=== PATIENT | male | born 1935 | race Caucasian/White ===

== ENCOUNTER 2017-07-20 14:00 | Outpatient (RCR) | payer MEDICARE ==
[~2017-07-20 14:00] MED LIST: AC325T PO; ACC15GT EXT; ALB.5NB20 HHN; AMLO5TAB2 PO; ASP81TEC PO; AVOD0.5CAP PO; AZTH250C PO; BENZ1LOZ50 MM; DILT240C PO; EZET10TA5 PO; EZET1TAB27 PO; EZET1TAB43 PO; FLC100T1 PO; FNST5T PO; IPRA3AMP11 INH; MAG355OR55 PO; NEBI5TAB8 PO; NTR.4SL SL; NYST1000 PO; PRD20T PO; SMV10T PO; TIOT18CA IH; TMSL.4C PO; WARF4TAB9 PO; WARF5TAB58 PO
[2017-07-25 14:00] VITALS: BP 118/60
[2017-07-27 14:00] VITALS: BP 130/62
[2017-07-27 15:00] VITALS: BP 120/50
[2017-08-01 13:50] VITALS: BP 130/70
[2017-08-01 15:00] VITALS: BP 130/60
[2017-08-03 14:00] VITALS: BP 130/68
[2017-08-03 15:00] VITALS: BP 148/50
[2017-08-10 14:00] VITALS: BP 100/56
[2017-08-17 13:55] VITALS: BP 147/67
[2017-08-17 15:00] VITALS: BP 138/64
[2017-08-22 14:00] VITALS: BP_SYST 147; BP_SYST 150; BP_DIAS 60; BP_DIAS 67
[2017-08-22 15:00] VITALS: BP 147/70
[2017-08-24 13:50] VITALS: BP 140/60
[2017-08-24 14:30] VITALS: BP 130/60
[2017-08-29 13:50] VITALS: BP 122/60
[2017-08-29 14:40] VITALS: BP 130/60
[2017-08-31 14:00] VITALS: BP_SYST 123; BP_SYST 140; BP_DIAS 60; BP_DIAS 70
[2017-08-31 15:00] VITALS: BP 123/70
[2017-09-05 14:00] VITALS: BP 132/60
[2017-09-05 15:00] VITALS: BP 130/60
[2017-09-07 14:10] VITALS: BP 120/50
[2017-09-07 14:40] VITALS: BP 120/60
[2017-09-08] MEDS ORDERED: TAMS0.4C2 PO (15:16)
[2017-09-08] MEDS ORDERED: TIOT18CA2 INH (15:16)
[2017-09-08] MEDS ORDERED: ALBU18HF2 INH (15:16)
[2017-09-08] MEDS ORDERED: DILT240C53 PO (15:16)
[2017-09-08] MEDS ORDERED: FLEC50TA PO (15:16)
[2017-09-08] MEDS ORDERED: DUTA0.5C14 PO (16:08)
[2017-09-08] MEDS ORDERED: WARF-47 PO ×2 (16:08)
[2017-09-08] MEDS ORDERED: PITA2TAB2 PO (16:08)
[2017-09-08] MEDS ORDERED: FOLI1TAB6 PO (16:08)
[2017-09-08] MEDS ORDERED: DOCU-143 PO (16:08)
[2017-09-08] MEDS ORDERED: FLUT1AER INH (16:22)
== END 2017-09-17 | disposition home or self-care (01) ==
LOC: PULM 14:00
PROVIDERS: ATTEND Family Medicine
DX: J44.9 Chronic obstructive pulmonary disease, unspecified (principal)
CPT/HCPCS: 99211

== ENCOUNTER 2017-09-08 12:35 | Inpatient (IN) | payer MEDICARE ==
[~2017-09-08] VITALS: Ht 172.7 cm; Wt 85.9 kg
[2017-09-08] MEDS ORDERED: morphine INJ 10 MG/ML 1ML (SYR OR VIAL) ONE (12:39)
[2017-09-08] MEDS ORDERED: morphine INJ 10 MG/ML 1ML (SYR OR VIAL) IVP ONE ×2 (12:45→13:45)
[2017-09-08] MEDS ORDERED: ONDANSETRON 4 MG/2 ML (SDV) Z0FRAN ONE (12:48)
[2017-09-08] MEDS ORDERED: fentaNYL INJECTION 100 MCG/2 ML AMP ONE (12:48)
[2017-09-08] MEDS ORDERED: ONDANSETRON 4 MG/2 ML (SDV) Z0FRAN IVP ONE (13:00)
[2017-09-08] MEDS ORDERED: fentaNYL INJECTION 100 MCG/2 ML AMP IVP ONE (13:00)
[2017-09-08] MEDS ORDERED: ORPHENADRINE 60 MG/2 ML (NORFLEX) AMP IV ONE (13:00)
--- NOTE | 2017-09-08 13:03 | ED Fall/Injury ---
General Stated Complaint: FALL--LT HIP PAIN History of Present Illness Date Seen by Provider: September 08, 2017 Time Seen by Provider: 12:50 Initial Comments Patient is an 81-year-old male who was brought in by [facility] for a fall while going out of the house [place], c/o neck pain, and left hip pain. He does not recall how he fell, but denies any chest pain, shortness of breath, dizziness or syncope prior to the fall. He reports laying outside until he was found by his son, his son reports that he was outside no more than 30 minutes. Occurred: just prior to arrival Severity: moderate Injuries/Pain Location: neck, pelvis (Left hip) Context: unknown Loss of Consciousness: no loss of consciousness Modifying Factors: Improves With Immobilization; Worse With Movement; Improves With Pain Medication Associated Symptoms (Fall): Denies Symptoms Allergies and Home Medications Allergies Uncoded Allergies: Tape (Allergy, Mild, 09/08/17) Can have paper tape Home Medications Acetaminophen 325 Mg Tablet, 650 MG PO Q4H PRN, (Reported) Acyclovir 15 Gm Oint, 0 EXT TID, (Reported) APPLY SPARINGLY TO LIPS Albuterol Sulfate 18 Gm Hfa.aer.ad, 2 PUFF INH Q4H PRN for WHEEZING, (Reported) Albuterol/Ipratropium 3 Ml Nebu, 3 ML INH Q4H PRN, (Reported) Benzocaine/Pectin 1 Each Lozenge, 1 EACH MM q2h PRN, (Reported) Diltiazem HCl 240 Mg Cap.er.24h, 240 MG PO DAILY, (Reported) Ezetimibe 10 Mg Tablet, 10 MG PO DAILY@0900, (Reported) Finasteride 5 Mg Tab, 5 MG PO DAILY, (Reported) Flecainide Acetate 50 Mg Tablet, 50 MG PO BID, (Reported) Mag Hydrox/Al Hydrox/Simeth 355 Ml Oral.susp, 30 ML PO Q4H PRN, (Reported) Nebivolol Hcl 5 Mg Tablet, 1 EACH PO DAILY, (Reported) Nitroglycerin 0.4 Mg Subl, 0.4 MG SL NEEDED, (Reported) Prednisone 20 Mg Tab, 40 MG PO DAILY, (Reported) Simvastatin 10 Mg Tab, 10 MG PO DAILY, (Reported) Tamsulosin HCl 0.4 Mg Cap.er.24h, 0.4 MG PO BID, (Reported) Tiotropium Rock 1 Inh Aerp, 1 CAP INH DAILY, (Reported) Patient Home Medication List Home Medication List Reviewed: Yes Review of Systems Constitutional: see HPI, other (Pain) Eyes: No Symptoms Reported Ears, Nose, Mouth, Throat: no symptoms reported Respiratory: no symptoms reported Cardiovascular: no symptoms reported, other (Reports history of A. fib) Gastrointestinal: no symptoms reported Genitourinary: no symptoms reported Musculoskeletal: neck pain, other (Left hip pain) Skin: no symptoms reported Psychiatric/Neurological: No Symptoms Reported Past Fxaaenk-Rbffzz-Aftrns Hx Past Medical History Reproductive Disorders: No Physical Exam Vital Signs Vital Signs - First Documented 09/08/17 12:35 Temp 97.0 Pulse 68 Resp 18 B/P (MAP) 110/79 (89) Pulse Ox 91 Capillary Refill : General Appearance: WD/WN, mild distress HEENT: normal ENT inspection, TMs normal, pharynx normal Neck: supple, tender midline Cardiovascular: regular rate, rhythm, no edema, no gallop, no JVD, no murmur Respiratory: chest non-tender, lungs clear, normal breath sounds, no respiratory distress, no accessory muscle use Peripheral Pulses: 1+ Dorsalis Pedis (R), 1+ Left Dors-Pedis (L) Gastrointestinal: normal bowel sounds, non tender, soft, no organomegaly, no pulsatile mass Back: normal inspection, no CVA tenderness, no vertebral tenderness Extremities: normal range of motion, non-tender, normal inspection, no pedal edema, no calf tenderness Neurologic/Psychiatric: alert, normal mood/affect, oriented x 3 Skin: normal color, warm/dry Lymphatic: no adenopathy [place] Coma Score Best Eye Response: (4) Open Spontaneously Best Verbal Response: (5) Oriented Best Motor Response: (6) Obeys Commands Raquel Total: 15 Progress/Results/Core Measures Results/Orders Lab Results Laboratory Tests Test 09/08/17 13:00 Range/Units White Blood Count 6.0 4.3-11.0 10^3/uL Red Blood Count 3.73 L 4.35-5.85 10^6/uL Hemoglobin 11.8 L 13.3-17.7 G/DL Hematocrit 35 L 40-54 % Mean Corpuscular Volume 95 80-99 FL Mean Corpuscular Hemoglobin 32 25-34 PG Mean Corpuscular Hemoglobin Concent 33 32-36 G/DL Red Cell Distribution Width 14.1 10.0-14.5 % Platelet Count 255 130-400 10^3/uL Mean Platelet Volume 9.3 7.4-10.4 FL Neutrophils (%) (Auto) 78 H 42-75 % Lymphocytes (%) (Auto) 11 L 12-44 % Monocytes (%) (Auto) 8 0-12 % Eosinophils (%) (Auto) 3 0-10 % Basophils (%) (Auto) 0 0-10 % Neutrophils # (Auto) 4.7 1.8-7.8 X 10^3 Lymphocytes # (Auto) 0.7 L 1.0-4.0 X 10^3 Monocytes # (Auto) 0.5 0.0-1.0 X 10^3 Eosinophils # (Auto) 0.2 0.0-0.3 10^3/uL Basophils # (Auto) 0.0 0.0-0.1 10^3/uL Prothrombin Time 22.5 H 12.2-14.7 SEC INR Comment 2.0 H 0.8-1.4 Urine Color YELLOW Urine Clarity CLEAR Urine pH 6 5-9 Urine Specific [place] 1.015 L 1.016-1.022 Urine Protein NEGATIVE NEGATIVE Urine Glucose (UA) NEGATIVE NEGATIVE Urine Ketones NEGATIVE NEGATIVE Urine Nitrite POSITIVE H NEGATIVE Urine Bilirubin NEGATIVE NEGATIVE Urine Urobilinogen NORMAL NORMAL MG/DL Urine Leukocyte Esterase NEGATIVE NEGATIVE Urine RBC (Auto) 1+ H NEGATIVE Urine RBC RARE /HPF Urine WBC NONE /HPF Urine Squamous Epithelial Cells NONE /HPF Urine Crystals NONE /LPF Urine Bacteria MODERATE H /HPF Urine Casts NONE /LPF Urine Mucus NEGATIVE /LPF Urine Culture Indicated YES Sodium Level 140 135-145 MMOL/L Potassium Level 4.6 3.6-5.0 MMOL/L Chloride Level 110 H 98-107 MMOL/L Carbon Dioxide Level 21 21-32 MMOL/L Anion Gap 9 5-14 MMOL/L Blood Urea Nitrogen 18 7-18 MG/DL Creatinine 1.18 0.60-1.30 MG/DL Estimat Glomerular Filtration Rate 59 BUN/Creatinine Ratio 15 Glucose Level 99 70-105 MG/DL Calcium Level 9.5 8.5-10.1 MG/DL Total Bilirubin 0.5 0.1-1.0 MG/DL Aspartate Amino Transf (AST/SGOT) 18 5-34 U/L Alanine Aminotransferase (ALT/SGPT) 15 0-55 U/L Alkaline Phosphatase 59 40-136 U/L Total Protein 6.2 L 6.4-8.2 GM/DL Albumin 3.8 3.2-4.5 GM/DL My Orders Orders - FREDY BARBA APRN Morphine Injection (Morphine Injection (09/08/17 12:45) Fentanyl Injection (Sublimaze Injection (09/08/17 12:48) Ondansetron Injection (Zofran Injectio (09/08/17 12:48) Ondansetron Injection (Zofran Injectio (09/08/17 13:00) Orphenadrine Injection (Norflex Injectio (09/08/17 13:00) Fentanyl Injection (Sublimaze Injection (09/08/17 13:00) Chest 1 View, Ap/Pa Only (09/08/17 12:51) Pelvis With Left Hip 2-3 Views (09/08/17 12:51) Cbc With Automated Diff (09/08/17 12:51) Comprehensive Metabolic Panel (09/08/17 12:51) Protime With Inr (09/08/17 12:51) Ua Culture If Indicated (09/08/17 12:51) Type And Screen (09/08/17 12:51) Ekg Tracing (09/08/17 12:51) Ct Head/Cervical Spine Wo (09/08/17 12:57) Urine Culture (09/08/17 13:00) Morphine Injection (Morphine Injection (09/08/17 13:45) Medications Given in ED Current Medications Medications Dose Ordered Sig/Narayan Route Start Time Stop Time Status Last Admin Dose Admin Fentanyl Citrate 50 mcg ONCE ONCE IVP 09/08/17 13:00 09/08/17 13:01 DC 09/08/17 13:15 50 MCG Morphine Sulfate 4 mg ONCE ONCE IVP 09/08/17 12:45 09/08/17 12:46 DC 09/08/17 12:46 4 MG Morphine Sulfate 4 mg ONCE ONCE IVP 09/08/17 13:45 09/08/17 13:46 DC 09/08/17 13:54 4 MG Ondansetron HCl 8 mg ONCE ONCE IVP 09/08/17 13:00 09/08/17 13:01 DC 09/08/17 13:00 8 MG Orphenadrine Citrate 30 mg ONCE ONCE IV 09/08/17 13:00 09/08/17 13:01 DC 09/08/17 14:50 30 MG Phytonadione 2.5 mg ONCE ONCE PO 09/08/17 14:15 09/08/17 14:28 DC 09/08/17 15:35 2.5 MG Vital Signs/I&O 09/08/17 12:35 Temp 97.0 Pulse 68 Resp 18 B/P (MAP) 110/79 (89) Pulse Ox 91 Initial ECG Impression Date: September 08, 2017 Initial ECG Impression Time: 13:08 Initial ECG Rate: 64 Initial ECG Rhythm: Normal Sinus Initial ECG Intervals: Normal Initial ECG Impression: Normal Departure Communication (Admissions) Time/Spoke to Admitting Phy: 14:12 1412-Dr. Oneill has been down to see the patient in the emergency room. Ordered vitamin K orally, plan for surgical repair by Dr. Culver tomorrow. Dr. Culver is in the room at this time visiting with the patient and family. 1537- patient did become bradycardic and hypoxic down to 85% while in the emergency room after administration of Phenergan plus the opiates that he had received prior to this. He was given 0.2 mg of IV Narcan which did improve his level of alertness unfortunately it also worsens his pain. Impression Primary Impression: Closed intertrochanteric fracture of left hip Disposition: 01 HOME, SELF-CARE Condition: Stable Admissions Decision to Admit Reason: Admit from ER (General) Decision to Admit/Date: September 08, 2017 Time/Decision to Admit Time: 14:12 Departure-Patient Inst. Referrals: ALEJANDRO GRAF MD (PCP/Family) Primary Care Physician FREDY BARBA APRN September 08, 2017 13:03
[2017-09-08 13:11] LABS: BASOPHILS % (AUTO) 0 % (0-10); EOSINOPHILS # (AUTO) 0.2 10^3/uL (0.0-0.3); EOSINOPHILS % (AUTO) 3 % (0-10); HEMATOCRIT 35 % (40-54); HEMOGLOBIN 11.8 G/DL (13.3-17.7); LYMPHOCYTES # (AUTO) 0.7 X 10^3 (1.0-4.0); LYMPHOCYTES % (AUTO) 11 % (12-44); MEAN CORPUSCULAR HEMOGLOBIN 32 PG (25-34); MEAN CORPUSCULAR HGB CONC 33 G/DL (32-36); MEAN CORPUSCULAR VOLUME 95 FL (80-99); MEAN PLATELET VOLUME 9.3 FL (7.4-10.4); MONOCYTES # (AUTO) 0.5 X 10^3 (0.0-1.0); MONOCYTES % (AUTO) 8 % (0-12); NEUTROPHILS # (AUTO) 4.7 X 10^3 (1.8-7.8); NEUTROPHILS % (AUTO) 78 % (42-75); PLATELET COUNT 255 10^3/uL (130-400); RED BLOOD COUNT 3.73 10^6/uL (4.35-5.85); RED CELL DISTRIBUTION WIDTH 14.1 % (10.0-14.5)
[2017-09-08 13:12] LABS: BILIRUBIN,URINE NEGATIVE (NEGATIVE); CLARITY,URINE CLEAR; COLOR,URINE YELLOW; GLUCOSE, URINE (UA) NEGATIVE (NEGATIVE); KETONES,URINE NEGATIVE (NEGATIVE); LEUKOCYTE ESTERASE ,URINE NEGATIVE (NEGATIVE); NITRITE,URINE POSITIVE (NEGATIVE); PH,URINE 6 (5-9); PROTEIN,URINE NEGATIVE (NEGATIVE); UROBILINOGEN,URINE NORMAL (NORMAL)
[2017-09-08 13:19] LABS: BACTERIA,URINE MODERATE /HPF; RBC,URINE RARE /HPF
[2017-09-08 13:22] LABS: PROTHROMBIN TIME PATIENT 22.5 SEC (12.2-14.7)
[2017-09-08 13:30] LABS: ALBUMIN 3.8 GM/DL (3.2-4.5); BILIRUBIN,TOTAL 0.5 MG/DL (0.1-1.0); CALCIUM 9.5 MG/DL (8.5-10.1); CREATININE SERUM 1.18 MG/DL (0.60-1.30); POTASSIUM 4.6 MMOL/L (3.6-5.0); TOTAL PROTEIN 6.2 GM/DL (6.4-8.2)
--- NOTE | 2017-09-08 13:58 | Diagnostic Imaging Report ---
INDICATION: Fall and left hip fracture. TIME OF EXAM: 1:53 p.m. COMPARISON: Comparison is made with prior chest from 05/07/2010. FINDINGS: The heart size is normal. Chronic pleural thickening in the left base is noted. No infiltrates are seen. There is no pneumothorax. The pulmonary vascularity is normal. IMPRESSION: Stable chest when compared with exam from 05/07/2010. Dictated by: Dictated on workstation # [id number]
--- NOTE | 2017-09-08 14:04 | Diagnostic Imaging Report ---
Clinical indication: Patient fell at home and complains of left hip pain. Exam: X-ray pelvis AP view and x-ray left hip, AP and crosstable lateral views. Comparison: None. Findings: There is a comminuted fracture of the mid proximal left femoral intertrochanteric region. There is mild varus angulation of the fracture region. There is roughly 7 mm of medial distraction of the lesser trochanteric fracture fragment. There is also mild foreshortening of the major intertrochanteric fracture region. There is no other fracture or dislocation seen on this exam. There is degenerative spurring of the acetabular rims and enthesopathy of the ischium. There is lower lumbar spine degenerative disease. Endovascular stent overlying the right sacral region. Vascular calcifications are seen. Impression: 1: There is a comminuted, mildly impacted, and displaced proximal left femoral intertrochanteric fracture with mild varus angulation. 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 Dictated by: Dictated on workstation # [id number]
--- NOTE | 2017-09-08 14:06 | Diagnostic Imaging Report ---
CLINICAL INDICATION: Patient fell and has complaints with no loss of consciousness or headache. Patient has neck pain. EXAM: Head CT without IV contrast. Axial CT scan of the cervical spine with sagittal and coronal reformations. COMPARISON: None. FINDINGS: Head CT: There is no evidence of acute cerebral infarct, intracranial hemorrhage, or gross mass effect. The brain parenchymal volume appears appropriate for patient's age. There are patchy and confluent areas of low-attenuation white matter changes seen throughout both cerebral hemispheres, likely representing chronic small vessel ischemic disease and leukoaraiosis. There is normal russell-white matter distinction. There is no significant midline shift or herniation. There is no evidence of hydrocephalus. The basal cisterns are unremarkable. There are postop changes with reconstructive surgery with plates and screws across the floor of the left orbit. There is no evidence of acute fracture of the skull or visualized maxillofacial structures. There is consolidation of the right maxillary sinus and mucosal thickening involving the ethmoid sinus. Temporal bones show no significant abnormality. Cervical spine: There is no acute cervical spine fracture. There is grade 1 anterolisthesis of C4 on C5 but no pars defect seen and is likely degenerative. There are spurs involving the cervical spine and facet arthropathy. There is at least mild central canal narrowing at the C5-C6 level due to suspected diffuse disc bulge with posterior disc spurs. There is no significant neck soft tissue abnormality. The visualized upper lung soliz show no major abnormality. There is heterogeneous nodular appearance of the left thyroid gland. Thyroid nodule may be present. IMPRESSION: 1: There is no evidence of acute intracranial hemorrhage. There is no acute skull fracture. 2: There is no acute cervical spine fracture. 3: There is multilevel cervical spine degenerative disease including grade 1 anterolisthesis of C4 on C5. 4: There is diffuse chronic small vessel ischemic disease and leukoaraiosis. 5: Heterogeneous nodular appearance of the left thyroid gland. Routine ultrasound of the thyroid gland would help better evaluate. Dictated by: Dictated on workstation # [id number]
[2017-09-08] MEDS ORDERED: VITAMIN K 1 MG/ML ORAL SOLN 1 ML SYRINGE PO ONE (14:15)
[2017-09-08] MEDS ORDERED: MILK OF MAGNESIA 400 MG/5 ML 30 ML UDC PO PRN (14:45)
[2017-09-08] MEDS ORDERED: PROMETHAZINE INJ 25 MG/ML (PHENERGAN) AMP IVP ONE (14:45)
[2017-09-08] MEDS ORDERED: ANTACID SUSP 30 ML UDC (MYLANTA) PO PRN (14:45)
[2017-09-08] MEDS ORDERED: ONDANSETRON 4 MG/2 ML (SDV) Z0FRAN IV PRN ×2 (14:45→16:00)
[2017-09-08] MEDS ORDERED: MELATONIN 3 MG TABLET PO PRN (14:45)
--- NOTE | 2017-09-08 14:52 | History & Physical-Hospitalist ---
History of Present Illness HPI/Chief Complaint Pt is an 81yoCM with a PMH of a-fib, COPD, and HTN who presented to the ER after a fall. He stays he was feeling well and had no complaints prior to his arrival. He was just walking in his house from helping his son spray their field and tripped and fell. He denies any lightheadedness or syncope. He denies any previous falls. He is normally active and able to ambulate independently. He has not taken his Warfarin yet today. Source: patient Exam Limitations: no limitations Date Seen 09/08/17 Time Seen by Provider: 14:47 Attending Physician Lenore Oneill MD PCP Tiffanie Hardwick MD Referring Physician Date of Admission September 08, 2017 at 14:25 Home Medications & Allergies Home Medications Reviewed patient Home Medication Reconciliation performed by pharmacy medication reconciliations diesel technician mechanic and/or nursing. Patients Allergies have been reviewed. Allergies Allergies Uncoded Allergies Tape ( Allergy, Mild, 09/08/17) Can have paper tape Past Ruefafh-Uglsry-Zfcpsq Hx Past Med/Social Hx: Reviewed Nursing Past Med/Soc Hx Patient Social History Marrital Status: Employed/Student: retired Alcohol Use: Denies Use Recreational Drug Use: No Smoking Status: Former Smoker Type Used: Cigarettes Recent Foreign Travel: No Contact w/other who traveled: No Recent Hopitalizations: Yes (September 2007) Recent Infectious Disease Expo: No Past Medical History Respiratory: COPD Cardiac: Atrial Fibrillation, Deep Vein Thrombosis, Hypertension Reproductive: No History of Blood Disorders: Yes Family History Reviewed Nursing Family Hx No Pertinent Family Hx Review of Systems Constitutional: No chills, No fever EENTM: No blurred vision, No double vision, No nose congestion, No throat pain Respiratory: No cough, No dyspnea on exertion, No short of breath Cardiovascular: No chest pain, No edema, No palpitations Gastrointestinal: No abdominal pain, No constipation, No diarrhea, No nausea, No vomiting Genitourinary: No dysuria, No frequency Musculoskeletal: see HPI, joint pain; No muscle pain Skin: No lesions, No rash Psychiatric/Neurological: Denies Headache, Denies Numbness, Denies Tingling Physical Exam Physical Exam Vital Signs Vital Signs - First Documented 09/08/17 09/08/17 09/09/17 12:35 15:45 07:30 Temp 97.0 Pulse 68 Resp 18 B/P (MAP) 110/79 (89) Pulse Ox 91 O2 Delivery Nasal Cannula O2 Flow Rate 2.00 FiO2 96 Capillary Refill : Less Than 3 Seconds General Appearance: No Apparent Distress, WD/WN HEENT: PERRL/EOMI, Moist Mucous Membranes Neck: Non Tender, Supple Respiratory: Lungs Clear, No Respiratory Distress Cardiovascular: Regular Rate, Rhythm, No Murmur Gastrointestinal: Normal Bowel Sounds, Non Tender, Soft Extremity: Normal Capillary Refill, No Calf Tenderness, No Pedal Edema Neurologic/Psychiatric: Alert, Oriented x3, No Motor/Sensory Deficits, Normal Mood/Affect Skin: Normal Color, Warm/Dry Results Results/Procedures Labs Laboratory Tests 09/10/17 04:28 09/11/17 03:41 Patient resulted labs reviewed. Imaging: Reviewed Imaging Films, Reviewed Imaging Report Assessment/Plan Admission Diagnosis left hip fracture Admission Status: Inpatient Order (span 2 midnights) Reason for Inpatient Admission: Need operative repair Diagnosis/Problems Diagnosis/Problems (1) Closed intertrochanteric fracture of left hip Status: Acute Assessment & Plan: Ortho consulted, plan for OR tomorrow Vitamin K ordered Will get INR in AM PT/OT after surgery Qualifiers: Encounter type: initial encounter Fracture alignment: nondisplaced Qualified Codes: S72.145A - Nondisplaced intertrochanteric fracture of left femur, initial encounter for closed fracture (2) Atrial fibrillation Status: Chronic Assessment & Plan: IN sinus currently On Warfarin at home- will hold Will consult Cardiology Qualifiers: Atrial fibrillation type: paroxysmal Qualified Codes: I48.0 - Paroxysmal atrial fibrillation (3) COPD (chronic obstructive pulmonary disease) Status: Chronic Assessment & Plan: Consult Pulm MAT Protocol Qualifiers: COPD type: unspecified COPD Qualified Codes: J44.9 - Chronic obstructive pulmonary disease, unspecified (4) Essential (primary) hypertension Assessment & Plan: Well controlled currently Trend (5) Prophylactic measure Assessment & Plan: SCDs Reg Diet then NPO T&S in AM LENORE ONEILL MD September 08, 2017 14:52
[2017-09-08] MEDS ORDERED: NALOXONE 0.4 MG/ML 1 ML (NARCAN) VIAL ONE (14:54)
[2017-09-08] MEDS ORDERED: TIOT18CA2 INH (15:16)
[2017-09-08] MEDS ORDERED: DILT240C53 PO (15:16)
[2017-09-08] MEDS ORDERED: ALBU18HF2 INH (15:16)
[2017-09-08] MEDS ORDERED: FLEC50TA PO (15:16)
[2017-09-08] MEDS ORDERED: TAMS0.4C2 PO (15:16)
[2017-09-08] MEDS ORDERED: ACETAMINOPHEN 325 MG TABLET/CAPLET (TYLENOL) PO PRN (15:30)
[2017-09-08] MEDS ORDERED: CATHETER FLUSH 10 ML SYR IV PRN (15:30)
[2017-09-08 15:45] VITALS: BP 136/73
[2017-09-08] MEDS ORDERED: METOCLOPRAMIDE INJ 10 MG/2 ML (REGLAN) IV PRN (16:00)
[2017-09-08] MEDS ORDERED: NALOXONE 0.4 MG/ML 1 ML (NARCAN) VIAL IV PRN (16:00)
[2017-09-08] MEDS ORDERED: fentaNYL INJECTION 1,000 MCG in NS (IVPB) 80 ML IV SCH (16:00)
[2017-09-08] MEDS ORDERED: diphenhydrAMINE 50 MG/ML INJ (BENADRYL) IV PRN (16:00)
[2017-09-08] MEDS ORDERED: DOCU-143 PO (16:08)
[2017-09-08] MEDS ORDERED: FOLI1TAB6 PO (16:08)
[2017-09-08] MEDS ORDERED: DUTA0.5C14 PO (16:08)
[2017-09-08] MEDS ORDERED: PITA2TAB2 PO (16:08)
[2017-09-08] MEDS ORDERED: WARF-47 PO ×2 (16:08)
[2017-09-08] MEDS ORDERED: FLUT1AER INH (16:22)
[2017-09-08] MEDS: NS IV 1000 ML 1,000 ML IV SCH (16:29)
[2017-09-08] MEDS: RT-ALBUTEROL/IPRATROPIUM 3 ML (DUONEB) VIAL INH SCH (19:46)
--- NOTE | 2017-09-08 20:09 | CONSULTATION REPORT ---
DATE OF SERVICE: 09/08/2017 REASON FOR CONSULTATION: Left intertrochanteric femur fracture. HISTORY OF PRESENT ILLNESS: The patient is an 81-year-old gentleman who was found down at his home, was complaining of left hip pain. He presented to the Emergency Department left intertrochanteric femur fracture. The patient reports left hip pain. Denies antecedent pain. REVIEW OF SYSTEMS: No recent chest pain, shortness of breath or dysuria. MEDICATIONS: Acyclovir, acetaminophen, albuterol, diltiazem, ezetimibe, finasteride, nebivolol, nitroglycerin, prednisone, simvastatin, tamsulosin, tiotropium. PHYSICAL EXAMINATION: GENERAL: The patient is in no acute distress. MUSCULOSKELETAL: Complains of left hip pain. The left hip demonstrates shortening with external rotation. No skin lesions are noted. He has intact dorsiflexion and plantarflexion of toes with symmetric pulses. Sensation is intact throughout. Radiographs reveal displaced left intertrochanteric femur fracture. PLAN: Left hip intramedullary nail. The risks, benefits, options, ramifications, and recovery were discussed at length with the patient and his family. They understand and wish to proceed. Job ID: [id number] DocumentID: [id number] Dictated Date: 09/08/2017 14:41:42 Patients Transporter Date: 09/08/2017 20:08:59 Dictated By: DOMINIK ALBA MD
[2017-09-08 20:25] VITALS: BP 141/73
[2017-09-08] MEDS: CATHETER FLUSH 10 ML SYR IV SCH (21:12)
[2017-09-08] MEDS: DOCUSATE SODIUM 100 MG (COLACE) CAP PO SCH (21:18)
[2017-09-08] MEDS: ATORVASTATIN 10 MG (LIPITOR) TABLET PO SCH (21:18)
[2017-09-08] MEDS: TAMSULOSIN 0.4 MG (FLOMAX) CAP PO SCH ×2 (21:19→21:29)
[2017-09-08] MEDS: FLECAINIDE 100 MG (TAMBOCOR) TAB PO SCH ×2 (21:19→21:43)
[2017-09-08] MEDS: RT-ADVAIR HFA 115/21 MCG PER PUFF IH SCH (21:29)
[2017-09-09] VITALS (7 sets, daily range): BP systolic 118–162; BP diastolic 56–73
[2017-09-09] MEDS: RT-ALBUTEROL/IPRATROPIUM 3 ML (DUONEB) VIAL INH SCH ×4 (01:41→20:51)
[2017-09-09 05:18] LABS: BASOPHILS % (AUTO) 0 % (0-10); EOSINOPHILS # (AUTO) 0.1 10^3/uL (0.0-0.3); EOSINOPHILS % (AUTO) 1 % (0-10); HEMATOCRIT 35 % (40-54); HEMOGLOBIN 11.2 G/DL (13.3-17.7); LYMPHOCYTES # (AUTO) 0.7 X 10^3 (1.0-4.0); LYMPHOCYTES % (AUTO) 9 % (12-44); MEAN CORPUSCULAR HEMOGLOBIN 32 PG (25-34); MEAN CORPUSCULAR HGB CONC 33 G/DL (32-36); MEAN CORPUSCULAR VOLUME 97 FL (80-99); MEAN PLATELET VOLUME 9.9 FL (7.4-10.4); MONOCYTES # (AUTO) 0.8 X 10^3 (0.0-1.0); MONOCYTES % (AUTO) 9 % (0-12); NEUTROPHILS % (AUTO) 81 % (42-75); PLATELET COUNT 242 10^3/uL (130-400); RED BLOOD COUNT 3.56 10^6/uL (4.35-5.85); RED CELL DISTRIBUTION WIDTH 14.1 % (10.0-14.5); WHITE BLOOD COUNT 8.6 10^3/uL (4.3-11.0)
[2017-09-09 05:26] LABS: INR 1.9 (0.8-1.4); PROTHROMBIN TIME PATIENT 21.9 SEC (12.2-14.7)
[2017-09-09 05:35] LABS: ALBUMIN 3.7 GM/DL (3.2-4.5); BILIRUBIN,TOTAL 0.7 MG/DL (0.1-1.0); CALCIUM 8.5 MG/DL (8.5-10.1); CREATININE SERUM 1.37 MG/DL (0.60-1.30); POTASSIUM 4.7 MMOL/L (3.6-5.0); TOTAL PROTEIN 6.3 GM/DL (6.4-8.2)
[2017-09-09] MEDS: CATHETER FLUSH 10 ML SYR IV SCH ×3 (05:42→22:35)
[2017-09-09] MEDS ORDERED: NS (IVPB) 50 ML ONE (06:48)
[2017-09-09] MEDS ORDERED: BUPIVACAINE 0.25% 30 ML (SENSORCAINE) VIAL ONE (06:51)
[2017-09-09] MEDS ORDERED: ceFAZolin INJECTION 1,000 MG in NS (IVPB) 50 ML IV NR (07:00)
[2017-09-09] MEDS ORDERED: ONDANSETRON 4 MG/2 ML (SDV) Z0FRAN ONE (07:24)
[2017-09-09] MEDS ORDERED: LIDOCAINE PF 2% 5 ML (XYLOCAINE) VIAL ONE (07:24)
[2017-09-09] MEDS ORDERED: SEVOFLURANE (ULTANE) 15 ML INHAL SOLN ONE ×5 (07:24→08:44)
[2017-09-09] MEDS ORDERED: DEXAMETHASONE 10 MG/ML (DECADRON) 1 ML VIAL ONE (07:24)
[2017-09-09] MEDS ORDERED: fentaNYL INJECTION 100 MCG/2 ML AMP ONE (07:24)
[2017-09-09] MEDS ORDERED: proPOfol 200 MG/20 ML (DIPRIVAN) VIAL IV ONE (07:24)
[2017-09-09] MEDS ORDERED: ACETAMINOPHEN 325 MG TABLET/CAPLET (TYLENOL) PO PRN (07:30)
[2017-09-09] MEDS ORDERED: morphine INJ 4 MG/ML 1 ML (VIAL/SYRINGE) IVP PRN (07:30)
[2017-09-09] MEDS ORDERED: ONDANSETRON 4 MG/2 ML (SDV) Z0FRAN IVP PRN ×2 (07:30→09:30)
--- NOTE | 2017-09-09 07:33 | Progress Note-Pre Operative ---
Pre-Operative Progress Note H&P Reviewed The H&P was reviewed, patient examined and no changes noted. Date Seen by Provider: September 09, 2017 Time Seen by Provider: 07:33 Date H&P Reviewed: September 09, 2017 Time H&P Reviewed: 07:33 Pre-Operative Diagnosis: left intertrochanteric femur fracture DOMINIK ALBA MD September 09, 2017 07:33
--- NOTE | 2017-09-09 07:34 | Progress Note-Post Operative ---
Post-Operative Progess Note Surgeon (s)/Electronic Communications Technician (s) Surgeon DOMINIK ALBA MD Electronic Communications Technician: Bhanu Stafford Pre-Operative Diagnosis left intertrochanteric femur fracture Post-Operative Diagnosis left intertrochanteric femur fracture Procedure & Operative Findings Date of Procedure 09/09/17 Procedure Performed/Findings intramedullary nail left femur Anesthesia Type GETA Estimated Blood Loss Estimated blood loss (mL): 150 ml Specimens/Packing Specimens Removed none Packing: none DOMINIK ALBA MD September 09, 2017 07:34
[2017-09-09] MEDS ORDERED: MEPERIDINE (DEMEROL) INJ 50 MG/ML ONE (08:43)
[2017-09-09] MEDS ORDERED: morphine INJ 10 MG/ML 1ML (SYR OR VIAL) ONE (08:43)
[2017-09-09] MEDS: morphine INJ 10 MG/ML 1ML (SYR OR VIAL) IVP PRN ×3 (09:15→09:40)
--- NOTE | 2017-09-09 09:26 | Diagnostic Imaging Report ---
Clinical indication: Patient had pinning of the left hip for fracture by Dr. Culver. Exam: Total of 5 limited intraoperative spot x-ray images of the left hip. Comparison: X-ray of the left hip and pelvis dated 09/08/2017. Findings and impression: There is interval open reduction internal fixation of the comminuted left proximal femoral intertrochanteric fracture which is in near-anatomic alignment with short intramedullary nail in place. Please see surgeon's report for more detail. Fluoroscopy was provided for surgeons and a total of 89.4 seconds and 10.03 mGy was provided. Dictated by: Dictated on workstation # [id number]
[2017-09-09] MEDS: RT-ADVAIR HFA 115/21 MCG PER PUFF IH SCH ×2 (09:29→20:51)
[2017-09-09] MEDS: UMECLIDINIUM BROMIDE (INCRUSE ELLIPTA) 7'S IH SCH (09:29)
--- NOTE | 2017-09-09 09:39 | Progress Note-Hospitalist ---
Subjective HPI/CC On Admission Date Seen by Provider: September 09, 2017 Time Seen by Provider: 09:34 Pt is an 81yoCM with a PMH of a-fib, COPD, and HTN who presented to the ER after a fall. He stays he was feeling well and had no complaints prior to his arrival. He was just walking in his house from helping his son spray their field and tripped and fell. He denies any lightheadedness or syncope. He denies any previous falls. He is normally active and able to ambulate independently. He has not taken his Warfarin yet today. Subjective/Events-last exam Pt just out of OR and in recovery in the ICU. No complaints. Denies pain. Objective Exam Vital Signs Vital Signs Date Time Temp Pulse Resp B/P (MAP) Pulse Ox O2 Delivery O2 Flow Rate FiO2 09/09/17 08:00 97.8 93 18 144/65 (91) 96 OxyMask 2.00 09/09/17 07:30 96 Capillary Refill : Less Than 3 SecondsLess Than 3 Seconds General Appearance: No Apparent Distress, WD/WN Respiratory: Lungs Clear, No Respiratory Distress Cardiovascular: Regular Rate, Rhythm, No Murmur Gastrointestinal: Normal Bowel Sounds, Soft Extremity: No Calf Tenderness, No Pedal Edema Neurologic/Psychiatric: Alert, Oriented x3 Results/Procedures Lab Laboratory Tests 09/08/17 13:00 09/09/17 04:53 Patient resulted labs reviewed. Assessment/Plan Assessment and Plan Assess & Plan/Chief Complaint left hip fracture Diagnosis/Problems Diagnosis/Problems (1) Closed intertrochanteric fracture of left hip Status: Acute Assessment & Plan: Ortho consulted, appreciate assistance PT/OT after surgery Weight bearing status per Dr Culver POD #0 May need SNF or IRU at discharge pending PT/OT eval Qualifiers: Encounter type: initial encounter (2) Atrial fibrillation Status: Chronic Assessment & Plan: Paroxysmal On Warfarin at home- will hold Will consult Cardiology, appreciate recs Qualifiers: Atrial fibrillation type: paroxysmal Qualified Codes: I48.0 - Paroxysmal atrial fibrillation (3) COPD (chronic obstructive pulmonary disease) Status: Chronic Assessment & Plan: Consult Pulm MAT Protocol Qualifiers: COPD type: unspecified COPD Qualified Codes: J44.9 - Chronic obstructive pulmonary disease, unspecified (4) Essential (primary) hypertension Assessment & Plan: Well controlled currently Trend (5) Prophylactic measure Assessment & Plan: SCDs- resume Warfarin when OK with surgery Reg Diet Clinical Quality Measures DVT/VTE Risk/Contraindication: Risk Factor Score Per Nursin RFS Level Per Nursing on Admit: 4+=Very High LENORE CRAWFORD MD September 09, 2017 9:39 am
--- NOTE | 2017-09-09 09:45 | Cardiology Progress Note ---
Subjective Date Seen by Provider: September 09, 2017 Time Seen by Provider: 09:43 Subjective/Events-last exam Patient was seen while in ICU recovering from surgery, doing better. Awake. Denied any active pain at this time Review of Systems General: No Chills, No Night Sweats, No Fatigue, No Malaise, No Appetite, No Other HEENT: No Head Aches, No Visual Changes, No Eye Pain, No Ear Pain, No Dysphasia , No Sinus Congestion, No Post Nasal Drip, No Sore Throat, No Other Pulmonary: No Dyspnea, No Cough, No Pleuritic Chest Pain, No Other Cardiovascular: No: Chest Pain, Palpitations, Orthopnea, Paroxysmal Noc. Dyspnea, Edema, Lt Headedness, Other Objective-Cardiology Exam Last Set of Vital Signs Vital Signs 09/09/17 09/09/17 07:30 08:00 Temp 97.8 Pulse 93 Resp 18 B/P (MAP) 144/65 (91) Pulse Ox 96 O2 Delivery OxyMask O2 Flow Rate 2.00 FiO2 96 Capillary Refill : Less Than 3 SecondsLess Than 3 Seconds I&O Intake and Output 09/09/17 00:00 Intake Total 100 ml Output Total 350 ml Balance -250 ml Intake Oral 100 ml Output Urine Total 350 ml Daily Weight Change Unsure General: Alert, Oriented X3, Cooperative HEENT: Atraumatic, PERRLA Neck: Supple, No JVD, No Thyromegaly Lungs: Clear to Auscultation, Normal Air Movement Heart: Regular Rate, Normal S1, Normal S2, No Murmurs Abdomen: Normal Bowel Sounds, Soft, No Tenderness, No Hepatosplenomegaly, No Masses Extremities: No Clubbing, No Cyanosis, No Edema, Normal Pulses, No Tenderness/ Swelling Skin: No Rashes, No Breakdown, No Significant Lesion Neuro: Normal Speech, Normal Tone, Sensation Intact Psych/Mental Status: Mental Status NL, Mood NL Results Lab Laboratory Tests 09/08/17 13:00 09/09/17 04:53 A/P-Cardiology Admission Diagnosis Hip fracture Paroxysmal atrial fibrillation Hypertension DVT COPD Assessment/Plan Hip fracture status post surgical repair, recovering slowly. 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 Managed by medical team BPH, managed by primary care physician Clinical Quality Measures DVT/VTE Risk/Contraindication: Risk Factor Score Per Nursin RFS Level Per Nursing on Admit: 4+=Very High HUONG SIFUENTES MD September 09, 2017 09:45
--- NOTE | 2017-09-09 09:49 | Consultation-Cardiology ---
HPI-Cardiology Cardiology Consultation Date of Consultation 09/08/17 Date of Admission Time Seen by Provider: 16:00 Indication: Atrial fibrillation, preoperative evaluation HPI This is a late entry for the cardiac consultation that was made on September 08, 2017. Patient was seen and evaluated for the surgery, I interviewed the patient and his family, the consult was entered and typed under the wrong patient. CONSULTATION REPORT HPI-Cardiology Cardiology Consultation Date of Consultation 09/08/17 Date of Admission Time Seen by Provider: 16:24 Indication: Atrial fibrillation HPI 74 years old gentleman with history of paroxysmal atrial fibrillation, hypertension, COPD/obstructive sleep apnea using C Pap at night and oxygen, sustained a fall and hip fracture. Upon my evaluation patient was sleeping, he received pain medication, history was obtained by interviewing his family reported that he had a stress test done within the last year and it was normal. Has been followed by a metal dresser in [facility]. No chest pain was reported no syncope or near syncopal episodes. No claudications. Home Medications & Allergies Allergies: Coded Allergies: No Known Drug Allergies (Unverified , 09/06/17) Home Medication List Reviewed: Yes KTG-Onlweg-Suvxnu Hx Patient Social History Marital Status: Employed/Student: unemployed Alcohol Use: Denies Use Recreational Drug Use: No Smoking Status: Former Smoker Type Used: Cigarettes Recent Foreign Travel: No Recent Infectious Disease Expo: No Physical Abuse Screen: No Sexual Abuse: No Past Medical History Discussed below Family Medical History Family Medical Hx Noncontributory to his current condition Constitutional: other (Unable to provide review of systems due to sedation, he is having significant pain in his left hip) Reviewed Test Results Reviewed Test Results Lab Laboratory Tests Test 09/07/17 16:41 09/07/17 20:20 09/08/17 07:22 09/08/17 11:40 Range/Units Glucometer 244 H 275 H 275 H 70-110 MG/DL Vancomycin Level Trough 23.5 H 10.0-20.0 UG/ML Test 09/08/17 14:31 Range/Units Glucometer 314 H 70-110 MG/DL ECG Impression ECG Initial ECG Rhythm: Normal Sinus Initial ECG Intervals: Normal Initial ECG Impression: Normal Physical Exam Vital Signs Vital Signs - First Documented 09/06/17 14:39 Temp 97.5 Pulse 60 Resp 20 B/P (MAP) 149/65 (93) Pulse Ox 97 O2 Delivery Room Air Capillary Refill : General Appearance: No Apparent Distress, WD/WN Eyes: Bilateral Eye Normal Inspection, Bilateral Eye PERRL, Bilateral Eye EOMI HEENT: TMs Normal, Normal ENT Inspection, Pharynx Normal Neck: Normal Inspection, Non Tender, Supple Respiratory: Chest Non Tender, Lungs Clear, Normal Breath Sounds Cardiovascular: Regular Rate, Rhythm, No Edema, No Gallop, No JVD, No Murmur Gastrointestinal: Normal Bowel Sounds, No Organomegaly, No Pulsatile Mass, Soft Extremity: Normal Capillary Refill, Normal Inspection, Other (Fracture) Neurologic/Psychiatric: Other (Sedated, snoring) Skin: Normal Color, Warm/Dry Lymphatic: No Adenopathy A/P-Cardiology Admission Diagnosis Hip fracture Paroxysmal atrial fibrillation DVT Hypertension Assessment/Plan Hip fracture scheduled for surgery for tomorrow. 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 Managed by medical team BPH, managed by primary care physician Preoperative cardiac evaluation, patient is considered at intermediate risk for perioperative cardiac vascular complications, decision regarding surgery, risks versus benefit is deferred to the surgeon. Clinical Quality Measures DVT/VTE Risk/Contraindication: Risk Factor Score Per Nursin RFS Level Per Nursing on Admit: 4+=Very High Contraindications-Pharm: Other *list below* Contraindications-Mechi: Other *list below* Home Medications & Allergies Allergies: Uncoded Allergies: Tape (Allergy, Mild, 09/08/17) Can have paper tape [id number]-[id number] Hx Patient Social History Alcohol Use: Denies Use Recreational Drug Use: No Smoking Status: Former Smoker Type Used: Cigarettes Recent Foreign Travel: No Recent Infectious Disease Expo: No Recent Hopitalizations: Yes Physical Abuse Screen: No Sexual Abuse: No Constitutional: other Physical Exam Vital Signs Vital Signs - First Documented 09/08/17 09/08/17 09/09/17 12:35 15:45 07:30 Temp 97.0 Pulse 68 Resp 18 B/P (MAP) 110/79 (89) Pulse Ox 91 O2 Delivery Nasal Cannula O2 Flow Rate 2.00 FiO2 96 Capillary Refill : Less Than 3 SecondsLess Than 3 Seconds General Appearance: Other A/P-Cardiology Admission Diagnosis Hip fracture Paroxysmal atrial fibrillation Hypertension DVT COPD Assessment/Plan Hip fracture status post surgical repair, recovering slowly. 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 Managed by medical team BPH, managed by primary care physician Clinical Quality Measures DVT/VTE Risk/Contraindication: Risk Factor Score Per Nursin RFS Level Per Nursing on Admit: 4+=Very High HUONG SIFUENTES MD September 09, 2017 09:49
[2017-09-09] MEDS: TAMSULOSIN 0.4 MG (FLOMAX) CAP PO SCH ×2 (11:34→20:31)
[2017-09-09] MEDS: DILTIAZEM 240 MG (CARDIZEM CD) CAP PO SCH (11:34)
[2017-09-09] MEDS: FINASTERIDE (PROSCAR) 5 MG TAB PO SCH (11:34)
[2017-09-09] MEDS: FLECAINIDE 100 MG (TAMBOCOR) TAB PO SCH ×2 (11:34→20:31)
[2017-09-09] MEDS: SENNA W/DOCUSATE (SENOKOT S) TABLET PO SCH (11:34)
--- NOTE | 2017-09-09 11:46 | Physical Therapy Evaluation ---
PT Evaluation-General Medical Diagnosis Admission Date September 08, 2017 at 14:25 Medical Diagnosis: left hip fx Onset Date: September 08, 2017 Therapy Diagnosis Therapy Diagnosis: weakness; abn gait Height/Weight Height (Feet): 5 Height (Inches): 8.00 Weight (Pounds): 189 Weight (Ounces): 6.0 Precautions Precautions/Isolations: Fall Prevention, Standard Precautions Weight Bear Status Right Lower Extremity: Right Full Weight Bearing Left Lower Extremity: Left Touch Toe Bearing Referral Physician: Palomo Reason for Referral: Evaluation/Treatment Medical History Pertinent Medical History: Atrial Fib, COPD, HTN Current History Pt fell at home sustaining a left hip fracture; subsequent IM nail. TTWB left LE. Reviewed History: Yes Social History Home: Single Level Current Living Status: Spouse Entry Into Home: Stairs With Railing Prior/Core FIM Prior Level of Function Functional [place] Measure 0=Not Assessed/NA 4=Minimal Assistance 1=Total Assistance 5=Supervision or Setup 2=Maximal Assistance 6=Modified [place] 3=Moderate Assistance 7=Complete [place] Bed Mobility: 7 Transfers (B,C,W/C) (FIM): 7 Gait: 6 (occas uses a cane.) Pt able to ambulate in his home and short community distances; occas uses a cane ; still drives. Indep with ADL's PT Evaluation-Current Subjective Pt groggy. Agreeable to PT. Pain Numeric Pain Scale: 5-Moderate Pain Location: Left Location Body Site: Hip Pain Description: Ache Comment: FLACC scale Pt/Family Goals home when able. Objective Patient Orientation: Person, Confused, Place Problem Solving: Fair Attachments: Oxygen, Jeong Catheter, IV ROM/Strength ROM Lower Extremities WFL AAROM Strength Lower Extremities unable to specifically test Integumentary/Posture Integumentary fefer to nursing notes Bowel Incontinence: No Bladder Incontinence: Jeong Cath Posture normal and symmetrical Neuromuscular (Tone, Coordination, Reflexes) intact Sensory Vision: Functional Hearing: Impaired Hand Dominance: Right Sensation Right Lower Extremit: Intact Sensation Left Lower Extremity: Intact Transfers Functional [place] Measure 0=Not Assessed/NA 4=Minimal Assistance 1=Total Assistance 5=Supervision or Setup 2=Maximal Assistance 6=Modified [place] 3=Moderate Assistance 7=Complete [place] Transfers (B, C, W/C) (FIM): 1 Scootin Rollin Supine to/from Sit: 1 (asssit of 2) Supine to from sit with max assist of 2; He was able to participate but needed 2 persons; Sat EOB x 10 minutes and performed AP and aAROM for LAQ as well as deep breathing; required mod assist for seated balance. Groggy. He did take sips of water and ate a few ice chips. Gait Mode of Locomotion: Walk Balance Sitting Static: Poor Sitting Dynamic: Poor Treatment PT eval and then sat EOB as described above. In bed post treatment with oxygen in situ; SCD's and heel protectors in place. Needs met. Educated family on PT POC Assessment/Needs Post fall that sustained a left hip fx that has been repaired with an IM nail and is TTWB left. He has impaired functional mobility and strength and needs assist with all transfers and EOB activity. he will benefit from skilled PT to work on transfers, strength and gait progression to allow him to return home. Due to the TTWB status, he may have extended recovery time. Rehab Potential: Guarded PT Assistant Passenger Locomotive Engineer Goals Shelter Goals PT Assistant Passenger Locomotive Engineer Goals Time Frame: September 13, 2017 Transfers (B,C,W/C) (FIM): 4 Gait (FIM): 2 Gait distance (FIM): 1=up to 49 ft Distance: hops/steps only Gait Assistive Device: FWW PT Plan Problem List Problem List: Activity Tolerance, Functional Strength, Safety, Balance, Gait, Transfer, Bed Mobility Treatment/Plan Treatment Plan: Continue Plan of Care Treatment Plan: Bed Mobility, Education, Functional Activity Syl, Functional Strength, Safety Treatment Duration: September 13, 2017 Frequency: 11 times per week Estimated Hrs Per Day: .5 hour per day Patient and/or Family Agrees t: Yes Safety Risks/Education Safety Risk Comments: TTWB left LE Patient Education: Transfer Techniques, Reviewed Precautions Teaching Recipient: Patient, Family Teaching Methods: Discussion Response to Teaching: Reinforcement Needed Discharge Recommendations Therapy D/C Recommendations: [facility] (TCU/NH) (skilled PT vs ARU) Time/GCodes Time In: 1100 Time Out: 1135 Total Billed Treatment Time: 35 Total Billed Treatment visit EVM 20 FA 15 PHILIP GALAN PT September 09, 2017 11:46
[2017-09-09] MEDS: oxyCODONE/APAP 5/325MG (PERCOCET 5) TABLET PO PRN (13:30)
--- NOTE | 2017-09-09 13:39 | OPERATIVE REPORT ---
DATE OF SERVICE: 09/09/2017 PREOPERATIVE DIAGNOSIS: Closed displaced left intertrochanteric femur fracture. POSTOPERATIVE DIAGNOSIS: Closed displaced left intertrochanteric femur fracture. PROCEDURE: Intramedullary nail, left femur/hip. SURGEON: Joe Alba MD. AIRCRAFT ENGINE MECHANIC: Bhanu Stafford who assisted throughout the procedure and closed the incisions. ANESTHESIA: General endotracheal by Brunilda Foley CRNA. ESTIMATED BLOOD LOSS: 150 mL. DRAINS: None. COMPLICATIONS: None. MATERIALS: Synthes TFN nail, 11 x 130, 130 mm lag screw with the proximal locking screw. The patient was transferred to recovery room awake and stable condition. POSTOPERATIVE PLAN: 50% weightbearing left lower extremity. STATEMENT OF MEDICAL NECESSITY: The patient is an 81-year-old gentleman who presented yesterday afternoon with a displaced left intertrochanteric femur fracture. The patient had independent status prior to his fall and he and his family elected to proceed with operative fixation. DESCRIPTION OF PROCEDURE: After risks and benefits of the procedure were discussed and questions were answered, an informed consent was signed and placed on chart. The operative site was confirmed in the preoperative holding area initialed by the surgeon. The patient was then transported to the operating room and after adequate levels of general endotracheal anesthetic were obtained, the patient was carefully placed on the fracture table. A timeout was performed confirming the operative site. Gentle longitudinal traction was applied and fluoroscopy in the AP and lateral planes revealed well reduced fracture. Left hip was then prepped and draped in the usual sterile fashion. A longitudinal incision was made from the greater trochanter extending proximally. The underlying soft tissues were carefully dissected. The greater trochanter was palpated and the guidewire was passed. This was found to be in excellent position in the AP and lateral planes. This was then over reamed proximally and an 11 x 130 degree nail was placed. It was well positioned in the AP and lateral planes. A stab incision was then made for the helical blade. The guidewire was passed into the femoral head and felt to be in excellent position in the AP and lateral planes. This was then overdrilled and the blade was placed in the AP and lateral planes, it was in excellent position. The proximal locking screw was then placed and tightened through stab incision. The distal static locked screw was placed and again an excellent position in the AP and lateral planes. Under life time fluoroscopy the hip was rotated and found to be stable. The wound was copiously irrigated. The IT band was closed with #1Vicryl in [id number] interrupted fashion. Subcutaneous tissues were closed with 2-0 nylon fashion. Juliette used on the skin incisions, incisions were infiltrated with plain Marcaine. A soft dressing was applied. The patient was transferred to the recovery room awake and in stable condition. Job ID: [id number] DocumentID: [id number] Dictated Date: 09/09/2017 09:05:34 Auto Tester Date: 09/09/2017 13:39:11 Dictated By: JOE ALBA MD
[2017-09-09] MEDS: ceFAZolin INJECTION 1,000 MG in NS (IVPB) 50 ML IV SCH ×2 (15:41→21:50)
[2017-09-09] MEDS: NS IV 1000 ML 1,000 ML IV SCH (18:24)
[2017-09-09] MEDS: ATORVASTATIN 10 MG (LIPITOR) TABLET PO SCH (20:31)
[2017-09-09] MEDS: DOCUSATE SODIUM 100 MG (COLACE) CAP PO SCH (20:32)
[2017-09-10] VITALS (7 sets, daily range): BP systolic 107–134; BP diastolic 52–64
[2017-09-10] MEDS: RT-ALBUTEROL/IPRATROPIUM 3 ML (DUONEB) VIAL INH SCH ×4 (02:40→19:58)
[2017-09-10 04:53] LABS: BASOPHILS % (AUTO) 0 % (0-10); EOSINOPHILS % (AUTO) 0 % (0-10); HEMATOCRIT 30 % (40-54); HEMOGLOBIN 9.8 G/DL (13.3-17.7); LYMPHOCYTES # (AUTO) 0.3 X 10^3 (1.0-4.0); LYMPHOCYTES % (AUTO) 2 % (12-44); MEAN CORPUSCULAR HEMOGLOBIN 32 PG (25-34); MEAN CORPUSCULAR HGB CONC 33 G/DL (32-36); MEAN CORPUSCULAR VOLUME 97 FL (80-99); MEAN PLATELET VOLUME 9.6 FL (7.4-10.4); MONOCYTES # (AUTO) 0.8 X 10^3 (0.0-1.0); MONOCYTES % (AUTO) 6 % (0-12); NEUTROPHILS # (AUTO) 10.9 X 10^3 (1.8-7.8); NEUTROPHILS % (AUTO) 91 % (42-75); PLATELET COUNT 210 10^3/uL (130-400); RED BLOOD COUNT 3.08 10^6/uL (4.35-5.85); RED CELL DISTRIBUTION WIDTH 13.8 % (10.0-14.5); WHITE BLOOD COUNT 11.9 10^3/uL (4.3-11.0)
[2017-09-10 05:18] LABS: ALBUMIN 3.3 GM/DL (3.2-4.5); BILIRUBIN,TOTAL 0.3 MG/DL (0.1-1.0); CALCIUM 8.1 MG/DL (8.5-10.1); CREATININE SERUM 1.53 MG/DL (0.60-1.30); POTASSIUM 5.1 MMOL/L (3.6-5.0)
[2017-09-10] MEDS: CATHETER FLUSH 10 ML SYR IV SCH ×3 (05:42→21:28)
[2017-09-10] MEDS: RT-ADVAIR HFA 115/21 MCG PER PUFF IH SCH ×2 (07:27→19:59)
[2017-09-10] MEDS: UMECLIDINIUM BROMIDE (INCRUSE ELLIPTA) 7'S IH SCH (07:27)
--- NOTE | 2017-09-10 07:47 | Anesthesia-General Post-Op ---
General Patient Condition Mental Status/LOC: Same as Preop Cardiovascular: Satisfactory Nausea/Vomiting: Absent Respiratory: Satisfactory Pain: Controlled Complications: Absent Post Op Complications Complications None Follow Up Care/Instructions Patient Instructions None needed. Anesthesia/Patient Condition Patient Condition Patient is doing well, no complaints, stable vital signs, no apparent adverse anesthesia problems. No complications reported per nursing. SUSY BIRMINGHAM CRNA September 10, 2017 07:47
[2017-09-10] MEDS: DILTIAZEM 240 MG (CARDIZEM CD) CAP PO SCH (07:59)
[2017-09-10] MEDS: FINASTERIDE (PROSCAR) 5 MG TAB PO SCH (07:59)
[2017-09-10] MEDS: SENNA W/DOCUSATE (SENOKOT S) TABLET PO SCH (07:59)
[2017-09-10] MEDS: TAMSULOSIN 0.4 MG (FLOMAX) CAP PO SCH ×2 (07:59→20:34)
[2017-09-10] MEDS ORDERED: ASPIRIN E.C. 81 MG (ECOTRIN) TAB PO ONE (08:00)
[2017-09-10] MEDS: oxyCODONE/APAP 5/325MG (PERCOCET 5) TABLET PO PRN ×3 (08:00→16:24)
[2017-09-10] MEDS: FLECAINIDE 100 MG (TAMBOCOR) TAB PO SCH ×2 (08:18→20:34)
--- NOTE | 2017-09-10 09:51 | Progress Note-Standard ---
Standard Progress Note Progress Notes/Assess & Plan Date Seen by Provider: September 10, 2017 Time Seen by Provider: 09:49 Progress/Assessment & Plan No complaints Vital Signs Date Time Temp Pulse Resp B/P (MAP) Pulse Ox O2 Delivery O2 Flow Rate FiO2 09/10/17 08:57 2.00 96 09/10/17 08:00 98.0 72 16 117/60 (79) 95 OxyMask 3.00 09/10/17 07:28 94 Nasal Cannula 2.00 09/10/17 07:00 73 09/10/17 06:00 18 09/10/17 04:00 98.4 74 18 134/61 (85) 97 OxyMask 3.00 09/10/17 02:40 97 Nasal Cannula 2.00 09/10/17 01:00 75 09/10/17 00:00 98.0 75 18 121/64 (83) 93 OxyMask 3.00 09/09/17 20:52 94 Nasal Cannula 3.00 09/09/17 20:00 98.5 77 18 124/61 (82) 94 OxyMask 3.00 09/09/17 19:00 74 09/09/17 18:24 18 09/09/17 16:11 97.9 78 18 118/56 (76) 96 Nasal Cannula 3.00 09/09/17 15:07 96 Nasal Cannula 3.00 09/09/17 13:00 88 09/09/17 12:00 3.00 96 09/09/17 12:00 97.7 85 18 130/64 (86) 96 OxyMask 2.00 09/09/17 10:30 95 OxyMask 2.00 09/09/17 10:29 98.6 92 16 148/63 (91) 96 OxyMask 2.00 I & O 09/10/17 07:00 Intake Total 1900 ml Output Total 750 ml Balance 1150 ml Laboratory Tests Test 09/10/17 04:28 Range/Units White Blood Count 11.9 H 4.3-11.0 10^3/uL Red Blood Count 3.08 L 4.35-5.85 10^6/uL Hemoglobin 9.8 L 13.3-17.7 G/DL Hematocrit 30 L 40-54 % Mean Corpuscular Volume 97 80-99 FL Mean Corpuscular Hemoglobin 32 25-34 PG Mean Corpuscular Hemoglobin Concent 33 32-36 G/DL Red Cell Distribution Width 13.8 10.0-14.5 % Platelet Count 210 130-400 10^3/uL Mean Platelet Volume 9.6 7.4-10.4 FL Neutrophils (%) (Auto) 91 H 42-75 % Lymphocytes (%) (Auto) 2 L 12-44 % Monocytes (%) (Auto) 6 0-12 % Eosinophils (%) (Auto) 0 0-10 % Basophils (%) (Auto) 0 0-10 % Neutrophils # (Auto) 10.9 H 1.8-7.8 X 10^3 Lymphocytes # (Auto) 0.3 L 1.0-4.0 X 10^3 Monocytes # (Auto) 0.8 0.0-1.0 X 10^3 Eosinophils # (Auto) 0.0 0.0-0.3 10^3/uL Basophils # (Auto) 0.0 0.0-0.1 10^3/uL Sodium Level 136 135-145 MMOL/L Potassium Level 5.1 H 3.6-5.0 MMOL/L Chloride Level 110 H 98-107 MMOL/L Carbon Dioxide Level 14 L 21-32 MMOL/L Anion Gap 12 5-14 MMOL/L Blood Urea Nitrogen 25 H 7-18 MG/DL Creatinine 1.53 H 0.60-1.30 MG/DL Estimat Glomerular Filtration Rate 44 BUN/Creatinine Ratio 16 Glucose Level 171 H 70-105 MG/DL Calcium Level 8.1 L 8.5-10.1 MG/DL Total Bilirubin 0.3 0.1-1.0 MG/DL Aspartate Amino Transf (AST/SGOT) 26 5-34 U/L Alanine Aminotransferase (ALT/SGPT) 12 0-55 U/L Alkaline Phosphatase 47 40-136 U/L Total Protein 6.0 L 6.4-8.2 GM/DL Albumin 3.3 3.2-4.5 GM/DL LLE--intact DF and PF of toes and ankle. sym pulses. sensation intact throughout s/p L hip Im osmany 50% WB LLE IRF eval dC OPERATIONAL INTELLIGENCE ANALYST and Jean-Paul discussed anticoagulation with DOMINIK Lozada MD September 10, 2017 09:51
--- NOTE | 2017-09-10 10:34 | Cardiology Progress Note ---
Subjective Date Seen by Provider: September 10, 2017 Time Seen by Provider: 10:33 Subjective/Events-last exam Patient is laying down in bed, feeling better. Denied any active pain. Recovering slowly Review of Systems General: No Chills, No Night Sweats; Fatigue; No Malaise, No Appetite, No Other HEENT: No Head Aches, No Visual Changes, No Eye Pain, No Ear Pain, No Dysphasia , No Sinus Congestion, No Post Nasal Drip, No Sore Throat, No Other Pulmonary: No Dyspnea, No Cough, No Pleuritic Chest Pain, No Other Cardiovascular: No: Chest Pain, Palpitations, Orthopnea, Paroxysmal Noc. Dyspnea, Edema, Lt Headedness, Other Objective-Cardiology Exam Last Set of Vital Signs Vital Signs 09/10/17 09/10/17 08:00 08:57 Temp 98.0 Pulse 72 Resp 16 B/P (MAP) 117/60 (79) Pulse Ox 95 O2 Delivery OxyMask O2 Flow Rate 2.00 FiO2 96 Capillary Refill : Less Than 3 SecondsLess Than 3 Seconds I&O Intake and Output 09/10/17 00:00 Intake Total 1900 ml Output Total 700 ml Balance 1200 ml Intake Oral 750 ml IV Total 1150 ml Output Urine Total 700 ml General: Alert, Oriented X3, Cooperative HEENT: Atraumatic, PERRLA Neck: Supple, No JVD, No Thyromegaly Lungs: Clear to Auscultation, Normal Air Movement Heart: Regular Rate, Normal S1, Normal S2, No Murmurs Abdomen: Normal Bowel Sounds, Soft, No Tenderness, No Hepatosplenomegaly, No Masses Extremities: No Clubbing, No Cyanosis, No Edema, Normal Pulses, No Tenderness/ Swelling Skin: No Rashes, No Breakdown, No Significant Lesion Neuro: Normal Speech, Normal Tone, Sensation Intact Psych/Mental Status: Mental Status NL, Mood NL Results Lab Laboratory Tests 09/10/17 04:28 A/P-Cardiology Admission Diagnosis Hip fracture Paroxysmal atrial fibrillation Hypertension DVT COPD Assessment/Plan Hip fracture status post surgical repair, recovering slowly. 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 Managed by medical team BPH, managed by primary care physician Clinical Quality Measures DVT/VTE Risk/Contraindication: Risk Factor Score Per Nursin RFS Level Per Nursing on Admit: 4+=Very High HUONG SIFUENTES MD September 10, 2017 10:34
--- NOTE | 2017-09-10 11:08 | Physical Therapy Daily Note ---
PT Daily Note-Current Subjective Agreeable to PT. Reports he does not remember sitting EOB with this therapist yesterday. Family asking about ARU. Report that Dr. Culver mentioned that he may be appropriate for it. Family does report he would be able to use a wheelchair in his home for mobility if necessary. However, the bathroom is not accessible via wheelchair. Mental Status Patient Orientation: Person, Place, Time, Situation Transfers Functional [place] Measure 0=Not Assessed/NA 4=Minimal Assistance 1=Total Assistance 5=Supervision or Setup 2=Maximal Assistance 6=Modified [place] 3=Moderate Assistance 7=Complete IndependenceIRFPAI Quality Coding Scale 6 Independent with activity with or without an assistive device 5 Patient requires set up or clean up by helper. Patient completes activity by themselves 4 Supervision or touching assist (CGA). [place] provide cues , steadying assist 3 The helper provides less than half the effort to complete the activity 2 The helper provides more than half the effort to complete the activity 1 Dependent. The helper does all the effort to complete an activity 7 Patient refused to complete or attempt activity 9 The patient did not perform the activity before the current illness or injury 88 Not attempted due to Medical conditions or safety concerns Transfers (B, C, W/C) (FIM): 1 Supine to/from Sit: 2 (assist of 2) Assist of 2 to transfer sup to from sit; sit to stand with assist of 2 with FWW and did maintain TTWB left. Unable to scoot or sidestep this visit. Weight Bearing Right Lower Extremity: Right Full Weight Bearing Left Lower Extremity: Left Touch Toe Bearing Treatments Transfer to EOB and stood once. Pt in bed post treatment with oxygen in situ, SCD's on and heels elevated. Needs met. Assessment Current Status: Good Progress Pt did well with PT this date and is able to effectively participate. PT Drop Man Goals Drop Man Goals PT Long-Term Goals Time Frame: September 13, 2017 Transfers (B,C,W/C) (FIM): 4 Gait (FIM): 2 Gait distance (FIM): 1=up to 49 ft Distance: hops/steps only Gait Assistive Device: FWW PT Plan Problem List Problem List: Activity Tolerance, Functional Strength, Safety, Gait, Transfer, Bed Mobility Treatment/Plan Treatment Plan: Continue Plan of Care Treatment Plan: Bed Mobility, Education, Functional Activity Syl, Functional Strength, Safety Treatment Duration: September 13, 2017 Frequency: 11 times per week Estimated Hrs Per Day: .5 hour per day Patient and/or Family Agrees t: Yes Safety Risks/Education Patient Education: Transfer Techniques, Reviewed Precautions Teaching Recipient: Patient, Family Teaching Methods: Discussion Response to Teaching: Reinforcement Needed Time/GCodes Time In: 1015 Time Out: 1045 Total Billed Treatment Time: 30 Total Billed Treatment visit FA 30 PHILIP GALAN PT September 10, 2017 11:08
[2017-09-10] MEDS ORDERED: ONDANSETRON 4 MG/2 ML (SDV) Z0FRAN IVP PRN (12:15)
[2017-09-10] MEDS: ENOXAPARIN 40 MG/0.4 ML (LOVENOX) SYR SC SCH (12:16)
--- NOTE | 2017-09-10 12:23 | Progress Note-Hospitalist ---
Subjective HPI/CC On Admission Date Seen by Provider: September 10, 2017 Time Seen by Provider: 12:18 Pt is an 81yoCM with a PMH of a-fib, COPD, and HTN who presented to the ER after a fall. He stays he was feeling well and had no complaints prior to his arrival. He was just walking in his house from helping his son spray their field and tripped and fell. He denies any lightheadedness or syncope. He denies any previous falls. He is normally active and able to ambulate independently. He has not taken his Warfarin yet today. Subjective/Events-last exam Pt reports feeling much better today than yesterday. No complaints from patient. Denies pain currently. Discussed with Dr Culver and RN- family has declined Lovenox currently. Objective Exam Vital Signs Vital Signs Date Time Temp Pulse Resp B/P (MAP) Pulse Ox O2 Delivery O2 Flow Rate FiO2 09/11/17 07:00 74 09/11/17 04:37 97.6 17 146/65 (92) 91 OxyMask 3.00 09/10/17 08:57 96 Capillary Refill : Less Than 3 SecondsLess Than 3 Seconds General Appearance: No Apparent Distress, WD/WN Respiratory: Lungs Clear, No Respiratory Distress Cardiovascular: Regular Rate, Rhythm, No Murmur Gastrointestinal: Normal Bowel Sounds, Non Tender, Soft Neurologic/Psychiatric: Alert, Oriented x3, Normal Mood/Affect Results/Procedures Lab Laboratory Tests 09/11/17 03:41 Patient resulted labs reviewed. Assessment/Plan Assessment and Plan Assess & Plan/Chief Complaint left hip fracture Diagnosis/Problems Diagnosis/Problems (1) Closed intertrochanteric fracture of left hip Status: Acute Assessment & Plan: Ortho consulted, appreciate assistance PT/OT ordered POD #1 May need SNF or IRU at discharge pending PT/OT eval Family currently refusing Lovenox- discussed risk and benefits especially given history of DVT- still declining until they can talk with pt's other daughter who is a physician Qualifiers: Encounter type: initial encounter Fracture alignment: nondisplaced Qualified Codes: S72.145A - Nondisplaced intertrochanteric fracture of left femur, initial encounter for closed fracture (2) SELVIN (acute kidney injury) Assessment & Plan: Mild but up from admission Appears to have a baseline around 1.2-1.4 reviewing records back to 2009 Will trend IVF started to supplement oral intake (3) Atrial fibrillation Status: Chronic Assessment & Plan: Paroxysmal Resume Warfarin Will consult Cardiology, appreciate recs Qualifiers: Atrial fibrillation type: paroxysmal Qualified Codes: I48.0 - Paroxysmal atrial fibrillation (4) COPD (chronic obstructive pulmonary disease) Status: Chronic Assessment & Plan: Consult Pulm MAT Protocol Qualifiers: COPD type: unspecified COPD Qualified Codes: J44.9 - Chronic obstructive pulmonary disease, unspecified (5) Essential (primary) hypertension Assessment & Plan: Well controlled currently Trend (6) Prophylactic measure Assessment & Plan: SCD Lovenox ordered Reg Diet Clinical Quality Measures DVT/VTE Risk/Contraindication: Risk Factor Score Per Nursin RFS Level Per Nursing on Admit: 4+=Very High LENORE CRAWFORD MD September 10, 2017 12:23
[2017-09-10] MEDS: 1/2 NS IV SOLUTION 1,000 ML IV SCH ×3 (13:17→23:33)
[2017-09-10] MEDS: cefTRIAXone INJECTION 1,000 MG in NS (IVPB) 50 ML IV SCH (13:18)
[2017-09-10] MEDS: ATORVASTATIN 10 MG (LIPITOR) TABLET PO SCH (20:34)
[2017-09-10] MEDS: DOCUSATE SODIUM 100 MG (COLACE) CAP PO SCH (20:34)
[2017-09-11 00:03] VITALS: BP 118/56
[2017-09-11] MEDS: RT-ALBUTEROL/IPRATROPIUM 3 ML (DUONEB) VIAL INH SCH ×2 (01:49→08:06)
[2017-09-11 04:03] LABS: BASOPHILS % (AUTO) 0 % (0-10); EOSINOPHILS % (AUTO) 0 % (0-10); HEMATOCRIT 27 % (40-54); HEMOGLOBIN 8.5 G/DL (13.3-17.7); LYMPHOCYTES # (AUTO) 0.4 X 10^3 (1.0-4.0); LYMPHOCYTES % (AUTO) 5 % (12-44); MEAN CORPUSCULAR HEMOGLOBIN 31 PG (25-34); MEAN CORPUSCULAR HGB CONC 32 G/DL (32-36); MEAN CORPUSCULAR VOLUME 97 FL (80-99); MEAN PLATELET VOLUME 9.8 FL (7.4-10.4); MONOCYTES # (AUTO) 0.8 X 10^3 (0.0-1.0); MONOCYTES % (AUTO) 8 % (0-12); NEUTROPHILS # (AUTO) 8.6 X 10^3 (1.8-7.8); NEUTROPHILS % (AUTO) 88 % (42-75); PLATELET COUNT 213 10^3/uL (130-400); RED BLOOD COUNT 2.74 10^6/uL (4.35-5.85); RED CELL DISTRIBUTION WIDTH 13.8 % (10.0-14.5); WHITE BLOOD COUNT 9.8 10^3/uL (4.3-11.0)
[2017-09-11 04:13] LABS: INR 1.7 (0.8-1.4); PROTHROMBIN TIME PATIENT 20.3 SEC (12.2-14.7)
[2017-09-11 04:24] LABS: ALBUMIN 3.3 GM/DL (3.2-4.5); BILIRUBIN,TOTAL 0.3 MG/DL (0.1-1.0); CALCIUM 7.8 MG/DL (8.5-10.1); CREATININE SERUM 1.56 MG/DL (0.60-1.30); POTASSIUM 4.4 MMOL/L (3.6-5.0); TOTAL PROTEIN 5.5 GM/DL (6.4-8.2)
[2017-09-11 04:37] VITALS: BP 146/65
[2017-09-11] MEDS: oxyCODONE/APAP 5/325MG (PERCOCET 5) TABLET PO PRN ×2 (06:11→10:03)
[2017-09-11] MEDS: CATHETER FLUSH 10 ML SYR IV SCH (06:23)
--- NOTE | 2017-09-11 07:55 | Progress Note-Standard ---
Standard Progress Note Progress Notes/Assess & Plan Date Seen by Provider: September 11, 2017 Time Seen by Provider: 07:54 Progress/Assessment & Plan No complaints Vital Signs Date Time Temp Pulse Resp B/P (MAP) Pulse Ox O2 Delivery O2 Flow Rate FiO2 09/10/17 08:57 2.00 96 09/10/17 08:00 98.0 72 16 117/60 (79) 95 OxyMask 3.00 09/10/17 07:28 94 Nasal Cannula 2.00 09/10/17 07:00 73 09/10/17 06:00 18 09/10/17 04:00 98.4 74 18 134/61 (85) 97 OxyMask 3.00 09/10/17 02:40 97 Nasal Cannula 2.00 09/10/17 01:00 75 09/10/17 00:00 98.0 75 18 121/64 (83) 93 OxyMask 3.00 09/09/17 20:52 94 Nasal Cannula 3.00 09/09/17 20:00 98.5 77 18 124/61 (82) 94 OxyMask 3.00 09/09/17 19:00 74 09/09/17 18:24 18 09/09/17 16:11 97.9 78 18 118/56 (76) 96 Nasal Cannula 3.00 09/09/17 15:07 96 Nasal Cannula 3.00 09/09/17 13:00 88 09/09/17 12:00 3.00 96 09/09/17 12:00 97.7 85 18 130/64 (86) 96 OxyMask 2.00 09/09/17 10:30 95 OxyMask 2.00 09/09/17 10:29 98.6 92 16 148/63 (91) 96 OxyMask 2.00 I & O 09/10/17 07:00 Intake Total 1900 ml Output Total 750 ml Balance 1150 ml Laboratory Tests Test 09/10/17 04:28 Range/Units White Blood Count 11.9 H 4.3-11.0 10^3/uL Red Blood Count 3.08 L 4.35-5.85 10^6/uL Hemoglobin 9.8 L 13.3-17.7 G/DL Hematocrit 30 L 40-54 % Mean Corpuscular Volume 97 80-99 FL Mean Corpuscular Hemoglobin 32 25-34 PG Mean Corpuscular Hemoglobin Concent 33 32-36 G/DL Red Cell Distribution Width 13.8 10.0-14.5 % Platelet Count 210 130-400 10^3/uL Mean Platelet Volume 9.6 7.4-10.4 FL Neutrophils (%) (Auto) 91 H 42-75 % Lymphocytes (%) (Auto) 2 L 12-44 % Monocytes (%) (Auto) 6 0-12 % Eosinophils (%) (Auto) 0 0-10 % Basophils (%) (Auto) 0 0-10 % Neutrophils # (Auto) 10.9 H 1.8-7.8 X 10^3 Lymphocytes # (Auto) 0.3 L 1.0-4.0 X 10^3 Monocytes # (Auto) 0.8 0.0-1.0 X 10^3 Eosinophils # (Auto) 0.0 0.0-0.3 10^3/uL Basophils # (Auto) 0.0 0.0-0.1 10^3/uL Sodium Level 136 135-145 MMOL/L Potassium Level 5.1 H 3.6-5.0 MMOL/L Chloride Level 110 H 98-107 MMOL/L Carbon Dioxide Level 14 L 21-32 MMOL/L Anion Gap 12 5-14 MMOL/L Blood Urea Nitrogen 25 H 7-18 MG/DL Creatinine 1.53 H 0.60-1.30 MG/DL Estimat Glomerular Filtration Rate 44 BUN/Creatinine Ratio 16 Glucose Level 171 H 70-105 MG/DL Calcium Level 8.1 L 8.5-10.1 MG/DL Total Bilirubin 0.3 0.1-1.0 MG/DL Aspartate Amino Transf (AST/SGOT) 26 5-34 U/L Alanine Aminotransferase (ALT/SGPT) 12 0-55 U/L Alkaline Phosphatase 47 40-136 U/L Total Protein 6.0 L 6.4-8.2 GM/DL Albumin 3.3 3.2-4.5 GM/DL LLE--intact DF and PF of toes and ankle. sym pulses. sensation intact throughout s/p L hip Im osmany 50% WB LLE IRF eval dC POLYSOMNOGRAPH TECH and Jean-Paul discussed anticoagulation with Dr. Oneill Final Diagnosis No complaints Vital Signs Date Time Temp Pulse Resp B/P (MAP) Pulse Ox O2 Delivery O2 Flow Rate FiO2 09/11/17 07:00 74 09/11/17 04:37 97.6 79 17 146/65 (92) 91 OxyMask 3.00 09/11/17 01:50 92 NIV CPAP 4.00 09/11/17 01:00 69 09/11/17 00:03 97.8 75 19 118/56 (76) 92 OxyMask 3.00 09/10/17 20:10 97 Nasal Cannula 3.00 09/10/17 20:00 98.2 72 18 107/52 (70) 90 OxyMask 3.00 09/10/17 19:58 Nasal Cannula 3.00 09/10/17 19:00 70 09/10/17 16:00 96.8 69 20 134/61 (85) 92 OxyMask 3.00 09/10/17 15:21 88 Nasal Cannula 2.00 09/10/17 13:00 74 09/10/17 12:00 18 09/10/17 12:00 98.4 73 18 109/57 (74) 94 OxyMask 3.00 09/10/17 08:57 2.00 96 09/10/17 08:00 98.0 72 16 117/60 (79) 95 OxyMask 3.00 I & O 09/11/17 07:00 Intake Total 3160 ml Output Total 1500 ml Balance 1660 ml Laboratory Tests Test 09/11/17 03:41 Range/Units White Blood Count 9.8 4.3-11.0 10^3/uL Red Blood Count 2.74 L 4.35-5.85 10^6/uL Hemoglobin 8.5 L 13.3-17.7 G/DL Hematocrit 27 L 40-54 % Mean Corpuscular Volume 97 80-99 FL Mean Corpuscular Hemoglobin 31 25-34 PG Mean Corpuscular Hemoglobin Concent 32 32-36 G/DL Red Cell Distribution Width 13.8 10.0-14.5 % Platelet Count 213 130-400 10^3/uL Mean Platelet Volume 9.8 7.4-10.4 FL Neutrophils (%) (Auto) 88 H 42-75 % Lymphocytes (%) (Auto) 5 L 12-44 % Monocytes (%) (Auto) 8 0-12 % Eosinophils (%) (Auto) 0 0-10 % Basophils (%) (Auto) 0 0-10 % Neutrophils # (Auto) 8.6 H 1.8-7.8 X 10^3 Lymphocytes # (Auto) 0.4 L 1.0-4.0 X 10^3 Monocytes # (Auto) 0.8 0.0-1.0 X 10^3 Eosinophils # (Auto) 0.0 0.0-0.3 10^3/uL Basophils # (Auto) 0.0 0.0-0.1 10^3/uL Prothrombin Time 20.3 H 12.2-14.7 SEC INR Comment 1.7 H 0.8-1.4 Sodium Level 139 135-145 MMOL/L Potassium Level 4.4 3.6-5.0 MMOL/L Chloride Level 108 H 98-107 MMOL/L Carbon Dioxide Level 21 21-32 MMOL/L Anion Gap 10 5-14 MMOL/L Blood Urea Nitrogen 30 H 7-18 MG/DL Creatinine 1.56 H 0.60-1.30 MG/DL Estimat Glomerular Filtration Rate 43 BUN/Creatinine Ratio 19 Glucose Level 130 H 70-105 MG/DL Calcium Level 7.8 L 8.5-10.1 MG/DL Total Bilirubin 0.3 0.1-1.0 MG/DL Aspartate Amino Transf (AST/SGOT) 24 5-34 U/L Alanine Aminotransferase (ALT/SGPT) 9 0-55 U/L Alkaline Phosphatase 42 40-136 U/L Total Protein 5.5 L 6.4-8.2 GM/DL Albumin 3.3 3.2-4.5 GM/DL L hip incision clean and dry. No calf tenderness s/p Im osmany l hip mobilize ok to transfer to IRF if qualifies DOMINIK ALBA MD September 11, 2017 07:55
--- NOTE | 2017-09-11 07:57 | Pulmonary Consultation ---
History of Present Illness History of Present Illness Date of Consultation 09/11/17 07:52 Time Seen by Provider: 07:52 Date of Admission Reason for Visit: Atrial fibrillation, preoperative evaluation History of Present Illness 81yo with hx of Afib, COPD, presented to ED secondary to a mechanical fall. No prior hx of falls. PT complained of hip pain upon ED admission and was found to have a fracture. Ortho is consulted. I am consulted for pulmonary management. Allergies and Home Medications Allergies Uncoded Allergies: Tape (Allergy, Mild, 09/08/17) Can have paper tape Home Medications Albuterol Sulfate 18 Gm Hfa.aer.ad, 2 PUFF INH Q4H PRN for WHEEZING, (Reported) Diltiazem HCl 240 Mg Cap.er.24h, 240 MG PO HS, (Reported) Docusate Sodium 100 Mg Capsule, 100 MG PO HS, (Reported) Dutasteride 0.5 Mg Capsule, 0.5 MG PO DAILY, (Reported) Flecainide Acetate 50 Mg Tablet, 50 MG PO BID, (Reported) Fluticasone/Vilanterol 1 Each Blst.w.dev, 1 PUFF INH DAILY, (Reported) Multivitamin/Iron/Folic Acid 1 Each Tablet, 1 TAB PO DAILY, (Reported) Pitavastatin Calcium 2 Mg Tablet, 2 MG PO DAILY, (Reported) Tamsulosin HCl 0.4 Mg Cap.er.24h, 0.4 MG PO BID, (Reported) Tiotropium [place] 1 Inh Aerp, 1 CAP INH DAILY, (Reported) Warfarin Sodium 2 Mg Tablet, 4 MG PO SuMoWeThSa, (Reported) Warfarin Sodium 2 Mg Tablet, 3 MG PO TuFr, (Reported) Past Tocvohr-Vvkeif-Tuqkhn Hx Past Med/Social Hx: Reviewed Nursing Past Med/Soc Hx Patient Social History Alcohol Use: Denies Use Recreational Drug Use: No Smoking Status: Former Smoker Type Used: Cigarettes Former Smoker, Quit: September 08, 2012 Recent Foreign Travel: No Contact w/Someone Who Travel: No Recent Infectious Disease Expo: No Recent Hopitalizations: Yes Physical Abuse: No Sexual Abuse: No Past Medical History Surgeries: Yes (benign mass removed left arm december 2009) Respiratory: Yes Pneumonia, Sleep Apnea, COPD Currently Using CPAP: Yes Cardiac: Yes Atrial Fibrillation, Deep Vein Thrombosis, Hypertension Neurological: Yes (peripheral vascular disease) Reproductive Disorders: No Genitourinary: No Gastrointestinal: No Musculoskeletal: Yes Arthritis Endocrine: No HEENT: Yes Cataract Loss of Vision: Bilateral Hearing Impairment: Hard of Hearing Cancer: No Psychosocial: No Nursing Suicide Risk Score: 0 Integumentary: No Blood Disorders: Yes Family Medical History Reviewed Nursing Family Hx No Pertinent Family Hx Review of Systems Time Seen by Provider: 08:02 Constitutional: Sweats, Weakness, Malaise; No: Fever Eyes: No: Pain, Vision change, Conjunctivae inflammation, Eyelid inflammation, Other, Redness ENT: No: Ear pain, Ear discharge, Nose pain, Nose discharge, Nose congestion, Mouth pain, Mouth swelling, Throat pain, Throat swelling, Other Respiratory: Shortness of breath, SOB with excertion; No: Cough, Dry, Wheezing , Hemoptysis, Pleuritic Pain, Sputum, Wheezing, Other Cardiovascular: No: Chest Pain, Palpitations, Orthopnea, Paroxysmal Noc. Dyspnea, Edema, Lt Headedness, Other Gastrointestinal: No: Nausea, Vomiting, Abdominal Pain, Diarrhea, Constipation , Melena, Hematochezia, Other Genitourinary: No Dysuria, No Frequency, No Incontinence, No Hematuria, No Retention, No Other Musculoskeletal: leg pain; No: other, neck pain, shoulder pain, arm pain, back pain, hand pain, foot pain Exam Exam Vital Signs Date Time Temp Pulse Resp B/P (MAP) Pulse Ox O2 Delivery O2 Flow Rate FiO2 09/11/17 07:00 74 09/11/17 04:37 97.6 79 17 146/65 (92) 91 OxyMask 3.00 09/11/17 01:50 92 NIV CPAP 4.00 09/11/17 01:00 69 09/11/17 00:03 97.8 75 19 118/56 (76) 92 OxyMask 3.00 09/10/17 20:10 97 Nasal Cannula 3.00 09/10/17 20:00 98.2 72 18 107/52 (70) 90 OxyMask 3.00 09/10/17 19:58 Nasal Cannula 3.00 09/10/17 19:00 70 09/10/17 16:00 96.8 69 20 134/61 (85) 92 OxyMask 3.00 09/10/17 15:21 88 Nasal Cannula 2.00 09/10/17 13:00 74 09/10/17 12:00 18 09/10/17 12:00 98.4 73 18 109/57 (74) 94 OxyMask 3.00 09/10/17 08:57 2.00 96 09/10/17 08:00 98.0 72 16 117/60 (79) 95 OxyMask 3.00 I & O 09/11/17 07:00 Intake Total 3160 ml Output Total 1500 ml Balance 1660 ml General Appearance: No Apparent Distress, WD/WN HEENT: PERRL/EOMI, Moist Mucous Membranes Neck: Non Tender, Supple Respiratory: Lungs Clear, No Respiratory Distress Cardiovascular: Regular Rate, Rhythm, No Murmur Capillary Refill: Less Than 3 Seconds Peripheral Pulses: 1+ Dorsalis Pedis (R), 1+ Left Dors-Pedis (L) Gastrointestinal: normal bowel sounds, non tender, soft, no organomegaly, no pulsatile mass Extremity: Normal Capillary Refill, No Calf Tenderness, No Pedal Edema Neurologic/Psychiatric: Alert, Oriented x3, Normal Mood/Affect Skin: Normal Color, Warm/Dry Results Lab Laboratory Tests 09/10/17 04:28 09/11/17 03:41 Assessment/Plan Assessment/Plan Hip fracture seocndary to fall s/p repair Paroxysmal Afib COPD -SVNs, oxygen Hx of DVT -Coumadin therapy 254 LILO ROMO DO September 11, 2017 07:57
[2017-09-11] MEDS: UMECLIDINIUM BROMIDE (INCRUSE ELLIPTA) 7'S IH SCH (08:09)
[2017-09-11] MEDS: RT-ADVAIR HFA 115/21 MCG PER PUFF IH SCH (08:09)
--- NOTE | 2017-09-11 08:43 | Cardiology Progress Note ---
Subjective Date Seen by Provider: September 11, 2017 Time Seen by Provider: 08:41 Subjective/Events-last exam Patient is in bed, no new complaint. Complaining of some hip pain. Denies any CP or dyspnea. Review of Systems General: No Night Sweats, No Fatigue, No Malaise HEENT: No Visual Changes, No Dysphasia, No Sore Throat Pulmonary: No Dyspnea, No Cough Cardiovascular: No: Chest Pain, Palpitations, Paroxysmal Noc. Dyspnea, Edema Genitourinary: No Dysuria, No Frequency Musculoskeletal: leg pain Neurological: No: Weakness, Numbness, Change in speech, Confusion Objective-Cardiology Exam Last Set of Vital Signs Vital Signs 09/10/17 09/11/17 09/11/17 09/11/17 08:57 04:37 07:00 08:10 Temp 97.6 Pulse 74 Resp 17 B/P (MAP) 146/65 (92) Pulse Ox 94 O2 Delivery Nasal Cannula O2 Flow Rate 4.00 FiO2 96 Capillary Refill : Less Than 3 SecondsLess Than 3 Seconds I&O Intake and Output 09/10/17 23:59 Intake Total 2910 ml Output Total 1250 ml Balance 1660 ml Intake Oral 1400 ml IV Total 1510 ml Output Urine Total 1250 ml # Voids 3 General: Alert, Oriented X3, Cooperative HEENT: Atraumatic, PERRLA Neck: Supple, No JVD, No Thyromegaly Lungs: Clear to Auscultation, Normal Air Movement Heart: Regular Rate, Normal S1, Normal S2, No Murmurs Abdomen: Normal Bowel Sounds, Soft, No Tenderness, No Hepatosplenomegaly, No Masses Extremities: No Clubbing, No Cyanosis, No Edema, Normal Pulses, No Tenderness/ Swelling Skin: No Rashes, No Breakdown, No Significant Lesion Neuro: Normal Speech, Normal Tone, Sensation Intact Psych/Mental Status: Mental Status NL, Mood NL Results Lab Laboratory Tests 09/11/17 03:41 A/P-Cardiology Admission Diagnosis Hip fracture Paroxysmal atrial fibrillation Hypertension DVT COPD Assessment/Plan Hip fracture status post surgical repair, recovering slowly. 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 Managed by medical team BPH, managed by primary care physician Clinical Quality Measures DVT/VTE Risk/Contraindication: Risk Factor Score Per Nursin RFS Level Per Nursing on Admit: 4+=Very High INGA GARCIA September 11, 2017 08:43
[2017-09-11] MEDS: SENNA W/DOCUSATE (SENOKOT S) TABLET PO SCH (08:52)
[2017-09-11] MEDS: FLECAINIDE 100 MG (TAMBOCOR) TAB PO SCH (08:52)
[2017-09-11] MEDS: FINASTERIDE (PROSCAR) 5 MG TAB PO SCH (08:52)
[2017-09-11] MEDS: TAMSULOSIN 0.4 MG (FLOMAX) CAP PO SCH (08:52)
[2017-09-11] MEDS: ENOXAPARIN 40 MG/0.4 ML (LOVENOX) SYR SC SCH (08:53)
[2017-09-11] MEDS: cefTRIAXone INJECTION 1,000 MG in NS (IVPB) 50 ML IV SCH (08:53)
[2017-09-11] MEDS: DILTIAZEM 240 MG (CARDIZEM CD) CAP PO SCH (08:53)
[2017-09-11 08:58] VITALS: BP 109/53
--- NOTE | 2017-09-11 09:37 | Cardiology Progress Note ---
Subjective Date Seen by Provider: September 11, 2017 Time Seen by Provider: 09:36 Subjective/Events-last exam patient is in bed, recovering slowly, having pain in his hip. Review of Systems General: No Chills, No Night Sweats, No Fatigue, No Malaise, No Appetite, No Other HEENT: No Head Aches, No Visual Changes, No Eye Pain, No Ear Pain, No Dysphasia , No Sinus Congestion, No Post Nasal Drip, No Sore Throat, No Other Pulmonary: No Dyspnea, No Cough, No Pleuritic Chest Pain, No Other Cardiovascular: No: Chest Pain, Palpitations, Orthopnea, Paroxysmal Noc. Dyspnea, Edema, Lt Headedness, Other Objective-Cardiology Exam Last Set of Vital Signs Vital Signs 09/10/17 09/11/17 08:57 08:58 Temp 98.1 Pulse 75 Resp 18 B/P (MAP) 109/53 (71) Pulse Ox 90 O2 Delivery OxyMask O2 Flow Rate 3.00 FiO2 96 Capillary Refill : Less Than 3 SecondsLess Than 3 Seconds I&O Intake and Output 09/11/17 00:00 Intake Total 2910 ml Output Total 1250 ml Balance 1660 ml Intake Oral 1400 ml IV Total 1510 ml Output Urine Total 1250 ml # Voids 3 General: Alert, Oriented X3, Cooperative HEENT: Atraumatic, PERRLA Neck: Supple, No JVD, No Thyromegaly Lungs: Clear to Auscultation, Normal Air Movement Heart: Regular Rate, Normal S1, Normal S2, No Murmurs Abdomen: Normal Bowel Sounds, Soft, No Tenderness, No Hepatosplenomegaly, No Masses Extremities: No Clubbing, No Cyanosis, No Edema, Normal Pulses, No Tenderness/ Swelling Skin: No Rashes, No Breakdown, No Significant Lesion Neuro: Normal Speech, Normal Tone, Sensation Intact Psych/Mental Status: Mental Status NL, Mood NL Results Lab Laboratory Tests 09/11/17 03:41 A/P-Cardiology Admission Diagnosis Hip fracture Paroxysmal atrial fibrillation Hypertension DVT COPD Assessment/Plan Hip fracture status post surgical repair, recovering slowly. Paroxysmal atrial fibrillations, currently in sinus rhythm, had workup done in , continue to monitor at this time. 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 Managed by medical team BPH, managed by primary care physician Clinical Quality Measures DVT/VTE Risk/Contraindication: Risk Factor Score Per Nursin RFS Level Per Nursing on Admit: 4+=Very High HUONG SIFUENTES MD September 11, 2017 09:37
[2017-09-11] MEDS ORDERED: METOCLOPRAMIDE INJ 10 MG/2 ML (REGLAN) IV PRN (11:00)
[2017-09-11 11:31] VITALS: BP 111/58
--- NOTE | 2017-09-11 11:55 | Discharge Summary-Hospitalist ---
Diagnosis/Chief Complaint Date of Admission September 08, 2017 at 14:25 Date of Discharge Discharge Date: September 11, 2017 Admission Diagnosis left hip fracture Discharge Diagnosis lEFT hip fracture post operative repair. 2.COPD. 3.history of paroxysmal atrial fibrillation. (1) Closed intertrochanteric fracture of left hip Status: Acute Assessment & Plan: Ortho consulted, appreciate assistance PT/OT ordered POD #1 May need SNF or IRU at discharge pending PT/OT eval Family currently refusing Lovenox- discussed risk and benefits especially given history of DVT- still declining until they can talk with pt's other daughter who is a physician (2) SELVIN (acute kidney injury) Assessment & Plan: Mild but up from admission Appears to have a baseline around 1.2-1.4 reviewing records back to 2009 Will trend IVF started to supplement oral intake (3) Atrial fibrillation Status: Chronic Assessment & Plan: Paroxysmal Resume Warfarin Will consult Cardiology, appreciate recs (4) COPD (chronic obstructive pulmonary disease) Status: Chronic Assessment & Plan: Consult Pulm MAT Protocol (5) Essential (primary) hypertension Assessment & Plan: Well controlled currently Trend (6) Prophylactic measure Assessment & Plan: SCD Lovenox ordered Reg Diet Discharge Summary Discharge Physical Exam Allergies: Uncoded Allergies: Tape (Allergy, Mild, 09/08/17) Can have paper tape Vitals & I&Os Vital Signs Date Time Temp Pulse Resp B/P (MAP) Pulse Ox O2 Delivery O2 Flow Rate FiO2 09/11/17 11:31 98.2 75 16 111/58 (75) 93 Nasal Cannula 3.00 09/10/17 08:57 96 General Appearance: Alert Hospital Course The patient is an 81-year-old white male known to me from the past and also from his ER visit on Monday. He fell suffering a left hip fracture he reports that he had been taking physical therapy prior to the fall as he had been having some gait difficulty issues. He has successfully undergone operative repair. He has been cleared for transfer to the inpatient rehabilitation facility. Physical exam: He is alert and oriented. He exhibits a rather dry cough. Lungs are clear to auscultation. CV is regular without murmur. Abdomen is soft. Extremities are without edema. Impression: Left hip fracture post op Plan: Transfer to [facility] for intensive rehabilitation purposes. Labs (last 24 hrs) Laboratory Tests 09/11/17 03:41: White Blood Count 9.8, Red Blood Count 2.74L, Hemoglobin 8.5L, Hematocrit 27L, Mean Corpuscular Volume 97, Mean Corpuscular Hemoglobin 31, Mean Corpuscular Hemoglobin Concent 32, Red Cell Distribution Width 13.8, Platelet Count 213, Mean Platelet Volume 9.8, Neutrophils (%) (Auto) 88H, Lymphocytes (%) (Auto) 5L , Monocytes (%) (Auto) 8, Eosinophils (%) (Auto) 0, Basophils (%) (Auto) 0, Neutrophils # (Auto) 8.6H, Lymphocytes # (Auto) 0.4L, Monocytes # (Auto) 0.8, Eosinophils # (Auto) 0.0, Basophils # (Auto) 0.0, Prothrombin Time 20.3H, INR Comment 1.7H, Sodium Level 139, Potassium Level 4.4, Chloride Level 108H, Carbon Dioxide Level 21, Anion Gap 10, Blood Urea Nitrogen 30H, Creatinine 1.56H , Estimat Glomerular Filtration Rate 43, BUN/Creatinine Ratio 19, Glucose Level 130H, Calcium Level 7.8L, Total Bilirubin 0.3, Aspartate Amino Transf (AST/SGOT ) 24, Alanine Aminotransferase (ALT/SGPT) 9, Alkaline Phosphatase 42, Total Protein 5.5L, Albumin 3.3 Microbiology 09/08/17 MRSA Screen - Final, Complete MRSA not isolated 09/08/17 Urine Culture - Final, Complete Staphylococcus epidermidis Patient resulted labs reviewed. Imaging: Reviewed Imaging Films, Reviewed Imaging Report Discussion & Recommendations Discharge Planning: >30 minutes discharge planning Discharge Home Medications: Active Scripts Active Reported Breo Ellipta 100-25 Mcg INH (Fluticasone/Vilanterol) 1 Each Blst.w.dev 1 Puff INH DAILY Warfarin Sodium 2 Mg Tablet 3 Mg PO TUFR Warfarin Sodium 2 Mg Tablet 4 Mg PO SUMOWETHSA Colace (Docusate Sodium) 100 Mg Capsule 100 Mg PO HS Dutasteride 0.5 Mg Capsule 0.5 Mg PO DAILY Centrum Complete Multivit Tab (Multivitamin/Iron/Folic Acid) 1 Each Tablet 1 Tab PO DAILY Livalo (Pitavastatin Calcium) 2 Mg Tablet 2 Mg PO DAILY Flecainide Acetate 50 Mg Tablet 50 Mg PO BID Tamsulosin HCl 0.4 Mg Cap.er.24h 0.4 Mg PO BID Spiriva (Tiotropium [place]) 1 Inh Aerp 1 Cap INH DAILY Cartia Xt (Diltiazem HCl) 240 Mg Cap.er.24h 240 Mg PO HS Ventolin Hfa (Albuterol Sulfate) 18 Gm Hfa.aer.ad 2 Puff INH Q4H PRN Instructions to patient/family Please see electronic discharge instructions given to patient. Clinical Quality Measures DVT/VTE Risk/Contraindication: Risk Factor Score Per Nursin RFS Level Per Nursing on Admit: 4+=Very High Copy Copies To 1: ALEJANDRO GRAF MD Problem Qualifiers (1) Closed intertrochanteric fracture of left hip: Encounter type: initial encounter Fracture alignment: nondisplaced Qualified Codes: S72.145A - Nondisplaced intertrochanteric fracture of left femur, initial encounter for closed fracture (2) Atrial fibrillation: Atrial fibrillation type: paroxysmal Qualified Codes: I48.0 - Paroxysmal atrial fibrillation (3) COPD (chronic obstructive pulmonary disease): COPD type: unspecified COPD Qualified Codes: J44.9 - Chronic obstructive pulmonary disease, unspecified MANDI FLOREZ MD September 11, 2017 11:55
[2017-09-11 12:34] VITALS: BP 111/58
--- OUTSIDE RECORDS SUMMARY | 2017-09-11 12:51 | XMS REPORT ---
Author Organization Unknown Address Unknown Phone Unavailable Care Team Providers Care Ticketing Agent Name Role Phone Keaton Spear PCP Encounter [id number] Date(s): 11/19/13 - 11/19/13 [facility] 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
--- OUTSIDE RECORDS SUMMARY | 2017-09-11 12:51 | XMS REPORT ---
Author Organization Unknown Address Unknown Phone Unavailable Care Team Providers Care Barrel Drum Cutter Name Role Phone Keaton Spear PCP Encounter [id number] Date(s): 09/12/13 - 09/12/13 [facility] [id number] [place] [id number] Attending Physician: Cresencio Love MD Referring Physician: Keaton Spear DO Referring Physician: Keaton Spear DO Reason for Visit RVT. ANNUAL REVIEW. AFIB. 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
--- OUTSIDE RECORDS SUMMARY | 2017-09-11 12:51 | XMS REPORT | CCD ---
Author Author Auto Generated [facility] Address Unknown Phone Unavailable Care Team Providers Care Video Game Tester Name Role Phone Keaton Spear PP [phone] Allergies, Adverse Reactions, Alerts Substance Reaction Status NKA Active Problem List Condition Effective Dates Status Atherosclerosis of arteries of the extremities Active Atrial fibrillation Active BPH Active COPD Active Fracture of orbital bones Active Hyperlipidemia Active Hypertension Active PVD - Peripheral vascular disease Active Syncope symptom Active
--- OUTSIDE RECORDS SUMMARY | 2017-09-11 12:51 | XMS REPORT | Continuity of Care Document ---
Author Author [employer] Organization [facility] Address Unknown Phone Unavailable Care Team Providers Care Collection Agent Name Role Phone [employer] Unavailable Unavailable Problems Problem Status Onset Date Classification Date Reported Comments Source Chronic obstructive pulmonary disease, unspecified 06/01/2017 Diagnosis 06/05/2017 [facility] Obstructive sleep apnea (adult) (pediatric) 06/01/2017 Diagnosis 06/05/2017 [facility] Obstructive sleep apnea syndrome (disorder) 06/01/2017 Diagnosis 06/05/2017 [facility] Moderate chronic obstructive pulmonary disease (disorder) 06/01/2017 Diagnosis 06/05/2017 [facility] Paroxysmal atrial fibrillation 05/03/2017 Diagnosis 05/07 [facility] [place] Essential (primary) hypertension 05/03/2017 Diagnosis [facility] [place] Hyperlipidemia, unspecified 05/03/2017 Diagnosis 2017 [facility] [place] 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 05/03/2017 Diagnosis 05/07/2017 [facility] [place] Paroxysmal atrial fibrillation (disorder) 05/03/2017 Diagnosis 05/07/2017 [facility] [place] Chronic obstructive lung disease (disorder) 05/03/2017 Diagnosis 05/07/2017 [facility] [place] Hyperlipidemia (disorder) Diagnosis 05/07/2017 [facility] [place] Hypertensive disorder, systemic arterial (disorder) 05/03/2017 Diagnosis 05/07/2017 [facility] [place] Anticoagulant effect (finding) 05/03/2017 Diagnosis 05/07 [facility] [place] Severe chronic obstructive pulmonary disease (disorder) 01/31/2017 Diagnosis 02/04/2017 [facility] Dysphagia (disorder) 2016 Diagnosis 11/21/2016 [facility] [place] Tobacco user (finding) Resolved 10/13/2016 Problem 2016 Added by Discern Expert based on Social History Documentation [facility]. skilled nursing (current) use of anticoagulants 07/18/2016 Diagnosis 07/22/2016 [facility] Chronic obstructive lung disease (disorder) 04/20/2016 Diagnosis 04/24/2016 [facility] Hypertensive disorder, systemic arterial (disorder) 04/20/2016 Diagnosis 04/24/2016 [facility] Hyperlipidemia (disorder) Diagnosis 04/24/2016 [facility] Anticoagulated 04/20/2016 Diagnosis 04/24/2016 [facility] Hypoxemia (disorder) 2015 Diagnosis 04/08/2016 [facility] Obstructive sleep apnea syndrome (disorder) 04/04/2016 Diagnosis 04/08/2016 [facility] Pneumonia (disorder) 2015 Diagnosis 04/08/2016 [facility] Paroxysmal atrial fibrillation (disorder) 02/04/2016 Diagnosis 02/08/2016 [facility] Moderate chronic obstructive pulmonary disease (disorder) 12/02/2015 Diagnosis 12/06/2015 [facility] Chronic rhinitis (disorder) 11/17/2015 Diagnosis 2015 [facility] Transient ischemic attack (disorder) 09/07/2015 Diagnosis 09/11/2015 [facility] History of - anticoagulant therapy (context-dependent category) 06/22/2015 Diagnosis 06/26/2015 [facility] Chronic atrial fibrillation (disorder) 04/30/2015 Diagnosis 05/04/2015 [facility] Asthenia (finding) 2015 Diagnosis 05/04/2015 [facility] Acute exacerbation of chronic obstructive airways disease (disorder) 04/14/2015 Diagnosis 04/18/2015 [facility] Retention of urine (disorder) 02/06/2015 Diagnosis 2014 [facility] Essential hypertension (disorder) 02/06/2015 Diagnosis [facility]. Unspecified pleural effusion 12/04/2014 Diagnosis 2014 [facility] [place] Unspecified essential hypertension 12/04/2014 Diagnosis 12/08/2014 [facility] [place] Other dyspnea and respiratory abnormality 12/04/2014 Diagnosis 12/08/2014 [facility] [place] Urinary frequency 2014 Diagnosis 12/08/2014 [facility] [place] Unspecified chest pain 12/04 Diagnosis 12/08/2014 [facility] [place] Other malaise and fatigue Diagnosis 12/08/2014 [facility] [place] Need for prophylactic vaccination against Streptococcus pneumoniae [ pneumococcus] 10/30/2014 Diagnosis 11/03/2014 [facility] Chronic obstructive asthma, with (acute) exacerbation 09/01/2014 Diagnosis 09/05/2014 [facility] [place] Unspecified essential hypertension 01/30/2014 Diagnosis 02/03/2014 [facility] [place] Abdominal pain, unspecified site 01/30/2014 Diagnosis [facility] [place] Acute bronchitis 01/30/2014 Diagnosis 02/03/2014 [facility] 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 Atrial fibrillation (disorder) Active Problem 06/28/2013 [facility]. Benign prostatic hyperplasia (disorder) Active Problem [facility]. Chronic obstructive lung disease (disorder) Active Problem 06/28/2013 [facility]. Fracture of orbit (disorder) Active Problem 06/28/2013 [facility] Hyperlipidemia (disorder) Active Problem 06/28/2013 [facility]. Hypertensive disorder, systemic arterial (disorder) Active Problem 06/28/2013 [facility]. Peripheral arterial occlusive disease (disorder) Active Problem 06/28/2013 [facility]. Syncope symptom (disorder) Active Problem 06/28/2013 [facility]. Paroxysmal atrial fibrillation (disorder) Active Problem 02/05/2017 [facility] Medications Allergies, Adverse Reactions, Alerts Substance Category Reaction Severity Reaction type Status Date Reported Comments Source NKA drug allergy Allergy Active [facility]. Immunizations Immunization Date Given Site Status Last Updated Comments Source Pneumococcal conjugate PCV 13 01/31/2017 Right Deltoid pneumococcal 13-valent vaccine [facility] influenza virus vaccine 01/22/2015 influenza virus vaccine [facility] Pneumococcal conjugate PCV 13 10/30/2014 Left Deltoid pneumococcal 13-valent vaccine [facility]. Influenza, high dose seasonal 01/30/2014 Left Deltoid influenza virus vaccine [facility]. influenza virus vaccine 01/22/2013 influenza virus vaccine [facility]. Influenza, seasonal, injectable 02/09/2012 Left Deltoid influenza virus vaccine [facility]. pneumococcal 23-valent vaccine 01/12/2010 pneumococcal 23-valent vaccine [facility]. tetanus-diphtheria toxoids 04/24/2000 tetanus-diphtheria toxoids [facility]. Results Vital Signs Encounters Location Location Details Encounter Type Encounter Number Reason For Visit Attending Provider ADM Date DC Date Status Source AFCOL [id number] Clinic ( Outpatient) [id number] Keaton Spear 04/22/2013 Active [facility] AFCOL CD:[id number] Clinic ( Outpatient) [id number] Keaton Spear 06/24/2013 Active [facility] OMCI [id number] Outpatient [id number] Keaton Spear 06/24/2013 06/24/2013 Active [facility]. CSOL [id number] Clinic ( Outpatient) [id number] Cresencio Benoitmala 09/09/2013 Active [facility] Cardiology Services Clinic [id number] Keaton Spear 09/12/2013 09/13/2013 [facility] [id number] . LAB AFCOL 11/19/2013 11/20/2013 [facility] [place] [facility] [id number] . LAB AFCOL 12/27/2013 12/28/2013 [facility] Medicine - [facility] in [facility] [id number] Keaton Spear 01/30/2014 01/31/2014 [facility] [place] [facility] [id number] . LAB AFCOL 07/25/20142014 [facility] [place] [facility] [id number] Keaton Spear 09/01/201409/02 [facility] [place] AFCOL [id number] Clinic ( Outpatient) [id number] Keaton Spear 09/08/2014 Active [facility] [place] [facility] [id number] Keaton Spear 09/09/201409/10 [facility] [place] [facility] [id number] Keaton Spear 10/30/201410/31 [facility] [place] [facility] [id number] Keaton Spear 12/04/201412/05 [facility] [place] OMCI CD:[id number] Outpatient [id number] Keaton Spear 12/05/2014 12/05/2014 Active [facility] OMCI CD:[id number] Inpatient [id number] Keaton Spear 02/02/2015 Active [facility] [id number] . [facility] 02/08/2015 02/09/2015 [facility] CSOL [id number] Clinic ( Outpatient) [id number] [facility] 02/09/2015 02/09/2015 Active [facility] AF [facility] Cancel/No Show [id number] . LAB AFCOL 02/09/2015 [facility] [place] [facility] [id number] [facility] 02/09/2015 02/10/2015 [facility] OMCI CD:[id number] Outpatient [id number] [facility] 02/10/2015 02/10/2015 Active [facility] A[facility] Cancel/No Show [id number] Keaton Spear 02/18/2015 02/18/2015 [facility] [place] [facility] [id number] Keaton Spear 02/19/201502/20 [facility] [place] [facility] [id number] [facility] 02/19/2015 02/20/2015 [facility] Filling Hauler Weaving in Pulmonary Medicine Cancel/No Show [id number] Pat Moe 04/03/2015 04/03/2015 [facility] [id number] Keaton Spear 04/14/201504/15 [facility] [place] [facility] [id number] Keaton Spear 04/30/201505/01 [facility] [place] CSOL [id number] Clinic ( Outpatient) [id number] [facility] 05/13/2015 Active [facility] CSOL [id number] Clinic ( Outpatient) [id number] [facility] 05/13/2015 Active [facility] AFCOL CD:[id number] Clinic ( Outpatient) [id number] Keaton Spear 05/13/2015 Active [facility] [place] [facility] [id number] [facility] 05/13/2015 05/14/2015 [facility] [id number] Keaton Spear 05/13/201504/14 [facility] [place] [facility] [id number] . LAB AFCOL 05/13/20152015 [facility] [place] [facility] [id number] Keaton Spear 06/22/201506/22 [facility] [place] [facility] [id number] [facility] 06/29/2015 06/30/2015 [facility] Filling Hauler Weaving in Pulmonary Medicine Clinic [id number] Yoni Medrano 07/14/2015 07/15/2015 [facility] [id number] . LAB AFCOL 07/14/20152015 [facility] [place] [facility] [id number] Keaton Spear 09/07/201509/07 [facility] [place] [facility] Cancel/No Show [id number] Keaton Spear 09/07/2015 09/04/2015 [facility] [place] AFCOL CD:[id number] Clinic ( Outpatient) [id number] Keaton Spear 09/28/2015 Active [facility] [place] CPM [id number] Clinic ( Outpatient) [id number] Yoni Medrano 10/12/2015 Active [facility] [id number] . LAB AFCOL 11/16/20152015 [facility] [place] Filling Hauler Weaving in Pulmonary Medicine Clinic [id number] Yoni Medrano 11/17/2015 11/18/2015 [facility] CD:[id number] Outpatient [id number] Yoni Medrano 11/25/2015 11/25/2015 Active [facility] Filling Hauler Weaving in Pulmonary Medicine Clinic [id number] Yoni Medrano 12/02/2015 12/03/2015 [facility] [id number] Keaton Spear 12/14/201512/13 [facility] [place] CPM [id number] Clinic ( Outpatient) [id number] Yoni Medrano 01/26/2016 Active [facility] Filling [facility] We[facility] in [facility]monary Medicine Clinic [id number] Yoni Medrano 01/26/2016 01/27/2016 [facility] [id number] [facility] 02/04/2016 02/05/2016 [facility] Filling Hauler Weaving in Pulmonary Medicine Cancel/No Show [id number] 04/04/2016 04/04/2016 [facility] Clinic [id number] Yoni Medrano 04/04/2016 04/05/2016 [facility] [id number] Keaton Spear 04/20/201604/21 [facility] [place] AFCOL [id number] Clinic ( Outpatient) [id number] Keaton Spear 07/18/2016 [facility] [place] [facility] [id number] Yoni Medrano 201607/19/2016 [facility] [place] Clinic [id number] Keaton Spear 07/18/2016 07/19/2016 [facility] [place] AFCOL [id number] Clinic ( Outpatient) [id number] Keaton Spear 07/19/2016 Active [facility] [place] [facility] Services Clinic [id number] Cresencio Love 10/13/2016 10/14/2016 [facility] [place] Clinic [id number] Keaton Spear 11/17/2016 11/18/2016 [facility] [place] [facility]CI CD:[id number] Outpatient [id number] Yoni Medrano 01/31/2017 01/31/2017 Active [facility] [id number] Yoni Medrano 201602/01/2017 [facility] Clinic [id number] Yoni Medrano 201611/17/2016 [facility] AFCOL CD:[id number] Clinic ( Outpatient) [id number] Keaton Spear 03/20/2017 Active [facility] [place] AFCOL CD:[id number] Clinic ( Outpatient) [id number] Keaton Spear 03/21/2017 Active [facility] [place] CSOL [id number] Clinic ( Outpatient) [id number] John Rees 03/29/2017 Active [facility] Cardiology Services [facility] [place] Clinic [id number] Keaton Spear 05/03/2017 05/04/2017 [facility] [place] [facility] [id number] Yoni Medrano 201706/02/2017 [facility] AFC[facility] CD:[id number] Clinic ( Outpatient) [id number] Keaton Spear 09/19/2017 Active [facility] [place] Procedures Plan of Care Social History Assessment and Plan Family History Advance Directives Functional Status
--- OUTSIDE RECORDS SUMMARY | 2017-09-11 12:52 | XMS REPORT ---
Author Author [facility] Organization [facility] Address Unknown Phone Unavailable Care Team Providers Care Learning And Development Manager Name Role Phone Keaton Spear PCP Encounter [id number] [id number] Date(s): 06/29/15 - 06/29/15 [facility] [address] [address] [phone] Attending Physician: Cresencio Love MD Referring Physician: Cresencio Love MD Vital Signs No data available for this section Problem List Condition Effective Dates Status Health Status Informant Atherosclerosis of Active arteries of the extremities(Confirme d) BPH(Confirmed) Active COPD(Confirmed) Active Fracture of orbital Active bones(Confirmed) Hyperlipidemia(Confi Active rmed) Hypertension(Confirm Active ed) Atrial Active fibrillation(Confirm ed) PVD - Peripheral Active vascular disease(Confirmed) Syncope Active symptom(Confirmed) Diagnosis Diagnosis Type Effective Dates Health Status Clinical Service Informant Atrial Discharge 06/29/15 Non-Specified fibrillation Diagnosis Allergies, Adverse Reactions, Alerts No Known Medication Allergies Medications No Known Medications Results No data available for this section Immunizations No data available for this section Procedures No data available for this section Social History No data available for this section Assessment and Plan No data available for this section
--- OUTSIDE RECORDS SUMMARY | 2017-09-11 12:52 | XMS REPORT ---
Author Author [facility] Organization [facility] Address Unknown Phone Unavailable Care Team Providers Care House Cleaner Supervisor Name Role Phone Keaton Spear PCP Encounter [id number] [id number] Date(s): 07/25/14 - 07/25/14 [facility] [address] [place] [address]- [phone] Attending Physician: LAB A[facility] Vital Signs No data available for this [...] Medications No data available for this section Results No data available for this section Immunizations No data available for this section Procedures No data available for this section Social History No data available for this section Assessment and Plan No data available for this section
--- OUTSIDE RECORDS SUMMARY | 2017-09-11 12:52 | XMS REPORT ---
Author Author [facility] Organization [facility] Address Unknown Phone Unavailable Care Team Providers Care Feed Mill Operator Name Role Phone Keaton Spear PCP Encounter [id number] [id number] Date(s): 10/30/14 - 10/30/14 [facility] [address] [place] [address]- Discharge Diagnosis: Pneumococcal Vaccination Attending Physician: Keaton Spear DO Vital Signs No data available for this section Problem List Condition Effective Dates Status Health Status Informant Atherosclerosis of Active arteries of the extremities(Confirme d) Atrial Active fibrillation(Confirm ed) BPH(Confirmed) Active COPD(Confirmed) Active Fracture of orbital Active bones(Confirmed) Hyperlipidemia(Confi Active rmed) Hypertension(Confirm Active ed) PVD - Peripheral Active vascular disease(Confirmed) Syncope Active symptom(Confirmed) Allergies, Adverse Reactions, Alerts No Known Medication Allergies Medications No data available for this section Results No data available for this section Immunizations No data available for this section Procedures No data available for this section Social History No data available for this section Assessment and Plan No data available for this section
--- OUTSIDE RECORDS SUMMARY | 2017-09-11 12:52 | XMS REPORT ---
Author Author [facility] Organization [facility] Address Unknown Phone Unavailable Care Team Providers Care Acute Care Clinical Nurse Specialist Name Role Phone Keaton Spear PCP Encounter [id number] [id number] Date(s): 09/01/14 - 09/01/14 [facility] [address] [place] [address]- Discharge Diagnosis: Hypertension Discharge Diagnosis: COPD with acute exacerbation Attending Physician: Keaton Spear DO Vital Signs [...]
--- OUTSIDE RECORDS SUMMARY | 2017-09-11 12:52 | XMS REPORT ---
Author Author [facility] Organization [facility] Address Unknown Phone Unavailable Care Team Providers Care Cafe Attendant Name Role Phone Keaton Spear PCP Encounter [id number] [id number] Date(s): 09/09/14 - 09/09/14 [facility] [address] [place] [address]- Discharge Diagnosis: Pleural effusion Attending Physician: Keaton Spear DO Vital Signs [...]
--- OUTSIDE RECORDS SUMMARY | 2017-09-11 12:52 | XMS REPORT ---
Author Author [facility] Address Unknown Phone Unavailable Care Team Providers Care Turn Sewer Name Role Phone Keaton Spear PCP Encounter [id number] [id number] Date(s): 02/08/15 - 02/08/15 [facility] [address] [place]- Attending Physician: [facility] Non-Staff Vital Signs No data available for this [...]
--- OUTSIDE RECORDS SUMMARY | 2017-09-11 12:52 | XMS REPORT ---
Author Organization Unknown Address Unknown Phone Unavailable Care Team Providers Care Tractor Mechanic Apprentice Name Role Phone Keaton Spear PCP Encounter [id number] [id number] Date(s): 01/30/14 - 01/30/14 [facility] [address] [place] Discharge Diagnosis: Hypertension Discharge Diagnosis: Abdominal pain Discharge Diagnosis: Acute bronchitis Attending Physician: Keaton Spear DO Vital Signs [...]
--- OUTSIDE RECORDS SUMMARY | 2017-09-11 12:52 | XMS REPORT ---
Author Author [facility] Organization [facility] Address Unknown Phone Unavailable Care Team Providers Care Fagot Heater Name Role Phone Keaton Spear PCP Encounter [id number] [id number] Date(s): 12/04/14 - 12/04/14 [facility] [address] [place] [address]- Discharge Diagnosis: Dyspnea Discharge Diagnosis: Urinary frequency Discharge Diagnosis: Chest pain Discharge Diagnosis: Hypertension Discharge Diagnosis: Pleural effusion Discharge Diagnosis: Fatigue Attending Physician: Keaton Spear DO Vital Signs [...]
--- OUTSIDE RECORDS SUMMARY | 2017-09-11 12:52 | XMS REPORT ---
Author Author [facility] Address Unknown Phone Unavailable Care Team Providers Care Physical Scientist Name Role Phone Keaton Spear PCP Encounter [facility]NBR [id number] Date(s): 12/05/14 - 12/05/14 [facility] [address] [address] Attending Physician: Keaton Spear DO Admitting Physician: Keaton Spear DO Referring Physician: Keaton Spear DO Vital Signs No [...]
--- OUTSIDE RECORDS SUMMARY | 2017-09-11 12:52 | XMS REPORT ---
Author Author [facility] Organization [facility] Address Unknown Phone Unavailable Care Team Providers Care Tree Planter Name Role Phone Keaton Spear PCP Encounter [id number] [id number] Date(s): 06/22/15 - 06/22/15 [facility] [address] [place] [address]- Attending Physician: Keaton Spear DO Vital Signs [...] Effective Dates Health Status Clinical Service Informant Advanced COPD Discharge 06/22/15 Non-Specified Diagnosis Anticoagulated Discharge 06/22/15 Non-Specified Diagnosis Allergies, Adverse Reactions, Alerts No Known Medication Allergies Medications No Known Medications Results No data available for this section Immunizations No data available for this section Procedures No data available for this section Social History No data available for this section Assessment and Plan No data available for this section
--- OUTSIDE RECORDS SUMMARY | 2017-09-11 12:52 | XMS REPORT ---
Author [facility] Address Unknown Phone Unavailable Care Team Providers Care Client Retention Specialist Name Role Phone Keaton Spear PCP [place] [id number] [id number] Date(s): 02/02/15 - 02/06/15 [facility] [id number] [place] [id number] Discharge Diagnosis: COPD with acute exacerbation Discharge Diagnosis: Acute urinary retention Discharge Diagnosis: Hypertension Discharge Disposition: Home Attending Physician: Keaton Spear DO Admitting Physician: [...]
--- OUTSIDE RECORDS SUMMARY | 2017-09-11 12:53 | XMS REPORT ---
Author Author [facility] Organization [facility] Address Unknown Phone Unavailable Care Team Providers Care Park Activities Coordinator Name Role Phone Keaton Spear PCP Encounter [id number] [id number] Date(s): 05/13/15 - 05/13/15 [facility] [address] [place]- Attending Physician: LAB AFCOL Vital Signs No [...]
--- OUTSIDE RECORDS SUMMARY | 2017-09-11 12:53 | XMS REPORT ---
Author Author [facility] Organization [facility] Address Unknown Phone Unavailable Care Team Providers Care Safety Teacher Name Role Phone Keaton Spear PCP Encounter [id number] [id number] Date(s): 07/14/15 - 07/14/15 [facility] [address] [address]- Attending Physician: Yoni Medrano MD Vital Signs No data available for [...] Effective Dates Health Status Clinical Service Informant Hypoxemia Discharge 07/14/15 Non-Specified Diagnosis COPD, moderate Discharge 07/14/15 Non-Specified Diagnosis Allergies, Adverse Reactions, Alerts No Known Medication Allergies Medications No Known Medications Results No data available for this section Immunizations No data available for this section Procedures No data available for this section Social History No data available for this section Assessment and Plan No data available for this section
--- OUTSIDE RECORDS SUMMARY | 2017-09-11 12:53 | XMS REPORT ---
Author Author [facility] Organization [facility] Address Unknown Phone Unavailable Care Team Providers Care Laboratory Immunologist Name Role Phone Keaton Spear PCP Encounter [id number] [id number] Date(s): 04/30/15 - 04/30/15 [facility] [address] [place] [address]- Attending Physician: Keaton Spear DO Vital Signs [...] Effective Dates Health Status Clinical Service Informant Chronic Discharge 04/30/15 Non-Specified anticoagulation Diagnosis Chronic atrial Discharge 04/30/15 Non-Specified fibrillation Diagnosis Weakness Discharge 04/30/15 Non-Specified Diagnosis Allergies, Adverse Reactions, Alerts No Known Medication Allergies Medications No Known Medications Results No data available for this section Immunizations No data available for this section Procedures No data available for this section Social History No data available for this section Assessment and Plan No data available for this section
--- OUTSIDE RECORDS SUMMARY | 2017-09-11 12:53 | XMS REPORT ---
Author Author [facility] Organization [facility] Address Unknown Phone Unavailable Care Team Providers Care Affirmative Action Officer Name Role Phone Keaton Spear PCP Encounter [id number] [id number] Date(s): 02/19/15 - 02/19/15 [facility] [address] [place] [address]- Attending Physician: Keaton Spear DO Vital Signs [...] Health Status Clinical Service Informant Chronic Discharge 02/19/15 Non-Specified obstructive Diagnosis pulmonary disease Allergies, Adverse Reactions, Alerts No Known Medication Allergies Medications No Known Medications Results No data available for this section Immunizations No data available for this section Procedures No data available for this section Social History No data available for this section Assessment and Plan No data available for this section
--- OUTSIDE RECORDS SUMMARY | 2017-09-11 12:53 | XMS REPORT ---
Author Author [facility] Address Unknown Phone Unavailable Care Team Providers Care Court Attendant Name Role Phone Keaton Spear PCP Encounter [id number] [id number] Date(s): 02/19/15 - 02/19/15 [facility] [address] [address] [phone] Attending Physician: Cresencio Love MD Vital Signs No [...]
--- OUTSIDE RECORDS SUMMARY | 2017-09-11 12:53 | XMS REPORT ---
Author Author [facility] Organization [facility] Address Unknown Phone Unavailable Care Team Providers Care Control Panel Tester Name Role Phone Keaton Spear PCP Encounter [id number] [id number] Date(s): 04/14/15 - 04/14/15 [facility] [address] [place] [address]- Attending Physician: Keaton Spear DO Vital Signs [...] Health Status Clinical Service Informant Chronic Discharge 04/14/15 Non-Specified anticoagulation Diagnosis Acute exacerbation Discharge 04/14/15 Non-Specified of chronic Diagnosis obstructive pulmonary disease (COPD) Allergies, Adverse Reactions, Alerts No Known Medication Allergies Medications No Known Medications Results No data available for this section Immunizations No data available for this section Procedures No data available for this section Social History No data available for this section Assessment and Plan No data available for this section
--- OUTSIDE RECORDS SUMMARY | 2017-09-11 12:53 | XMS REPORT ---
Author Author [facility] Address Unknown Phone Unavailable Care Team Providers Care Take Out Waiter/Waitress Name Role Phone Keaton Spear PCP Encounter [id number] [id number] Date(s): 05/13/15 - 05/13/[address] [facility] [address] [address] Attending Physician: Cresencio Love MD Referring Physician: Cresencio Love MD Referring Physician: Cresencio Love MD Referring Physician: Cresencio [...]
--- OUTSIDE RECORDS SUMMARY | 2017-09-11 12:53 | XMS REPORT ---
Author Author [facility] Organization [facility] Address Unknown Phone Unavailable Care Team Providers Care Basting Marker Name Role Phone eKaton Spear PCP Encounter [id number] [id number] Date(s): 09/07/15 - 09/04/15 [facility] [address] [place] [address]- Attending Physician: Keaton Spear DO Vital Signs [...]
--- OUTSIDE RECORDS SUMMARY | 2017-09-11 12:53 | XMS REPORT ---
Author Author [facility] Organization [facility] Address Unknown Phone Unavailable Care Team Providers Care Salesperson Florist Supplies Name Role Phone Keaton Spear PCP Encounter [id number] Date(s): 02/10/15 - 02/10/15 [facility] [address] [address] Attending Physician: Cresencio Love MD Admitting Physician: Cresencio Love MD Referring Physician: Keaton Spear DO Vital Signs [...]
--- OUTSIDE RECORDS SUMMARY | 2017-09-11 12:53 | XMS REPORT ---
Author Author [facility] Organization [facility] Address Unknown Phone Unavailable Care Team Providers Care Sharepoint Application Architect Name Role Phone Keaton Spear PCP Encounter [id number] [id number] Date(s): 02/09/15 - 02/08/15 [facility] [address] [place] [address]- Attending Physician: LAB AFCOL Vital Signs No [...]
--- OUTSIDE RECORDS SUMMARY | 2017-09-11 12:53 | XMS REPORT ---
Author Author [facility] Organization [facility] Address Unknown Phone Unavailable Care Team Providers Care Senior Vice President & General Counsel Name Role Phone Keaton Spear PCP Encounter [id number] [id number] Date(s): 07/14/15 - 07/14/15 [facility] [address] [place]- [...]
--- OUTSIDE RECORDS SUMMARY | 2017-09-11 12:53 | XMS REPORT ---
Author Author [facility] Organization [facility] Address Unknown Phone Unavailable Care Team Providers Care Nurse'S Assistant Name Role Phone Keaton Spear PCP Encounter [id number] [id number] Date(s): 02/18/15 - 02/18/15 [facility] [address] [place] [address] [phone] Attending Physician: Keaton Spear DO Vital Signs [...]
--- OUTSIDE RECORDS SUMMARY | 2017-09-11 12:53 | XMS REPORT ---
Author Author [facility] Address Unknown Phone Unavailable Care Team Providers Care Director Of Partnerships Name Role Phone Keaton Spear PCP Encounter [id number] [id number] Date(s): 02/09/15 - 02/09/[address] [facility] [address] [address] Attending Physician: Cresencio Love MD Referring [...] Effective Dates Health Status Clinical Service Informant Paroxysmal atrial Discharge 02/09/15 Non-Specified fibrillation Diagnosis Allergies, Adverse Reactions, Alerts No Known Medication Allergies Medications No Known Medications Results No data available for this section Immunizations No data available for this section Procedures No data available for this section Social History No data available for this section Assessment and Plan No data available for this section
--- OUTSIDE RECORDS SUMMARY | 2017-09-11 12:53 | XMS REPORT ---
Author Author [facility] Organization [facility] Address Unknown Phone Unavailable Care Team Providers Care Conservation Specialist Name Role Phone Keaton Spear PCP Encounter [id number] [id number] Date(s): 05/13/15 - 04/14/15 [facility] [address] [place] [address] [phone] Attending Physician: Keaton Spear DO Vital Signs [...]
--- OUTSIDE RECORDS SUMMARY | 2017-09-11 12:53 | XMS REPORT ---
Author Author [facility] Organization [facility] Address Unknown Phone Unavailable Care Team Providers Care Mobility Engineer Name Role Phone Keaton Spear PCP Encounter [id number] [id number] Date(s): 04/03/15 - 04/03/15 [facility] [address] [address]- Attending Physician: Pat Moe APRN Vital Signs No data available for this [...]
--- OUTSIDE RECORDS SUMMARY | 2017-09-11 12:54 | XMS REPORT ---
Author Author [facility] Organization [facility] Address Unknown Phone Unavailable Care Team Providers Care Swatcher Name Role Phone Keaton Spear PCP Encounter [id number] [id number] Date(s): 04/04/16 - 04/04/16 [facility] [address] [address]- Attending Physician: Yoni Medrano MD Vital Signs [...] Health Status Clinical Service Informant Hypoxemia Discharge 04/04/16 Non-Specified Diagnosis Obstructive sleep Discharge 04/04/16 Non-Specified apnea Diagnosis Pneumonia Discharge 04/04/16 Non-Specified Diagnosis Allergies, Adverse Reactions, Alerts No Known Medication Allergies Medications No Known Medications Results No data available for this section Immunizations Given and Recorded Vaccine Date Status Refusal Reason influenza virus vaccine 01/22/15 Recorded influenza virus vaccine 01/30/14 Given influenza virus vaccine 01/22/13 Recorded influenza virus vaccine 02/09/12 Given pneumococcal 13-valent vaccine 10/30/14 Given pneumococcal 23-valent vaccine 01/12/10 Recorded tetanus-diphtheria toxoids 04/24/00 Recorded Procedures No data available for this section Social History No data available for this section Assessment and Plan No data available for this section
--- OUTSIDE RECORDS SUMMARY | 2017-09-11 12:54 | XMS REPORT ---
Author Author [facility] Organization [facility] Address Unknown Phone Unavailable Care Team Providers Care Solution Designer Name Role Phone Keaton Spear PCP Encounter [id number] [id number] Date(s): 04/20/16 - 04/20/16 [facility] [address] [place] [address]- Attending Physician: Keaton Spear DO Vital Signs [...] Effective Dates Health Status Clinical Service Informant Hypertension Discharge 04/20/16 Non-Specified Diagnosis Hyperlipidemia Discharge 04/20/16 Non-Specified Diagnosis Anticoagulated Discharge 04/20/16 Diagnosis COPD Discharge 04/20/16 Diagnosis Allergies, Adverse Reactions, Alerts No Known [...]
--- OUTSIDE RECORDS SUMMARY | 2017-09-11 12:54 | XMS REPORT ---
Author Author [facility] Organization [facility] Address Unknown Phone Unavailable Care Team Providers Care Lime Burner Name Role Phone Keaton Spear PCP Encounter [id number] [id number] Date(s): 09/07/15 - 09/07/15 [facility] [address] [place] [address] [phone] Attending Physician: Keaton Spear DO Vital Signs [...] Effective Dates Health Status Clinical Service Informant Brain TIA Discharge 09/07/15 Non-Specified Diagnosis Allergies, Adverse Reactions, Alerts No Known Medication Allergies Medications No Known Medications Results No data available for this section Immunizations No data available for this section Procedures No data available for this section Social History No data available for this section Assessment and Plan No data available for this section
--- OUTSIDE RECORDS SUMMARY | 2017-09-11 12:54 | XMS REPORT ---
Author Author [facility] Organization [facility] Address Unknown Phone Unavailable Care Team Providers Care Manager Intermediate Name Role Phone Keaton Spear PCP Encounter [id number] [id number] Date(s): 12/14/15 - 12/14/15 [facility] [address] [place] [address]- Attending Physician: Keaton Spear DO Vital Signs [...]
--- OUTSIDE RECORDS SUMMARY | 2017-09-11 12:54 | XMS REPORT ---
Author Author [facility] [employer] [facility] Address Unknown Phone Unavailable Care Team Providers Care Ethnic Origins Teacher Name Role Phone Keaton Spear PCP Encounter [id number] Date(s): 11/25/15 - 11/25/15 [facility] [address] [place] [address] Discharge Disposition: Home Attending Physician: Yoni Medrano MD Admitting Physician: Yoni Medrano MD Referring Physician: Keaton Spear DO Vital [...]
--- OUTSIDE RECORDS SUMMARY | 2017-09-11 12:54 | XMS REPORT ---
Author Author [facility] Organization [facility] Address Unknown Phone Unavailable Care Team Providers Care Tension Worker Name Role Phone Keaton Spear PCP Encounter [id number] [id number] Date(s): 11/16/15 - 11/16/15 [facility] [address] [place]- [phone] Attending Physician: LAB AFCOL Vital Signs No [...]
--- OUTSIDE RECORDS SUMMARY | 2017-09-11 12:54 | XMS REPORT ---
Author Author [facility] Organization [facility] Address Unknown Phone Unavailable Care Team Providers Care Physician Anesthesiologist Name Role Phone Keaton Spear PCP Encounter [id number] [id number] Date(s): 04/04/16 - 04/04/16 [facility] [address] [address] Vital Signs No data available for this [...]
--- OUTSIDE RECORDS SUMMARY | 2017-09-11 12:54 | XMS REPORT ---
Author Author [facility] Organization [facility] Address Unknown Phone Unavailable Care Team Providers Care Property Claims Adjuster Name Role Phone Keaton Spear PCP Encounter [id number] [id number] Date(s): 01/26/16 - 01/26/16 [facility] [address] [address]- Attending Physician: Yoni Medrano MD Vital Signs [...]
--- OUTSIDE RECORDS SUMMARY | 2017-09-11 12:54 | XMS REPORT ---
Author Author [facility] Address Unknown Phone Unavailable Care Team Providers Care Marketing Support Manager Name Role Phone Keaton Spear PCP Encounter [id number] [id number] Date(s): 02/04/16 - 02/04/16 [facility] [address] [address] Attending Physician: Cresencio Love MD Referring [...] Health Status Clinical Service Informant Atrial Discharge 02/04/16 fibrillation Diagnosis Allergies, Adverse Reactions, Alerts No [...]
--- OUTSIDE RECORDS SUMMARY | 2017-09-11 12:54 | XMS REPORT ---
Author Author [facility] Organization [facility] Address Unknown Phone Unavailable Care Team Providers Care Rasper Machine Operator Name Role Phone Keaton Spear PCP Encounter [id number] [id number] Date(s): 12/02/15 - 12/02/15 [facility] [address] [address]- Attending Physician: Yoin Medrano MD Vital Signs No data available [...] Effective Dates Health Status Clinical Service Informant Moderate COPD Discharge 12/02/15 Non-Specified (chronic Diagnosis obstructive pulmonary disease) Obstructive sleep Discharge 12/02/15 Non-Specified apnea Diagnosis Allergies, Adverse Reactions, Alerts No Known [...]
--- OUTSIDE RECORDS SUMMARY | 2017-09-11 12:54 | XMS REPORT ---
Author Author [facility] Organization [facility] Address Unknown Phone Unavailable Care Team Providers Care Manager Supply Chain Name Role Phone Keaton Spear PCP Encounter [id number] [id number] Date(s): 11/17/15 - 11/17/15 [facility] [address] [address]- Attending Physician: Yoni Medrano MD Vital Signs [...] Effective Dates Health Status Clinical Service Informant Obstructive sleep Discharge 11/17/15 Non-Specified apnea Diagnosis Chronic rhinitis Discharge 11/17/15 Non-Specified Diagnosis COPD, moderate Discharge 11/17/15 Non-Specified Diagnosis Allergies, Adverse Reactions, Alerts No [...]
--- OUTSIDE RECORDS SUMMARY | 2017-09-11 12:54 | XMS REPORT ---
Author Author [facility] Address Unknown Phone Unavailable Care Team Providers Care Deep Fat Fry Cook Name Role Phone Keaton Spear PCP Encounter [id number] [id number] Date(s): 07/18/16 - 07/18/16 [facility] [address] [place]- Attending Physician: Keaton Spear DO Vital Signs [...] Effective Dates Health Status Clinical Service Informant Anticoagulated Discharge 07/18/16 Non-Specified Diagnosis Moderate COPD Discharge 07/18/16 (chronic Diagnosis obstructive pulmonary disease) Allergies, Adverse Reactions, Alerts No Known Medication [...]
--- OUTSIDE RECORDS SUMMARY | 2017-09-11 12:55 | XMS REPORT ---
Author Author [facility] Organization [facility] Address Unknown Phone Unavailable Care Team Providers Care Forest Examiner Name Role Phone Keaton Spear PCP Encounter [id number] [id number] Date(s): 02/14/17 - 11/17/16 [facility] [address] [address]- Attending Physician: Yoni Medrano MD Vital Signs No data available for this section Problem List Condition Effective Dates Status Health Status Informant 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
--- OUTSIDE RECORDS SUMMARY | 2017-09-11 12:55 | XMS REPORT ---
Author Author [facility] Address Unknown Phone Unavailable Care Team Providers Care Road Cleaner Name Role Phone Keaton Spear PCP Althea Proctor PCP Sol Hdz PCP Keaton Spear PCP Althea Proctor PCP Encounter [id number] [id number] Date(s): 05/03/17 - 05/03/17 [facility] [address] [place] [address]- Encounter Diagnosis Hypertension (Discharge Diagnosis) - 05/03/17 Hyperlipidemia (Discharge Diagnosis) - 05/03/17 COPD (Discharge Diagnosis) - 05/03/17 Anticoagulated on warfarin (Discharge Diagnosis) - 05/03/17 Atrial fibrillation (Discharge Diagnosis) - 05/03/17 Attending Physician: Keaton Spear DO Vital Signs [...] Discern Expert based on Social History Documentation Diagnosis Diagnosis Type Effective Dates Health Status Clinical Service Informant COPD Discharge 05/03/17 Diagnosis Hyperlipidemia Discharge 05/03/17 Diagnosis Hypertension Discharge 05/03/17 Diagnosis Atrial Discharge 05/03/17 fibrillation Diagnosis Anticoagulated on Discharge 05/03/17 warfarin Diagnosis Allergies, Adverse Reactions, Alerts No Known Medication Allergies Medications No Known Medications Results No data available for this section Immunizations Given and Recorded Vaccine Date Status Refusal Reason pneumococcal 13-valent vaccine 01/31/17 Given pneumococcal 13-valent vaccine 10/30/14 Given influenza virus vaccine 01/22/15 Recorded influenza virus vaccine 01/30/14 Given influenza virus vaccine 01/22/13 Recorded influenza virus vaccine 02/09/12 Given pneumococcal 23-valent vaccine 01/12/10 Recorded tetanus-diphtheria toxoids 04/24/00 Recorded Procedures No data available for this section Social History No data available for this section Assessment and Plan No data available for this section
--- OUTSIDE RECORDS SUMMARY | 2017-09-11 12:55 | XMS REPORT ---
Author Author [facility] Organization [facility] Address Unknown Phone Unavailable Care Team Providers Care Soldering Machine Feeder Name Role Phone Keaton Spear PCP Encounter [id number] [id number] Date(s): 01/31/17 - 01/31/17 [facility] [address] [address]- Attending Physician: Yoni Medrano MD Vital Signs [...] Effective Dates Health Status Clinical Service Informant Stage 3 severe Discharge 01/31/17 Non-Specified COPD by GOLD Diagnosis classification Obstructive sleep Discharge 01/31/17 Non-Specified apnea Diagnosis Allergies, Adverse Reactions, Alerts [...]
--- OUTSIDE RECORDS SUMMARY | 2017-09-11 12:55 | XMS REPORT ---
Author Author [facility] Organization [facility] Address Unknown Phone Unavailable Care Team Providers Care Cleaner Operator Name Role Phone Keaton Spear PCP Encounter [id number] [id number] Date(s): 10/13/16 - 10/13/16 [facility] [address] [place], [place] [address] Attending Physician: Cresencio Love MD Referring [...]
--- OUTSIDE RECORDS SUMMARY | 2017-09-11 12:55 | XMS REPORT ---
Author Author [employer] Organization [employer] [facility] Address Unknown Phone Unavailable Care Team Providers Care Financial Retirement Plan Specialist Name Role Phone Keaton Spear PCP Encounter [facility]_FIN_NBR [id number] Date(s): 01/31/17 - 02/01/17 [facility] [employer] [address] [place] [address] Attending Physician: Yoni Medrano MD Admitting Physician: [...]
--- OUTSIDE RECORDS SUMMARY | 2017-09-11 12:55 | XMS REPORT ---
Author Author [facility] Address Unknown Phone Unavailable Care Team Providers Care Coreroom Foundry Laborer Name Role Phone Keaton Spear PCP Encounter [id number] [id number] Date(s): 11/17/16 - 11/17/16 [facility] [address] Delvin Reynolds- [...] Effective Dates Health Status Clinical Service Informant Dysphagia Discharge 11/17/16 Diagnosis Atrial Discharge 11/17/16 fibrillation Diagnosis FRED on CPAP Discharge 11/17/16 Diagnosis Advanced COPD Discharge 11/17/16 Diagnosis Allergies, Adverse Reactions, Alerts No Known [...]
--- OUTSIDE RECORDS SUMMARY | 2017-09-11 12:55 | XMS REPORT ---
Author Author [facility] Organization [facility] Address Unknown Phone Unavailable Care Team Providers Care Photo Mask Cleaner Name Role Phone Keaton Spear PCP Althea Hines PCP Sol Hdz PCP Keaton Spear PCP Althea Hines PCP Encounter [id number] [id number] Date(s): 06/01/17 - 06/01/17 [facility] [address] [address]- Encounter Diagnosis Stage 2 moderate COPD by GOLD classification (Discharge Diagnosis) - 06/01/17 Obstructive sleep apnea (Discharge Diagnosis) - 06/01/17 Attending Physician: Yoni Medrano MD Vital Signs [...] Status Clinical Service Informant Obstructive sleep Discharge 06/01/17 Non-Specified apnea Diagnosis Stage 2 moderate Discharge 06/01/17 Non-Specified COPD by GOLD Diagnosis classification Allergies, Adverse Reactions, Alerts No Known Medication [...]
--- OUTSIDE RECORDS SUMMARY | 2017-09-11 12:55 | XMS REPORT ---
Author Author [facility] Organization [facility] Address Unknown Phone Unavailable Care Team Providers Care Salesperson [employer] Cl[employer] Name Role Phone Keaton Spear PCP Encounter [id number] [id number] Date(s): 07/18/16 - 07/18/16 [facility] [address] [address]- Attending Physician: Yoni Medrano MD Vital Signs [...] Status Clinical Service Informant Obstructive sleep Discharge 07/18/16 Non-Specified apnea Diagnosis Allergies, Adverse Reactions, Alerts [...]
--- OUTSIDE RECORDS SUMMARY | 2017-09-11 12:56 | XMS REPORT | Continuity of Care Document ---
Author Author [facility] Organization [facility] Address Unknown Phone Unavailable Allergies Active Description Code Type Severity Reaction Onset Reported/Identified Relationship to Patient Clinical Status Yes PENICILLINS PENICILLINS SEVERE Yes PENICILLINS SEVERE OTHER Yes No Known Drug Allergies [id number] Drug Allergy Unknown N/A 04/16/2010 Medications There is no data. Problems Date Dx Coded Attending Type Code Diagnosis Diagnosed By 04/30/2010 Ot 401.9 04/30/2010 Ot 414.01 04/30/2010 Ot 427.31 04/30/2010 Ot 440.20 04/30/2010 Ot 486 04/30/2010 Ot 491.21 04/30/2010 Ot 593.9 04/30/2010 Ot 600.00 04/30/2010 Ot 786.50 04/30/2010 Ot V12.51 05/05/2010 Ot 401.9 05/05/2010 Ot 414.01 05/05/2010 Ot 427.31 05/05/2010 Ot 440.20 05/05/2010 Ot 486 05/05/2010 Ot 491.21 05/05/2010 Ot 593.9 05/05/2010 Ot 600.00 05/05/2010 Ot 786.50 05/05/2010 Ot V12.51 05/15/2010 Ot 112.0 05/15/2010 Ot 401.9 05/15/2010 Ot 414.01 05/15/2010 Ot 427.31 05/15/2010 Ot 440.20 05/15/2010 Ot 486 05/15/2010 Ot 491.21 05/15/2010 Ot 593.9 05/15/2010 Ot 600.00 05/15/2010 Ot 786.50 05/15/2010 Ot V12.51 04/21/2015 HUBERT GIBBONS DO Ot J44.9 04/27/2015 HUBERT GIBBONS DO Ot J44.9 06/21/2015 HUBERT GIBBONS DO Ot J44.9 06/30/2015 SHAI DO, HUBERT A Ot J44.9 06/30/2015 SHAI DO, HUBERT A Ot J44.9 07/01/2015 SHAI DO, HUBERT A Ot J44.9 08/14/2015 SHAI DO, HUBERT A Ot J44.9 CHRONIC OBSTRUCTIVE PULMONARY DISEASE, U 08/20/2015 SHAI DO, HUBERT A Ot J44.9 CHRONIC OBSTRUCTIVE PULMONARY DISEASE, U 09/28/2015 SHAI DO, HUBERT A Ot J44.9 CHRONIC OBSTRUCTIVE PULMONARY DISEASE, U 10/06/2015 SHAI DO, HUBERT A Ot J44.9 CHRONIC OBSTRUCTIVE PULMONARY DISEASE, U 10/06/2015 SHAI DO, HUBERT A Ot J44.9 CHRONIC OBSTRUCTIVE PULMONARY DISEASE, U 10/07/2015 SHAI DO, HUBERT A Ot J44.9 CHRONIC OBSTRUCTIVE PULMONARY DISEASE, U 10/16/2015 SHAI DO, HUBERT A Ot R29.898 OTH SYMPTOMS AND SIGNS INVOLVING THE MUS 10/16/2015 SHAI DO, HUBERT A Ot R29.898 OTH SYMPTOMS AND SIGNS INVOLVING THE MUS 01/04/2016 SHAI DO, HUBERT A Ot J44.9 CHRONIC OBSTRUCTIVE PULMONARY DISEASE, U 01/05/2016 SHAI DO, HUBERT A Ot J44.9 CHRONIC OBSTRUCTIVE PULMONARY DISEASE, U 02/26/2016 A 486 02/26/2016 W 562.10 DIVERTICULOSIS OF COLON (WITHOUT MENTION OF HEMORRHAGE) 02/26/2016 A J18.9 PNEUMONIA, UNSPECIFIED ORGANISM 02/26/2016 W 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 PERFORATION OR ABSCESS WITHOUT BLEEDING 02/26/2016 A 486 02/26/2016 A J18.9 PNEUMONIA, UNSPECIFIED ORGANISM 03/01/2016 W 272.4 03/01/2016 W 285.9 03/01/2016 W 401.0 MALIGNANT ESSENTIAL HYPERTENSION 03/01/2016 W 427.31 03/01/2016 A 486 PNEUMONIA, ORGANISM UNSPECIFIED 03/01/2016 W 491.20 OBSTRUCTIVE CHRONIC BRONCHITIS, WITHOUT EXACERBATION 03/01/2016 W 600.00 03/01/2016 W D64.9 ANEMIA, UNSPECIFIED 03/01/2016 W E78.5 HYPERLIPIDEMIA , UNSPECIFIED 03/01/2016 W I10 ESSENTIAL ( PRIMARY) HYPERTENSION 03/01/2016 W I48.91 UNSPECIFIED ATRIAL FIBRILLATION 03/01/2016 A J18.9 PNEUMONIA, UNSPECIFIED ORGANISM 03/01/2016 W J44.9 CHRONIC OBSTRUCTIVE PULMONARY DISEASE, UNSPECIFIED 03/01/2016 W N40.0 ENLARGED PROSTATE WITHOUT LOWER URINARY TRACT SYMPTOMS 03/01/2016 W V58.61 03/01/2016 W Z79.01 SPEED BELT SANDER TENDER ( CURRENT) USE OF ANTICOAGULANTS 03/23/2016 Lakekob, Victorina W 272.4 OTHER AND UNSPECIFIED HYPERLIPIDEMIA 03/23/2016 Brokob, Vicotrina A 465.8 03/23/2016 Brokob, Victorina W 486 03/23/2016 Brokob, Victorina W 564.00 CONSTIPATION, UNSPECIFIED 03/23/2016 Brokob, Victorina W 719.46 PAIN IN JOINT INVOLVING LOWER LEG 03/23/2016 Brokob, Victorina W 780.79 OTHER MALAISE AND FATIGUE 03/23/2016 Brokob, Victorina W E78.5 HYPERLIPIDEMIA, UNSPECIFIED 03/23/2016 Brokob, Victorina A J06.9 ACUTE UPPER RESPIRATORY INFECTION, UNSPECIFIED 03/23/2016 Brokob, Victorina W J18.9 PNEUMONIA, UNSPECIFIED ORGANISM 03/23/2016 Brokob, Victorina W K59.00 CONSTIPATION, UNSPECIFIED 03/23/2016 Brokob, Victorina W M25.562 PAIN IN LEFT KNEE 03/23/2016 Brokob, Victorina W R53.83 OTHER FATIGUE 03/24/2016 Tiffanie Hardwick 728.87 MUSCLE WEAKNESS (GENERALIZED) 03/24/2016 Tiffanie Hardwick M62.81 MUSCLE WEAKNESS (GENERALIZED) 04/02/2016 A V58.61 LONG-TERM ( CURRENT) USE OF ANTICOAGULANTS 04/02/2016 A Z79.01 INTERMEDIATE ( CURRENT) USE OF ANTICOAGULANTS 07/14/2017 SHAI DO, HUBERT A Ot J44.9 CHRONIC OBSTRUCTIVE PULMONARY DISEASE, U 07/19/2017 SHAI DO, HUBERT A Ot J44.9 CHRONIC OBSTRUCTIVE PULMONARY DISEASE, U 07/25/2017 SHAI DO, HUBERT A Ot J44.9 CHRONIC OBSTRUCTIVE PULMONARY DISEASE, U 07/27/2017 SHAI DO, HUBERT A Ot J44.9 CHRONIC OBSTRUCTIVE PULMONARY DISEASE, U 08/01/2017 SHAI DO, HUBERT A Ot J44.9 CHRONIC OBSTRUCTIVE PULMONARY DISEASE, U 08/03/2017 SHAI DO, HUBERT A Ot J44.9 CHRONIC OBSTRUCTIVE PULMONARY DISEASE, U 08/10/2017 SHAI DO, HUBERT A Ot J44.9 CHRONIC OBSTRUCTIVE PULMONARY DISEASE, U 08/17/2017 SHAI DO, HUBERT A Ot J44.9 CHRONIC OBSTRUCTIVE PULMONARY DISEASE, U 08/22/2017 SHAI DO, HUBERT A Ot J44.9 CHRONIC OBSTRUCTIVE PULMONARY DISEASE, U 08/22/2017 SHAI DO, HUBERT A Ot J44.9 CHRONIC OBSTRUCTIVE PULMONARY DISEASE, U 08/24/2017 SHAI DO, HUBERT A Ot J44.9 CHRONIC OBSTRUCTIVE PULMONARY DISEASE, U 08/29/2017 SHAI DO, HUBERT A Ot J44.9 CHRONIC OBSTRUCTIVE PULMONARY DISEASE, U 08/29/2017 SHAI DO, HUBERT A Ot J44.9 CHRONIC OBSTRUCTIVE PULMONARY DISEASE, U 08/31/2017 SHAI DO, HUBERT A Ot J44.9 CHRONIC OBSTRUCTIVE PULMONARY DISEASE, U 08/31/2017 SHAI DO, HUBERT A Ot J44.9 CHRONIC OBSTRUCTIVE PULMONARY DISEASE, U 09/05/2017 SHAI DO, HUBERT A Ot J44.9 CHRONIC OBSTRUCTIVE PULMONARY DISEASE, U 09/07/2017 SHAI DO, HUBERT A Ot J44.9 CHRONIC OBSTRUCTIVE PULMONARY DISEASE, U 09/07/2017 SHAI DO, HUBERT A Ot J44.9 CHRONIC OBSTRUCTIVE PULMONARY DISEASE, U Procedures There is no data. Results Test Result Range Comprehensive Metabolic Panel - 03/23/16 16:22 Albumin 3.8 g/dL 3.6-5.1 ALP 45 U/L 35-130 ALT 20 U/L 6-45 Anion Gap 15 6-14 AST 46 U/L 2-40 BUN 20 mg/dL 5-25 Calcium 9.3 mg/dL 8.3-10.4 Chloride 108 mmol/L 95-114 CO2 20 mEq/L 22-33 Creat 1.45 mg/dL 0.50-1.50 eGFR 47 mL/min/1.73m2 >59 Globulin 3.5 g/dL 2.3-3.5 Glucose 108 mg/dL 70-110 Osmo 288 280-295 Potassium 5.3 mmol/L 3.5-5.3 Sodium 138 mmol/L 134-148 TBil 0.6 mg/dL 0.2-1.2 TP 7.3 g/dL 6.0-8.3 Urinalysis - 03/23/16 16:23 Icotest N/A Negative Urine Volume Urine Volume Sufficient (10mL) Urine-Appearance Clear Clear Urine-Bilirubin Negative Negative Urine-Blood Negative Negative Urine-Color Yellow Colorless-Lt. Yellow Urine-Glucose Negative Negative Urine-Ketones Negative Negative Urine-Leukocytes Negative Negative Urine-Nitrite Negative Negative Urine-pH 6.0 5-8.5 Urine-Protein Negative Negative Urine-Specific [place] >=1.030 1.000-1.030 Urine-WBC Nothing Seen on Microscopic Urobilinogen 0.2 E.U./dL 0.2-1.0 Protime - 03/23/16 16:23 INR 1.1 1.0-4.0 Protime 12.6 Sec 9.9-12.8 Blood Culture - 03/23/16 16:23 PRELIM CULTURE RESULTS Blood Culture Negative, No Growth Day 1 FINAL CULTURE RESULTS Blood Culture Negative, No Growth Day 5 MEDIA PLATED Setup at 16:38 on 03/23/2016Blood Culture Media Position C45 CULTURE SOURCE nursing iv start Sputum Culture - 03/23/16 18:25 PRELIM CULTURE RESULTS Abundant Alpha Hemolytic Sent to Ivana Pennington [facility] for additional testing. FINAL CULTURE RESULTS No additional organisms MEDIA PLATED Setup at 19:12 on 03/23/2016 Protime - 03/26/16 11:22 INR 1.3 1.0-4.0 Protime 15.4 Sec 9.9-12.8 Protime - 03/28/16 14:27 INR 1.4 1.0-4.0 Protime 16.0 Sec 9.9-12.8 Protime - 03/30/16 11:54 INR 1.6 1.0-4.0 Protime 18.7 Sec 9.9-12.8 Protime - 04/02/16 11:43 INR 2.1 1.0-4.0 Protime 25.1 Sec 9.9-12.8 Protime - 04/07/16 11:03 INR 1.8 1.0-4.0 Protime 21.8 Sec 9.9-12.8 Protime - 05/18/16 11:40 INR 1.7 1.0-4.0 Protime 20.1 Sec 9.9-12.8 Protime - 08/17/16 11:39 INR 2.1 1.0-4.0 Protime 25.1 Sec 9.9-12.8 Protime - 09/21/16 10:18 INR 2.4 1.0-4.0 Protime 29.2 Sec 9.9-12.8 Comprehensive Metabolic Panel - 11/30/16 10:51 Albumin 4.2 g/dL 3.6-5.1 ALP 66 U/L 35-130 ALT 18 U/L 6-45 Anion Gap 16 6-14 AST 21 U/L 2-40 BUN 23 mg/dL 5-25 Calcium 9.2 mg/dL 8.3-10.4 Chloride 107 mmol/L 95-114 CO2 21 mEq/L 22-33 Creat 1.58 mg/dL 0.50-1.50 eGFR 42 mL/min/1.73m2 >59 Globulin 2.7 g/dL 2.3-3.5 Glucose 117 mg/dL 70-110 Osmo 292 280-295 Potassium 4.6 mmol/L 3.5-5.3 Sodium 139 mmol/L 134-148 TBil 0.4 mg/dL 0.2-1.2 TP 6.9 g/dL 6.0-8.3 Protime - 03/01/17 10:52 INR 1.9 1.0-4.0 Protime 22.7 Sec 9.9-12.8 Complete blood count (CBC) with automated white blood cell (WBC) differential - 09/08/17 13:00 Blood leukocytes automated count (number/volume) 6.0 10*3/uL 4.3-11.0 Blood erythrocytes automated count (number/volume) 3.73 10*6/uL 4.35-5.85 Venous blood hemoglobin measurement (mass/volume) 11.8 g/dL 13.3-17.7 Blood hematocrit (volume fraction) 35 % 40-54 Automated erythrocyte mean corpuscular volume 95 [foz_us] 80-99 Automated erythrocyte mean corpuscular hemoglobin (mass per erythrocyte) 32 pg 25-34 Automated erythrocyte mean corpuscular hemoglobin concentration measurement ( mass/volume) 33 g/dL 32-36 Automated erythrocyte distribution width ratio 14.1 % 10.0-14.5 Automated blood platelet count (count/volume) 255 10*3/uL 130-400 Automated blood platelet mean volume measurement 9.3 [foz_us] 7.4-10.4 Automated blood neutrophils/100 leukocytes 78 % 42-75 Automated blood lymphocytes/100 leukocytes 11 % 12-44 Blood monocytes/100 leukocytes 8 % 0-12 Automated blood eosinophils/100 leukocytes 3 % 0-10 Automated blood basophils/100 leukocytes 0 % 0-10 Blood neutrophils automated count (number/volume) 4.7 10*3 1.8-7.8 Blood lymphocytes automated count (number/volume) 0.7 10*3 1.0-4.0 Blood monocytes automated count (number/volume) 0.5 10*3 0.0-1.0 Automated eosinophil count 0.2 10*3/uL 0.0-0.3 Automated blood basophil count (count/volume) 0.0 10*3/uL 0.0-0.1 Complete urinalysis with reflex to culture - 09/08/17 13:00 Urine color determination YELLOW NRG Urine clarity determination CLEAR NRG Urine pH measurement by test strip 6 5-9 Specific gravity of urine by test strip 1.015 1.016- 1.022 Urine protein assay by test strip, semi-quantitative NEGATIVE NEGATIVE Urine glucose detection by automated test strip NEGATIVE NEGATIVE Erythrocytes detection in urine sediment by light microscopy 1+ NEGATIVE Urine ketones detection by automated test strip NEGATIVE NEGATIVE Urine nitrite detection by test strip POSITIVE NEGATIVE Urine total bilirubin detection by test strip NEGATIVE NEGATIVE Urine urobilinogen measurement by automated test strip (mass/volume) NORMAL NORMAL Urine leukocyte esterase detection by dipstick NEGATIVE NEGATIVE Automated urine sediment erythrocyte count by microscopy (number/high power field) RARE NRG Automated urine sediment leukocyte count by microscopy (number/high power field ) NONE NRG Bacteria detection in urine sediment by light microscopy MODERATE NRG Squamous epithelial cells detection in urine sediment by light microscopy NONE NRG Crystals detection in urine sediment by light microscopy NONE NRG Casts detection in urine sediment by light microscopy NONE NRG Mucus detection in urine sediment by light microscopy NEGATIVE NRG Complete urinalysis with reflex to culture YES NRG PT panel in platelet poor plasma by coagulation assay - 09/08/17 13:00 Prothrombin time (PT) in platelet poor plasma by coagulation assay 22.5 s 12.2-14.7 INR in platelet poor plasma or blood by coagulation assay 2.0 0.8-1.4 Comprehensive metabolic panel - 09/08/17 13:00 Serum or plasma sodium measurement (moles/volume) 140 mmol/L 135-145 Serum or plasma potassium measurement (moles/volume) 4.6 mmol/L 3.6-5.0 Serum or plasma chloride measurement (moles/volume) 110 mmol/L 98-107 Carbon dioxide 21 mmol/L 21-32 Serum or plasma anion gap determination (moles/volume) 9 mmol/L 5-14 Serum or plasma urea nitrogen measurement (mass/volume) 18 mg/dL 7-18 Serum or plasma creatinine measurement (mass/volume) 1.18 mg/dL 0.60-1.30 Serum or plasma urea nitrogen/creatinine mass ratio 15 NRG Serum or plasma creatinine measurement with calculation of estimated glomerular filtration rate 59 NRG Serum or plasma glucose measurement (mass/volume) 99 mg/dL 70-105 Serum or plasma calcium measurement (mass/volume) 9.5 mg/dL 8.5-10.1 Serum or plasma total bilirubin measurement (mass/volume) 0.5 mg/dL 0.1-1.0 Serum or plasma alkaline phosphatase measurement (enzymatic activity/volume) 59 U/L 40-136 Serum or plasma aspartate aminotransferase measurement (enzymatic activity/ volume) 18 U/L 5-34 Serum or plasma alanine aminotransferase measurement (enzymatic activity/volume ) 15 U/L 0-55 Serum or plasma protein measurement (mass/volume) 6.2 g/dL 6.4-8.2 Serum or plasma albumin measurement (mass/volume) 3.8 g/dL 3.2-4.5 Blood type T Indirect antibody screen panel - 09/08/17 13:00 ABO+Rh group AP [facility] Transfusion band number [id number] [facility] Blood group antibody screen NEGATIVE NR Bacterial urine culture - 09/08/17 13:00 Bacterial urine culture RML NRG COLONY COUNT . [facility]TX;REPORTABLE SENT AT 1630, 09-08-17 [facility] Complete blood count (CBC) with automated white blood cell (WBC) differential - 09/09/17 04:53 Blood leukocytes automated count (number/volume) 8.6 10*3/uL 4.3-11.0 Blood erythrocytes automated count (number/volume) 3.56 10*6/uL 4.35-5.85 Venous blood hemoglobin measurement (mass/volume) 11.2 g/dL 13.3-17.7 Blood hematocrit (volume fraction) 35 % 40-54 Automated erythrocyte mean corpuscular volume 97 [foz_us] 80-99 Automated erythrocyte mean corpuscular hemoglobin (mass per erythrocyte) 32 pg 25-34 Automated erythrocyte mean corpuscular hemoglobin concentration measurement ( mass/volume) 33 g/dL 32-36 Automated erythrocyte distribution width ratio 14.1 % 10.0-14.5 Automated blood platelet count (count/volume) 242 10*3/uL 130-400 Automated blood platelet mean volume measurement 9.9 [foz_us] 7.4-10.4 Automated blood neutrophils/100 leukocytes 81 % 42-75 Automated blood lymphocytes/100 leukocytes 9 % 12-44 Blood monocytes/100 leukocytes 9 % 0-12 Automated blood eosinophils/100 leukocytes 1 % 0-10 Automated blood basophils/100 leukocytes 0 % 0-10 Blood neutrophils automated count (number/volume) 7.0 10*3 1.8-7.8 Blood lymphocytes automated count (number/volume) 0.7 10*3 1.0-4.0 Blood monocytes automated count (number/volume) 0.8 10*3 0.0-1.0 Automated eosinophil count 0.1 10*3/uL 0.0-0.3 Automated blood basophil count (count/volume) 0.0 10*3/uL 0.0-0.1 PT panel in platelet poor plasma by coagulation assay - 09/09/17 04:53 Prothrombin time (PT) in platelet poor plasma by coagulation assay 21.9 s 12.2-14.7 INR in platelet poor plasma or blood by coagulation assay 1.9 0.8-1.4 Comprehensive metabolic panel - 09/09/17 04:53 Serum or plasma sodium measurement (moles/volume) 139 mmol/L 135-145 Serum or plasma potassium measurement (moles/volume) 4.7 mmol/L 3.6-5.0 Serum or plasma chloride measurement (moles/volume) 109 mmol/L 98-107 Carbon dioxide 19 mmol/L 21-32 Serum or plasma anion gap determination (moles/volume) 11 mmol/L 5-14 Serum or plasma urea nitrogen measurement (mass/volume) 20 mg/dL 7-18 Serum or plasma creatinine measurement (mass/volume) 1.37 mg/dL 0.60-1.30 Serum or plasma urea nitrogen/creatinine mass ratio 15 NRG Serum or plasma creatinine measurement with calculation of estimated glomerular filtration rate 50 NRG Serum or plasma glucose measurement (mass/volume) 130 mg/dL 70-105 Serum or plasma calcium measurement (mass/volume) 8.5 mg/dL 8.5-10.1 Serum or plasma total bilirubin measurement (mass/volume) 0.7 mg/dL 0.1-1.0 Serum or plasma alkaline phosphatase measurement (enzymatic activity/volume) 58 U/L 40-136 Serum or plasma aspartate aminotransferase measurement (enzymatic activity/ volume) 17 U/L 5-34 Serum or plasma alanine aminotransferase measurement (enzymatic activity/volume ) 12 U/L 0-55 Serum or plasma protein measurement (mass/volume) 6.3 g/dL 6.4-8.2 Serum or plasma albumin measurement (mass/volume) 3.7 g/dL 3.2-4.5 Encounters ACCT No. Visit Date/Time Discharge Status Pt. Type Provider Facility Loc./Unit Complaint [id number] 07/20/2017 14:00:00 07/20/2017 23:59:59 CLS Outpatient SHAI BURNETTE HUBERT A [facility] J44.9 [id number] 01/05/2016 13:00:00 01/05/2016 23:59:59 CLS Preadmit SHAI DO, HUBERT A [facility] PUL EVAL [id number] 10/06/2015 10:12:00 01/04/2016 00:01:00 DIS Outpatient SHAI DO, HUBERT A [facility] EVAL [id number] 10/06/2015 11:00:00 10/16/2015 15:15:00 DIS Outpatient SHAI DO, HUBERT A [facility] REHAB [id number] 09/24/2015 13:00:00 09/28/2015 00:01:00 DIS Outpatient SHAI DO, HUBERT A [facility] [id number] 06/16/2015 13:00:00 06/21/2015 00:01:00 DIS Outpatient SHAI DO, HUBERT A [facility] [id number] 09/08/2017 13:12:00 Document Registration [id number] 05/05/2010 23:34:00 Document Registration [id number] 04/30/2010 17:05:00 Document Registration [id number] 04/16/2010 22:45:00 Document Registration [id number] 03/01/2017 10:49:00 03/01/2017 23:59:00 DIS Outpatient Tiffanie Hardwick [id number] 11/30/2016 10:47:00 11/30/2016 23:59:00 DIS Outpatient Tiffanie Hardwick [id number] 09/21/2016 10:12:00 09/21/2016 23:59:00 DIS Outpatient Tiffanie Hardwick [id number] 08/17/2016 11:33:00 08/17/2016 23:59:00 DIS Outpatient Tiffanie Hardwick [id number] 05/18/2016 11:30:00 05/18/2016 23:59:00 DIS Outpatient Tiffanie Hardwick [id number] 03/28/2016 14:21:00 04/22/2016 11:55:00 DIS Outpatient Tiffanie Hardwick [id number] 04/07/2016 11:01:00 04/07/2016 23:59:00 DIS Outpatient Tiffanie Hardwick [id number] 03/30/2016 11:45:00 03/30/2016 23:59:00 DIS Outpatient Tiffanie Hardwick [id number] 03/28/2016 00:00:00 03/28/2016 23:59:00 DIS Outpatient Tiffanie Hardwick [id number] 03/26/2016 11:21:00 03/26/2016 23:59:00 DIS Outpatient Tiffanie Hardwick [id number] 03/23/2016 14:48:00 03/23/2016 18:52:00 DIS Outpatient [facility] [id number] 04/02/2016 11:43:00 Document Registration [id number] 03/24/2016 14:40:20 Document Registration [id number] 03/14/2016 06:31:10 Document Registration
== END 2017-09-11 12:00 | DRG 481 ==
LOC: EDUNIT# 12:35 → ER 12:37 → 4TH 14:25
PROVIDERS: ADMIT Family Medicine; ATTEND Family Medicine
PROC: 0QS706Z Reposition Left Upper Femur with Intramedullary Internal Fixation Device, Open Approach (ICD-10-PCS; principal; 2017-09-09 07:37)
DX: S72.142A Displaced intertrochanteric fracture of left femur, initial encounter for closed fracture (principal); N17.9 Acute kidney failure, unspecified; I48.0 Paroxysmal atrial fibrillation; I10 Essential (primary) hypertension; J44.9 Chronic obstructive pulmonary disease, unspecified; G47.33 Obstructive sleep apnea (adult) (pediatric); R00.1 Bradycardia, unspecified; R09.02 Hypoxemia; T42.6X5A Adverse effect of other antiepileptic and sedative-hypnotic drugs, initial encounter; T40.605A Adverse effect of unspecified narcotics, initial encounter; N40.0 Benign prostatic hyperplasia without lower urinary tract symptoms; W19.XXXA Unspecified fall, initial encounter; Y92.009 Unspecified place in unspecified non-institutional (private) residence as the place of occurrence of the external cause; Z87.891 Personal history of nicotine dependence; Z79.01 Long term (current) use of anticoagulants; Z86.718 Personal history of other venous thrombosis and embolism
CPT/HCPCS: 36415; 51702; 70450; 71045; 72125; 80053; 81000; 85025; 85610; 86850; 86900; 86901; 87077; 87081; 87088; 87186; 93005; 94640; 94664; 94760; 96374; 96375; 96376

== ENCOUNTER 2017-09-11 09:46 | Inpatient (IN) | payer MEDICARE ==
[~2017-09-11] VITALS: Ht 175.3 cm; Wt 83.7 kg
[~2017-09-11 09:46] MED LIST changes: +ALBU18HF2 INH; +DILT240C53 PO; +DOCU-143 PO; +DUTA0.5C14 PO; +FLEC50TA PO; +FLUT1AER INH; +FOLI1TAB6 PO; +PITA2TAB2 PO; +TAMS0.4C2 PO; +TIOT18CA2 INH; +WARF-47 PO
--- NOTE | 2017-09-11 11:56 | Physical Therapy Evaluation ---
PT Evaluation-General Medical Diagnosis Admission Date Medical Diagnosis: left hip fracture Onset Date: September 08, 2017 Therapy Diagnosis Therapy Diagnosis: impaired mobility, strength, endurance, ROM Height/Weight Height (Feet): 5 Height (Inches): 8.00 Weight (Pounds): 189 Weight (Ounces): 6.0 Weight Bear Status Left Lower Extremity: Left Touch Toe Bearing Referral Physician: Andrés Reason for Referral: Evaluation/Treatment Medical History Pertinent Medical History: Atrial Fib, COPD, HTN Current History Pt fell at home sustaining a left hip fracture; subsequent IM nail. TTWB left LE. Reviewed History: Yes Social History Home: Single Level Current Living Status: Spouse Entry Into Home: Ramp Ramp in front, has a few steps going into the home from the garage. Prior/Core FIM Prior Level of Function Functional Tony Measure 0=Not Assessed/NA 4=Minimal Assistance 1=Total Assistance 5=Supervision or Setup 2=Maximal Assistance 6=Modified Tony 3=Moderate Assistance 7=Complete Tony Bed Mobility: 6 Transfers (B,C,W/C) (FIM): 6 Gait: 6 Patient states he was using a single point cane previously. PT Evaluation-Current Subjective Patient in bed pre tx, agrees to PT, states he has no pain at rest. Pt/Family Goals to be independent at home Objective Patient Orientation: Person, Place, Situation ROM/Strength ROM Lower Extremities NT Strenght Lower Extremities LLE knee flex/ext 2/10, dorsiflex 3/10 Neuromuscular (Tone, Coordination, Reflexes) NT Sensory Vision: Functional Hearing: Functional Sensation Right Lower Extremit: Intact Sensation Left Lower Extremity: Intact Transfers Functional Tony Measure 0=Not Assessed/NA 4=Minimal Assistance 1=Total Assistance 5=Supervision or Setup 2=Maximal Assistance 6=Modified Tony 3=Moderate Assistance 7=Complete IndependenceIRFPAI Quality Coding Scale 6 Independent with activity with or without an assistive device 5 Patient requires set up or clean up by helper. Patient completes activity by themselves 4 Supervision or touching assist (CGA). [place] provide cues , steadying assist 3 The helper provides less than half the effort to complete the activity 2 The helper provides more than half the effort to complete the activity 1 Dependent. The helper does all the effort to complete an activity 7 Patient refused to complete or attempt activity 9 The patient did not perform the activity before the current illness or injury 88 Not attempted due to Medical conditions or safety concerns Transfers (B, C, W/C) (FIM): 2 Scootin Rollin Roll Left to Right (QC): 2 Supine to/from Sit: 2 Sit to/from Stand: 2 bed t/f WC(FIM only if WC use): 2 Sit to Lying (QC): 2 Lying to Sitting/Side of Bed(Q: 2 Sit to Stand (QC): 2 Chair/Xwu-sh-Czduh Xfer(QC): 2 Car Transfer (QC): 1 Patient needs assist with both legs for supine <-> sit and upper body. He is able to assist with his arms but not enough to be mod assist. Needs cues for hand placement and positioning for transfers. Gait Does the Patient Walk?: No and Walking Goal IS indicated Mode of Locomotion: Wheelchair Anticipated Mode of Locomotion: Both Gait (FIM): 0 Wheelchair Training Does the Pt Use a Wheelchair?: Yes Wheelchair (FIM): 1 Distance: 10' Wheelchair Level of Assist: 2 Type of Wheelchair: Manual Stairs If not tested on admit;explain patient is not ambulating Balance Sitting Static: Poor Sitting Dynamic: Poor Standing Static: Poor Standing Dynamic: Poor Picking up an Object (QC): 88 Assessment/Needs Patient has impaired mobility, strength, endurance, ROM post left hip fracture. He has difficulty maintaining his weight bearing status. Rehab Potential: Guarded PT Short Term Goals Short Term Goals Time Frame: September 18, 2017 Transfers (B,C,W/C) (FIM): 3 Gait (FIM): 1 Gait Distance Comment: 5' Gait Level of Assist: 3 Gait Assistive Device: FWW PT Clinical Education Coordinator Goals Clinical Education Coordinator Goals PT Assisted Goals Time Frame: Oct 02, 2017 Transfers (B,C,W/C) (FIM): 4 Sit to Lying (QC): 3 Lying-Sitting on Side/Bed(QC): 3 Sit to Stand (QC): 3 Rollin Roll Left to Right (QC): 3 Chair/Odi-ir-Tpsnm Xfer(QC): 3 Car Transfer (QC): 3 Gait (FIM): 1 Distance: 20' Walk 10 feet (QC): 3 Walk 10ft-Uneven Surface(QC): 3 Gait Level of Assist: 4 Gait Assistive Device: FWW Wheelchair (FIM): 6 Distance: 150' Wheelchair Level of Assist: 6 Wheel 50 feet with 2 turns (QC: 6 Stairs (FIM): 2 # of Steps: 4 1 Step (curb) (QC): 3 Stairs Level Of Assist: 4 PT Plan Problem List Problem List: Activity Tolerance, Functional Strength, Safety, Balance, Gait, Transfer, Bed Mobility, ROM Treatment/Plan Treatment Plan: Continue Plan of Care Treatment Plan: Bed Mobility, Concurrent Therapy, Education, Functional Activity Syl, Functional Strength, Group Therapy, Gait, Safety, Therapeutic Exercise, Transfers Treatment Duration: Oct 02, 2017 Frequency: At least 5 of 7 days/Wk (IRF) Estimated Hrs Per Day: 1.5 hours per day Patient and/or Family Agrees t: Yes Safety Risks/Education Patient Education: Gait Training, Transfer Techniques, Correct Positioning, W/ C Management, Safety Issues Teaching Recipient: Patient Teaching Methods: Demonstration, Discussion Response to Teaching: Reinforcement Needed Discharge Recommendations Plan Patient will perform bed mobility and transfer training, balance and endurance training, functional strengthening, stair training, gait training, and education , to improve functional mobility and independence at home. Therapy D/C Recommendations: Home w/ Family Support, [facility] ([facility] Time/GCodes Time In: 1135 Time Out: 1150 Total Billed Treatment Time: 15 Total Billed Treatment 1 visit BRAULIO ALMARAZ PT September 11, 2017 11:56
[2017-09-11 12:08] VITALS: BP 122/61
[2017-09-11] MEDS ORDERED: CATHETER FLUSH 10 ML SYR IV PRN (13:00)
[2017-09-11] MEDS ORDERED: MELATONIN 3 MG TABLET PO PRN (13:00)
[2017-09-11] MEDS ORDERED: oxyCODONE/APAP 5/325MG (PERCOCET 5) TABLET PO PRN (13:00)
--- NOTE | 2017-09-11 13:45 | Occupational Therapy Eval ---
OT Evaluation-General/PLF Medical Diagnosis Admission Date September 11, 2017 at 12:18 Medical Diagnosis: left hip fracture Onset Date: September 08, 2017 Therapy Diagnosis Therapy Diagnosis: decr self care, decr funct mob, decr act susan, weakness, decr bed mob Height/Weight Height (Feet): 5 Height (Inches): 8.00 Weight (Pounds): 189 Weight (Ounces): 6.0 Precautions Precautions/Isolations: Standard Precautions Weight Bear Status Weight Bearing Restriction: Touch Toe Bearing Location Restriction: L LE Referral Physician: Andrés Referral Reason: Evaluation/Treatment Medical History Pertinent Medical History: Atrial Fib, Arthritis, COPD, HTN, PVD, Smoking Additional Medical History Hx DVT. Bronchitis. Stent L femoral distribution, claudication Current History Feel at home, breaking L hip. IM nail on 09-09-17 Reviewed History: Yes Social History Home: Single Level Current Living Status: Spouse Entry Into Home: Ramp ADL-Prior Level of Function ADL PLOF Comments Pt reported that he has been able to manage his basic self care needs prior to fall. 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 He is a retired [employer]. Occupation: retired [employer] Self: Yes OT Current Status Subjective Pt seen in room, up in w/c, agreeable to OT. Pain reported as "alright" and not rated or scored Appearance Alert, cooperative Mental Status/Objective Attachments: Central Line, Oxygen (3L/min nc), Telemetry Current Glasses/Contacts: Yes Hearing Aids: No Dentures/Partials: Yes Hand Dominance: Right Upper Extremity ROM Grossly WFL bilat Upper Extremity Sensation Pt reported hands go to sleep occasionally Upper Extremity Strength Grossly 4+/5 bilat but needs to be stronger in order to use FWW ADL-Treatment ADL-Current Per PT, pt required max assist to move from supine to sit and max assist sit to stand. Has some difficulty managing weight bearing status. present for orientation to rehab process and has brought clothing Functional [place] Measure 0=Not Assessed/NA 4=Minimal Assistance 1=Total Assistance 5=Supervision or Setup 2=Maximal Assistance 6=Modified [place] 3=Moderate Assistance 7=Complete IndependenceIRFPAI Quality Coding Scale 6 Independent with activity with or without an assistive device 5 Patient requires set up or clean up by helper. Patient completes activity by themselves 4 Supervision or touching assist (CGA). [place] provide cues , steadying assist 3 The helper provides less than half the effort to complete the activity 2 The helper provides more than half the effort to complete the activity 1 Dependent. The helper does all the effort to complete an activity 7 Patient refused to complete or attempt activity 9 The patient did not perform the activity before the current illness or injury 88 Not attempted due to Medical conditions or safety concerns Eating (FIM): 6 (Pt able to open packages, cut food, feed himself. Has dentures and there are foods he cannot eat without dentures in.) Eating (QC): 6 Education OT Patient Education: Purpose of tx/functional activities, Rehab process Teaching Recipient: Patient Teaching Methods: Discussion Response to Teaching: Verbalize Understanding OT Short Term Goals Short Term Goals Time Frame: September 18, 2017 Bathing(FIM): 4 Upper Body Dressing(FIM): 5 Lower Body Dressing(FIM): 3 Toilet/Commode Transfer(FIM): 3 Additional Short Term Goals: 1-Demonstrate ADL Tasks, 2-Verbalize Understanding , 3-ImproveStrength/Syl 1=Demonstrate adherence to instructed precautions during ADL tasks. 2=Patient will verbalize/demonstrate understanding of assistive devices/ modifications for ADL. 3=Patient will improve strength/tolerance for activity to enable patient to perform ADL's. 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 2=Patient will verbalize/demonstrate understanding of assistive devices/ modifications for ADL. 3=Patient will improve strength/tolerance for activity to enable patient to perform ADL's. OT Education/Plan Problem List/Assessment Assessment: Decreased Activ Tolerance, Decreased UE Strength, Dependent Transfers, Impaired Bed Mobility, Impaired Self-Care Skills Pt would benefit from skilled OT to increase his independence in basic self care to allow him to safely return home after a fall and surgery to repair hip fx. Discharge Recommendations Plan/Recommendations: Continue POC Target Placement home Treatment Plan/Plan of Care Treatment,Training & Education: Yes Patient would benefit from OT for education, treatment and training to promote independence in ADL's, mobility, safety and/or upper extremity function for ADL' s. Plan of Care: ADL Retraining, Functional Mobility, Group Exercise/Act as Ind ( education, exercise, act tolerance, funct activities, socialization), UE Funct Exercise/Act, UE Neuromus Re-Ed/Coord Treatment Duration: Sep 29, 2017 Frequency: At least 5 of 7 days/Wk (IRF) Estimated Hrs Per Day: 1.5 hours per day Agreement: Yes Rehab Potential: Fair Time/GCodes Start Time: 11:50 Stop Time: 12:25 Total Time Billed (hr/min): 35 Billed Treatment Time visit, 35 minutes evaluation moderate intensity NATALI CHEN OT September 11, 2017 13:45
--- NOTE | 2017-09-11 14:52 | Physical Therapy Daily Note ---
PT Daily Note-Current Subjective Reports he feels tired but agreeable to PT. Pain Numeric Pain Scale: 6 Location: Left Location Body Site: Hip Pain Description: Ache Mental Status Patient Orientation: Person, Place, Time, Situation Transfers Functional [place] Measure 0=Not Assessed/NA 4=Minimal Assistance 1=Total Assistance 5=Supervision or Setup 2=Maximal Assistance 6=Modified [place] 3=Moderate Assistance 7=Complete IndependenceIRFPAI Quality Coding Scale 6 Independent with activity with or without an assistive device 5 Patient requires set up or clean up by helper. Patient completes activity by themselves 4 Supervision or touching assist (CGA). [place] provide cues , steadying assist 3 The helper provides less than half the effort to complete the activity 2 The helper provides more than half the effort to complete the activity 1 Dependent. The helper does all the effort to complete an activity 7 Patient refused to complete or attempt activity 9 The patient did not perform the activity before the current illness or injury 88 Not attempted due to Medical conditions or safety concerns Transfers (B, C, W/C) (FIM): 2 Scootin (pt able to assist using his right LE and B UE's) Rollin Roll Left to Right (QC): 2 Supine to/from Sit: 2 Sit to/from Stand: 2 Sit to Lying (QC): 2 Sit to Stand (QC): 2 Chair/[id number]-[id number] Xfer(QC): 2 Bed to/from Chair: 2 max assist with all functional transfers. Requires skilled cues for sequencing and task segmentation. SPT performed x 1 rep with max assist to come to a full stand and assist to turn with skilled cues for TTWB status as well as walker management. Sit to bushing and broach operator the // bars x1 with pt taking 2 small hops forward with mod assist and TTWB left. Co treat with OT due to the need to address use and sequencing of UE and placement as well as management and assist with the LE's. Weight Bearing Right Lower Extremity: Right Full Weight Bearing Left Lower Extremity: Left Touch Toe Bearing Wheelchair Training Does the Pt Use a Wheelchair?: Yes Wheelchair (FIM): 2 Wheelchair Distance: 6=471-38 ft Distance: 60 ft Wheelchair Level of Assist: 5 Wheel 50 ft with 2 turns (QC): 5 Wheel 150 ft (QC): 88 Type of Wheelchair: Manual Treatments Functional mobility and transfers. Assessment Current Status: Good Progress Pt requires heavy cues for sequencing but able to follow all cues. Needs much assist with transfers a this time. PT Short Term Goals Short Term Goals Time Frame: September 18, 2017 Transfers (B,C,W/C) (FIM): 3 Gait (FIM): 1 Gait Distance Comment: 5' Gait Level of Assist: 3 Gait Assistive Device: FWW Wheelchair Distance: 10' PT Manager Administrative Services Goals Manager Administrative Services Goals PT [facility] Goals Time Frame: Oct 02, 2017 Transfers (B,C,W/C) (FIM): 4 Sit to Lying (QC): 3 Lying-Sitting on Side/Bed(QC): 3 Sit to Stand (QC): 3 Rollin Roll Left to Right (QC): 3 Chair/Noy-oy-Vnppz Xfer(QC): 3 Car Transfer (QC): 3 Gait (FIM): 1 Distance: 20' Walk 10 feet (QC): 3 Walk 10ft-Uneven Surface(QC): 3 Gait Level of Assist: 4 Gait Assistive Device: FWW Wheelchair (FIM): 6 Distance: 150' Wheelchair Level of Assist: 6 Wheel 50 feet with 2 turns (QC: 6 Stairs (FIM): 2 # of Steps: 4 1 Step (curb) (QC): 3 Stairs Level Of Assist: 4 PT Plan Problem List Problem List: Activity Tolerance, Functional Strength, Safety, Balance, Gait, Transfer, Bed Mobility Treatment/Plan Treatment Plan: Continue Plan of Care Treatment Plan: Bed Mobility, Concurrent Therapy, Education, Functional Activity Syl, Functional Strength, Group Therapy, Gait, Safety, Therapeutic Exercise, Transfers Treatment Duration: Oct 02, 2017 Frequency: At least 5 of 7 days/Wk (IRF) Estimated Hrs Per Day: 1.5 hours per day Patient and/or Family Agrees t: Yes Safety Risks/Education Patient Education: Transfer Techniques, Reviewed Precautions (TTWB), Safety Issues Teaching Recipient: Patient, Family Response to Teaching: Reinforcement Needed Time/GCodes Time In: 1405 Time Out: 1442 Total Billed Treatment Time: 37 Total Billed Treatment visit FA 37 PHILIP GALAN PT September 11, 2017 14:52
--- NOTE | 2017-09-11 14:53 | Therapy Group Daily Note ---
Therapy Daily Group Note Patient Education Topic Other List Below (ARU description/expectations) Exercises LE Seated Exercise, UE Exercise Other/Notes Pt transported via w/c to therapy gym for OT/PT group. Group consisted of introductions (name, place living, personal fact), socialization, UE/LE seated exercises with theraband, ARU description/expectations and current events activity. Pt able to introduce self appropriately and actively listened to peers introduce themselves. Pt verbalized understanding of ARU by answering questions. Pt contributed to discussions throughout group. Pt was able to answer current events questions in a Jeopardy format. Inspiring word to keep motivated to work with therapy. After group, pt working with OT/PT. All needs met. Start Time: 13:00 Stop Time: 14:05 Total Billed Treatment Time: 65 Total Billed Treatment 1-GRP PHILIP VILLAGOMEZ September 11, 2017 14:52
--- NOTE | 2017-09-11 14:54 | Occupational Ther Daily Note ---
OT Current Status-Daily Note Subjective Pt seen in gym after group, agreeable to OT. No pain mentioned until end of tx. Nursing notified and aware Appearance Alert, cooperative Mental Status/Objective Functional [place] Measure 0=Not Assessed/NA 4=Minimal Assistance 1=Total Assistance 5=Supervision or Setup 2=Maximal Assistance 6=Modified [place] 3=Moderate Assistance 7=Complete [place] ADL-Treatment Pt co-treated by OT and PT due to complexity of physical limitations post surgery and his difficulty following weight bearing restrictions. OT worked on UE function and positioning as needed for sit to stand for ADLs and PT worked on LE function, transfers, bed mobility. In parallel bars pt had difficulty bearing weight through arms to be able to stand and take a couple of steps. He also had difficulty positioning arms for transfers for pushing up from w/c and reaching when sitting back down. He was able to propel w/c back to room but needed skilled cues for locking w/c. Two people used for stand pivot transfer from w/c to bed, with help needed to manage equipment and cues for reaching back with arms. OT managed UEs with sit to supine but he was able to reach up with arms to help pull himself up in bed. He also used arms to help roll side to side by reaching for bed rail, with cues. pt left up in bed, 4 rails up, O2 in place at 3L/min nc, all needs met. Functional [place] Measure 0=Not Assessed/NA 4=Minimal Assistance 1=Total Assistance 5=Supervision or Setup 2=Maximal Assistance 6=Modified [place] 3=Moderate Assistance 7=Complete IndependenceIRFPAI Quality Coding Scale 6 Independent with activity with or without an assistive device 5 Patient requires set up or clean up by helper. Patient completes activity by themselves 4 Supervision or touching assist (CGA). [place] provide cues , steadying assist 3 The helper provides less than half the effort to complete the activity 2 The helper provides more than half the effort to complete the activity 1 Dependent. The helper does all the effort to complete an activity 7 Patient refused to complete or attempt activity 9 The patient did not perform the activity before the current illness or injury 88 Not attempted due to Medical conditions or safety concerns Education OT Patient Education: Modified ADL techniques, Progress toward Goal/Update tx plan, Purpose of tx/functional activities, Transfer techniques Teaching Recipient: Patient Teaching Methods: Discussion Response to Teaching: Verbalize Understanding, Return Demonstration, Reinforcement Needed OT Short Term Goals Short Term Goals Time Frame: September 18, 2017 Bathing(FIM): 4 Upper Body Dressing(FIM): 5 Lower Body Dressing(FIM): 3 Transfers (B,C,W/C) (FIM): 3 Toilet/Commode Transfer(FIM): 3 Additional Short Term Goals: 1-Demonstrate ADL Tasks, 2-Verbalize Understanding , 3-ImproveStrength/Syl 1=Demonstrate adherence to instructed precautions during ADL tasks. 2=Patient will verbalize/demonstrate understanding of assistive devices/ modifications for ADL. 3=Patient will improve strength/tolerance for activity to enable patient to perform ADL's. OT Usp Goals Usp Goals Time Frame: Sep 29, 2017 Eating (FIM): 6 Eating (QC): 6 Groomin Oral Hygiene (QC): 6 Bathing(FIM): 6 Shower/Bathe Self (QC): 6 Upper Body Dressing(FIM): 6 Upper Body Dressing (QC): 6 Lower Body Dressing(FIM): 6 Lower Body Dressing (QC): 6 On/Off Footwear (QC): 6 Toileting(FIM): 6 Toileting Hygiene (QC): 6 Toilet/Commode Transfer(FIM): 6 Toilet/Commode Transfer (QC): 6 Shower Transfer(FIM): 6 Additional Goals: 1-Demonstrate ADL Tasks, 2-Verbalize Understanding, 3- ImproveStrength/Syl 1=Demonstrate adherence to instructed precautions during ADL tasks. 2=Patient will verbalize/demonstrate understanding of assistive devices/ modifications for ADL. 3=Patient will improve strength/tolerance for activity to enable patient to perform ADL's. OT Education/Plan Problem List/Assessment Pt would benefit from skilled OT to increase his independence in basic self care to allow him to safely return home after a fall and surgery to repair hip fx. Discharge Recommendations Plan/Recommendations: Continue POC Treatment Plan/Plan of Care Patient would benefit from OT for education, treatment and training to promote independence in ADL's, mobility, safety and/or upper extremity function for ADL' s. Plan of Care: ADL Retraining, Functional Mobility, Group Exercise/Act as Ind ( education, exercise, act tolerance, funct activities, socialization), UE Funct Exercise/Act, UE Neuromus Re-Ed/Coord Treatment Duration: Sep 29, 2017 Frequency: At least 5 of 7 days/Wk (IRF) Estimated Hrs Per Day: 1.5 hours per day Agreement: Yes Rehab Potential: Fair Time/GCodes Start Time: 14:05 Stop Time: 14:42 Total Time Billed (hr/min): 37 Billed Treatment Time visit, 37 minutes functional activities NATALI CHEN OT September 11, 2017 14:54
[2017-09-11] MEDS: RT-ALBUTEROL/IPRATROPIUM 3 ML (DUONEB) VIAL INH SCH ×2 (15:04→19:20)
--- NOTE | 2017-09-11 15:06 | ST Cognitive Linguistic Eval ---
Speech Evaluation-General Medical Diagnosis left hip fracture Onset Date: September 08, 2017 Therapy Diagnosis Therapy Diagnosis: Cognitive Linguistic Skills WNL Precautions Precautions/Isolations: Fall Prevention, Standard Precautions, Pressure Ulcer Referral Referring Physician: Dr. Adrian Bowen Reason for Referral: Evaluation/Treatment Cognitive Evaluation Medical History Pertinent Medical History: Atrial Fib, Arthritis, COPD, HTN, PVD, Smoking Reviewed History: Yes Social History Current Living Status: Spouse Speech PLF-Current Status Subjective The patient was admitted with a left hip fracture. Upon entrance, the patient was laying upright in bed. The patient greeted the clinician appropriately and was agreeable to participation in the cognitive evaluation. Language Eval: Auditory Comprehends Simple Yes/No Ques: Functional Indent/Objects Multiple Pena: Functional Ident/Pics in Multiple Pena: Functional Follows 1-Step Commands: Functional Follows Complex Directions: Mild (Repetition of instruction required.) Follows General Conversations: Mild (With increased volume levels and reduced rate of speech.) Language Eval: Verbal Language Completes Spontaneous Greeting: Functional Produces Auto, Serial Info: Functional Imitates Simple Words/Phrases: Functional Word Finding: Mild Requests Basic Needs: Functional States Basic Personal Info: Functional Cognitive Patient Orientation The patient was oriented to month, day of week, and year. Objective Cognitive Domain Attention: WNL Memory: Mild (The patient required one verbal cue for recall of three single words following a five minute delay.) Problem Solving: Functional Objective Impression The patient displays cognitive linguistic skills grossly within normal limits and appropriate for completion of ADL's. Communication/Social Cognition Comprehension: 5 (The patient intermittently requires a reduced rate of speech and repetition for comprehension. The patient does wear glasses.) Expression: 6 Social Interaction: 7 Problem Solvin Memory: 5 Speech Patient Assess Expression of Ideas/Wants: Expression (4) Understanding Verbal Content: Usually Understands (3) Brief Interview-Mental Status: Yes Repetition of Three Words: Three (3) Temporal Orientation: Year: Correct (3) Temporal Orientation: Month: Accurate within 5 days(2) Temporal Orientation: Day: Correct (1) Recall : Wear to say "Sock": Yes,after cueing (1) Recall : Color: Yes, no cue required (2) Recall : Bed: Yes, no cue required (2) Speech-Plan Treatment Plan Speech Therapy Treatment Plan: Discontinue ST Evaluation, only. Frequency: Modified Program (IRF) (No ST warranted.) Estimated Hrs Per Day: Other (No ST warranted.) Rehab Potential: Fair Safety Risks/Education Teaching Recipient: Patient, Family, Significant Other Teaching Methods: Discussion Response to Teaching: Verbalize Understanding Education Topics Provided: Results, Plan of Care Time Speech Therapy Time In: 14:45 Speech Therapy Time Out: 15:00 Total Billed Time: 15 Billed Treatment Time 1, NICOLE HEARD September 11, 2017 15:06
[2017-09-11] MEDS: MILK OF MAGNESIA 400 MG/5 ML 30 ML UDC PO PRN (16:03)
[2017-09-11] MEDS: warFARin 2 MG (COUMADIN) TAB PO SCH (17:15)
[2017-09-11] MEDS ORDERED: BISACODYL 10 MG SUPP (DULCOLAX) PR PRN (18:15)
[2017-09-11 18:38] VITALS: BP 109/63
--- OUTSIDE RECORDS SUMMARY | 2017-09-11 19:02 | XMS REPORT | Continuity of Care Document ---
Author Author [employer] Organization [facility] Address Unknown Phone Unavailable Care Team Providers Care Fireworks Display Specialist Name Role Phone [employer] Unavailable Unavailable Problems Problem Status Onset Date Classification Date Reported Comments Source Chronic obstructive pulmonary disease, unspecified 06/01/2017 Diagnosis 06/05/2017 [facility] Obstructive sleep apnea (adult) (pediatric) 06/01/2017 Diagnosis 06/05/2017 [facility] Obstructive sleep apnea syndrome (disorder) 06/01/2017 Diagnosis 06/05/2017 [facility] Moderate chronic obstructive pulmonary disease (disorder) 06/01/2017 Diagnosis 06/05/2017 [facility] Paroxysmal atrial fibrillation 05/03/2017 Diagnosis 05/07 [facility] [place] Essential (primary) hypertension 05/03/2017 Diagnosis [facility] [place] Hyperlipidemia, unspecified 05/03/2017 Diagnosis 2017 [facility] [place] skiver box toe (current) use of anticoagulants 05/03/2017 Diagnosis 05/07/2017 [facility] [place] Paroxysmal atrial fibrillation (disorder) 05/03/2017 Diagnosis 05/07/2017 [facility] [place] Chronic obstructive lung disease (disorder) 05/03/2017 Diagnosis 05/07/2017 [facility] [place] Hyperlipidemia (disorder) Diagnosis 05/07/2017 [facility] [place] Hypertensive disorder, systemic arterial (disorder) 05/03/2017 Diagnosis 05/07/2017 [facility] [place] Anticoagulant effect (finding) 05/03/2017 Diagnosis 05/07 [facility] [place] Severe chronic obstructive pulmonary disease (disorder) 01/31/2017 Diagnosis 02/04/2017 [facility] Dysphagia (disorder) 2016 Diagnosis 11/21/2016 [facility] [place] Tobacco user (finding) Resolved 10/13/2016 Problem 2016 Added by Discern Expert based on Social History Documentation [facility]. [facility] (current) use of anticoagulants 07/18/2016 Diagnosis 07/22/2016 [facility] Chronic obstructive lung disease (disorder) 04/20/2016 Diagnosis 04/24/2016 [facility] Hypertensive disorder, systemic arterial (disorder) 04/20/2016 Diagnosis 04/24/2016 [facility] Hyperlipidemia (disorder) Diagnosis 04/24/2016 [facility] Anticoagulated 04/20/2016 Diagnosis 04/24/2016 [facility] Hypoxemia (disorder) 2015 Diagnosis 04/08/2016 [facility] Obstructive sleep apnea syndrome (disorder) 04/04/2016 Diagnosis 04/08/2016 [facility] Pneumonia (disorder) 2015 Diagnosis 04/08/2016 [facility] Paroxysmal atrial fibrillation (disorder) 02/04/2016 Diagnosis 02/08/2016 [facility] Moderate chronic obstructive pulmonary disease (disorder) 12/02/2015 Diagnosis 12/06/2015 [facility] Chronic rhinitis (disorder) 11/17/2015 Diagnosis 2015 [facility] Transient ischemic attack (disorder) 09/07/2015 Diagnosis 09/11/2015 [facility] History of - anticoagulant therapy (context-dependent category) 06/22/2015 Diagnosis 06/26/2015 [facility] Chronic atrial fibrillation (disorder) 04/30/2015 Diagnosis 05/04/2015 [facility] Asthenia (finding) 2015 Diagnosis 05/04/2015 [facility] Acute exacerbation of chronic obstructive airways disease (disorder) 04/14/2015 Diagnosis 04/18/2015 [facility] Retention of urine (disorder) 02/06/2015 Diagnosis 2014 [facility] Essential hypertension (disorder) 02/06/2015 Diagnosis [facility]. Unspecified pleural effusion 12/04/2014 Diagnosis 2014 [facility] [place] Unspecified essential hypertension 12/04/2014 Diagnosis 12/08/2014 [facility] [place] Other dyspnea and respiratory abnormality 12/04/2014 Diagnosis 12/08/2014 [facility] [place] Urinary frequency 2014 Diagnosis 12/08/2014 [facility] [place] Unspecified chest pain 12/04 Diagnosis 12/08/2014 [facility] [place] Other malaise and fatigue Diagnosis 12/08/2014 [facility] [place] Need for prophylactic vaccination against Streptococcus pneumoniae [ pneumococcus] 10/30/2014 Diagnosis 11/03/2014 [facility] Chronic obstructive asthma, with (acute) exacerbation 09/01/2014 Diagnosis 09/05/2014 [facility] [place] Unspecified essential hypertension 01/30/2014 Diagnosis 02/03/2014 [facility] [place] Abdominal pain, unspecified site 01/30/2014 Diagnosis [facility] [place] Acute bronchitis 01/30/2014 Diagnosis 02/03/2014 [facility] 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 Atrial fibrillation (disorder) Active Problem 06/28/2013 [facility]. Benign prostatic hyperplasia (disorder) Active Problem [facility]. Chronic obstructive lung disease (disorder) Active Problem 06/28/2013 [facility]. Fracture of orbit (disorder) Active Problem 06/28/2013 [facility] Hyperlipidemia (disorder) Active Problem 06/28/2013 [facility]. Hypertensive disorder, systemic arterial (disorder) Active Problem 06/28/2013 [facility]. Peripheral arterial occlusive disease (disorder) Active Problem 06/28/2013 [facility]. Syncope symptom (disorder) Active Problem 06/28/2013 [facility]. Paroxysmal atrial fibrillation (disorder) Active Problem 02/05/2017 [facility] Medications Allergies, Adverse Reactions, Alerts Substance Category Reaction Severity Reaction type Status Date Reported Comments Source NKA drug allergy Allergy Active [facility]. Immunizations Immunization Date Given Site Status Last Updated Comments Source Pneumococcal conjugate PCV 13 01/31/2017 Right Deltoid pneumococcal 13-valent vaccine [facility] influenza virus vaccine 01/22/2015 influenza virus vaccine [facility] Pneumococcal conjugate PCV 13 10/30/2014 Left Deltoid pneumococcal 13-valent vaccine [facility], [facility]. Influenza, high dose seasonal 01/30/2014 Left Deltoid influenza virus vaccine [facility]. influenza virus vaccine 01/22/2013 influenza virus vaccine [facility], [facility]. Influenza, seasonal, injectable 02/09/2012 Left Deltoid influenza virus vaccine [facility]. pneumococcal 23-valent vaccine 01/12/2010 pneumococcal 23-valent vaccine [facility], [facility]. tetanus-diphtheria toxoids 04/24/2000 tetanus-diphtheria toxoids [facility], [facility]. Results Vital Signs Encounters Location Location Details Encounter Type Encounter Number Reason For Visit Attending Provider ADM Date DC Date Status Source AFCOL [id number] Clinic ( Outpatient) [id number] Keaton Spear 04/22/2013 Active [facility] AFCOL [id number] Clinic ( Outpatient) [id number] Keaton Spear 06/24/2013 Active [facility] OMCI [id number] Outpatient [id number] Keaton Spear 06/24/2013 06/24/2013 Active [facility]. CSOL [id number] Clinic ( Outpatient) [id number] Cresencio Benoitmala 09/09/2013 Active [facility] Card[facility] Services [facility] [id number] Keaton Spear 09/12/2013 09/13/2013 [facility] [id number] . LAB AFCOL 11/19/2013 11/20/2013 [facility] [place] [facility] [id number] . LAB AFCOL 12/27/2013 12/28/2013 [facility] [id number] Keaton Spear 01/30/2014 01/31/2014 [facility] [place] [facility] [facility] [id number] . LAB [facility] 07/[facility]/2014[facility] [place] [facility] [facility] [id number] Keaton Spear 09/01/201409/02 [facility] [place] AFCOL CD:[id number] Clinic ( Outpatient) [id number] Keaton Spear 09/08/2014 Active [facility] [place] [facility] [facility] [id number] Keaton Spear 09/09/201409/10 [facility] [place] [facility] [place] [facility] [id number] Keaton Spear 10/30/201410/31 [facility] [place] [facility] [place] [facility] [id number] Keaton Spear 12/04/201412/05 [facility] [place] OMCI CD:[id number] Outpatient [id number] Keaton Spear 12/05/2014 12/05/2014 Active [facility] OMCI CD:[id number] Inpatient [id number] Keaton Spear 02/02/2015 Active [facility] [place] [facility] [id number] . [facility] 02/08/2015 02/09/2015 [facility] CSOL CD:[id number] Clinic ( Outpatient) [id number] [facility] 02/09/2015 02/09/2015 Active [facility] AF [place] Cancel/No Show [id number] . LAB AFCOL 02/09/2015 [facility] [place] [facility] [id number] [facility] 02/09/2015 02/10/2015 [facility] OMCI CD:[id number] Outpatient [id number] [facility] 02/10/2015 02/10/2015 Active [facility] AFC [place] Cancel/No Show [id number] Keaton Spear 02/18/2015 02/18/2015 [facility] [place] [facility] [place] [facility] [id number] Keaton Spear 02/19/201502/20 [facility] [place] [facility] [id number] [facility] 02/19/2015 02/20/2015 [facility] As[facility] Cancel/No Show [id number] Pat Moe 04/03/2015 04/03/2015 [facility] [place] [facility] [id number] Keaton Spear 04/14/201504/15 [facility] [place] [facility] [place] [facility] [id number] Keaton Spear 04/30/201505/01 [facility] [place] CSOL CD:[id number] Clinic ( Outpatient) [id number] [facility] 05/13/2015 Active [facility] CSOL CD:[id number] Clinic ( Outpatient) [id number] [facility] 05/13/2015 Active [facility] AFCOL CD:[id number] Clinic ( Outpatient) [id number] Keaton Spear 05/13/2015 [facility] [place] [facility] [id number] [facility] 05/13/2015 05/14/2015 [facility] AFC [place] [facility] [id number] Keaton Spear 05/13/201504/14 [facility] [place] [facility] [place] [facility] [id number] . LAB AFCOL 05/13/20152015 [facility] [place] [facility] [place] [facility] [id number] Keaton Spear 06/22/201506/22 [facility] [place] [facility] [id number] [facility] 06/29/2015 06/30/2015 [facility] Clinic [id number] Yoni Medrano 07/14/2015 07/15/2015 [facility] [place] [facility] [id number] . LAB AFCOL 07/14/20152015 [facility] [place] [facility] [place] [facility] [id number] Keaton Spear 09/07/201509/07 [facility] [place] AFC [place] Cancel/No Show [id number] Keaton Spear 09/07/2015 09/04/2015 [facility] [place] AFCOL CD:[id number] Clinic ( Outpatient) [id number] Keaton Spear 09/28/2015 Active [place] [facility] [place] CPM CD:[id number] Clinic ( Outpatient) [id number] Yoni Medrano 10/12/2015 Active [facility] [facility] [id number] . LAB AFCOL 11/16/20152015 [place] [facility] [place] [facility] Clinic [id number] Yoni Medrano 11/17/2015 11/18/2015 [facility] CD:[id number] Outpatient [id number] Yoni Medrano 11/25/2015 11/25/2015 Active [facility] Clinic [id number] Yoni Medrano 12/02/2015 12/03/2015 [facility] [facility] [id number] Keaton Spear 12/14/201512/13 [place] [facility] [place] CPM CD:[id number] Clinic ( Outpatient) [id number] Yoni Medrano 01/26/2016 Active [facility] Clinic [id number] Yoni Medrano 01/26/2016 01/27/2016 [facility] [id number] [facility] 02/04/2016 02/05[facility]2016 [facility] Medicine Cancel/No Show [id number] 04/04/2016 04/04/2016 [facility] Clinic [id number] Yoni Medrano 04/04/2016 04/05/2016 [facility] [facility] [id number] Keaton Spear 04/20/201604/21 [place] [facility] [place] AFCOL CD:[id number] Clinic ( Outpatient) [id number] Keaton Spear 07/18/2016 [facility] [place] [facility] [id number] Yoni Medrano 201607/19/2016 [facility] [place] Clinic [id number] Keaton Spear 07/18/2016 07/19/2016 [facility] [place] AFCOL CD:[id number] Clinic ( Outpatient) [id number] Keaton Spear 07/19/2016 [facility] [place] [facility] [id number] Cresencio Love 10/13/2016 10/14/2016 [facility] [place] Clinic [id number] Keaton Spear 11/17/2016 11/18/2016 [facility] [place] OMCI CD:[id number] Outpatient [id number] Yoni Medrano 01/31/2017 01/31/2017 Active [facility] Clinic [id number] Yoni Medrano 201602/01/2017 [facility] Clinic [id number] Yoni Medrano 201611/17/2016 [facility] AFCOL CD:[id number] Clinic ( Outpatient) [id number] Keaton Spear 03/20/2017 Active [facility] [place] AFCOL CD:[id number] Clinic ( Outpatient) [id number] Keaton Spear 03/21/2017 Active [facility] [place] CSOL CD:[id number] Clinic ( Outpatient) [id number] John Rees 03/29/2017 Active [facility] [place] Clinic [id number] Kaeton Spear 05/03/2017 05/04/2017 [facility] [place] [facility] [id number] Yoni Medrano 201706/02/2017 [facility] AFCOL CD:[id number] Clinic ( Outpatient) [id number] Keaton Spear 09/19/2017 Active [facility] [place] Procedures Plan of Care Social History Assessment and Plan Family History Advance Directives Functional Status
--- OUTSIDE RECORDS SUMMARY | 2017-09-11 19:05 | XMS REPORT | Continuity of Care Document ---
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 FINAL CULTURE [...] panel - 09/08/17 13:00 ABO+Rh group AP [facility] Transfusion band number [id number] [facility] Blood group antibody screen NEGATIVE NR Bacterial urine culture - 09/08/17 13:00 Bacterial urine culture RML NRG COLONY COUNT . [facility] FTX;REPORTABLE SENT AT 1630, 09-08-17 [facility] Complete blood count (CBC) with automated white [...] Status Pt. Type Provider Facility Loc./Unit Complaint [id number] 07/20/2017 14:00:00 07/20/2017 23:59:59 CLS Outpatient SHAI BURNETTE HUBERT A [facility] [id number] 01/05/2016 13:00:00 01/05/2016 23:59:59 CLS Preadmit SHAI BURNETTE HUBERT A [facility] PUL EVAL [id number] 10/06/2015 10:12:00 01/04/2016 00:01:00 DIS Outpatient SHAI DO, HUBERT A [facility] EVAL [id number] 10/06/2015 11:00:00 10/16/2015 15:15:00 DIS Outpatient SHAI BURNETTE, HUBERT A [facility] REHAB [id number] 09/24/2015 13:00:00 09/28/2015 00:01:00 DIS Outpatient SHAI DO, HUBERT A [facility] [id number] 06/16/2015 13:00:00 06/21/2015 00:01:00 DIS Outpatient HSAI BURNETTE, HUBERT A [facility] [id number] 09/11/2017 14:55:00 Document Registration [id number] 09/08/2017 13:12:00 Document Registration [id number] 05/05/2010 23:34:00 Document Registration [id number] 04/30/2010 17:05:00 Document Registration [id number] 04/16/2010 22:45:00 Document Registration [id number] 03/01/2017 10:49:00 03/01/2017 23:59:00 DIS Outpatient Tiffanie Hardwick [id number] 11/30/2016 10:47:00 11/30/2016 23:59:00 DIS Outpatient Tiffanie Hardwick [id number] 09/21/2016 10:12:00 09/21/2016 23:59:00 DIS Outpatient Tiffanie Hardwick [id number] 08/17/2016 11:33:00 08/17/2016 23:59:00 DIS Outpatient Tiffanie Hardwick [id number] 05/18/2016 11:30:00 05/18/2016 23:59:00 DIS Outpatient Tiffanie Hardwick [id number] 03/28/2016 14:21:00 04/22/2016 11:55:00 DIS Outpatient Tiffanie Hardwick [id number] 04/07/2016 11:01:00 04/07/2016 23:59:00 DIS Outpatient Tiffanie Hardwick [id number] 03/30/2016 11:45:00 03/30/2016 23:59:00 DIS Outpatient Tiffanie Hardiwck [id number] 03/28/2016 00:00:00 03/28/2016 23:59:00 DIS Outpatient Tiffanie Hardwick [id number] 03/26/2016 11:21:00 03/26/2016 23:59:00 DIS Outpatient Tiffanie Hardwick [id number] 03/23/2016 14:48:00 03/23/2016 18:52:00 DIS Outpatient [facility] [id number] 04/02/2016 11:43:00 Document Registration [id number] 03/24/2016 14:40:20 Document Registration [id number] 03/14/2016 06:31:10 Document Registration
--- NOTE | 2017-09-11 19:17 | History & Physicial ---
History of Present Illness History of Present Illness Reason for visit/HPI Patient is a 1 years old. Patient has a history of A. fib, COPD and hypertension. Patient came to the emergency room because he fell at home. Patient was walking in his house and tripped and fell. Patient alert today Date of Admission September 11, 2017 at 12:18 Time Seen by Provider: 19:15 I consulted on this patient on 09/11/17 19:11 Attending Physician Adrian Bowen MD Admitting Physician Tiffanie Hardwick MD Consult Allergies and Home Medications Allergies Uncoded Allergies: Tape (Allergy, Mild, 09/08/17) Can have paper tape Home Medications Albuterol Sulfate 18 Gm Hfa.aer.ad, 2 PUFF INH Q4H PRN for WHEEZING, (Reported) Diltiazem HCl 240 Mg Cap.er.24h, 240 MG PO HS, (Reported) Docusate Sodium 100 Mg Capsule, 100 MG PO HS, (Reported) Dutasteride 0.5 Mg Capsule, 0.5 MG PO DAILY, (Reported) Flecainide Acetate 50 Mg Tablet, 50 MG PO BID, (Reported) Fluticasone/Vilanterol 1 Each Blst.w.dev, 1 PUFF INH DAILY, (Reported) Multivitamin/Iron/Folic Acid 1 Each Tablet, 1 TAB PO DAILY, (Reported) Pitavastatin Calcium 2 Mg Tablet, 2 MG PO DAILY, (Reported) Tamsulosin HCl 0.4 Mg Cap.er.24h, 0.4 MG PO BID, (Reported) Tiotropium [place] 1 Inh Aerp, 1 CAP INH DAILY, (Reported) Warfarin Sodium 2 Mg Tablet, 4 MG PO SuMoWeThSa, (Reported) Warfarin Sodium 2 Mg Tablet, 3 MG PO TuFr, (Reported) Patient Home Medication List Home Medication List Reviewed: Yes Past Dkevecy-Txmlzo-Sotbez Hx Patient Social History Marrital Status: Employed/Student: retired Smoking Status: Former Smoker Former Smoker, Quit: September 08, 2012 Type Used: Cigarettes Recent Foreign Travel: No Contact w/other who traveled: No Recent Hopitalizations: Yes Recent Infectious Disease Expo: No Immunizations Up To Date Date of Pneumonia Vaccine: Jan 22, 2017 Surgeries Yes (Facial SX. ) Respiratory Yes COPD Currently Using CPAP: Yes Cardiovascular Yes Atrial Fibrillation, Deep Vein Thrombosis, Hypertension Neurological Yes (peripheral vascular disease) Reproductive System Hx Reproductive Disorders: No Genitourinary No Gastrointestinal No Musculoskeletal Yes Arthritis Endocrine History of Endocrine Disorders: No HEENT History of HEENT Disorders: Yes HEENT Disorders: Cataract Loss of Vision: Bilateral Hearing Impairment: Hard of Hearing Cancer No Psychosocial History of Psychiatric Problem: No Integumentary History of Skin or Integumenta: No Blood Transfusions History of Blood Disorders: Yes Family Medical History Significant Family History: No Pertinent Family Hx Constitutional: no symptoms reported EENTM: no symptoms reported Respiratory: short of breath, other (On oxygen now) Cardiovascular: other (A. fib history on warfarin) Gastrointestinal: no symptoms reported Genitourinary: no symptoms reported Physical Exam Vital Signs Vital Signs - First Documented 09/11/17 12:08 Temp 97.3 Pulse 73 Resp 20 B/P (MAP) 122/61 (81) Pulse Ox 90 O2 Delivery Nasal Cannula O2 Flow Rate 3.00 Capillary Refill : Less Than 3 Seconds General Appearance: No Apparent Distress, WD/WN Eyes: Bilateral Eye Normal Inspection HEENT: Normal ENT Inspection Neck: Full Range of Motion, Normal Inspection Respiratory: Lungs Clear, No Accessory Muscle Use, No Respiratory Distress, Decreased Breath Sounds Cardiovascular: Irregularly Irregular Gastrointestinal: Non Tender, Soft Assessment/Plan Assessment and Plan Hip fracture. Hypertension. Atrial fibrillation. COPD. Constipation Admission Diagnosis Admission Status: Inpatient Order (span 2 midnights) Reason for Inpatient Admission: Needs PT. Atrial fibrillation. COPD. Hypertension. Hip fracture recent Clinical Quality Measures DVT/VTE Risk/Contraindication: Risk Factor Score Per Nursin RFS Level Per Nursing on Admit: 4+=Very High YOUSIF ARAGON DO September 11, 2017 19:17
[2017-09-11] MEDS: RT-ADVAIR HFA 115/21 MCG PER PUFF IH SCH (19:20)
[2017-09-11] MEDS: DOCUSATE SODIUM 100 MG (COLACE) CAP PO SCH (20:18)
[2017-09-11] MEDS: TAMSULOSIN 0.4 MG (FLOMAX) CAP PO SCH (20:18)
[2017-09-11] MEDS: FLECAINIDE 100 MG (TAMBOCOR) TAB PO SCH (20:21)
[2017-09-11] MEDS: ATORVASTATIN 10 MG (LIPITOR) TABLET PO SCH (20:22)
[2017-09-11] MEDS: ONDANSETRON 4 MG (ZOFRAN) ORAL DISSOLVE TAB PO PRN (20:22)
[2017-09-12 05:31] VITALS: BP 138/62
[2017-09-12] MEDS: MULTIVIT W/MINERALS TAB (THERAGRAN M) PO SCH (06:16)
[2017-09-12] MEDS: ACETAMINOPHEN 325 MG TABLET/CAPLET (TYLENOL) PO PRN ×2 (06:16→10:38)
[2017-09-12] MEDS: oxyCODONE/APAP 5/325MG (PERCOCET 5) TABLET PO PRN ×3 (06:53→20:47)
--- NOTE | 2017-09-12 07:32 | PM&R Post Admission Assessment ---
Post Admission Physician Asses Date seen by provider: September 12, 2017 Time seen by provider: 07:15 Admisison Dx: (1) Hip fracture Status: Acute The preadmission screen agrees with the post admission assessment that the patient is a good candidate for inpatient rehabilitation. The patient will have a comprehensive program of inpatient rehabilitation with a goal of maximizing level of functional independence prior to discharge home with spouse and HHC. The patient will have PT/OT ninety minutes per day, each discipline, five days a week for 2 weeks for gait, strengthening, conditioning, balance, ADLs, any patient/family/caregiver training as necessary. Speech therapy to do cognitive assessment and treat as indicated. Rehabilitation nursing to assist with bowel, bladder, skin, wound care, medication administration, pain management. Computer Numerical Control Grinder to assist with discharge planning, community reentry. SCD's for DVT prophylaxis. He appears to be well motivated to participate in three hours of therapy a day. He should be able to tolerate three hours of therapy a day from a medical and surgical standpoint. He should benefit from the three hours of therapy a day. He has a reasonable discharge plan, reasonable discharge rehabilitation goals and a supportive family. He has various comorbidities that need to be closely monitored with medications and treatments adjusted on a daily basis as needed. These include: HTN COPD A FIB OA Tobaccoism Barriers to discharge for this patient who had been independent prior to this are for him to be modified independent to supervision for ADLs and mobility skills prior to discharge home with [family], so as to lessen the burden of the caregivers. Risks for this patient include: 1. Fall 2. Fracture 3. DVT 4. Pulmonary embolism 5. Wound infection 6. Skin breakdown 7. Contractures 8. Poorly controlled pain 9. Urinary retention 10. UTI 11. Respiratory infection 12. Aspiration 13. Poorly controlled HTN 14. Poorly controlled A FIB 15. Zcute exacerbation of COPD Estimated Length of Stay: 14 days Prognosis: Rehab prognosis appears good for goal of discharge home with spouse and HHC modified independent to supervision for ADLs and mobility skills. General: Alert, Cooperative, No Acute Distress HEENT: Atraumatic, PERRLA, EOMI, Mucous Memb Moist/[place] Neck: Supple, No JVD Lungs: Clear to Auscultation Heart: Regular Rate Abdomen: Normal Bowel Sounds, Soft, No Tenderness Extremities: No Edema Neuro: Other (weakness in legs) SUSAN FRAGOSO MD September 12, 2017 07:32
[2017-09-12 07:38] LABS: HEMOGLOBIN 8.4 G/DL (13.3-17.7); MEAN PLATELET VOLUME 8.9 FL (7.4-10.4); RED BLOOD COUNT 2.64 10^6/uL (4.35-5.85); RED CELL DISTRIBUTION WIDTH 14.2 % (10.0-14.5); WHITE BLOOD COUNT 6.6 10^3/uL (4.3-11.0)
[2017-09-12 07:49] LABS: INR 1.4 (0.8-1.4); PROTHROMBIN TIME PATIENT 17.4 SEC (12.2-14.7)
[2017-09-12] MEDS: DILTIAZEM 240 MG (CARDIZEM CD) CAP PO SCH (07:49)
[2017-09-12] MEDS: FLECAINIDE 100 MG (TAMBOCOR) TAB PO SCH ×2 (07:49→20:35)
[2017-09-12] MEDS: SENNA W/DOCUSATE (SENOKOT S) TABLET PO SCH (07:50)
[2017-09-12] MEDS: TAMSULOSIN 0.4 MG (FLOMAX) CAP PO SCH ×2 (07:50→20:36)
[2017-09-12] MEDS: FINASTERIDE (PROSCAR) 5 MG TAB PO SCH (07:50)
[2017-09-12 07:54] LABS: CREATININE SERUM 1.23 MG/DL (0.60-1.30); POTASSIUM 4.8 MMOL/L (3.6-5.0)
[2017-09-12] MEDS: UMECLIDINIUM BROMIDE (INCRUSE ELLIPTA) 7'S IH SCH (08:32)
[2017-09-12] MEDS: RT-ALBUTEROL/IPRATROPIUM 3 ML (DUONEB) VIAL INH SCH ×3 (08:32→20:03)
[2017-09-12] MEDS: RT-ADVAIR HFA 115/21 MCG PER PUFF IH SCH ×2 (08:32→20:03)
--- NOTE | 2017-09-12 08:42 | Progress Note (SOAP) ---
Subjective Time Seen by Provider: 08:40 Subjective/Events-last exam Patient still constipated. Hip fracture. COPD. Patient uncomfortable being constipated. Magnesium citrate ordered Objective Exam Vital Signs Date Time Temp Pulse Resp B/P (MAP) Pulse Ox O2 Delivery O2 Flow Rate FiO2 09/12/17 05:31 97.9 76 20 138/62 (87) 93 Nasal Cannula 3.00 09/12/17 02:09 36 09/11/17 21:00 93 Nasal Cannula 3.00 09/11/17 19:20 91 Nasal Cannula 4.00 09/11/17 18:38 97.2 71 20 109/63 (78) 91 Nasal Cannula 4.00 09/11/17 15:05 91 Nasal Cannula 4.00 09/11/17 13:53 90 Nasal Cannula 3.00 09/11/17 13:00 72 09/11/17 12:08 97.3 73 20 122/61 (81) 90 Nasal Cannula 3.00 I & O 09/12/17 07:00 Intake Total 690 ml Output Total 600 ml Balance 90 ml Capillary Refill : Less Than 3 Seconds General Appearance: No Apparent Distress, WD/WN HEENT: Normal ENT Inspection Neck: Normal Inspection Respiratory: No Accessory Muscle Use, No Respiratory Distress Gastrointestinal: non tender, soft Results Lab Laboratory Tests 09/12/17 07:28: White Blood Count 6.6, Red Blood Count 2.64L, Hemoglobin 8.4L, Hematocrit 26L, Mean Corpuscular Volume 99, Mean Corpuscular Hemoglobin 32, Mean Corpuscular Hemoglobin Concent 32, Red Cell Distribution Width 14.2, Platelet Count 243, Mean Platelet Volume 8.9, Prothrombin Time 17.4H, INR Comment 1.4, Sodium Level 140, Potassium Level 4.8, Chloride Level 109H, Carbon Dioxide Level 23, Anion Gap 8, Blood Urea Nitrogen 29H, Creatinine 1.23, Estimat Glomerular Filtration Rate 56, BUN/Creatinine Ratio 24, Glucose Level 102, Calcium Level 8.0L Assessment/Plan Assessment/Plan Assess & Plan/Chief Complaint . Hip fracture. COPD. A. fib history. Constipation Clinical Quality Measures Admission Status Admission Dx Hip fracture. Hypertension. Atrial fibrillation. COPD. Constipation DVT/VTE Risk/Contraindication: Risk Factor Score Per Nursin RFS Level Per Nursing on Admit: 4+=Very High YOUSIF ARAGON DO September 12, 2017 08:41
[2017-09-12] MEDS ORDERED: MAGNESIUM CITRATE 300 ML BTL PO NR (08:45)
--- NOTE | 2017-09-12 10:00 | Physical Therapy Daily Note ---
PT Daily Note-Current Subjective Patient in bed pre tx, OT already working with him, will be co-treating with OT for 30 min and regular treatment for 30 min. Appearance Patient in wheelchair at bedside post tx with nurse call, phone, tray, all needs met. Mental Status Patient Orientation: Person, Place, Situation Attachments: Oxygen 3L of O2 nasal canula Transfers Functional [place] Measure 0=Not Assessed/NA 4=Minimal Assistance 1=Total Assistance 5=Supervision or Setup 2=Maximal Assistance 6=Modified [place] 3=Moderate Assistance 7=Complete IndependenceIRFPAI Quality Coding Scale 6 Independent with activity with or without an assistive device 5 Patient requires set up or clean up by helper. Patient completes activity by themselves 4 Supervision or touching assist (CGA). [place] provide cues , steadying assist 3 The helper provides less than half the effort to complete the activity 2 The helper provides more than half the effort to complete the activity 1 Dependent. The helper does all the effort to complete an activity 7 Patient refused to complete or attempt activity 9 The patient did not perform the activity before the current illness or injury 88 Not attempted due to Medical conditions or safety concerns Transfers (B, C, W/C) (FIM): 2 Scootin Rollin Supine to/from Sit: 2 Sit to/from Stand: 2 Bed to/from Chair: 2 Patient needs cues for hand placement for every transfer, will always try to pull on therapist. Weight Bearing Right Lower Extremity: Right Full Weight Bearing Left Lower Extremity: Left Touch Toe Bearing Treatments Patient in bed pre tx, sat patient up in bed to finish bathing and putting on shirt. Stood patient to get shorts up and then transferred to wheelchair. Took patient to therapy gym and he stood in the parallel bars with max assist x2 for about 10 seconds each time. Patient states he is nauseated and has to have a BM. Patient taken to his room and transferred to bedside commode. He did not have a BM. Patient transferred back to wheelchair and set up at bedside. OT assisted with transfers and did dressing and bathing. PT worked on bed mobility, sitting balance, transfers, standing, toileting. Assessment Current Status: Poor Progress no change in mobility, patient has poor compliance with his weight bearing status PT Short Term Goals Short Term Goals Time Frame: September 18, 2017 Transfers (B,C,W/C) (FIM): 3 Gait (FIM): 1 Gait Distance Comment: 5' Gait Level of Assist: 3 Gait Assistive Device: FWW Wheelchair Distance: 60 ft PT [facility] Goals Transmission Rebuilder Goals PT [facility] Goals Time Frame: Oct 02, 2017 Transfers (B,C,W/C) (FIM): 4 Sit to Lying (QC): 3 Lying-Sitting on Side/Bed(QC): 3 Sit to Stand (QC): 3 Rollin Roll Left to Right (QC): 3 Chair/Dpo-qg-[place] Xfer(QC): 3 Car Transfer (QC): 3 Gait (FIM): 1 Distance: 20' Walk 10 feet (QC): 3 Walk 10ft-Uneven Surface(QC): 3 Gait Level of Assist: 4 Gait Assistive Device: FWW Wheelchair (FIM): 6 Distance: 150' Wheelchair Level of Assist: 6 Wheel 50 feet with 2 turns (QC: 6 Stairs (FIM): 2 # of Steps: 4 1 Step (curb) (QC): 3 Stairs Level Of Assist: 4 PT Plan Problem List Problem List: Activity Tolerance, Functional Strength, Safety, Balance, Gait, Transfer, Bed Mobility, ROM Treatment/Plan Treatment Plan: Continue Plan of Care Treatment Plan: Bed Mobility, Concurrent Therapy, Education, Functional Activity Syl, Functional Strength, Group Therapy, Gait, Safety, Therapeutic Exercise, Transfers Treatment Duration: Oct 02, 2017 Frequency: At least 5 of 7 days/Wk (IRF) Estimated Hrs Per Day: 1.5 hours per day Patient and/or Family Agrees t: Yes Safety Risks/Education Patient Education: Transfer Techniques, Reviewed Precautions, Correct Positioning, Safety Issues Teaching Recipient: Patient Teaching Methods: Demonstration, Discussion Response to Teaching: Reinforcement Needed Time/GCodes Time In: 0900 Time Out: 1000 Total Billed Treatment Time: 60 Total Billed Treatment 1 visit FA 60' BRAULIO HERNÁNDEZ PT September 12, 2017 10:00
--- NOTE | 2017-09-12 10:59 | Progress Note-Standard ---
Standard Progress Note Progress Notes/Assess & Plan Date Seen by Provider: September 12, 2017 Time Seen by Provider: 10:58 Progress/Assessment & Plan No complaints LLE--dressing intact. No calf tenderness. Neg Alex's s/p L hip Im osmany continue PT/OT DOMINIK ALBA MD September 12, 2017 10:59
--- NOTE | 2017-09-12 11:04 | Occupational Ther Daily Note ---
OT Current Status-Daily Note Subjective Pt seen in room, up in bed, agreeable to OT. No pain mentioned initially but pt had discomfort during movement. Nursing notified. Appearance Alert, oriented Mental Status/Objective Functional [place] Measure 0=Not Assessed/NA 4=Minimal Assistance 1=Total Assistance 5=Supervision or Setup 2=Maximal Assistance 6=Modified [place] 3=Moderate Assistance 7=Complete [place] ADL-Treatment Pt seen in room, initially by OT, then co-tx with PT for 30 minutes, due to complexity of physical limitations and need for skilled interventions from two different professionals. OT worked on ADLs, sitting balance and UE function and PT worked on transfers, positioning, LE function. Pt completed much of his bath supine in bed, then sitting EOB with min assist to maintain balance. Grooming in bed and EOB, as well as dressing. Two people required to stand and pull pants up. Transferred to w/c with max assist and two people, then transported to gym. Worked on sit to stencil inspector parallel bars, with OT focusing on UEs - pt needed skilled cues to extend arms and support weight when standing. Also skilled cues for hand position for sit to stand, as needed for ADLs. Functional [place] Measure 0=Not Assessed/NA 4=Minimal Assistance 1=Total Assistance 5=Supervision or Setup 2=Maximal Assistance 6=Modified [place] 3=Moderate Assistance 7=Complete IndependenceIRFPAI Quality Coding Scale 6 Independent with activity with or without an assistive device 5 Patient requires set up or clean up by helper. Patient completes activity by themselves 4 Supervision or touching assist (CGA). [place] provide cues , steadying assist 3 The helper provides less than half the effort to complete the activity 2 The helper provides more than half the effort to complete the activity 1 Dependent. The helper does all the effort to complete an activity 7 Patient refused to complete or attempt activity 9 The patient did not perform the activity before the current illness or injury 88 Not attempted due to Medical conditions or safety concerns Grooming (FIM): 5 (setup to wash face and hands with sponge bath, to put dentures in. Setup to put dentures in) Oral Hygiene (QC): 5 Bathing (FIM): 3 (70% Sponge bath in bed and EOB. Min assist to maintain sitting EOB) Bathing Location: L Arm, R Arm, L Upper Leg, R Upper Leg, Chest, Abdomen, Perineal Area Shower/Bathe Self (QC): 3 Upper Body (FIM): 4 (Donned t shirt sitting EOB, with min assist to maintain sitting balance) Upper Body Dressing (QC): 3 Lower Body Dressing (FIM): 1 (Pt was able to pick feet up to place in pants legs. Two people needed to stand to pull pants up. Help for slipper socks on/off ) Lower Body Dressing (QC): 1 On/Off Footwear (QC): 1 Toileting (FIM): 1 (Two people needed to manage clothing and hygiene. BSC) Toileting Hygiene (QC): 1 (Two people) Toilet/Commode Transfer (FIM): 1 (Two people needed to get him on/off BSC, FWW) Toilet Transfer (QC): 1 Shower Transfer(FIM): 0 Education OT Patient Education: Modified ADL techniques, Progress toward Goal/Update tx plan, Purpose of tx/functional activities, Rehab process, Transfer techniques Teaching Recipient: Patient Teaching Methods: Demonstration, Discussion Response to Teaching: Verbalize Understanding, Return Demonstration, Reinforcement Needed OT Short Term Goals Short Term Goals Time Frame: September 18, 2017 Bathing(FIM): 4 Upper Body Dressing(FIM): 5 Lower Body Dressing(FIM): 3 Transfers (B,C,W/C) (FIM): 3 Toilet/Commode Transfer(FIM): 3 Additional Short Term Goals: 1-Demonstrate ADL Tasks, 2-Verbalize Understanding , 3-ImproveStrength/Syl 1=Demonstrate adherence to instructed precautions during ADL tasks. 2=Patient will verbalize/demonstrate understanding of assistive devices/ modifications for ADL. 3=Patient will improve strength/tolerance for activity to enable patient to perform ADL's. OT Shelter Goals Manager Lab Goals Time Frame: Sep 29, 2017 Eating (FIM): 6 Eating (QC): 6 Groomin Oral Hygiene (QC): 6 Bathing(FIM): 6 Shower/Bathe Self (QC): 6 Upper Body Dressing(FIM): 6 Upper Body Dressing (QC): 6 Lower Body Dressing(FIM): 6 Lower Body Dressing (QC): 6 On/Off Footwear (QC): 6 Toileting(FIM): 6 Toileting Hygiene (QC): 6 Toilet/Commode Transfer(FIM): 6 Toilet/Commode Transfer (QC): 6 Shower Transfer(FIM): 6 Additional Goals: 1-Demonstrate ADL Tasks, 2-Verbalize Understanding, 3- ImproveStrength/Syl 1=Demonstrate adherence to instructed precautions during ADL tasks. 2=Patient will verbalize/demonstrate understanding of assistive devices/ modifications for ADL. 3=Patient will improve strength/tolerance for activity to enable patient to perform ADL's. OT Education/Plan Problem List/Assessment Pt would benefit from skilled OT to increase his independence in basic self care to allow him to safely return home after a fall and surgery to repair hip fx. Discharge Recommendations Plan/Recommendations: Continue POC Treatment Plan/Plan of Care Patient would benefit from OT for education, treatment and training to promote independence in ADL's, mobility, safety and/or upper extremity function for ADL' s. Plan of Care: ADL Retraining, Functional Mobility, Group Exercise/Act as Ind ( education, exercise, act tolerance, funct activities, socialization), UE Funct Exercise/Act, UE Neuromus Re-Ed/Coord Treatment Duration: Sep 29, 2017 Frequency: At least 5 of 7 days/Wk (IRF) Estimated Hrs Per Day: 1.5 hours per day Agreement: Yes Rehab Potential: Fair Time/GCodes Start Time: 08:45 Stop Time: 09:30 Total Time Billed (hr/min): 45 Billed Treatment Time visit, ADL 30 minutes, functional activity 15 minutes (15 minutes ADL and 15 minutes functional activity co-tx with PT) NATALI CHEN OT September 12, 2017 11:04
--- NOTE | 2017-09-12 13:33 | Physical Therapy Daily Note ---
PT Daily Note-Current Subjective Patient in bed pre tx, agrees to PT, will be co-treating with OT for 30 min. Appearance Patient in bed post tx, is finishing up with OT. Mental Status Patient Orientation: Person, Place, Situation Attachments: Oxygen Transfers Functional [place] Measure 0=Not Assessed/NA 4=Minimal Assistance 1=Total Assistance 5=Supervision or Setup 2=Maximal Assistance 6=Modified [place] 3=Moderate Assistance 7=Complete IndependenceIRFPAI Quality Coding Scale 6 Independent with activity with or without an assistive device 5 Patient requires set up or clean up by helper. Patient completes activity by themselves 4 Supervision or touching assist (CGA). [place] provide cues , steadying assist 3 The helper provides less than half the effort to complete the activity 2 The helper provides more than half the effort to complete the activity 1 Dependent. The helper does all the effort to complete an activity 7 Patient refused to complete or attempt activity 9 The patient did not perform the activity before the current illness or injury 88 Not attempted due to Medical conditions or safety concerns Transfers (B, C, W/C) (FIM): 2 Scootin Rollin Supine to/from Sit: 2 Sit to/from Stand: 2 Bed to/from Chair: 2 cues for hand placement and positioning Weight Bearing Right Lower Extremity: Right Full Weight Bearing Left Lower Extremity: Left Touch Toe Bearing Treatments Patient transferred from supine to sit, stood 3 times with mod to max assist and stood each time for about 1 min. Transferred from sit to supine and left with OT. PT worked on bed mobility, transfers, standing, directions for positioning. OT assisted with bed mobility and transfers and worked on UE positioning during standing. Patient still nauseated. Patient also moved toward the head of the bed about 1 foot by twisting his right foot back and forth. He did a better job keeping the weight off of his left leg. Assessment Current Status: Fair Progress improved bed mobility and sit to stand, still max assist but he provides more effort. PT Short Term Goals Short Term Goals Time Frame: September 18, 2017 Transfers (B,C,W/C) (FIM): 3 Gait (FIM): 1 Gait Distance Comment: 5' Gait Level of Assist: 3 Gait Assistive Device: FWW Wheelchair Distance: 60 ft PT Shelter Goals Shelter Goals PT Shelter Goals Time Frame: Oct 02, 2017 Transfers (B,C,W/C) (FIM): 4 Sit to Lying (QC): 3 Lying-Sitting on Side/Bed(QC): 3 Sit to Stand (QC): 3 Rollin Roll Left to Right (QC): 3 Chair/Nts-cs-Monnr Xfer(QC): 3 Car Transfer (QC): 3 Gait (FIM): 1 Distance: 20' Walk 10 feet (QC): 3 Walk 10ft-Uneven Surface(QC): 3 Gait Level of Assist: 4 Gait Assistive Device: FWW Wheelchair (FIM): 6 Distance: 150' Wheelchair Level of Assist: 6 Wheel 50 feet with 2 turns (QC: 6 Stairs (FIM): 2 # of Steps: 4 1 Step (curb) (QC): 3 Stairs Level Of Assist: 4 PT Plan Problem List Problem List: Activity Tolerance, Functional Strength, Safety, Balance, Gait, Transfer, Bed Mobility, ROM Treatment/Plan Treatment Plan: Continue Plan of Care Treatment Plan: Bed Mobility, Concurrent Therapy, Education, Functional Activity Syl, Functional Strength, Group Therapy, Gait, Safety, Therapeutic Exercise, Transfers Treatment Duration: Oct 02, 2017 Frequency: At least 5 of 7 days/Wk (IRF) Estimated Hrs Per Day: 1.5 hours per day Patient and/or Family Agrees t: Yes Safety Risks/Education Patient Education: Transfer Techniques, Correct Positioning, Safety Issues Teaching Recipient: Patient Teaching Methods: Demonstration, Discussion Response to Teaching: Reinforcement Needed Time/GCodes Time In: 1300 Time Out: 1330 Total Billed Treatment Time: 30 Total Billed Treatment 1 visit FA 30' BRAULIO HERNÁNDEZ PT September 12, 2017 13:33
--- NOTE | 2017-09-12 16:09 | Occupational Ther Daily Note ---
OT Current Status-Daily Note Subjective Pt seen in room, up in bed, agreeable to OT. Pain reported with some movements L UE. Appearance Alert, cooperative. Mental Status/Objective Functional [place] Measure 0=Not Assessed/NA 4=Minimal Assistance 1=Total Assistance 5=Supervision or Setup 2=Maximal Assistance 6=Modified [place] 3=Moderate Assistance 7=Complete [place] ADL-Treatment Pt was co-treated by PT and OT for 1/2 hour, with PT working on bed mobility, transfers and OT working on UE placement and function during rolling, sitting and standing, as needed for ADLs. Pt educ to push self up with R UE to come to sit. He was able to sit at EOB unsupported by a person although he often had his R hand on bed rail or hands on mattress. He was able to scoot forwards and backwards while at EOB. Sit to stand with mod-max assist of 1, with bed raised. Cues for UE placement and for supporting weight with FWW. He stood approx 1 minute times three reps, as needed for standing to manage clothing for toileting. Also able to swivel R foot to move toward R about a foot. Once back in bed, he was able to help pull himself up in bed. OT treatment for 15 minutes on UE exercise, using red theraband (medium resistance). He was taught four different exercise and di 15 reps of each one, strengthening arms to help with standing for ADLs. Pt left up in bed, all needs met. Functional [place] Measure 0=Not Assessed/NA 4=Minimal Assistance 1=Total Assistance 5=Supervision or Setup 2=Maximal Assistance 6=Modified [place] 3=Moderate Assistance 7=Complete IndependenceIRFPAI Quality Coding Scale 6 Independent with activity with or without an assistive device 5 Patient requires set up or clean up by helper. Patient completes activity by themselves 4 Supervision or touching assist (CGA). [place] provide cues , steadying assist 3 The helper provides less than half the effort to complete the activity 2 The helper provides more than half the effort to complete the activity 1 Dependent. The helper does all the effort to complete an activity 7 Patient refused to complete or attempt activity 9 The patient did not perform the activity before the current illness or injury 88 Not attempted due to Medical conditions or safety concerns Education OT Patient Education: Exercise program, Progress toward Goal/Update tx plan, Purpose of tx/functional activities, Transfer techniques Teaching Recipient: Patient Teaching Methods: Demonstration, Discussion Response to Teaching: Verbalize Understanding, Return Demonstration, Reinforcement Needed OT Short Term Goals Short Term Goals Time Frame: September 18, 2017 Bathing(FIM): 4 Upper Body Dressing(FIM): 5 Lower Body Dressing(FIM): 3 Transfers (B,C,W/C) (FIM): 3 Toilet/Commode Transfer(FIM): 3 Additional Short Term Goals: 1-Demonstrate ADL Tasks, 2-Verbalize Understanding , 3-ImproveStrength/Syl 1=Demonstrate adherence to instructed precautions during ADL tasks. 2=Patient will verbalize/demonstrate understanding of assistive devices/ modifications for ADL. 3=Patient will improve strength/tolerance for activity to enable patient to perform ADL's. OT Senior Internet Sales Consultant Goals Senior Internet Sales Consultant Goals Time Frame: Sep 29, 2017 Eating (FIM): 6 Eating (QC): 6 Groomin Oral Hygiene (QC): 6 Bathing(FIM): 6 Shower/Bathe Self (QC): 6 Upper Body Dressing(FIM): 6 Upper Body Dressing (QC): 6 Lower Body Dressing(FIM): 6 Lower Body Dressing (QC): 6 On/Off Footwear (QC): 6 Toileting(FIM): 6 Toileting Hygiene (QC): 6 Toilet/Commode Transfer(FIM): 6 Toilet/Commode Transfer (QC): 6 Shower Transfer(FIM): 6 Additional Goals: 1-Demonstrate ADL Tasks, 2-Verbalize Understanding, 3- ImproveStrength/Syl 1=Demonstrate adherence to instructed precautions during ADL tasks. 2=Patient will verbalize/demonstrate understanding of assistive devices/ modifications for ADL. 3=Patient will improve strength/tolerance for activity to enable patient to perform ADL's. OT Education/Plan Problem List/Assessment Pt would benefit from skilled OT to increase his independence in basic self care to allow him to safely return home after a fall and surgery to repair hip fx. Discharge Recommendations Plan/Recommendations: Continue POC Treatment Plan/Plan of Care Patient would benefit from OT for education, treatment and training to promote independence in ADL's, mobility, safety and/or upper extremity function for ADL' s. Plan of Care: ADL Retraining, Functional Mobility, Group Exercise/Act as Ind ( education, exercise, act tolerance, funct activities, socialization), UE Funct Exercise/Act, UE Neuromus Re-Ed/Coord Treatment Duration: Sep 29, 2017 Frequency: At least 5 of 7 days/Wk (IRF) Estimated Hrs Per Day: 1.5 hours per day Agreement: Yes Rehab Potential: Fair Time/GCodes Start Time: 13:00 Stop Time: 13:45 Total Time Billed (hr/min): 45 Billed Treatment Time visit, 30 minutes functional activity (co-tx with PT), 15 minutes exercise NATALI CHEN OT September 12, 2017 16:09
[2017-09-12 18:00] VITALS: BP 134/60
[2017-09-12] MEDS: warFARin 3 MG (COUMADIN) TAB PO SCH (18:00)
--- NOTE | 2017-09-12 18:34 | Diagnostic Imaging Report ---
INDICATION: Bowel obstruction. COMPARISON: None. FINDINGS: Two views of the abdomen demonstrate nondistended bowel gas pattern. There is no free air. No significant constipation. IMPRESSION: Nondistended bowel gas pattern. Dictated by: Dictated on workstation # [id number]
[2017-09-12] MEDS: DOCUSATE SODIUM 100 MG (COLACE) CAP PO SCH (20:36)
[2017-09-12] MEDS: ATORVASTATIN 10 MG (LIPITOR) TABLET PO SCH (20:36)
[2017-09-12] MEDS: POLYETHYLENE GLYCOL 17 GM (MIRALAX) PACK PO SCH (20:38)
[2017-09-13] MEDS: oxyCODONE/APAP 5/325MG (PERCOCET 5) TABLET PO PRN ×3 (03:16→20:53)
[2017-09-13 06:00] VITALS: BP 118/57
[2017-09-13 06:27] LABS: MEAN PLATELET VOLUME 9.5 FL (7.4-10.4); RED BLOOD COUNT 2.84 10^6/uL (4.35-5.85); RED CELL DISTRIBUTION WIDTH 14.2 % (10.0-14.5); WHITE BLOOD COUNT 6.3 10^3/uL (4.3-11.0)
[2017-09-13] MEDS: MULTIVIT W/MINERALS TAB (THERAGRAN M) PO SCH (06:42)
[2017-09-13] MEDS: DILTIAZEM 240 MG (CARDIZEM CD) CAP PO SCH (08:17)
[2017-09-13] MEDS: FINASTERIDE (PROSCAR) 5 MG TAB PO SCH (08:18)
[2017-09-13] MEDS: TAMSULOSIN 0.4 MG (FLOMAX) CAP PO SCH ×2 (08:18→20:43)
[2017-09-13] MEDS: FLECAINIDE 100 MG (TAMBOCOR) TAB PO SCH ×2 (08:18→20:43)
[2017-09-13] MEDS: SENNA W/DOCUSATE (SENOKOT S) TABLET PO SCH (08:23)
--- NOTE | 2017-09-13 08:55 | Progress Note (SOAP) ---
Subjective Time Seen by Provider: 08:55 Subjective/Events-last exam Patient had a bowel movement today. X-ray of abdomen looks okay. . Hip fracture Objective Exam Vital Signs Date Time Temp Pulse Resp B/P (MAP) Pulse Ox O2 Delivery O2 Flow Rate FiO2 09/13/17 06:00 96.6 84 20 118/57 (77) 93 Nasal Cannula 3.00 09/12/17 21:00 93 Nasal Cannula 3.00 09/12/17 20:03 92 Nasal Cannula 3.00 09/12/17 18:00 97.6 74 18 134/60 (84) 93 Nasal Cannula 3.00 3.00 09/12/17 15:08 92 Nasal Cannula 3.00 09/12/17 09:00 92 Nasal Cannula 2.00 I & O 09/13/17 07:00 Intake Total 710 ml Output Total 600 ml Balance 110 ml Capillary Refill : Less Than 3 Seconds General Appearance: No Apparent Distress, WD/WN HEENT: Pharynx Normal Neck: Full Range of Motion, Normal Inspection Respiratory: No Accessory Muscle Use, No Respiratory Distress Results Lab Laboratory Tests 09/13/17 06:03: White Blood Count 6.3, Red Blood Count 2.84L, Hemoglobin 9.0L, Hematocrit 28L, Mean Corpuscular Volume 99, Mean Corpuscular Hemoglobin 32, Mean Corpuscular Hemoglobin Concent 32, Red Cell Distribution Width 14.2, Platelet Count 265, Mean Platelet Volume 9.5 Assessment/Plan Assessment/Plan Assess & Plan/Chief Complaint . Hip fracture. COPD. A. fib history. Constipation. . 09/13/17. Hip fracture. COPD. A. fib history. Patient had good bowel movement today Clinical Quality Measures Admission Status Admission Dx Hip fracture. Hypertension. Atrial fibrillation. COPD. Constipation DVT/VTE Risk/Contraindication: Risk Factor Score Per Nursin RFS Level Per Nursing on Admit: 4+=Very High YOUSIF ARAGON DO September 13, 2017 08:55
--- NOTE | 2017-09-13 09:08 | Physician Query Clarification ---
PQ-Further Specificity Admission/Discharge Admission Date: September 11, 2017 at 12:18 Discharge Date: The medical record reflects the following clinical scenario: History/Risk Factors: COPD, HTN, Atrial fibrillation Clinical Findings: hip fx Treatment: Rehab Question: Can you further specify laterality and type/site of hip fracture per the clinical indicators above? Please document below. 1. Lt intertrochanteric hip fracture 2. Hip fracture laterality and type unknown 3. Other, with explanation of the clinical findings. 4. Clinically undetermined, no explanation for the clinical findings. PHYSICIAN RESPONSE Can you specify per above: 1 In responding to this query, please exercise your independent professional judgment. The purpose of this communication is to more accurately reflect the complexity of your patients condition. The fact that a question is asked does not imply that any particular answer is desired or expected. Thank you for your timely response to this clarification. Requestors name: Rosaura THIS PHYSICIAN QUERY FORM IS A PERMANENT PART OF THE MEDICAL RECORD ROSAURA ROJAS September 13, 2017 09:08 YOUSIF ARAGON DO September 13, 2017 20:23
--- NOTE | 2017-09-13 09:14 | Progress Note-Standard ---
Standard Progress Note Progress Notes/Assess & Plan Date Seen by Provider: September 13, 2017 Time Seen by Provider: 07:30 Progress/Assessment & Plan No complaints LLE--dressing intact. No calf tenderness. Neg Alex's s/p L hip Im osmany continue PT/OT Final Diagnosis feeling better Vital Signs Date Time Temp Pulse Resp B/P (MAP) Pulse Ox O2 Delivery O2 Flow Rate FiO2 09/13/17 06:00 96.6 84 20 118/57 (77) 93 Nasal Cannula 3.00 09/12/17 21:00 93 Nasal Cannula 3.00 09/12/17 20:03 92 Nasal Cannula 3.00 09/12/17 18:00 97.6 74 18 134/60 (84) 93 Nasal Cannula 3.00 3.00 09/12/17 15:08 92 Nasal Cannula 3.00 I & O 09/13/17 07:00 Intake Total 710 ml Output Total 600 ml Balance 110 ml Laboratory Tests Test 09/13/17 06:03 Range/Units White Blood Count 6.3 4.3-11.0 10^3/uL Red Blood Count 2.84 L 4.35-5.85 10^6/uL Hemoglobin 9.0 L 13.3-17.7 G/DL Hematocrit 28 L 40-54 % Mean Corpuscular Volume 99 80-99 FL Mean Corpuscular Hemoglobin 32 25-34 PG Mean Corpuscular Hemoglobin Concent 32 32-36 G/DL Red Cell Distribution Width 14.2 10.0-14.5 % Platelet Count 265 130-400 10^3/uL Mean Platelet Volume 9.5 7.4-10.4 FL L hip dressing intact. NO calf tenderness. Neg Alex's s/p l hip Im nail continue PT and OT DOMINIK ALBA MD September 13, 2017 09:14
[2017-09-13] MEDS: RT-ADVAIR HFA 115/21 MCG PER PUFF IH SCH ×2 (10:14→18:40)
[2017-09-13] MEDS: RT-ALBUTEROL/IPRATROPIUM 3 ML (DUONEB) VIAL INH SCH ×2 (10:14→18:32)
--- NOTE | 2017-09-13 10:20 | Physical Therapy Daily Note ---
PT Daily Note-Current Subjective Pt laying Supine in bed working with OT upon arrival. Pt agrees to PT for co- treat w/OT. Pain Numeric Pain Scale: 9 Location: Left Location Body Site: Hip Pain Description: Ache Mental Status Patient Orientation: Person, Place Attachments: Oxygen (3L) Pt is very nauseated during tx. This has been a common occurrence during ARU visit though. Transfers Functional [place] Measure 0=Not Assessed/NA 4=Minimal Assistance 1=Total Assistance 5=Supervision or Setup 2=Maximal Assistance 6=Modified [place] 3=Moderate Assistance 7=Complete IndependenceIRFPAI Quality Coding Scale 6 Independent with activity with or without an assistive device 5 Patient requires set up or clean up by helper. Patient completes activity by themselves 4 Supervision or touching assist (CGA). [place] provide cues , steadying assist 3 The helper provides less than half the effort to complete the activity 2 The helper provides more than half the effort to complete the activity 1 Dependent. The helper does all the effort to complete an activity 7 Patient refused to complete or attempt activity 9 The patient did not perform the activity before the current illness or injury 88 Not attempted due to Medical conditions or safety concerns Scootin Rollin Roll Left to Right (QC): 4 Supine to/from Sit: 3 Sit to/from Stand: 3 Sit to Lying (QC): 3 Sit to Stand (QC): 3 Chair/Oyc-my-Xcxzy Xfer(QC): 3 Bed to/from Chair: 3 Weight Bearing Right Lower Extremity: Right Full Weight Bearing Left Lower Extremity: Left Touch Toe Bearing Exercises Supine Ex: Ankle pumps, Quad Set, Hip abd/add Supine Reps: 10 Treatments Pt transfers from supine to EOB at Mod A then has to rest due to nausea. Pt then transfers from EOB to standing at Mod A using FWW to traci brief & shorts. Pt then rests at EOB before needing to toilet. Pt transfers to BSC using shuffling motion at Mod A using FWW. After completing, pt scoots to [facility] for pericare. Pt then stands using FWW at Mod A. Pt shuffles to EOB to lay back Supine for rest. Pt transfers to Supine at Mod A for lifting BLE into bed. Pt completes Supine Ex in bed with a couple short rest breaks. Pt resting at end of tx with all needs met, including call light in hand. Assessment Current Status: Good Progress Pt fatigues easily & continues to struggle with nausea during tx. PT Short Term Goals Short Term Goals Time Frame: September 18, 2017 Transfers (B,C,W/C) (FIM): 3 Gait (FIM): 1 Gait Distance Comment: 5' Gait Level of Assist: 3 Gait Assistive Device: FWW Wheelchair Distance: 60 ft PT Aircraft Delivery Checker Goals Aircraft Delivery Checker Goals PT Residential Goals Time Frame: Oct 02, 2017 Transfers (B,C,W/C) (FIM): 4 Sit to Lying (QC): 3 Lying-Sitting on Side/Bed(QC): 3 Sit to Stand (QC): 3 Rollin Roll Left to Right (QC): 3 Chair/Pwv-ov-[place] Xfer(QC): 3 Car Transfer (QC): 3 Gait (FIM): 1 Distance: 20' Walk 10 feet (QC): 3 Walk 10ft-Uneven Surface(QC): 3 Gait Level of Assist: 4 Gait Assistive Device: FWW Wheelchair (FIM): 6 Distance: 150' Wheelchair Level of Assist: 6 Wheel 50 feet with 2 turns (QC: 6 Stairs (FIM): 2 # of Steps: 4 1 Step (curb) (QC): 3 Stairs Level Of Assist: 4 PT Plan Problem List Problem List: Activity Tolerance Treatment/Plan Treatment Plan: Continue Plan of Care Treatment Plan: Bed Mobility, Concurrent Therapy, Education, Functional Activity Syl, Functional Strength, Group Therapy, Gait, Safety, Therapeutic Exercise, Transfers Treatment Duration: Oct 02, 2017 Frequency: At least 5 of 7 days/Wk (IRF) Estimated Hrs Per Day: 1.5 hours per day Patient and/or Family Agrees t: Yes Safety Risks/Education Patient Education: Transfer Techniques, Correct Positioning, Safety Issues Teaching Recipient: Patient Teaching Methods: Discussion Response to Teaching: Verbalize Understanding Time/GCodes Time In: 915 Time Out: 1015 Total Billed Treatment Time: 60 Total Billed Treatment 1, FA x3 (45m) & EX (15m) Co-treat 913-105 (30m) PT worked on transfers, sitting balance, foot placement & bed mobility while OT worked on ADLs & UE placement. G Codes Necessary: ALVERTO Gray DOCUMENTATION MANAGER September 13, 2017 10:20
--- NOTE | 2017-09-13 10:58 | Progress Note-Hospitalist ---
Subjective HPI/CC On Admission Date Seen by Provider: September 13, 2017 Time Seen by Provider: 10:00 Subjective/Events-last exam Patient seems to be highly sensitive to pain and even has severe pain when they' re turning him in bed Patient feels like he is trying his best but it isn't good enough but I tried to reassure him and updated him on the fact that I will correspond with Dr. Hardwick his primary care provider which seemed to please him Checked meds and labs Bowels are moving now after multiple meds given Review of Systems Musculoskeletal: leg pain Objective Exam Vital Signs Vital Signs Date Time Temp Pulse Resp B/P (MAP) Pulse Ox O2 Delivery O2 Flow Rate FiO2 09/13/17 09:00 Nasal Cannula 3.00 09/13/17 06:00 96.6 84 20 118/57 (77) 93 09/12/17 02:09 36 Capillary Refill : Less Than 3 Seconds General Appearance: No Apparent Distress, WD/WN, Chronically ill Respiratory: Lungs Clear, Normal Breath Sounds Cardiovascular: Regular Rate, Rhythm, No Edema Neurologic/Psychiatric: Alert, Oriented x3, No Motor/Sensory Deficits, Depressed Affect Results/Procedures Lab Laboratory Tests 09/13/17 06:03 Patient resulted labs reviewed. Assessment/Plan Assessment and Plan Assess & Plan/Chief Complaint (1) Closed intertrochanteric fracture of left hip s/p uncomplicated repair (2) SELVIN (acute kidney injury) (3) Atrial fibrillation (4) COPD (chronic obstructive pulmonary disease) (5) Essential (primary) hypertension (6) Prophylactic measure Laboratory Tests 09/13/17 06:03 Plan: BM regimen Monitor labs O2 Nebs IS Diagnosis/Problems Diagnosis/Problems (1) Atrial fibrillation Status: Chronic (2) COPD (chronic obstructive pulmonary disease) Status: Chronic (3) Essential (primary) hypertension Status: Chronic (4) SELVIN (acute kidney injury) Status: Chronic (5) Hip fracture Status: Chronic Clinical Quality Measures DVT/VTE Risk/Contraindication: Risk Factor Score Per Nursin RFS Level Per Nursing on Admit: 4+=Very High ALLEN MARTINEZ DO September 13, 2017 10:58
--- NOTE | 2017-09-13 11:08 | Occupational Ther Daily Note ---
OT Current Status-Daily Note Subjective Pt seen in room, up in bed, agreeable to OT. Feeling better because he has had 2 BMs but still nauseated at times. Pain in R hip with movement Appearance Alert, cooperative Mental Status/Objective Functional [place] Measure 0=Not Assessed/NA 4=Minimal Assistance 1=Total Assistance 5=Supervision or Setup 2=Maximal Assistance 6=Modified [place] 3=Moderate Assistance 7=Complete [place] ADL-Treatment Supine to sit with mod assist to start sponge bath. He needed min assist to maintain sitting due to difficulty putting weight on L hip to sit "square". Had to get back into bed due to nausea, mod assist. Pt washed angelita area as part of sponge bath and had small amount of BM incontinence, which OT cleaned up. Continued with nausea but no vomiting. PT came in at 9:15 for co-tx, with PT working on sit to stand and transfers and OT working on UE placement and function and ADLs. Pt needed mod assist to sit EOB and this time was better at maintaining balance, supporting himself with FWW or bed rail. Pt educ mod dressing techniques. Pt lifted feet to put them into pants and Depends (agreed on this for today due to bowel incontinence). He stood mod assist but with bed raised up, then OT washed bottom and pulled pants up. Cues for hand placement for sit to stand and on walker. Pt sat again EOB, then needed to toilet. Two people needed, one to support him with FWW and give cues for moving feet, other to manage clothing. Pt transferred mod assist to BSC but needed two people for clothing management. Pt left up on BSC with PT, all needs met. Functional [place] Measure 0=Not Assessed/NA 4=Minimal Assistance 1=Total Assistance 5=Supervision or Setup 2=Maximal Assistance 6=Modified [place] 3=Moderate Assistance 7=Complete IndependenceIRFPAI Quality Coding Scale 6 Independent with activity with or without an assistive device 5 Patient requires set up or clean up by helper. Patient completes activity by themselves 4 Supervision or touching assist (CGA). [place] provide cues , steadying assist 3 The helper provides less than half the effort to complete the activity 2 The helper provides more than half the effort to complete the activity 1 Dependent. The helper does all the effort to complete an activity 7 Patient refused to complete or attempt activity 9 The patient did not perform the activity before the current illness or injury 88 Not attempted due to Medical conditions or safety concerns Upper Body (FIM): 5 (setup to change shirt) Lower Body Dressing (FIM): 1 (two people to pull pants up. ) Toilet/Commode Transfer (FIM): 3 (mod assist, BSC , FWW) Education OT Patient Education: Modified ADL techniques, Purpose of tx/functional activities, Transfer techniques Teaching Recipient: Patient Teaching Methods: Demonstration, Discussion Response to Teaching: Verbalize Understanding, Return Demonstration, Reinforcement Needed OT Short Term Goals Short Term Goals Time Frame: September 18, 2017 Bathing(FIM): 4 Upper Body Dressing(FIM): 5 Lower Body Dressing(FIM): 3 Transfers (B,C,W/C) (FIM): 3 Toilet/Commode Transfer(FIM): 3 Additional Short Term Goals: 1-Demonstrate ADL Tasks, 2-Verbalize Understanding , 3-ImproveStrength/Syl 1=Demonstrate adherence to instructed precautions during ADL tasks. 2=Patient will verbalize/demonstrate understanding of assistive devices/ modifications for ADL. 3=Patient will improve strength/tolerance for activity to enable patient to perform ADL's. OT Senior Care Goals Senior Care Goals Time Frame: Sep 29, 2017 Eating (FIM): 6 Eating (QC): 6 Groomin Oral Hygiene (QC): 6 Bathing(FIM): 6 Shower/Bathe Self (QC): 6 Upper Body Dressing(FIM): 6 Upper Body Dressing (QC): 6 Lower Body Dressing(FIM): 6 Lower Body Dressing (QC): 6 On/Off Footwear (QC): 6 Toileting(FIM): 6 Toileting Hygiene (QC): 6 Toilet/Commode Transfer(FIM): 6 Toilet/Commode Transfer (QC): 6 Shower Transfer(FIM): 6 Additional Goals: 1-Demonstrate ADL Tasks, 2-Verbalize Understanding, 3- ImproveStrength/Syl 1=Demonstrate adherence to instructed precautions during ADL tasks. 2=Patient will verbalize/demonstrate understanding of assistive devices/ modifications for ADL. 3=Patient will improve strength/tolerance for activity to enable patient to perform ADL's. OT Education/Plan Problem List/Assessment Pt would benefit from skilled OT to increase his independence in basic self care to allow him to safely return home after a fall and surgery to repair hip fx. Discharge Recommendations Plan/Recommendations: Continue POC Treatment Plan/Plan of Care Patient would benefit from OT for education, treatment and training to promote independence in ADL's, mobility, safety and/or upper extremity function for ADL' s. Plan of Care: ADL Retraining, Functional Mobility, Group Exercise/Act as Ind ( education, exercise, act tolerance, funct activities, socialization), UE Funct Exercise/Act, UE Neuromus Re-Ed/Coord Treatment Duration: Sep 29, 2017 Frequency: At least 5 of 7 days/Wk (IRF) Estimated Hrs Per Day: 1.5 hours per day Agreement: Yes Rehab Potential: Fair Time/GCodes Start Time: 08:45 Stop Time: 09:45 Total Time Billed (hr/min): 60 Billed Treatment Time visit, 30 minutes ADL individual, 30 minutes ADL co-tx with NATALI WILHELM OT September 13, 2017 11:08
--- NOTE | 2017-09-13 14:52 | Therapy Group Daily Note ---
Therapy Daily Group Note Patient Education Topic Other List Below (gait, memory) Exercises LE Seated Exercise, UE Exercise Other/Notes Pt transported via w/c to OT/PT group. Group consisted of introductions (name, place living, rolling dice for question), socialization, gait/AE education, ARU description/expectations, seated UE/LE exercises, memory education and activity. Pt introduced self appropriately and was able to hold large dice and toss. Actively listened to peers introductions. Contributed to discussions when asked. Did not initiate conversations or answers. Pt required prompting to complete UE/LE seated exercises then would complete appropriately. Pt was not able to remember where to find matches at though was able to direct which items wanted turned over. After group with assist x2 transferred into bed with family present. Call light/phone in reach. All needs met in room. Start Time: 13:00 Stop Time: 14:15 Total Billed Treatment Time: 75 Total Billed Treatment 1-GRP PHILIP VILLAGOMEZ September 13, 2017 14:52
[2017-09-13 17:11] VITALS: BP 145/66
[2017-09-13] MEDS: warFARin 2 MG (COUMADIN) TAB PO SCH (18:26)
[2017-09-13] MEDS: UMECLIDINIUM BROMIDE (INCRUSE ELLIPTA) 7'S IH SCH (18:39)
[2017-09-13] MEDS: ATORVASTATIN 10 MG (LIPITOR) TABLET PO SCH (20:42)
[2017-09-13] MEDS: DOCUSATE SODIUM 100 MG (COLACE) CAP PO SCH (20:42)
[2017-09-13] MEDS: POLYETHYLENE GLYCOL 17 GM (MIRALAX) PACK PO SCH (21:00)
[2017-09-14] MEDS: oxyCODONE/APAP 5/325MG (PERCOCET 5) TABLET PO PRN ×3 (02:28→20:31)
[2017-09-14] MEDS: ONDANSETRON 4 MG (ZOFRAN) ORAL DISSOLVE TAB PO PRN (02:33)
[2017-09-14 06:00] VITALS: BP 162/71
[2017-09-14 06:22] LABS: INR 1.5 (0.8-1.4); PROTHROMBIN TIME PATIENT 18.3 SEC (12.2-14.7)
[2017-09-14] MEDS: MULTIVIT W/MINERALS TAB (THERAGRAN M) PO SCH (06:50)
--- NOTE | 2017-09-14 07:53 | Progress Note-Standard ---
Standard Progress Note Progress Notes/Assess & Plan Date Seen by Provider: September 14, 2017 Time Seen by Provider: 07:52 Progress/Assessment & Plan No complaints LLE--dressing intact. No calf tenderness. Neg Alex's s/p L hip Im osmany continue PT/OT Final Diagnosis feels somewhat better L hip incision benign no calf tenderness Neg SLR s/p IM osmany l hip continue PT/OT DOMINIK ALBA MD September 14, 2017 07:52
[2017-09-14] MEDS: SENNA W/DOCUSATE (SENOKOT S) TABLET PO SCH (08:00)
[2017-09-14] MEDS: RT-ALBUTEROL/IPRATROPIUM 3 ML (DUONEB) VIAL INH SCH ×3 (08:04→22:22)
[2017-09-14] MEDS: UMECLIDINIUM BROMIDE (INCRUSE ELLIPTA) 7'S IH SCH (08:05)
[2017-09-14] MEDS: RT-ADVAIR HFA 115/21 MCG PER PUFF IH SCH ×2 (08:05→22:22)
[2017-09-14] MEDS: FINASTERIDE (PROSCAR) 5 MG TAB PO SCH (08:20)
[2017-09-14] MEDS: DILTIAZEM 240 MG (CARDIZEM CD) CAP PO SCH (08:20)
[2017-09-14] MEDS: TAMSULOSIN 0.4 MG (FLOMAX) CAP PO SCH ×2 (08:20→20:31)
[2017-09-14] MEDS: FLECAINIDE 100 MG (TAMBOCOR) TAB PO SCH ×2 (08:20→20:32)
--- NOTE | 2017-09-14 08:23 | Progress Note (SOAP) ---
Subjective Time Seen by Provider: 08:20 Subjective/Events-last exam Patient not feeling very good this morning. Patient is having bowel movements. Patient complaining of abdominal problems. To monitor Objective Exam Vital Signs Date Time Temp Pulse Resp B/P (MAP) Pulse Ox O2 Delivery O2 Flow Rate FiO2 09/14/17 08:17 95 Nasal Cannula 3.00 09/14/17 08:15 94 Nasal Cannula 3.00 09/14/17 08:06 91 Nasal Cannula 3.00 09/14/17 06:00 97.8 68 18 162/71 (101) 95 Nasal Cannula 3.00 09/13/17 21:05 Nasal Cannula 3.00 09/13/17 18:32 92 Nasal Cannula 3.00 09/13/17 17:11 99.0 76 14 145/66 (92) 93 Nasal Cannula 3.00 09/13/17 09:00 Nasal Cannula 3.00 I & O 09/14/17 07:00 Intake Total 900 ml Output Total 1050 ml Balance -150 ml Capillary Refill : Less Than 3 Seconds General Appearance: No Apparent Distress, WD/WN HEENT: Normal ENT Inspection Neck: Full Range of Motion Respiratory: No Accessory Muscle Use, No Respiratory Distress, Decreased Breath Sounds Cardiovascular: Regular Rate, Rhythm, No Murmur Results Lab Laboratory Tests 09/14/17 05:40: Prothrombin Time 18.3H, INR Comment 1.5H Assessment/Plan Assessment/Plan Assess & Plan/Chief Complaint . Hip fracture. COPD. A. fib history. Constipation. . 09/13/17. Hip fracture. COPD. A. fib history. Patient had good bowel movement today area . 09/14/17. Hip fracture. COPD. Patient had good bowel movement today. Patient stomach upset today Clinical Quality Measures Admission Status Admission Dx Hip fracture. Hypertension. Atrial fibrillation. COPD. Constipation DVT/VTE Risk/Contraindication: Risk Factor Score Per Nursin RFS Level Per Nursing on Admit: 4+=Very High YOUSIF ARAGON DO September 14, 2017 08:23
--- NOTE | 2017-09-14 10:14 | Occupational Ther Daily Note ---
OT Current Status-Daily Note Subjective Pt seen in room, up in bed, agreeable to therapy. Said he hurts all over but nursing had just given him pain meds. Appearance Alert, cooperative Mental Status/Objective Functional [place] Measure 0=Not Assessed/NA 4=Minimal Assistance 1=Total Assistance 5=Supervision or Setup 2=Maximal Assistance 6=Modified [place] 3=Moderate Assistance 7=Complete [place] ADL-Treatment Sometimes pt calls out in pain before he has even begun to move (anticipation) and seems to find it he was able to do more than he thought he could do. For example, he was asked several times to lift L leg or foot during shower. He said that he couldn't do it but then did it anyway, almost to his surprise. Co- tc with PT for 45 minutes, with PT working on weight bearing, LEs and transfers and OT focusing on ADLs, UE function during transfer. Pt moved from supine to sit EOB with mod assist, with help moving L leg and R arm (coming up on arms). Transferred with two people from bed to wheeled shower chair (to his right), with instruction for every step. Transported to shower room. Pt was able to wash and dry all parts except lower legs and bottom (70%), using shower chair, grab bars, hand held shower. Washed hands and face, hair in shower. Pt returned to room per shower chair. Donned t shirt with setup. Able to lift feet to put into pants and able to pull pants up to thighs. Two people needed to stand to pull pants up, one to support him and one to pull pants up. had to sit down againi after dressing. Transferred to w/c with second person for safety and to move equipment. O2 sats checked throughout shower - see PT note. Care transferred to PT. Functional [place] Measure 0=Not Assessed/NA 4=Minimal Assistance 1=Total Assistance 5=Supervision or Setup 2=Maximal Assistance 6=Modified [place] 3=Moderate Assistance 7=Complete IndependenceIRFPAI Quality Coding Scale 6 Independent with activity with or without an assistive device 5 Patient requires set up or clean up by helper. Patient completes activity by themselves 4 Supervision or touching assist (CGA). [place] provide cues , steadying assist 3 The helper provides less than half the effort to complete the activity 2 The helper provides more than half the effort to complete the activity 1 Dependent. The helper does all the effort to complete an activity 7 Patient refused to complete or attempt activity 9 The patient did not perform the activity before the current illness or injury 88 Not attempted due to Medical conditions or safety concerns Grooming (FIM): 5 (setup to wash face and hands in shower) Bathing (FIM): 3 (70%) Upper Body (FIM): 5 Lower Body Dressing (FIM): 1 (Two people. Unable to do shoes/socks) Shower Transfer(FIM): 1 (Two people to and from wheeled shower chair) Education OT Patient Education: Modified ADL techniques, Progress toward Goal/Update tx plan, Purpose of tx/functional activities, Transfer techniques Teaching Recipient: Patient Teaching Methods: Demonstration, Discussion Response to Teaching: Verbalize Understanding, Return Demonstration, Reinforcement Needed OT Short Term Goals Short Term Goals Time Frame: September 18, 2017 Bathing(FIM): 4 Upper Body Dressing(FIM): 5 Lower Body Dressing(FIM): 3 Transfers (B,C,W/C) (FIM): 3 Toilet/Commode Transfer(FIM): 3 Additional Short Term Goals: 1-Demonstrate ADL Tasks, 2-Verbalize Understanding , 3-ImproveStrength/Syl 1=Demonstrate adherence to instructed precautions during ADL tasks. 2=Patient will verbalize/demonstrate understanding of assistive devices/ modifications for ADL. 3=Patient will improve strength/tolerance for activity to enable patient to perform ADL's. OT Railroad Repairer Goals Railroad Repairer Goals Time Frame: Sep 29, 2017 Eating (FIM): 6 Eating (QC): 6 Groomin Oral Hygiene (QC): 6 Bathing(FIM): 6 Shower/Bathe Self (QC): 6 Upper Body Dressing(FIM): 6 Upper Body Dressing (QC): 6 Lower Body Dressing(FIM): 6 Lower Body Dressing (QC): 6 On/Off Footwear (QC): 6 Toileting(FIM): 6 Toileting Hygiene (QC): 6 Toilet/Commode Transfer(FIM): 6 Toilet/Commode Transfer (QC): 6 Shower Transfer(FIM): 6 Additional Goals: 1-Demonstrate ADL Tasks, 2-Verbalize Understanding, 3- ImproveStrength/Syl 1=Demonstrate adherence to instructed precautions during ADL tasks. 2=Patient will verbalize/demonstrate understanding of assistive devices/ modifications for ADL. 3=Patient will improve strength/tolerance for activity to enable patient to perform ADL's. OT Education/Plan Problem List/Assessment Pt would benefit from skilled OT to increase his independence in basic self care to allow him to safely return home after a fall and surgery to repair hip fx. Discharge Recommendations Plan/Recommendations: Continue POC Treatment Plan/Plan of Care Patient would benefit from OT for education, treatment and training to promote independence in ADL's, mobility, safety and/or upper extremity function for ADL' s. Plan of Care: ADL Retraining, Functional Mobility, Group Exercise/Act as Ind ( education, exercise, act tolerance, funct activities, socialization), UE Funct Exercise/Act, UE Neuromus Re-Ed/Coord Treatment Duration: Sep 29, 2017 Frequency: At least 5 of 7 days/Wk (IRF) Estimated Hrs Per Day: 1.5 hours per day Agreement: Yes Rehab Potential: Fair Time/GCodes Start Time: 08:45 Stop Time: 09:45 Total Time Billed (hr/min): 60 Billed Treatment Time visit, 15 minutes ADL with OT only, 45 minutes ADL co-tx with PT NATALI CHEN OT September 14, 2017 10:14
--- NOTE | 2017-09-14 10:30 | Physical Therapy Daily Note ---
PT Daily Note-Current Subjective Pt. states he is in pain in left hip with movement and TRFs at 8/10. Pt. has been medicated for pain. Pt. 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 Does not use a FWW at home. Pain Numeric Pain Scale: 8 Location: Left Location Body Site: Hip Pain Description: Stabbing Mental Status Patient Orientation: Normal For Age Attachments: Oxygen (3L) Transfers Functional [place] Measure 0=Not Assessed/NA 4=Minimal Assistance 1=Total Assistance 5=Supervision or Setup 2=Maximal Assistance 6=Modified [place] 3=Moderate Assistance 7=Complete IndependenceIRFPAI Quality Coding Scale 6 Independent with activity with or without an assistive device 5 Patient requires set up or clean up by helper. Patient completes activity by themselves 4 Supervision or touching assist (CGA). [place] provide cues , steadying assist 3 The helper provides less than half the effort to complete the activity 2 The helper provides more than half the effort to complete the activity 1 Dependent. The helper does all the effort to complete an activity 7 Patient refused to complete or attempt activity 9 The patient did not perform the activity before the current illness or injury 88 Not attempted due to Medical conditions or safety concerns Transfers (B, C, W/C) (FIM): 3 Scootin Rollin Supine to/from Sit: 3 Sit to/from Stand: 3 Bed to/from Chair: 3 Weight Bearing Right Lower Extremity: Right Full Weight Bearing Left Lower Extremity: Left Touch Toe Bearing Gait Training Gait (FIM): 1 Distance (FIM): 1=up to 49 ft (2-3 side steps) Gait Level of Assist: 3 Gait Persons Needed: 1 Gait Assistive Device: FWW needs max skilled verbal instruction for 1/4 turn toward right from w/c to shower chair, shower chair to w/c , w/c to recliner/ , Rx table to w/c, w/c to rx table etc. Pt. appears fearful and resists at times then falls into chair when not fully aligned to sit down. Wheelchair Training Does the Pt Use a Wheelchair?: Yes Wheelchair (FIM): 1 Wheelchair Distance: 1=up to 49 ft (15ftx3) Wheelchair Level of Assist: 4 Type of Wheelchair: Manual needs assist for turns and eduction on managing w/c Exercises Supine Ex: Ankle pumps, Quad Set, Glut sets, Heel Slides Supine Reps: 12 Seated Therapy Exercises: Ankle pumps, Sit to stand, Long arc quads Seated Reps: 12 Treatments co rx with OT for TRF training, showering with complexity of damp TRF and activity as well as monitoring of O2 during shower and activity for TRFs Assessment Current Status: Good Progress likely fear and left hip pain inhibit patients effort, O2 sats steady above 90% at 3 L, attempts to titrate down with O2 level in 80s PT Short Term Goals Short Term Goals Time Frame: September 18, 2017 Transfers (B,C,W/C) (FIM): 3 Gait (FIM): 1 Gait Distance Comment: 5' Gait Level of Assist: 3 Gait Assistive Device: FWW Wheelchair Distance: 60 ft PT Bleach Range Operator Goals Bleach Range Operator Goals PT Bleach Range Operator Goals Time Frame: Oct 02, 2017 Transfers (B,C,W/C) (FIM): 4 Sit to Lying (QC): 3 Lying-Sitting on Side/Bed(QC): 3 Sit to Stand (QC): 3 Rollin Roll Left to Right (QC): 3 Chair/[id number] Xfer(QC): 3 Car Transfer (QC): 3 Gait (FIM): 1 Distance: 20' Walk 10 feet (QC): 3 Walk 10ft-Uneven Surface(QC): 3 Gait Level of Assist: 4 Gait Assistive Device: FWW Wheelchair (FIM): 6 Distance: 150' Wheelchair Level of Assist: 6 Wheel 50 feet with 2 turns (QC: 6 Stairs (FIM): 2 # of Steps: 4 1 Step (curb) (QC): 3 Stairs Level Of Assist: 4 PT Plan Treatment/Plan Treatment Plan: Continue Plan of Care Treatment Plan: Bed Mobility, Concurrent Therapy, Education, Functional Activity Syl, Functional Strength, Group Therapy, Gait, Safety, Therapeutic Exercise, Transfers Treatment Duration: Oct 02, 2017 Frequency: At least 5 of 7 days/Wk (IRF) Estimated Hrs Per Day: 1.5 hours per day Patient and/or Family Agrees t: Yes Safety Risks/Education Patient Education: Gait Training, Transfer Techniques, Steps, Correct Positioning, Disease Process, Safety Issues Teaching Recipient: Patient Teaching Methods: Demonstration, Discussion Response to Teaching: Verbalize Understanding, Return Demonstration, Reinforcement Needed much education RE: risk factors after surgery and low activity level, encouraged steadily increasing activity and sitting to prevent blood clots, skin break down and pneumonia Time/GCodes Time In: 900 Time Out: 1030 Total Billed Treatment Time: 90 Total Billed Treatment 1,FA70m,EX20m (co Rx with OT 45m) G Codes Necessary: LORETO Bernal HACK DRIVER September 14, 2017 10:30
--- NOTE | 2017-09-14 13:25 | Occupational Ther Daily Note ---
OT Current Status-Daily Note Subjective Pt seen in room, up in recliner, agreeable to OT. No pain mentioned but said he' s been moving around a lot in the recliner. Appearance Alert, cooperative Mental Status/Objective Functional [place] Measure 0=Not Assessed/NA 4=Minimal Assistance 1=Total Assistance 5=Supervision or Setup 2=Maximal Assistance 6=Modified [place] 3=Moderate Assistance 7=Complete [place] ADL-Treatment Pt up in recliner in good position to shave and with activity tolerance to do so. Pt was able to shave with setup, with mirror brought to room. Lunch came at the end of tx and he was able to feed himself with setup. Functional [place] Measure 0=Not Assessed/NA 4=Minimal Assistance 1=Total Assistance 5=Supervision or Setup 2=Maximal Assistance 6=Modified [place] 3=Moderate Assistance 7=Complete IndependenceIRFPAI Quality Coding Scale 6 Independent with activity with or without an assistive device 5 Patient requires set up or clean up by helper. Patient completes activity by themselves 4 Supervision or touching assist (CGA). [place] provide cues , steadying assist 3 The helper provides less than half the effort to complete the activity 2 The helper provides more than half the effort to complete the activity 1 Dependent. The helper does all the effort to complete an activity 7 Patient refused to complete or attempt activity 9 The patient did not perform the activity before the current illness or injury 88 Not attempted due to Medical conditions or safety concerns Eating (FIM): 5 Grooming (FIM): 5 Other Treatment Pt did 15 reps bilat UE ex with red theraband (medium resistance), with visual and verbal cues to start each exercise and occasional skilled cues to continue to do them correctly. To strengthen arms to help with weight bearing during transfers. Pt left up in recliner, eating, all needs met. Education OT Patient Education: Exercise program, Progress toward Goal/Update tx plan, Purpose of tx/functional activities Teaching Recipient: Patient Teaching Methods: Demonstration, Discussion Response to Teaching: Return Demonstration, Reinforcement Needed OT Short Term Goals Short Term Goals Time Frame: September 18, 2017 Bathing(FIM): 4 Upper Body Dressing(FIM): 5 Lower Body Dressing(FIM): 3 Transfers (B,C,W/C) (FIM): 3 Toilet/Commode Transfer(FIM): 3 Additional Short Term Goals: 1-Demonstrate ADL Tasks, 2-Verbalize Understanding , 3-ImproveStrength/Syl 1=Demonstrate adherence to instructed precautions during ADL tasks. 2=Patient will verbalize/demonstrate understanding of assistive devices/ modifications for ADL. 3=Patient will improve strength/tolerance for activity to enable patient to perform ADL's. OT Supervisor Lead Refinery Goals Group Home Goals Time Frame: Sep 29, 2017 Eating (FIM): 6 Eating (QC): 6 Groomin Oral Hygiene (QC): 6 Bathing(FIM): 6 Shower/Bathe Self (QC): 6 Upper Body Dressing(FIM): 6 Upper Body Dressing (QC): 6 Lower Body Dressing(FIM): 6 Lower Body Dressing (QC): 6 On/Off Footwear (QC): 6 Toileting(FIM): 6 Toileting Hygiene (QC): 6 Toilet/Commode Transfer(FIM): 6 Toilet/Commode Transfer (QC): 6 Shower Transfer(FIM): 6 Additional Goals: 1-Demonstrate ADL Tasks, 2-Verbalize Understanding, 3- ImproveStrength/Syl 1=Demonstrate adherence to instructed precautions during ADL tasks. 2=Patient will verbalize/demonstrate understanding of assistive devices/ modifications for ADL. 3=Patient will improve strength/tolerance for activity to enable patient to perform ADL's. OT Education/Plan Problem List/Assessment Pt would benefit from skilled OT to increase his independence in basic self care to allow him to safely return home after a fall and surgery to repair hip fx. Discharge Recommendations Plan/Recommendations: Continue POC Treatment Plan/Plan of Care Patient would benefit from OT for education, treatment and training to promote independence in ADL's, mobility, safety and/or upper extremity function for ADL' s. Plan of Care: ADL Retraining, Functional Mobility, Group Exercise/Act as Ind ( education, exercise, act tolerance, funct activities, socialization), UE Funct Exercise/Act, UE Neuromus Re-Ed/Coord Treatment Duration: Sep 29, 2017 Frequency: At least 5 of 7 days/Wk (IRF) Estimated Hrs Per Day: 1.5 hours per day Agreement: Yes Rehab Potential: Fair Time/GCodes Start Time: 12:45 Stop Time: 13:15 Total Time Billed (hr/min): 30 Billed Treatment Time visit, 15 minutes exercise, 15 minutes ADL NATALI CHEN OT September 14, 2017 13:25
[2017-09-14 18:16] VITALS: BP 158/69
[2017-09-14] MEDS: warFARin 2 MG (COUMADIN) TAB PO SCH (18:23)
[2017-09-14] MEDS: ATORVASTATIN 10 MG (LIPITOR) TABLET PO SCH (20:31)
[2017-09-14] MEDS: DOCUSATE SODIUM 100 MG (COLACE) CAP PO SCH (20:31)
[2017-09-14] MEDS: POLYETHYLENE GLYCOL 17 GM (MIRALAX) PACK PO SCH (20:32)
--- NOTE | 2017-09-14 21:08 | Individualized Plan of Care ---
Individualized Plan of Care Rehab Nursing IPOC Order Admission Date September 11, 2017 at 12:18 Current Orders Orders Admission Arrival Bed Request (09/11/17 11:50) Admission Order(Inpt,Obs,Sdc) (09/11/17 ) Code/Resuscitation (09/11/17 12:16) Initiate Admission Nursing Pro .admission (09/11/17 12:16) Isolation Central Supply Req (09/11/17 12:16) Follow-Up Appointment (09/11/17 12:20) Heart Healthy (09/11/17 Lunch) Ambulate TID (09/11/17 12:49) Dressing Order & Int (Surg/Med DAILY (09/11/17 12:49) Elevate Affected Extremity (09/11/17 12:49) Ice: Apply To Affected Area (09/11/17 12:49) Incentive Spirometry (Nursing) Q2H (09/11/17 12:49) Initiate Admission Nursing Pro .admission (09/11/17 12:49) Intake & Output 06,18 (09/11/17 12:49) Sequential Compression Device 08,20 (09/11/17 12:49) Wood Hose 09, (09/11/17 12:49) Turn, Cough, And Deep Breathe (09/11/17 12:49) Up With Assistance As Tolerate DAILY PRN (09/11/17 12:49) Albuterol/Ipra Inhalation Soln (Duoneb I (09/11/17 15:00) Atorvastatin Tablet (Lipitor Tablet) (09/11/17 21:00) Diltiazem Cd 24 Hr Capsule (Cardizem Cd (09/12/17 09:00) Docusate Sodium Capsule (Colace Capsule) (09/11/17 21:00) Finasteride Tablet (Proscar Tablet) (09/12/17 09:00) Flecainide Tablet (Tambocor Tablet) (09/11/17 21:00) Fluticasone/Salmeterol Common (Advair 11 (09/11/17 20:00) Melatonin Tablet (Melatonin Tablet) (09/11/17 13:00) Magnesium Hydroxide Oral Susp (Mom Oral (09/11/17 13:00) Antacid Suspension (Mylanta Suspension (09/11/17 13:00) Oxycodone/Apap 5/325mg Tablet (Percocet (09/11/17 13:00) Senna S Tablet (Senokot S Tablet) (09/12/17 09:00) Sodium Chloride Flush (Catheter Flush Sy (09/11/17 13:00) Tamsulosin Capsule (Flomax Capsule) (09/11/17 21:00) Acetaminophen Tablet/[place] (Tylenol T (09/11/17 13:00) Umeclidinium [place] Inhaler (Incruse El (09/12/17 08:00) Mat Initiate Protocol (09/11/17 12:49) Mdi Treatment (09/11/17 12:49) Oxygen Delivery Set Up (09/11/17 12:49) Svn Small Volume Nebulizer (09/11/17 12:49) Mdi Treatment (09/11/17 12:49) Therapeutic Multivitamin Tab (Vitamins, (09/12/17 07:00) Warfarin Tablet (Coumadin Tablet) (09/11/17 18:00) Consult Physician (09/11/17 12:49) Consult Physician (09/11/17 12:49) Physical Therapy [place] (09/11/17 12:49) Occupational Therapy Order (09/11/17 12:49) Speech Therapy Orders (09/11/17 12:49) Cbc No Diff (09/12/17 06:00) Basic Metabolic Panel (09/12/17 06:00) Protime With Inr (09/12/17 06:00) Warfarin Tablet (Coumadin Tablet) (09/12/17 18:00) Patient Visit (09/11/17 ) Pt Eval Moderate Complexity (09/11/17 ) Patient Visit (09/11/17 ) Ambulate TID (09/11/17 14:43) Dvt/Vte Risk - Notifiy Physici 08 (09/11/17 14:43) Patient Visit (09/11/17 ) Speech Sound Lang Comp (09/11/17 ) Patient Visit (09/11/17 ) Functional Activities, Ea 15 (09/11/17 ) Oxycodone/Apap 5/325mg Tablet (Percocet (09/11/17 18:15) Bisacodyl Suppository (Dulcolax Supposit (09/11/17 18:15) Ondansetron Oral Dissolve Tab (Zofran (09/11/17 18:15) Cbc No Diff (09/13/17 06:00) Protime With Inr (09/13/17 06:00) Protime With Inr (09/14/17 06:00) Protime With Inr (09/15/17 06:00) Iv Leave Out (Order) (09/11/17 18:06) Albuterol/Ipra Inhalation Soln (Duoneb I (09/12/17 08:00) Magnesium Citrate Oral Soln (Citrate Of (09/12/17 08:45) Polyethylene Glycol Powder Pkt (Miralax (09/12/17 21:00) Patient Visit (09/12/17 ) Functional Activities, Ea 15 (09/12/17 ) Abdomen/[place] (09/12/17 17:54) Patient Visit (09/13/17 ) Functional Activities, Ea 15 (09/13/17 ) Exercise Therap, Ea 15 Min (09/13/17 ) Patient Visit (09/13/17 ) Patient Visit (09/14/17 ) Functional Activities, Ea 15 (09/14/17 ) Exercise Therap, Ea 15 Min (09/14/17 ) Rehab Nursing Orders: Bladder Management, Bowel Management, Disease Management & Educaiton, Fall Prevention, Infection Prevention, Medication Management & Education, Nutrition Management, Pain Management, Wound Management PT IPOC Problem List: Activity Tolerance Treatment Plan: Continue Plan of Care Bed Mobility, Concurrent Therapy, Education, Functional Activity Syl, Functional Strength, Group Therapy, Gait, Safety, Therapeutic Exercise, Transfers Treatment Duration: Oct 02, 2017 Frequency: At least 5 of 7 days/Wk (IRF) Estimated Hrs Per Day: 1.5 hours per day OT IPOC Problems: Decreased Activ Tolerance, Decreased UE Strength, Dependent Transfers , Impaired Bed Mobility, Impaired Self-Care Skills OT Treatment, Training and Edu: Yes OT Problems Pt would benefit from skilled OT to increase his independence in basic self care to allow him to safely return home after a fall and surgery to repair hip fx. Plan of Care: ADL Retraining, Functional Mobility, Group Exercise/Act as Ind ( education, exercise, act tolerance, funct activities, socialization), UE Funct Exercise/Act, UE Neuromus Re-Ed/Coord Treatment Duration: Sep 29, 2017 Frequency: At least 5 of 7 days/Wk (IRF) Estimated Hrs Per Day: 1.[address] IPOC Speech Therapy Treatment Plan: Discontinue ST Treatment Duration: September 14, 2017 Frequency: Modified Program (IRF) (No ST warranted.) Estimated Hrs Per Day: Other (No ST warranted.) Hearing Examiner/Case Mgmt Hearing Examiner/Case Managemen: Discharge Planning, Patient/Family Counseling Dietitian/Casino Supervisor Dietitian/Casino Supervisor to monitor nutritional status and make changes and/or recommendations as needed and work with speech pathology on dietary upgrades as the occur. Physician IPOC Medical Issues being managed closely and that require the 24 hour availability of a physician:COPD HTN A FIB Medical Issues: Bowel/Bladder Function, DVT Prophylaxis, Falls Precautions, Infection Protection, Pain Management, Wound Care, Other (List) Brief Synthesis of Preadmission Screen, Post-Admission Evaluation, and Therapy Evaluations:81 yo male who before injury was Modified Independent prior to injury who is referred to IRU due to a decline in functional [place].PMH as per above I Medical Prognosis: Good Anticipated Length of Stay: 14 days Modified I to supervision for adl and mobility skills Anticipated d/c Destination: Home with [facility] and spouse SUSAN FRAGOSO MD September 14, 2017 21:08
[2017-09-15 05:55] VITALS: BP 132/61
[2017-09-15] MEDS: MULTIVIT W/MINERALS TAB (THERAGRAN M) PO SCH (06:10)
[2017-09-15 06:31] LABS: INR 1.8 (0.8-1.4)
--- NOTE | 2017-09-15 06:34 | Progress Note-Standard ---
Standard Progress Note Progress Notes/Assess & Plan Date Seen by Provider: September 15, 2017 Time Seen by Provider: 06:33 Progress/Assessment & Plan No complaints LLE--dressing intact. No calf tenderness. Neg Alex's s/p L hip Im osmany continue PT/OT Final Diagnosis In better spirits today Vital Signs Date Time Temp Pulse Resp B/P (MAP) Pulse Ox O2 Delivery O2 Flow Rate FiO2 09/15/17 05:55 98.0 75 18 132/61 (84) 91 Nasal Cannula 3.00 09/14/17 22:22 94 Nasal Cannula 3.00 09/14/17 20:10 Nasal Cannula 3.00 09/14/17 18:16 95.0 77 16 158/69 (98) 77 Nasal Cannula 3.00 09/14/17 08:43 Nasal Cannula 3.00 09/14/17 08:17 95 Nasal Cannula 3.00 09/14/17 08:15 94 Nasal Cannula 3.00 09/14/17 08:06 91 Nasal Cannula 3.00 I & O 09/15/17 07:00 Intake Total 1090 ml Output Total 700 ml Balance 390 ml Laboratory Tests Test 09/15/17 05:42 Range/Units Prothrombin Time 21.0 H 12.2-14.7 SEC INR Comment 1.8 H 0.8-1.4 L hip incision clean and dry. No calf tenderness s/p IM osmany L hip continue PT/OT DOMINIK ALBA MD September 15, 2017 06:34
[2017-09-15 07:35] VITALS: BP 132/61
[2017-09-15] MEDS: RT-ALBUTEROL/IPRATROPIUM 3 ML (DUONEB) VIAL INH SCH (07:35)
[2017-09-15] MEDS: RT-ADVAIR HFA 115/21 MCG PER PUFF IH SCH (07:37)
[2017-09-15] MEDS: UMECLIDINIUM BROMIDE (INCRUSE ELLIPTA) 7'S IH SCH (07:38)
[2017-09-15] MEDS ORDERED: RT-ALBUTEROL/IPRATROPIUM 3 ML (DUONEB) VIAL INH PRN (07:45)
[2017-09-15] MEDS: TAMSULOSIN 0.4 MG (FLOMAX) CAP PO SCH ×2 (08:02→21:29)
[2017-09-15] MEDS: FINASTERIDE (PROSCAR) 5 MG TAB PO SCH (08:02)
[2017-09-15] MEDS: oxyCODONE/APAP 5/325MG (PERCOCET 5) TABLET PO PRN ×2 (08:02→16:25)
[2017-09-15] MEDS: SENNA W/DOCUSATE (SENOKOT S) TABLET PO SCH (08:02)
[2017-09-15] MEDS: DILTIAZEM 240 MG (CARDIZEM CD) CAP PO SCH (08:02)
[2017-09-15] MEDS: FLECAINIDE 100 MG (TAMBOCOR) TAB PO SCH ×2 (08:02→21:29)
--- NOTE | 2017-09-15 08:35 | Progress Note (SOAP) ---
Subjective Time Seen by Provider: 08:25 Subjective/Events-last exam Patient progressing. Hip fracture. Had bowel movement yesterday and none today Objective Exam Vital Signs Date Time Temp Pulse Resp B/P (MAP) Pulse Ox O2 Delivery O2 Flow Rate FiO2 09/15/17 07:35 93 Nasal Cannula 3.00 09/15/17 07:35 80 93 09/15/17 05:55 98.0 75 18 132/61 (84) 91 Nasal Cannula 3.00 09/14/17 22:22 94 Nasal Cannula 3.00 09/14/17 20:10 Nasal Cannula 3.00 09/14/17 18:16 95.0 77 16 158/69 (98) 77 Nasal Cannula 3.00 09/14/17 08:43 Nasal Cannula 3.00 I & O 09/15/17 07:00 Intake Total 1090 ml Output Total 700 ml Balance 390 ml Capillary Refill : Less Than 3 Seconds General Appearance: No Apparent Distress, WD/WN HEENT: Normal ENT Inspection Neck: Normal Inspection Respiratory: No Accessory Muscle Use, No Respiratory Distress Cardiovascular: Regular Rate, Rhythm Results Lab Laboratory Tests 09/15/17 05:42: Prothrombin Time 21.0H, INR Comment 1.8H Assessment/Plan Assessment/Plan Assess & Plan/Chief Complaint . Hip fracture. COPD. A. fib history. Constipation. . 09/13/17. Hip fracture. COPD. A. fib history. Patient had good bowel movement today area . 09/14/17. Hip fracture. COPD. Patient had good bowel movement today. Patient stomach upset today. . 09/15/17. Hip fracture. COPD. Patient has pains. Patient has improvement Clinical Quality Measures Admission Status Admission Dx Hip fracture. Hypertension. Atrial fibrillation. COPD. Constipation DVT/VTE Risk/Contraindication: Risk Factor Score Per Nursin RFS Level Per Nursing on Admit: 4+=Very High YOUSIF ARAGON DO September 15, 2017 08:35
--- NOTE | 2017-09-15 09:38 | Physical Therapy Daily Note ---
PT Daily Note-Current Subjective Pt. in bed. States he has pain in his left hip at 7/10 eyad during activity. Pt. admits he is fearful of falling. Pain Numeric Pain Scale: 7 Location: Left Location Body Site: Hip Pain Description: Ache Mental Status Attachments: Oxygen (3L) 2 sats >90% Transfers Functional [place] Measure 0=Not Assessed/NA 4=Minimal Assistance 1=Total Assistance 5=Supervision or Setup 2=Maximal Assistance 6=Modified [place] 3=Moderate Assistance 7=Complete IndependenceIRFPAI Quality Coding Scale 6 Independent with activity with or without an assistive device 5 Patient requires set up or clean up by helper. Patient completes activity by themselves 4 Supervision or touching assist (CGA). [place] provide cues , steadying assist 3 The helper provides less than half the effort to complete the activity 2 The helper provides more than half the effort to complete the activity 1 Dependent. The helper does all the effort to complete an activity 7 Patient refused to complete or attempt activity 9 The patient did not perform the activity before the current illness or injury 88 Not attempted due to Medical conditions or safety concerns Transfers (B, C, W/C) (FIM): 3 Scootin Rollin Supine to/from Sit: 3 Sit to/from Stand: 3 Bed to/from Chair: 3 Weight Bearing Right Lower Extremity: Right Full Weight Bearing Left Lower Extremity: Left Touch Toe Bearing Gait Training Does the Patient Walk?: Yes Gait (FIM): 1 Distance (FIM): 1=up to 49 ft (10ftx1) Gait Level of Assist: 3 Gait Persons Needed: 1 (and assist for w/c and O2 portable) Gait Assistive Device: FWW requires repeated instruction for sequence and wt bearing status Wheelchair Training Does the Pt Use a Wheelchair?: Yes Wheelchair (FIM): 2 Wheelchair Distance: 2=371-20 ft (55x2) Wheelchair Level of Assist: 2 Type of Wheelchair: Manual needs assist occas for braking, needs instruction for handling w/c manually Exercises Supine Ex: Ankle pumps, Quad Set, Rolling, Glut sets, Heel Slides (assist), Short Arc Quads (assist), Straight leg raise (assist), Hip abd/add (assist) Supine Reps: 12 Seated Therapy Exercises: Ankle pumps, Sit to stand, Long arc quads Seated Reps: 10 NuStep Minutes: 8 NuStep Workload: 3 Treatments co Rx with OT for dressing, AM clean up care, TRF, Pants pullup etc as well as gait with OT instructing in UE use and balance etc while PT for wt bearing and step instruction Assessment Current Status: Good Progress making small functional gains each day, needs max encouragement PT Short Term Goals Short Term Goals Time Frame: September 18, 2017 Transfers (B,C,W/C) (FIM): 3 Gait (FIM): 1 Gait Distance Comment: 5' Gait Level of Assist: 3 Gait Assistive Device: FWW Wheelchair Distance: 60 ft PT Hemodialysis Patient Care Specialist Goals [facility] Goals PT Hemodialysis Patient Care Specialist Goals Time Frame: Oct 02, 2017 Transfers (B,C,W/C) (FIM): 4 Sit to Lying (QC): 3 Lying-Sitting on Side/Bed(QC): 3 Sit to Stand (QC): 3 Rollin Roll Left to Right (QC): 3 Chair/[place]-Lzpxh Xfer(QC): 3 Car Transfer (QC): 3 Gait (FIM): 1 Distance: 20' Walk 10 feet (QC): 3 Walk 10ft-Uneven Surface(QC): 3 Gait Level of Assist: 4 Gait Assistive Device: FWW Wheelchair (FIM): 6 Distance: 150' Wheelchair Level of Assist: 6 Wheel 50 feet with 2 turns (QC: 6 Stairs (FIM): 2 # of Steps: 4 1 Step (curb) (QC): 3 Stairs Level Of Assist: 4 PT Plan Treatment/Plan Treatment Plan: Continue Plan of Care Treatment Plan: Bed Mobility, Concurrent Therapy, Education, Functional Activity Syl, Functional Strength, Group Therapy, Gait, Safety, Therapeutic Exercise, Transfers Treatment Duration: Oct 02, 2017 Frequency: At least 5 of 7 days/Wk (IRF) Estimated Hrs Per Day: 1.5 hours per day Patient and/or Family Agrees t: Yes Safety Risks/Education Patient Education: Gait Training, Transfer Techniques, Correct Positioning, W/ C Management, Safety Issues Teaching Recipient: Patient Teaching Methods: Demonstration, Discussion Response to Teaching: Verbalize Understanding, Return Demonstration, Reinforcement Needed Time/GCodes Time In: 800 Time Out: 930 Total Billed Treatment Time: 90 Total Billed Treatment 1,EX30m,FA35m,GT25m G Codes Necessary: LORETO Bernal SKIVER BOX TOE September 15, 2017 09:38
--- NOTE | 2017-09-15 09:47 | Occupational Ther Daily Note ---
OT Current Status-Daily Note Subjective Pt alert, lying in bed. PT already in room with pt. Pt agrees to therapy. C/ o pain with movement, not rated. Mental Status/Objective Patient Orientation: Person, Place, Time, Situation Functional [place] Measure 0=Not Assessed/NA 4=Minimal Assistance 1=Total Assistance 5=Supervision or Setup 2=Maximal Assistance 6=Modified [place] 3=Moderate Assistance 7=Complete [place] Attachments: Oxygen ADL-Treatment Co-treat due to pt's decreased mobility and increased pain. PT working on weight bearing, LEs and transfers and OT focusing on ADLs, UE function during transfer. Pt c/o pain with movement. Mod A with supine to sitting using bedrails, HOB flat. Pt was able to move R LE by self and L LE with no resistance. Pt sat EOB by self and doffed/donned shirt. Dependent to don/doff lower body clothing over feet. Pt was able to assist to hike briefs and pants, 1 person assisting with stability and 1 person for safety. Assist x2 for stand pivot from surface to surface. See PT note for LE exercises, transfers and ambulation. Pt in room sitting in recliner to complete medium resistance UE theraband exercises, 1 set 10 reps of each. After therapy, pt sitting in recliner with call light/phone in reach. All needs met in room. Functional [place] Measure 0=Not Assessed/NA 4=Minimal Assistance 1=Total Assistance 5=Supervision or Setup 2=Maximal Assistance 6=Modified [place] 3=Moderate Assistance 7=Complete IndependenceIRFPAI Quality Coding Scale 6 Independent with activity with or without an assistive device 5 Patient requires set up or clean up by helper. Patient completes activity by themselves 4 Supervision or touching assist (CGA). [place] provide cues , steadying assist 3 The helper provides less than half the effort to complete the activity 2 The helper provides more than half the effort to complete the activity 1 Dependent. The helper does all the effort to complete an activity 7 Patient refused to complete or attempt activity 9 The patient did not perform the activity before the current illness or injury 88 Not attempted due to Medical conditions or safety concerns Upper Body (FIM): 5 Upper Body Dressing (QC): 4 Lower Body Dressing (FIM): 1 Lower Body Dressing (QC): 1 On/Off Footwear (QC): 1 OT Short Term Goals Short Term Goals Time Frame: September 18, 2017 Bathing(FIM): 4 Upper Body Dressing(FIM): 5 Lower Body Dressing(FIM): 3 Transfers (B,C,W/C) (FIM): 3 Toilet/Commode Transfer(FIM): 3 Additional Short Term Goals: 1-Demonstrate ADL Tasks, 2-Verbalize Understanding , 3-ImproveStrength/Syl 1=Demonstrate adherence to instructed precautions during ADL tasks. 2=Patient will verbalize/demonstrate understanding of assistive devices/ modifications for ADL. 3=Patient will improve strength/tolerance for activity to enable patient to perform ADL's. OT Movie Star Goals Movie Star Goals Time Frame: Sep 29, 2017 Eating (FIM): 6 Eating (QC): 6 Groomin Oral Hygiene (QC): 6 Bathing(FIM): 6 Shower/Bathe Self (QC): 6 Upper Body Dressing(FIM): 6 Upper Body Dressing (QC): 6 Lower Body Dressing(FIM): 6 Lower Body Dressing (QC): 6 On/Off Footwear (QC): 6 Toileting(FIM): 6 Toileting Hygiene (QC): 6 Toilet/Commode Transfer(FIM): 6 Toilet/Commode Transfer (QC): 6 Shower Transfer(FIM): 6 Additional Goals: 1-Demonstrate ADL Tasks, 2-Verbalize Understanding, 3- ImproveStrength/Syl 1=Demonstrate adherence to instructed precautions during ADL tasks. 2=Patient will verbalize/demonstrate understanding of assistive devices/ modifications for ADL. 3=Patient will improve strength/tolerance for activity to enable patient to perform ADL's. OT Education/Plan Problem List/Assessment Pt would benefit from skilled OT to increase his independence in basic self care to allow him to safely return home after a fall and surgery to repair hip fx. Discharge Recommendations Plan/Recommendations: Continue POC Treatment Plan/Plan of Care Patient would benefit from OT for education, treatment and training to promote independence in ADL's, mobility, safety and/or upper extremity function for ADL' s. Plan of Care: ADL Retraining, Functional Mobility, Group Exercise/Act as Ind ( education, exercise, act tolerance, funct activities, socialization), UE Funct Exercise/Act, UE Neuromus Re-Ed/Coord Treatment Duration: Sep 29, 2017 Frequency: At least 5 of 7 days/Wk (IRF) Estimated Hrs Per Day: 1.5 hours per day Agreement: Yes Rehab Potential: Fair Time/GCodes Start Time: 08:10 Stop Time: 09:40 Total Time Billed (hr/min): 90 Billed Treatment Time 1 visit-ADL 3 (40 min) EX 1 (20 min) FA 2 (30 min) Individual treatment 939, co-treat PHILIP VILLAGOMEZ September 15, 2017 09:47
[2017-09-15 17:02] VITALS: BP 147/60
[2017-09-15] MEDS: warFARin 2 MG (COUMADIN) TAB PO SCH (18:22)
[2017-09-15] MEDS: warFARin 3 MG (COUMADIN) TAB PO SCH (18:26)
[2017-09-15] MEDS: DOCUSATE SODIUM 100 MG (COLACE) CAP PO SCH (21:29)
[2017-09-15] MEDS: POLYETHYLENE GLYCOL 17 GM (MIRALAX) PACK PO SCH (21:29)
[2017-09-15] MEDS: ATORVASTATIN 10 MG (LIPITOR) TABLET PO SCH (21:29)
[2017-09-16] MEDS: oxyCODONE/APAP 5/325MG (PERCOCET 5) TABLET PO PRN ×3 (02:17→18:39)
[2017-09-16] MEDS: RT-ADVAIR HFA 115/21 MCG PER PUFF IH SCH ×3 (04:37→19:38)
[2017-09-16] MEDS: RT-ALBUTEROL/IPRATROPIUM 3 ML (DUONEB) VIAL INH SCH ×3 (04:37→19:38)
[2017-09-16 05:56] VITALS: BP 136/66
[2017-09-16] MEDS: MULTIVIT W/MINERALS TAB (THERAGRAN M) PO SCH (06:15)
[2017-09-16] MEDS: UMECLIDINIUM BROMIDE (INCRUSE ELLIPTA) 7'S IH SCH (06:42)
[2017-09-16] MEDS: MILK OF MAGNESIA 400 MG/5 ML 30 ML UDC PO PRN (08:32)
[2017-09-16] MEDS: FLECAINIDE 100 MG (TAMBOCOR) TAB PO SCH ×2 (08:32→21:06)
[2017-09-16] MEDS: FINASTERIDE (PROSCAR) 5 MG TAB PO SCH (08:32)
[2017-09-16] MEDS: TAMSULOSIN 0.4 MG (FLOMAX) CAP PO SCH ×2 (08:33→21:06)
[2017-09-16] MEDS: DILTIAZEM 240 MG (CARDIZEM CD) CAP PO SCH (08:33)
[2017-09-16] MEDS: SENNA W/DOCUSATE (SENOKOT S) TABLET PO SCH (08:33)
[2017-09-16] MEDS: ONDANSETRON 4 MG (ZOFRAN) ORAL DISSOLVE TAB PO PRN (08:33)
--- NOTE | 2017-09-16 10:31 | Physical Therapy Daily Note ---
PT Daily Note-Current Subjective Pt reports he wants to do what it takes to get better. Transfers Functional [place] Measure 0=Not Assessed/NA 4=Minimal Assistance 1=Total Assistance 5=Supervision or Setup 2=Maximal Assistance 6=Modified [place] 3=Moderate Assistance 7=Complete IndependenceIRFPAI Quality Coding Scale 6 Independent with activity with or without an assistive device 5 Patient requires set up or clean up by helper. Patient completes activity by themselves 4 Supervision or touching assist (CGA). [place] provide cues , steadying assist 3 The helper provides less than half the effort to complete the activity 2 The helper provides more than half the effort to complete the activity 1 Dependent. The helper does all the effort to complete an activity 7 Patient refused to complete or attempt activity 9 The patient did not perform the activity before the current illness or injury 88 Not attempted due to Medical conditions or safety concerns Instructed on bed mobility sequencing. Transferred supine to sit with min assist for the left LE, Min assist to come to sitting. Sit to stand CGA Weight Bearing Right Lower Extremity: Right Full Weight Bearing Left Lower Extremity: Left Touch Toe Bearing Gait Training Gait (FIM): 2 Amb 10ft with FWW TTWB on the (L). Needs constant cues of sequence and wt bearing status. Needs cuing to use arms to bear wt when advancing the (R) LE. Exercises Supine Ex: LE Protocol Supine Reps: 10 active assist as needed for the left LE PT Short Term Goals Short Term Goals Time Frame: September 18, 2017 Transfers (B,C,W/C) (FIM): 3 Gait (FIM): 1 Gait Distance Comment: 5' Gait Level of Assist: 3 Gait Assistive Device: FWW Wheelchair Distance: 60 ft PT Livestock Rancher Goals Livestock Rancher Goals PT Livestock Rancher Goals Time Frame: Oct 02, 2017 Transfers (B,C,W/C) (FIM): 4 Sit to Lying (QC): 3 Lying-Sitting on Side/Bed(QC): 3 Sit to Stand (QC): 3 Rollin Roll Left to Right (QC): 3 Chair/Imq-ds-Etfjl Xfer(QC): 3 Car Transfer (QC): 3 Gait (FIM): 1 Distance: 20' Walk 10 feet (QC): 3 Walk 10ft-Uneven Surface(QC): 3 Gait Level of Assist: 4 Gait Assistive Device: FWW Wheelchair (FIM): 6 Distance: 150' Wheelchair Level of Assist: 6 Wheel 50 feet with 2 turns (QC: 6 Stairs (FIM): 2 # of Steps: 4 1 Step (curb) (QC): 3 Stairs Level Of Assist: 4 PT Plan Treatment/Plan Treatment Plan: Continue Plan of Care Treatment Plan: Bed Mobility, Concurrent Therapy, Education, Functional Activity Syl, Functional Strength, Group Therapy, Gait, Safety, Therapeutic Exercise, Transfers Treatment Duration: Oct 02, 2017 Frequency: At least 5 of 7 days/Wk (IRF) Estimated Hrs Per Day: 1.5 hours per day Patient and/or Family Agrees t: Yes Time/GCodes Time In: 905 Time Out: 930 Total Billed Treatment Time: 25 Total Billed Treatment visit, gait 10, ex 15 min HARRY TERRELL PT September 16, 2017 10:31
[2017-09-16 18:18] VITALS: BP 135/60
[2017-09-16] MEDS: warFARin 2 MG (COUMADIN) TAB PO SCH (18:38)
[2017-09-16] MEDS: DOCUSATE SODIUM 100 MG (COLACE) CAP PO SCH (21:05)
[2017-09-16] MEDS: ATORVASTATIN 10 MG (LIPITOR) TABLET PO SCH (21:05)
[2017-09-16] MEDS: POLYETHYLENE GLYCOL 17 GM (MIRALAX) PACK PO SCH (21:06)
[2017-09-17] MEDS: oxyCODONE/APAP 5/325MG (PERCOCET 5) TABLET PO PRN ×3 (00:39→19:13)
[2017-09-17 06:00] VITALS: BP 135/58
[2017-09-17] MEDS: MULTIVIT W/MINERALS TAB (THERAGRAN M) PO SCH (06:05)
--- NOTE | 2017-09-17 07:51 | Progress Note-Standard ---
Standard Progress Note Progress Notes/Assess & Plan Date Seen by Provider: September 17, 2017 Time Seen by Provider: 07:49 Progress/Assessment & Plan No complaints LLE--dressing intact. No calf tenderness. Neg Alex's s/p L hip Im osmany continue PT/OT Final Diagnosis reports that his hip is feeling better Vital Signs Date Time Temp Pulse Resp B/P (MAP) Pulse Ox O2 Delivery O2 Flow Rate FiO2 09/17/17 06:00 97.4 60 16 135/58 (83) 97 Nasal Cannula 3.00 09/16/17 21:00 Nasal Cannula 3.00 09/16/17 19:52 90 Nasal Cannula 3.00 09/16/17 18:18 98.4 71 18 135/60 (85) 96 Nasal Cannula 3.00 09/16/17 08:54 Nasal Cannula 3.00 I & O 09/17/17 07:00 Intake Total 1230 ml Output Total 1650 ml Balance -420 ml L HIp--able to actively flex. Incision clean and dry. No calf tenderness s/p L hip Im osmany continue PT/OT DOMINIK ALBA MD September 17, 2017 07:50
[2017-09-17] MEDS: RT-ADVAIR HFA 115/21 MCG PER PUFF IH SCH ×2 (08:00→19:39)
[2017-09-17] MEDS: RT-ALBUTEROL/IPRATROPIUM 3 ML (DUONEB) VIAL INH SCH ×2 (08:00→19:39)
[2017-09-17] MEDS: UMECLIDINIUM BROMIDE (INCRUSE ELLIPTA) 7'S IH SCH (08:01)
[2017-09-17] MEDS: FLECAINIDE 100 MG (TAMBOCOR) TAB PO SCH ×2 (08:55→20:26)
[2017-09-17] MEDS: SENNA W/DOCUSATE (SENOKOT S) TABLET PO SCH (08:55)
[2017-09-17] MEDS: FINASTERIDE (PROSCAR) 5 MG TAB PO SCH (08:56)
[2017-09-17] MEDS: DILTIAZEM 240 MG (CARDIZEM CD) CAP PO SCH (08:56)
[2017-09-17] MEDS: TAMSULOSIN 0.4 MG (FLOMAX) CAP PO SCH ×2 (08:56→20:26)
--- NOTE | 2017-09-17 12:48 | Progress Note-Hospitalist ---
Subjective HPI/CC On Admission Date Seen by Provider: September 17, 2017 Time Seen by Provider: 10:30 Subjective/Events-last exam Patient doing about the same Needs to have a bowel movement since has not had one today or yesterday so initiated meds Overall pain is controlled as long as he doesn't move too much Check meds and labs and vitals Review of Systems General: Fatigue, Malaise Neurological: Weakness Objective Exam Vital Signs Vital Signs Date Time Temp Pulse Resp B/P (MAP) Pulse Ox O2 Delivery O2 Flow Rate FiO2 09/17/17 09:45 Nasal Cannula 3.00 09/17/17 08:01 92 09/17/17 06:00 97.4 60 16 135/58 (83) 09/12/17 02:09 36 Capillary Refill : Less Than 3 Seconds General Appearance: No Apparent Distress, WD/WN, Chronically ill Respiratory: Lungs Clear, Normal Breath Sounds Cardiovascular: No Edema, Irregularly Irregular Neurologic/Psychiatric: Alert, Oriented x3, No Motor/Sensory Deficits, Depressed Affect Results/Procedures Lab Patient resulted labs reviewed. Assessment/Plan Assessment and Plan Assess & Plan/Chief Complaint (1) Closed intertrochanteric fracture of left hip s/p uncomplicated repair (2) SELVIN (acute kidney injury) (3) Atrial fibrillation (4) COPD (chronic obstructive pulmonary disease) (5) Essential (primary) hypertension (6) Prophylactic measure Plan: BM regimen Monitor labs O2 Nebs IS Diagnosis/Problems Diagnosis/Problems (1) Atrial fibrillation Status: Chronic (2) COPD (chronic obstructive pulmonary disease) Status: Chronic (3) Essential (primary) hypertension Status: Chronic (4) SELVIN (acute kidney injury) Status: Chronic (5) Hip fracture Status: Chronic Clinical Quality Measures DVT/VTE Risk/Contraindication: Risk Factor Score Per Nursin RFS Level Per Nursing on Admit: 4+=Very High ALLEN MARTINEZ DO September 17, 2017 12:48
[2017-09-17] MEDS: ANTACID SUSP 30 ML UDC (MYLANTA) PO PRN (13:34)
[2017-09-17] MEDS: ONDANSETRON 4 MG (ZOFRAN) ORAL DISSOLVE TAB PO PRN (13:34)
[2017-09-17] MEDS: LACTULOSE SYRUP 10GM/15ML (ENULOSE) 30ML UDC PO SCH ×2 (16:48→20:25)
[2017-09-17] MEDS: POLYETHYLENE GLYCOL 17 GM (MIRALAX) PACK PO SCH ×3 (16:48→20:25)
[2017-09-17] MEDS: DOCUSATE SODIUM 100 MG (COLACE) CAP PO SCH ×3 (16:48→20:26)
[2017-09-17] MEDS: warFARin 2 MG (COUMADIN) TAB PO SCH (17:22)
[2017-09-17 17:46] VITALS: BP 133/63
[2017-09-17] MEDS: ATORVASTATIN 10 MG (LIPITOR) TABLET PO SCH (20:26)
[2017-09-18] MEDS: ONDANSETRON 4 MG (ZOFRAN) ORAL DISSOLVE TAB PO PRN (01:51)
[2017-09-18] MEDS: oxyCODONE/APAP 5/325MG (PERCOCET 5) TABLET PO PRN ×3 (04:58→17:18)
[2017-09-18 05:07] VITALS: BP 153/64
[2017-09-18] MEDS: MULTIVIT W/MINERALS TAB (THERAGRAN M) PO SCH (06:11)
[2017-09-18] MEDS: TAMSULOSIN 0.4 MG (FLOMAX) CAP PO SCH ×2 (09:00→20:35)
[2017-09-18] MEDS: FLECAINIDE 100 MG (TAMBOCOR) TAB PO SCH ×2 (09:01→20:35)
[2017-09-18] MEDS: DOCUSATE SODIUM 100 MG (COLACE) CAP PO SCH ×3 (09:01→20:16)
[2017-09-18] MEDS: DILTIAZEM 240 MG (CARDIZEM CD) CAP PO SCH (09:01)
[2017-09-18] MEDS: POLYETHYLENE GLYCOL 17 GM (MIRALAX) PACK PO SCH ×3 (09:01→20:16)
[2017-09-18] MEDS: LACTULOSE SYRUP 10GM/15ML (ENULOSE) 30ML UDC PO SCH ×2 (09:01→20:16)
[2017-09-18] MEDS: FINASTERIDE (PROSCAR) 5 MG TAB PO SCH (09:01)
[2017-09-18] MEDS: SENNA W/DOCUSATE (SENOKOT S) TABLET PO SCH (09:01)
--- NOTE | 2017-09-18 09:41 | Progress Note-Standard ---
Standard Progress Note Progress Notes/Assess & Plan Date Seen by Provider: September 18, 2017 Time Seen by Provider: 09:39 Progress/Assessment & Plan No complaints LLE--dressing intact. No calf tenderness. Neg Alex's s/p L hip Im osmany continue PT/OT Final Diagnosis THerapist concerned about pain with therapy. L hip--inact add and abduction, unable to flex today s/p IM osmany left hip will obtain radiographs to assess alignment DOMINIK ALBA MD September 18, 2017 09:40
--- NOTE | 2017-09-18 09:58 | Occupational Ther Daily Note ---
OT Current Status-Daily Note Subjective Pt c/o being able to complete any movement and cooperating with therapy, but with some encouragement does comply. Pt. c/o pain in left hip at 8/10 off and on during treatement. Physician came in to check on pt and PT requested for xray of pt's hip. Mental Status/Objective Patient Orientation: Person, Place, Time, Situation Functional [place] Measure 0=Not Assessed/NA 4=Minimal Assistance 1=Total Assistance 5=Supervision or Setup 2=Maximal Assistance 6=Modified [place] 3=Moderate Assistance 7=Complete [place] ADL-Treatment OT/PT co-treat due to pt's decreased activity tolerance and increased pain with movement increases safety concerns. PT worked on mobility, transfers, ambulation and LE exercises. OT worked on ADLs and dressing. Pt agrees to shower. Pt able to complete bathing sitting on shower seat using grabbar, hand held shower and long handle sponge. Throughout bath pt would jerk from pain in hip and stated that he was worried he would fall off chair. Pt stood by pulling on grabbars and assist to cleanse and dried buttocks. Pt able to don/ doff shirt after set up. Assist to don over L foot then min A to don over R foot. Pt pulled up LE's and with a lot of encouragement assist to hike pants over R hip and assist with rest. Dependent donning socks and shoes. Pt able to manipulate w/c out of shower room then worked on ambulation and LE exercises while OT managed UE's for pushing up with FWW to maintain wt bearing status while walking. After therapy, pt sitting in recliner with call light/phone in reach. All needs met in room. Functional [place] Measure 0=Not Assessed/NA 4=Minimal Assistance 1=Total Assistance 5=Supervision or Setup 2=Maximal Assistance 6=Modified [place] 3=Moderate Assistance 7=Complete IndependenceIRFPAI Quality Coding Scale 6 Independent with activity with or without an assistive device 5 Patient requires set up or clean up by helper. Patient completes activity by themselves 4 Supervision or touching assist (CGA). [place] provide cues , steadying assist 3 The helper provides less than half the effort to complete the activity 2 The helper provides more than half the effort to complete the activity 1 Dependent. The helper does all the effort to complete an activity 7 Patient refused to complete or attempt activity 9 The patient did not perform the activity before the current illness or injury 88 Not attempted due to Medical conditions or safety concerns Bathing (FIM): 4 Bathing Location: L Arm, R Arm, L Upper Leg, R Upper Leg, L Lower Leg ( including foot), R Lower Leg (including foot), Chest, Abdomen, Perineal Area Shower/Bathe Self (QC): 3 Upper Body (FIM): 5 Upper Body Dressing (QC): 5 Lower Body Dressing (FIM): 2 Lower Body Dressing (QC): 2 On/Off Footwear (QC): 1 Shower Transfer(FIM): 3 (Pull to stand with grabbars and chairs were switched out when pt stood.) OT Short Term Goals Short Term Goals Time Frame: September 18, 2017 Bathing(FIM): 4 Upper Body Dressing(FIM): 5 Lower Body Dressing(FIM): 3 Transfers (B,C,W/C) (FIM): 3 Toilet/Commode Transfer(FIM): 3 Additional Short Term Goals: 1-Demonstrate ADL Tasks, 2-Verbalize Understanding , 3-ImproveStrength/Syl 1=Demonstrate adherence to instructed precautions during ADL tasks. 2=Patient will verbalize/demonstrate understanding of assistive devices/ modifications for ADL. 3=Patient will improve strength/tolerance for activity to enable patient to perform ADL's. OT Highway Inspector Goals Highway Inspector Goals Time Frame: Sep 29, 2017 Eating (FIM): 6 Eating (QC): 6 Groomin Oral Hygiene (QC): 6 Bathing(FIM): 6 Shower/Bathe Self (QC): 6 Upper Body Dressing(FIM): 6 Upper Body Dressing (QC): 6 Lower Body Dressing(FIM): 6 Lower Body Dressing (QC): 6 On/Off Footwear (QC): 6 Toileting(FIM): 6 Toileting Hygiene (QC): 6 Toilet/Commode Transfer(FIM): 6 Toilet/Commode Transfer (QC): 6 Shower Transfer(FIM): 6 Additional Goals: 1-Demonstrate ADL Tasks, 2-Verbalize Understanding, 3- ImproveStrength/Syl 1=Demonstrate adherence to instructed precautions during ADL tasks. 2=Patient will verbalize/demonstrate understanding of assistive devices/ modifications for ADL. 3=Patient will improve strength/tolerance for activity to enable patient to perform ADL's. OT Education/Plan Problem List/Assessment Pt would benefit from skilled OT to increase his independence in basic self care to allow him to safely return home after a fall and surgery to repair hip fx. Discharge Recommendations Plan/Recommendations: Continue POC Treatment Plan/Plan of Care Patient would benefit from OT for education, treatment and training to promote independence in ADL's, mobility, safety and/or upper extremity function for ADL' s. Plan of Care: ADL Retraining, Functional Mobility, Group Exercise/Act as Ind ( education, exercise, act tolerance, funct activities, socialization), UE Funct Exercise/Act, UE Neuromus Re-Ed/Coord Treatment Duration: Sep 29, 2017 Frequency: At least 5 of 7 days/Wk (IRF) Estimated Hrs Per Day: 1.5 hours per day Agreement: Yes Rehab Potential: Fair Time/GCodes Start Time: 08:30 Stop Time: 10:00 Total Time Billed (hr/min): 90 Billed Treatment Time 1 visit-ADL 4 (60 min) FA 2 (30 min) co-treat for 90 min PHILIP VILLAGOMEZ September 18, 2017 09:58
[2017-09-18] MEDS: RT-ALBUTEROL/IPRATROPIUM 3 ML (DUONEB) VIAL INH SCH ×2 (10:00→18:57)
[2017-09-18] MEDS: RT-ADVAIR HFA 115/21 MCG PER PUFF IH SCH ×2 (10:00→18:57)
[2017-09-18] MEDS: UMECLIDINIUM BROMIDE (INCRUSE ELLIPTA) 7'S IH SCH (10:10)
--- NOTE | 2017-09-18 11:18 | Progress Note-Standard ---
Standard Progress Note Progress Notes/Assess & Plan Date Seen by Provider: September 18, 2017 Time Seen by Provider: 11:17 Progress/Assessment & Plan No complaints LLE--dressing intact. No calf tenderness. Neg Alex's s/p L hip Im osmany continue PT/OT Final Diagnosis radiographs reveal excellent alignment of fracture without evidence of hardware cutout or failure continue with OT/PT DOMINIK ALBA MD September 18, 2017 11:18
--- NOTE | 2017-09-18 11:59 | Diagnostic Imaging Report ---
Left hip at 1124. Indication: Left hip pain. AP and off lateral views were obtained. The recent fluoroscopic exam of 09/09/2017 noted an intramedullary osmany and an orthopedic fixation screw securing a fracture of the intertrochanteric region of the left femur. On this exam the orthopedic hardware is again evident and remains in good position. The main fracture fragments seem stable in alignment as well. The avulsion of the lesser trochanter noted previously is again evident. There is no new fracture or acute bony abnormality noted. The soft tissues are unremarkable. Impression: The appearance the left hip is stable when compared to the prior exam. There is no acute bony abnormality appreciated. Dictated by: Dictated on workstation # [id number]
--- NOTE | 2017-09-18 12:21 | Physical Therapy Daily Note ---
PT Daily Note-Current Subjective Pt. at times disagreeable about cooperating for Rx, but with some encouragement does comply. Pt. c/o pain in left hip at 8/10 off and on during Rx, mainly with TRFs and gait or attempts to LAQ while sitting in WC Pain Numeric Pain Scale: 7 Location: Left Location Body Site: Hip Pain Description: Stabbing Mental Status Patient Orientation: Normal For Age Attachments: Oxygen (3L) sats steady >90% during Rx Transfers Functional [place] Measure 0=Not Assessed/NA 4=Minimal Assistance 1=Total Assistance 5=Supervision or Setup 2=Maximal Assistance 6=Modified [place] 3=Moderate Assistance 7=Complete IndependenceIRFPAI Quality Coding Scale 6 Independent with activity with or without an assistive device 5 Patient requires set up or clean up by helper. Patient completes activity by themselves 4 Supervision or touching assist (CGA). [place] provide cues , steadying assist 3 The helper provides less than half the effort to complete the activity 2 The helper provides more than half the effort to complete the activity 1 Dependent. The helper does all the effort to complete an activity 7 Patient refused to complete or attempt activity 9 The patient did not perform the activity before the current illness or injury 88 Not attempted due to Medical conditions or safety concerns Transfers (B, C, W/C) (FIM): 3 Scootin Rollin Supine to/from Sit: 3 (needs HOB up and reaches to therapists, grabs arms etc , wants pulled up, pt. encouraged to attempt this with instruction and ROCK DUST SPRAYER SHARMA to assist if needed ) Bed to/from Chair: 4 Weight Bearing Right Lower Extremity: Right Full Weight Bearing Left Lower Extremity: Left Touch Toe Bearing Gait Training Does the Patient Walk?: Yes Gait (FIM): 1 Distance (FIM): 1=up to 49 ft (8ft, 12ft) Gait Level of Assist: 4 Gait Persons Needed: 2 Gait Assistive Device: FWW pt. needs skilled verbal instruction and w/c follow up as well as assist for O2 at 3L. Pt. needs commands for near every step for sequence and TDWB status maintained etc, how to use UEs etc Wheelchair Training Does the Pt Use a Wheelchair?: Yes Wheelchair (FIM): 2 Wheelchair Distance: 8=991-14 ft (75-80x2) Wheelchair Level of Assist: 3 (requires assist for manage LLE on off leg rest as well as some turns in w/c as pt. runs in to objects) Type of Wheelchair: Manual low moving, indep with braking Exercises Seated Therapy Exercises: Ankle pumps, Sit to stand, Long arc quads Seated Reps: 12 NuStep Minutes: 10 NuStep Workload: 3 (mod assist of 2 for on off) Treatments co Rx with OT as pt. requires instruction for balance and function of LEs to accomplish showering for sit to stand, TRFs and balance for standing during pants up down etc Assessment Current Status: Good Progress pt. with great difficulty unweighting RLE and putting max wt bearing on UEs and TDWB LLE to advance RLE, has greater success with this during gait than he does with turns/SPTs PT Short Term Goals Short Term Goals Time Frame: September 18, 2017 Transfers (B,C,W/C) (FIM): 3 Gait (FIM): 1 Gait Distance Comment: 5' Gait Level of Assist: 3 Gait Assistive Device: FWW Wheelchair Distance: 60 ft PT Custodial Goals Talent Manager Goals PT Custodial Goals Time Frame: Oct 02, 2017 Transfers (B,C,W/C) (FIM): 4 Sit to Lying (QC): 3 Lying-Sitting on Side/Bed(QC): 3 Sit to Stand (QC): 3 Rollin Roll Left to Right (QC): 3 Chair/Whh-xr-Gndau Xfer(QC): 3 Car Transfer (QC): 3 Gait (FIM): 1 Distance: 20' Walk 10 feet (QC): 3 Walk 10ft-Uneven Surface(QC): 3 Gait Level of Assist: 4 Gait Assistive Device: FWW Wheelchair (FIM): 6 Distance: 150' Wheelchair Level of Assist: 6 Wheel 50 feet with 2 turns (QC: 6 Stairs (FIM): 2 # of Steps: 4 1 Step (curb) (QC): 3 Stairs Level Of Assist: 4 PT Plan Treatment/Plan Treatment Plan: Continue Plan of Care Treatment Plan: Bed Mobility, Concurrent Therapy, Education, Functional Activity Syl, Functional Strength, Group Therapy, Gait, Safety, Therapeutic Exercise, Transfers Treatment Duration: Oct 02, 2017 Frequency: At least 5 of 7 days/Wk (IRF) Estimated Hrs Per Day: 1.5 hours per day Patient and/or Family Agrees t: Yes Safety Risks/Education Patient Education: Gait Training, Transfer Techniques, Correct Positioning, W/ C Management, Disease Process, Safety Issues Teaching Recipient: Patient Teaching Methods: Demonstration, Discussion Response to Teaching: Verbalize Understanding, Return Demonstration, Reinforcement Needed Time/GCodes Time In: 830 Time Out: 1000 Total Billed Treatment Time: 90 Total Billed Treatment 1,EX20m,FA45m,GT25m G Codes Necessary: LORETO Bernal ROCK DUST SPRAYER September 18, 2017 12:21
[2017-09-18] MEDS: warFARin 2 MG (COUMADIN) TAB PO SCH (17:14)
[2017-09-18 17:49] VITALS: BP 155/68
[2017-09-18] MEDS: ATORVASTATIN 10 MG (LIPITOR) TABLET PO SCH (20:35)
[2017-09-19 05:02] VITALS: BP 125/75
[2017-09-19] MEDS: MULTIVIT W/MINERALS TAB (THERAGRAN M) PO SCH (06:00)
[2017-09-19] MEDS: RT-ALBUTEROL/IPRATROPIUM 3 ML (DUONEB) VIAL INH SCH (07:21)
[2017-09-19 07:22] LABS: INR 2.1 (0.8-1.4)
[2017-09-19] MEDS: RT-ADVAIR HFA 115/21 MCG PER PUFF IH SCH ×2 (07:25→19:35)
[2017-09-19] MEDS: UMECLIDINIUM BROMIDE (INCRUSE ELLIPTA) 7'S IH SCH (07:26)
--- NOTE | 2017-09-19 08:14 | Progress Note (SOAP) ---
Subjective Time Seen by Provider: 08:10 Subjective/Events-last exam Patient complaining of pain in the hip. X-rays look good. Patient seen orthopedic yesterday and doing good. Patient has to continue working Objective Exam Vital Signs Date Time Temp Pulse Resp B/P (MAP) Pulse Ox O2 Delivery O2 Flow Rate FiO2 09/19/17 07:21 75 Room Air 09/19/17 05:02 96.0 65 18 125/75 (92) 94 Nasal Cannula 3.00 09/18/17 21:04 Nasal Cannula 3.00 09/18/17 18:59 93 Nasal Cannula 3.00 09/18/17 17:49 97.2 81 20 155/68 (97) 95 Nasal Cannula 3.00 09/18/17 15:46 80 94 09/18/17 15:42 80 93 Nasal Cannula 3.00 09/18/17 10:00 94 Nasal Cannula 3.00 09/18/17 09:11 Nasal Cannula 3.00 I & O 09/19/17 07:00 Intake Total 1390 ml Output Total 720 ml Balance 670 ml Capillary Refill : Less Than 3 Seconds General Appearance: No Apparent Distress, WD/WN HEENT: Normal ENT Inspection Neck: Full Range of Motion, Normal Inspection Respiratory: No Accessory Muscle Use, No Respiratory Distress, Decreased Breath Sounds Gastrointestinal: non tender, soft Results Lab Laboratory Tests 09/19/17 06:26: Prothrombin Time 24.0H, INR Comment 2.1H Assessment/Plan Assessment/Plan Assess & Plan/Chief Complaint . Hip fracture. COPD. A. fib history. Constipation. . 09/13/17. Hip fracture. COPD. A. fib history. Patient had good bowel movement today area . 09/14/17. Hip fracture. COPD. Patient had good bowel movement today. Patient stomach upset today. . 09/15/17. Hip fracture. COPD. Patient has pains. Patient has improvement. . 09/19/17. Hip fracture. COPD.. Pain. History of present illness. Atrial fibrillation history. Hypertension. Patient has TO WORK Clinical Quality Measures Admission Status Admission Dx Hip fracture. Hypertension. Atrial fibrillation. COPD. Constipation DVT/VTE Risk/Contraindication: Risk Factor Score Per Nursin RFS Level Per Nursing on Admit: 4+=Very High YOUSIF ARAGON DO September 19, 2017 08:14
[2017-09-19] MEDS: SENNA W/DOCUSATE (SENOKOT S) TABLET PO SCH (08:57)
[2017-09-19] MEDS: TAMSULOSIN 0.4 MG (FLOMAX) CAP PO SCH ×2 (08:57→20:23)
[2017-09-19] MEDS: FLECAINIDE 100 MG (TAMBOCOR) TAB PO SCH ×2 (08:57→20:23)
[2017-09-19] MEDS: oxyCODONE/APAP 5/325MG (PERCOCET 5) TABLET PO PRN ×3 (08:57→20:23)
[2017-09-19] MEDS: LACTULOSE SYRUP 10GM/15ML (ENULOSE) 30ML UDC PO SCH ×2 (08:57→20:33)
[2017-09-19] MEDS: DOCUSATE SODIUM 100 MG (COLACE) CAP PO SCH ×3 (08:57→20:23)
[2017-09-19] MEDS: FINASTERIDE (PROSCAR) 5 MG TAB PO SCH (08:58)
[2017-09-19] MEDS: ONDANSETRON 4 MG (ZOFRAN) ORAL DISSOLVE TAB PO PRN (08:58)
[2017-09-19] MEDS: DILTIAZEM 240 MG (CARDIZEM CD) CAP PO SCH (08:58)
[2017-09-19] MEDS: POLYETHYLENE GLYCOL 17 GM (MIRALAX) PACK PO SCH ×3 (09:06→20:33)
--- NOTE | 2017-09-19 11:00 | Occupational Ther Daily Note ---
OT Current Status-Daily Note Subjective Pt seen in room, up in bed, reluctantly agreeable to OT. Unable to rate pain but said its over the top. 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 Appearance Alert, cooperative Mental Status/Objective Functional [place] Measure 0=Not Assessed/NA 4=Minimal Assistance 1=Total Assistance 5=Supervision or Setup 2=Maximal Assistance 6=Modified [place] 3=Moderate Assistance 7=Complete [place] ADL-Treatment Co-treated with PT due to significantly reduced activity tolerance and physical limitations requiring skilled care from two different professions. OT focused on ADLs, UE function and placement and PT focused on transfers, balance, LE use. Pt was able to help move his L leg towards EOB in order to sit up but was consistently reluctant to use arms to help with pushing up to sit EOB. He also had difficulty putting his weight on his L hip to maintain his balance while donning his shirt. Shirt went on in several stages, with help getting his balance at each point. He was able to slightly lift L leg for donning shoes and OT used long handled shoe horn to help put them on. He needed cues every time for hand placement for sit to stand and for sitting back down. He transferred to his R side from bed with w/c using FWW, with skilled cues to put his weight on his arms for each step. He also had to stop frequently for recovery breaks - O2 at 3L in place throughout tx. While up in w/c, pt did 15 reps bila UE ex with red theraband, with pt educ for each exercise. he was able to track reps and needed occas physical cues to do exercise correctly. To strengthen arms to help with transfers. Pt propelled his w/c from room to hallway. Pt did sit to stand x several reps and walked with cues for weight bearing in arms for each step of R leg. Pt needed maximum encouragement to participate. Also took frequent recovery breaks to catch breath. Two person assist for walking plus one to bring up w/c. Pt transferred to the R side to get into recliner. Needs cues to reach back for every transfer. Pt left up in recliner, legs elevated, O2 in place, all needs met. Functional [place] Measure 0=Not Assessed/NA 4=Minimal Assistance 1=Total Assistance 5=Supervision or Setup 2=Maximal Assistance 6=Modified [place] 3=Moderate Assistance 7=Complete IndependenceIRFPAI Quality Coding Scale 6 Independent with activity with or without an assistive device 5 Patient requires set up or clean up by helper. Patient completes activity by themselves 4 Supervision or touching assist (CGA). [place] provide cues , steadying assist 3 The helper provides less than half the effort to complete the activity 2 The helper provides more than half the effort to complete the activity 1 Dependent. The helper does all the effort to complete an activity 7 Patient refused to complete or attempt activity 9 The patient did not perform the activity before the current illness or injury 88 Not attempted due to Medical conditions or safety concerns Upper Body (FIM): 4 (Help to maintain balance throughout dressing) Education OT Patient Education: Exercise program, Progress toward Goal/Update tx plan, Purpose of tx/functional activities, Transfer techniques, Use of adapted equipment Teaching Recipient: Patient Teaching Methods: Demonstration, Discussion Response to Teaching: Verbalize Understanding, Return Demonstration, Reinforcement Needed OT Short Term Goals Short Term Goals Time Frame: September 18, 2017 Bathing(FIM): 4 Upper Body Dressing(FIM): 5 Lower Body Dressing(FIM): 3 Transfers (B,C,W/C) (FIM): 3 Toilet/Commode Transfer(FIM): 3 Additional Short Term Goals: 1-Demonstrate ADL Tasks, 2-Verbalize Understanding , 3-ImproveStrength/Syl 1=Demonstrate adherence to instructed precautions during ADL tasks. 2=Patient will verbalize/demonstrate understanding of assistive devices/ modifications for ADL. 3=Patient will improve strength/tolerance for activity to enable patient to perform ADL's. OT Group Home Goals Outside Plant Cable Engineer Goals Time Frame: Sep 29, 2017 Eating (FIM): 6 Eating (QC): 6 Groomin Oral Hygiene (QC): 6 Bathing(FIM): 6 Shower/Bathe Self (QC): 6 Upper Body Dressing(FIM): 6 Upper Body Dressing (QC): 6 Lower Body Dressing(FIM): 6 Lower Body Dressing (QC): 6 On/Off Footwear (QC): 6 Toileting(FIM): 6 Toileting Hygiene (QC): 6 Toilet/Commode Transfer(FIM): 6 Toilet/Commode Transfer (QC): 6 Shower Transfer(FIM): 6 Additional Goals: 1-Demonstrate ADL Tasks, 2-Verbalize Understanding, 3- ImproveStrength/Syl 1=Demonstrate adherence to instructed precautions during ADL tasks. 2=Patient will verbalize/demonstrate understanding of assistive devices/ modifications for ADL. 3=Patient will improve strength/tolerance for activity to enable patient to perform ADL's. OT Education/Plan Problem List/Assessment Pt would benefit from skilled OT to increase his independence in basic self care to allow him to safely return home after a fall and surgery to repair hip fx. Discharge Recommendations Plan/Recommendations: Continue POC Treatment Plan/Plan of Care Patient would benefit from OT for education, treatment and training to promote independence in ADL's, mobility, safety and/or upper extremity function for ADL' s. Plan of Care: ADL Retraining, Functional Mobility, Group Exercise/Act as Ind ( education, exercise, act tolerance, funct activities, socialization), UE Funct Exercise/Act, UE Neuromus Re-Ed/Coord Treatment Duration: Sep 29, 2017 Frequency: At least 5 of 7 days/Wk (IRF) Estimated Hrs Per Day: 1.5 hours per day Agreement: Yes Rehab Potential: Fair Time/GCodes Start Time: 08:30 Stop Time: 10:00 Total Time Billed (hr/min): 90 Billed Treatment Time visit, 30 minutes ADL, 15 minutes exercise, 45 minutes functional activity (all co-tx with PT) NATALI CHEN OT September 19, 2017 11:00
--- NOTE | 2017-09-19 12:30 | Physical Therapy Daily Note ---
PT Daily Note-Current Subjective Pt laying Supine upon arrival. Pt agrees to PT/OT co-treat. Pt reports hurting during tx yesterday so "won't be doing much today". Nurse gives pain med along with morning meds during tx. Pain Numeric Pain Scale: 10-Worst Possible Pain Location: Left Location Body Site: Hip Pain Description: Stabbing Mental Status Patient Orientation: Person, Place, Situation Attachments: Oxygen (3L) Transfers Functional [place] Measure 0=Not Assessed/NA 4=Minimal Assistance 1=Total Assistance 5=Supervision or Setup 2=Maximal Assistance 6=Modified [place] 3=Moderate Assistance 7=Complete IndependenceIRFPAI Quality Coding Scale 6 Independent with activity with or without an assistive device 5 Patient requires set up or clean up by helper. Patient completes activity by themselves 4 Supervision or touching assist (CGA). [place] provide cues , steadying assist 3 The helper provides less than half the effort to complete the activity 2 The helper provides more than half the effort to complete the activity 1 Dependent. The helper does all the effort to complete an activity 7 Patient refused to complete or attempt activity 9 The patient did not perform the activity before the current illness or injury 88 Not attempted due to Medical conditions or safety concerns Scootin Supine to/from Sit: 3 Sit to/from Stand: 3 Sit to Stand (QC): 3 Weight Bearing Right Lower Extremity: Right Full Weight Bearing Left Lower Extremity: Left Touch Toe Bearing Gait Training Does the Patient Walk?: Yes Distance (FIM): 1=up to 49 ft Distance: 8' Gait Level of Assist: 2 Gait Persons Needed: 1 Gait Assistive Device: FWW Pt walks very slow with antalgic gait. Pt has difficulty advancing RLE due to pain with Wbing with L hip. Pt is able to advance a little better while ambulating instead of SPT. Wheelchair Training Does the Pt Use a Wheelchair?: Yes Wheelchair Distance: 1=up to 49 ft Distance: 30' Wheelchair Level of Assist: 5 Type of Wheelchair: Manual Exercises Seated Therapy Exercises: Long arc quads Seated Reps: 3 Treatments Pt transfers from Supine to EOB at Min-Mod A needing SENIOR MARKETING ASSOCIATE to sit up. Pt has difficulty keeping balance since it is painful to WB on L hip so pt leans/tries to keep weight off hip. PT/OT encourage pt to correct balance and WB more on L hip. Pt refuses stating he can't due to pain. Pt sits at EOB to complete ADLs/ dress. Pt receives morning meds and stands from EOB at Mod A. Pt SPT to [facility]. Pt attempts Seated LE Ex but reports after 3 that cannot complete anymore due to pain. Pt completes UE Tband Ex. Pt propels WC to hallway. Pt transfers to standing using FWW and ambulates short distance x2. Pt sits back in [facility] after each to rest due to pain. Pt returns to room and transfers to recliner at end of tx. Pt has all needs met, including call light in hand. OT works on ADLs, UE EX & Hand Placement during activities while PT works Seated Dynamic Balance especially while dressing, Transfers, Weight Shifting & Ambulation. Assessment Current Status: Fair Progress Pt is limited by Activity Tolerance & Pain during Activity. PT Short Term Goals Short Term Goals Time Frame: September 18, 2017 Transfers (B,C,W/C) (FIM): 3 Gait (FIM): 1 Gait Distance Comment: 5' Gait Level of Assist: 3 Gait Assistive Device: FWW Wheelchair Distance: 60 ft PT Associate Professor Of Violin Goals [facility] Goals PT [facility] Goals Time Frame: Oct 02, 2017 Transfers (B,C,W/C) (FIM): 4 Sit to Lying (QC): 3 Lying-Sitting on Side/Bed(QC): 3 Sit to Stand (QC): 3 Rollin Roll Left to Right (QC): 3 Chair/Nls-uq-Onwro Xfer(QC): 3 Car Transfer (QC): 3 Gait (FIM): 1 Distance: 20' Walk 10 feet (QC): 3 Walk 10ft-Uneven Surface(QC): 3 Gait Level of Assist: 4 Gait Assistive Device: FWW Wheelchair (FIM): 6 Distance: 150' Wheelchair Level of Assist: 6 Wheel 50 feet with 2 turns (QC: 6 Stairs (FIM): 2 # of Steps: 4 1 Step (curb) (QC): 3 Stairs Level Of Assist: 4 PT Plan Problem List Problem List: Activity Tolerance, Functional Strength, Safety, Balance, Gait, Transfer, Bed Mobility Treatment/Plan Treatment Plan: Continue Plan of Care Treatment Plan: Bed Mobility, Concurrent Therapy, Education, Functional Activity Syl, Functional Strength, Group Therapy, Gait, Safety, Therapeutic Exercise, Transfers Treatment Duration: Oct 02, 2017 Frequency: At least 5 of 7 days/Wk (IRF) Estimated Hrs Per Day: 1.5 hours per day Patient and/or Family Agrees t: Yes Safety Risks/Education Patient Education: Gait Training, Transfer Techniques, Correct Positioning, Disease Process, Safety Issues Teaching Recipient: Patient Teaching Methods: Discussion Response to Teaching: Verbalize Understanding, Reinforcement Needed Time/GCodes Time In: 830 Time Out: 1000 Total Billed Treatment Time: 90 Total Billed Treatment 1, FA x3 (45m), EX (20m) & GT x2 (25m) G Codes Necessary: ALVERTO Gray ETL DEVELOPER September 19, 2017 12:30
[2017-09-19] MEDS: warFARin 3 MG (COUMADIN) TAB PO SCH (17:14)
[2017-09-19 17:34] VITALS: BP 111/57
[2017-09-19] MEDS: ATORVASTATIN 10 MG (LIPITOR) TABLET PO SCH (20:23)
--- NOTE | 2017-09-19 22:21 | PM & R (SOAP) Progress Note ---
Subjective This was a face to face visit with the patient. Date Seen by Provider: September 19, 2017 Time Seen by Provider: 21:35 Subjective/Events-last exam Patient was seen in his room. He was lying in his hospital bed with the TV on. He reported he was alright but did not have anyone to talk to him the whole day. Review of Systems General: No Chills, No Night Sweats HEENT: No Head Aches Pulmonary: No Dyspnea, No Cough Cardiovascular: No: Chest Pain, Palpitations Gastrointestinal: No: Nausea, Vomiting Musculoskeletal: No: neck pain Neurological: Weakness Objective Physician Exam Last Set of Vital Signs Vital Signs Date Time Temp Pulse Resp B/P (MAP) Pulse Ox O2 Delivery O2 Flow Rate FiO2 09/19/17 19:39 94 Nasal Cannula 3.50 09/19/17 17:34 98.6 89 14 111/57 (75) Capillary Refill : Less Than 3 Seconds I&O Intake and Output 09/19/17 00:00 Intake Total 1690 ml Output Total 695 ml Balance 995 ml Intake Oral 1690 ml Output Urine Total 695 ml # Bowel Movements 4 General: Alert, Cooperative, No Acute Distress HEENT: Atraumatic, PERRLA, EOMI Neck: Supple, No JVD Lungs: Clear to Auscultation Heart: Regular Rate Abdomen: Normal Bowel Sounds, Soft, No Tenderness Extremities: No Edema Neuro: Other (weakness in legs) Results Lab Data Laboratory Tests 09/19/17 06:26: Prothrombin Time 24.0H, INR Comment 2.1H Assessment/Plan Assessment and Plan 81 yo M Left Hip fracture- continue PT/OT therapy in rehab. Dr. Culver following. Hypertension -normotensive, continue current regimen. COPD - on 3L NC oxygen Atrial Fibrillation- on warfarin, monitoring INR. SCDs for DVT ppx Dispo: Team meeting scheduled for 09/20/17. Co-Morbidities that are continuing to impact the rehab process: see above assessment/plan PARAG HUNTER MD September 19, 2017 22:21
[2017-09-20 05:16] VITALS: BP 145/61
[2017-09-20] MEDS: MULTIVIT W/MINERALS TAB (THERAGRAN M) PO SCH (06:05)
[2017-09-20] MEDS: RT-ALBUTEROL/IPRATROPIUM 3 ML (DUONEB) VIAL INH SCH (07:07)
[2017-09-20] MEDS: UMECLIDINIUM BROMIDE (INCRUSE ELLIPTA) 7'S IH SCH (07:07)
[2017-09-20] MEDS: RT-ADVAIR HFA 115/21 MCG PER PUFF IH SCH ×2 (07:08→20:13)
--- NOTE | 2017-09-20 08:25 | Diagnostic Imaging Report ---
INDICATION: Shortness of breath with labored breathing. Comparison with 09/08/2017. FINDINGS: Portable chest shows development of consolidated infiltrate both in the right and left lower lobe. There is obscuration of the left hemidiaphragm with blunting of the left costophrenic angle. The heart is not enlarged. There is no pulmonary edema. The upper lungs are clear. IMPRESSION: 1. Findings are consistent with development of consolidated pneumonia lower lobes bilaterally. 2. Chronic blunting of the left costophrenic angle noted. Dictated by: Dictated on workstation # [id number]
[2017-09-20] MEDS: LACTULOSE SYRUP 10GM/15ML (ENULOSE) 30ML UDC PO SCH ×2 (08:39→21:02)
[2017-09-20] MEDS: FINASTERIDE (PROSCAR) 5 MG TAB PO SCH (08:39)
[2017-09-20] MEDS: TAMSULOSIN 0.4 MG (FLOMAX) CAP PO SCH ×2 (08:39→21:01)
[2017-09-20] MEDS: DILTIAZEM 240 MG (CARDIZEM CD) CAP PO SCH (08:39)
[2017-09-20] MEDS: POLYETHYLENE GLYCOL 17 GM (MIRALAX) PACK PO SCH ×3 (08:39→21:03)
[2017-09-20] MEDS: DOCUSATE SODIUM 100 MG (COLACE) CAP PO SCH ×3 (08:40→21:03)
[2017-09-20] MEDS: FLECAINIDE 100 MG (TAMBOCOR) TAB PO SCH ×2 (08:40→21:02)
[2017-09-20] MEDS: SENNA W/DOCUSATE (SENOKOT S) TABLET PO SCH (08:40)
--- NOTE | 2017-09-20 08:43 | Physical Therapy Progress Note ---
Therapy Progress Note Pt is on Medical Hold at this time. PT will resume when pt is able to complete. no visit or tx rendered at this time ALVERTO JACKSON PTA September 20, 2017 08:43
[2017-09-20] MEDS: oxyCODONE/APAP 5/325MG (PERCOCET 5) TABLET PO PRN ×2 (08:44→15:13)
[2017-09-20 08:45] LABS: HEMOGLOBIN 9.1 G/DL (13.3-17.7); MEAN PLATELET VOLUME 8.5 FL (7.4-10.4); RED BLOOD COUNT 2.85 10^6/uL (4.35-5.85); RED CELL DISTRIBUTION WIDTH 14.8 % (10.0-14.5); WHITE BLOOD COUNT 17.9 10^3/uL (4.3-11.0)
--- NOTE | 2017-09-20 08:47 | Progress Note (SOAP) ---
Subjective Time Seen by Provider: 08:45 Subjective/Events-last exam According to family when patient is lying flat in bed he got short of breath. Patient chest x-ray shows pneumonia today. Patient has COPD. Patient have consult with pulmonology. Patient not to have PT or OT today. Patient put on antibiotic and breathing treatments. Sputum Gram stain and culture and sensitivity ordered Objective Exam Vital Signs Date Time Temp Pulse Resp B/P (MAP) Pulse Ox O2 Delivery O2 Flow Rate FiO2 09/20/17 07:10 90 Nasal Cannula 4.00 09/20/17 05:16 99.9 97 18 145/61 (89) 90 Nasal Cannula 3.00 09/19/17 20:20 Nasal Cannula 3.00 09/19/17 19:39 94 Nasal Cannula 3.50 09/19/17 19:35 90 Nasal Cannula 2.50 09/19/17 17:34 98.6 89 14 111/57 (75) 91 I & O 09/20/17 07:00 Intake Total 1200 ml Output Total 950 ml Balance 250 ml Capillary Refill : Less Than 3 Seconds General Appearance: No Apparent Distress, WD/WN HEENT: Normal ENT Inspection Neck: Full Range of Motion, Normal Inspection Respiratory: No Accessory Muscle Use, No Respiratory Distress, Decreased Breath Sounds, Other Cardiovascular: Regular Rate, Rhythm (Coronary Small amount to staff) Gastrointestinal: non tender, soft Assessment/Plan Assessment/Plan Assess & Plan/Chief Complaint . Hip fracture. COPD. A. fib history. Constipation. . 09/13/17. Hip fracture. COPD. A. fib history. Patient had good bowel movement today area . 09/14/17. Hip fracture. COPD. Patient had good bowel movement today. Patient stomach upset today. . 09/15/17. Hip fracture. COPD. Patient has pains. Patient has improvement. . 09/19/17. Hip fracture. COPD.. Pain. History of present illness. Atrial fibrillation history. Hypertension. Patient has TO WORK. . 09/20/17. Hip fracture. COPD. Pneumonia. History of atrial fibrillation. Hypertension. Patient put on antibiotics. Consult with pulmonology. Patient not to have PT or OT today Clinical Quality Measures Admission Status Admission Dx Hip fracture. Hypertension. Atrial fibrillation. COPD. Constipation DVT/VTE Risk/Contraindication: Risk Factor Score Per Nursin RFS Level Per Nursing on Admit: 4+=Very High YOUSIF ARAGON DO September 20, 2017 08:47
[2017-09-20 09:07] LABS: ALBUMIN 3.4 GM/DL (3.2-4.5); BILIRUBIN,TOTAL 0.9 MG/DL (0.1-1.0); CALCIUM 8.4 MG/DL (8.5-10.1); CREATININE SERUM 1.54 MG/DL (0.60-1.30); POTASSIUM 4.9 MMOL/L (3.6-5.0)
--- NOTE | 2017-09-20 10:13 | Occ Therapy Progress Note ---
Therapy Progress Note Pt not seen for OT today. On medical hold. NATALI CHEN OT September 20, 2017 10:13
[2017-09-20] MEDS ORDERED: PIPERACILLIN/TAZO 4.5 GM/D5W 100 ML IVPB IV NR ×2 (10:30)
--- NOTE | 2017-09-20 10:53 | Progress Note-Standard ---
Standard Progress Note Progress Notes/Assess & Plan Date Seen by Provider: September 20, 2017 Time Seen by Provider: 09:28 Progress/Assessment & Plan No complaints LLE--dressing intact. No calf tenderness. Neg Alex's s/p L hip Im osmany continue PT/OT Final Diagnosis patient found to have pneumonia L hip incision clean and dry. no calf tenderness PT/OT when medically able DOMINIK ALBA MD September 20, 2017 10:53
--- NOTE | 2017-09-20 11:42 | Physical Therapy Daily Note ---
PT Daily Note-Current Subjective Pt agreeable to get up to the chair, although reports he would rather stay in bed. Transfers Functional [place] Measure 0=Not Assessed/NA 4=Minimal Assistance 1=Total Assistance 5=Supervision or Setup 2=Maximal Assistance 6=Modified [place] 3=Moderate Assistance 7=Complete IndependenceIRFPAI Quality Coding Scale 6 Independent with activity with or without an assistive device 5 Patient requires set up or clean up by helper. Patient completes activity by themselves 4 Supervision or touching assist (CGA). [place] provide cues , steadying assist 3 The helper provides less than half the effort to complete the activity 2 The helper provides more than half the effort to complete the activity 1 Dependent. The helper does all the effort to complete an activity 7 Patient refused to complete or attempt activity 9 The patient did not perform the activity before the current illness or injury 88 Not attempted due to Medical conditions or safety concerns Transfers (B, C, W/C) (FIM): 1 Scootin Roll Left to Right (QC): 2 Supine to/from Sit: 2 Sit to/from Stand: 1 Sit to Lying (QC): 2 Sit to Stand (QC): 1 (unable to come to a full stand with max assist; used a sit to stand lift to transfer pt) Sup to sit EOB with max assist and max cuing. In sitting, pt was retropulsive and pushing to his right. Required max to dep assist to maintain sitting EOB; Attempted sit to stand x 3 reps but pt unable to stand. Returned to supine with dep assist. Pt then transferred sup to sit with mod assist and was able to sit EOB with mod assist, still retropulsive but not leaning to rhe right. Used the sit to stand lift to transfer bed to chair. Pt in flexed posture in the left as well. Pt up in chair post treatment with daughter present, needs met and oxygen in situ. Weight Bearing Right Lower Extremity: Right Full Weight Bearing Left Lower Extremity: Left Touch Toe Bearing Treatments Pt is currently on hold from therapy services by Dr. Summers, however, due to pneumonia, it was felt by ortho that up to the chair would be beneficial, therefore, pt transferred up to chair. Assessment Pt is depenedent with mobility; unable to stand and needs max cues to complete tasks. Pt seems fearful and tends to lean back and to the side with difficulty problem solving how to correct his posture or to attempt to stand. PT Short Term Goals Short Term Goals Time Frame: September 18, 2017 Transfers (B,C,W/C) (FIM): 3 Gait (FIM): 1 Gait Distance Comment: 5' Gait Level of Assist: 3 Gait Assistive Device: FWW Wheelchair Distance: 30' PT Assisted Goals Pressure Test Operator Goals PT Pressure Test Operator Goals Time Frame: Oct 02, 2017 Transfers (B,C,W/C) (FIM): 4 Sit to Lying (QC): 3 Lying-Sitting on Side/Bed(QC): 3 Sit to Stand (QC): 3 Rollin Roll Left to Right (QC): 3 Chair/Gxh-mi-Flase Xfer(QC): 3 Car Transfer (QC): 3 Gait (FIM): 1 Distance: 20' Walk 10 feet (QC): 3 Walk 10ft-Uneven Surface(QC): 3 Gait Level of Assist: 4 Gait Assistive Device: FWW Wheelchair (FIM): 6 Distance: 150' Wheelchair Level of Assist: 6 Wheel 50 feet with 2 turns (QC: 6 Stairs (FIM): 2 # of Steps: 4 1 Step (curb) (QC): 3 Stairs Level Of Assist: 4 PT Plan Problem List Problem List: Activity Tolerance, Functional Strength, Safety, Balance, Gait, Transfer, Bed Mobility Treatment/Plan Treatment Plan: Continue Plan of Care Treatment Plan: Bed Mobility, Concurrent Therapy, Education, Functional Activity Syl, Functional Strength, Group Therapy, Gait, Safety, Therapeutic Exercise, Transfers Treatment Duration: Oct 02, 2017 Frequency: At least 5 of 7 days/Wk (IRF) Estimated Hrs Per Day: 1.5 hours per day Patient and/or Family Agrees t: Yes Safety Risks/Education Patient Education: Safety Issues Teaching Recipient: Patient Teaching Methods: Discussion Response to Teaching: Reinforcement Needed Time/GCodes Time In: 1110 Time Out: 1142 Total Billed Treatment Time: 32 Total Billed Treatment visit FA 32 PHILIP GALAN PT September 20, 2017 11:42
[2017-09-20 17:07] VITALS: BP 127/58
[2017-09-20] MEDS: PIPERACILLIN SODIUM/TAZOBACTAM 4.5 GM in D5W 100 ML IVPB 100 ML IV SCH (17:17)
[2017-09-20] MEDS: warFARin 2 MG (COUMADIN) TAB PO SCH (17:32)
[2017-09-20] MEDS: RT-LEVALBUTEROL (XOPENEX) 1.25 MG/3 ML NEB NON-FORMULARY INH SCH (20:13)
[2017-09-20] MEDS: ATORVASTATIN 10 MG (LIPITOR) TABLET PO SCH (21:02)
[2017-09-21] MEDS: oxyCODONE/APAP 5/325MG (PERCOCET 5) TABLET PO PRN ×4 (00:11→21:58)
[2017-09-21] MEDS: PIPERACILLIN SODIUM/TAZOBACTAM 4.5 GM in D5W 100 ML IVPB 100 ML IV SCH ×4 (00:12→23:44)
[2017-09-21] MEDS: RT-LEVALBUTEROL (XOPENEX) 1.25 MG/3 ML NEB NON-FORMULARY INH SCH ×5 (04:17→18:24)
--- NOTE | 2017-09-21 05:21 | Pulmonary Consultation ---
History of Present Illness History of Present Illness Date of Consultation 09/21/17 05:15 Time Seen by Provider: 05:16 Date of Admission History of Present Illness 81yo with hx of COPD presented initially to hospital s/p fall and found to have a fractured hip. He is now s/p surgical repair and is recovering in rehab. I am consulted secondary to acute worsening SOB. CXR shows bilateral infiltration and CBC shows leukocytosis. Pt was started on Zosyn yesterday. Allergies and Home Medications Allergies Uncoded Allergies: Tape (Allergy, Mild, 09/08/17) Can have paper tape Home Medications Albuterol Sulfate 18 Gm Hfa.aer.ad, 2 PUFF INH Q4H PRN for WHEEZING, (Reported) Diltiazem HCl 240 Mg Cap.er.24h, 240 MG PO HS, (Reported) Docusate Sodium 100 Mg Capsule, 100 MG PO HS, (Reported) Dutasteride 0.5 Mg Capsule, 0.5 MG PO DAILY, (Reported) Flecainide Acetate 50 Mg Tablet, 50 MG PO BID, (Reported) Fluticasone/Vilanterol 1 Each Blst.w.dev, 1 PUFF INH DAILY, (Reported) Multivitamin/Iron/Folic Acid 1 Each Tablet, 1 TAB PO DAILY, (Reported) Pitavastatin Calcium 2 Mg Tablet, 2 MG PO DAILY, (Reported) Tamsulosin HCl 0.4 Mg Cap.er.24h, 0.4 MG PO BID, (Reported) Tiotropium [place] 1 Inh Aerp, 1 CAP INH DAILY, (Reported) Warfarin Sodium 2 Mg Tablet, 3 MG PO TuFr, (Reported) Warfarin Sodium 2 Mg Tablet, 4 MG PO SuMoWeThSa, (Reported) Past Lokdkhp-Dsllaq-Iogtgh Hx Patient Social History Smoking Status: Former Smoker Type Used: Cigarettes Former Smoker, Quit: September 08, 2012 Recent Foreign Travel: No Contact w/Someone Who Travel: No Recent Infectious Disease Expo: No Recent Hopitalizations: Yes Immunizations Up To Date Date of Pneumonia Vaccine: Jan 22, 2017 Past Medical History Surgeries: Yes (Facial SX. ) Respiratory: Yes Pneumonia, Sleep Apnea, COPD Currently Using CPAP: Yes Cardiac: Yes Atrial Fibrillation, Deep Vein Thrombosis, Hypertension Neurological: Yes (peripheral vascular disease) Reproductive Disorders: No Genitourinary: No Gastrointestinal: No Musculoskeletal: Yes Arthritis Endocrine: No HEENT: Yes Cataract Loss of Vision: Bilateral Hearing Impairment: Hard of Hearing Cancer: No Psychosocial: No Integumentary: No Blood Disorders: Yes Family Medical History No Pertinent Family Hx Review of Systems Time Seen by Provider: 14:10 Constitutional: Sweats, Weakness, Malaise Eyes: No: Pain, Vision change, Conjunctivae inflammation, Eyelid inflammation, Other, Redness ENT: Nose congestion; No: Ear pain, Ear discharge, Nose pain, Nose discharge, Mouth pain, Mouth swelling, Throat pain, Throat swelling, Other Respiratory: Cough, Dry, Shortness of breath, SOB with excertion, Sputum Cardiovascular: Orthopnea, Edema, Lt Headedness; No: Paroxysmal Noc. Dyspnea Neurological: Weakness, Incoordination Exam Exam Vital Signs Date Time Temp Pulse Resp B/P (MAP) Pulse Ox O2 Delivery O2 Flow Rate FiO2 09/20/17 21:00 Nasal Cannula 3.00 09/20/17 20:27 93 Nasal Cannula 4.00 09/20/17 20:15 93 Nasal Cannula 4.00 09/20/17 17:07 98.6 81 14 127/58 (81) 91 4.50 09/20/17 09:00 Nasal Cannula 3.00 09/20/17 07:10 90 Nasal Cannula 4.00 09/20/17 05:16 99.9 97 18 145/61 (89) 90 Nasal Cannula 3.00 I & O 09/21/17 07:00 Intake Total 1315 ml Output Total 950 ml Balance 365 ml General Appearance: No Apparent Distress, WD/WN HEENT: Normal ENT Inspection Neck: Full Range of Motion, Normal Inspection Respiratory: No Accessory Muscle Use, No Respiratory Distress, Decreased Breath Sounds, Other Cardiovascular: Regular Rate, Rhythm (Coronary Small amount to staff) Gastrointestinal: non tender, soft Neurologic/Psychiatric: Alert, Oriented x3, No Motor/Sensory Deficits, Depressed Affect Results Lab Laboratory Tests 09/20/17 08:36 Assessment/Plan Assessment/Plan HAP -Check Romano cultures -Check LA -Continue Zosyn and add vanco -repeat labs -Oxygen as needed HX of COPD -SVNS DuoNeb change to QID from PRN Atelectasis -IS S/p Fracture hip and surgical repair Debility -PT/OT 254 LILO ROMO DO September 21, 2017 05:20
[2017-09-21] MEDS ORDERED: PHARMACY TO DOSE IV SCH (05:30)
[2017-09-21 06:00] VITALS: BP 136/67
[2017-09-21 06:33] LABS: BASOPHILS % (AUTO) 0 % (0-10); EOSINOPHILS # (AUTO) 0.1 10^3/uL (0.0-0.3); EOSINOPHILS % (AUTO) 1 % (0-10); HEMATOCRIT 22 % (40-54); HEMOGLOBIN 7.4 G/DL (13.3-17.7); LYMPHOCYTES # (AUTO) 0.6 X 10^3 (1.0-4.0); LYMPHOCYTES % (AUTO) 4 % (12-44); MEAN CORPUSCULAR HEMOGLOBIN 33 PG (25-34); MEAN CORPUSCULAR HGB CONC 33 G/DL (32-36); MEAN CORPUSCULAR VOLUME 99 FL (80-99); MEAN PLATELET VOLUME 8.9 FL (7.4-10.4); MONOCYTES # (AUTO) 1.2 X 10^3 (0.0-1.0); MONOCYTES % (AUTO) 8 % (0-12); NEUTROPHILS # (AUTO) 13.9 X 10^3 (1.8-7.8); NEUTROPHILS % (AUTO) 88 % (42-75); PLATELET COUNT 368 10^3/uL (130-400); RED BLOOD COUNT 2.26 10^6/uL (4.35-5.85); RED CELL DISTRIBUTION WIDTH 14.5 % (10.0-14.5); WHITE BLOOD COUNT 15.8 10^3/uL (4.3-11.0)
[2017-09-21 06:48] LABS: ANISOCYTOSIS SLIGHT; BAND NEUTROPHILS 5 %; BASOPHILS % (MANUAL) 0 %; EOSINOPHILS % (MANUAL) 1 %; HYPOCHROMASIA SLIGHT; LYMPHOCYTES % (MANUAL) 3 %; MONOCYTES % (MANUAL) 5 %; NEUTROPHILS % (MANUAL) 86 %
[2017-09-21] MEDS: LACTOBACILLUS Acidoph/Bulgar (LACTINEX/FLORANEX) TAB PO SCH ×3 (06:50→17:23)
[2017-09-21] MEDS: MULTIVIT W/MINERALS TAB (THERAGRAN M) PO SCH (06:50)
[2017-09-21 06:58] LABS: CALCIUM 8.2 MG/DL (8.5-10.1); CREATININE SERUM 1.56 MG/DL (0.60-1.30); MAGNESIUM 2.1 MG/DL (1.8-2.4); PHOSPHORUS 3.3 MG/DL (2.3-4.7); POTASSIUM 4.3 MMOL/L (3.6-5.0)
[2017-09-21] MEDS ORDERED: VANCOMYCIN 1,750 MG/NS 500 ML IVPB IV NR ×2 (07:00)
--- NOTE | 2017-09-21 07:23 | Diagnostic Imaging Report ---
INDICATION: Lower respiratory infection Portable chest 3:03 AM There is some consolidation at the right medial lung base. Heart size and pulmonary vascularity are normal. There may be a tiny left effusion. IMPRESSION: Right medial basilar consolidation appears similar to the previous day. Dictated by: Dictated on workstation # [id number]
[2017-09-21] MEDS: RT-ADVAIR HFA 115/21 MCG PER PUFF IH SCH ×2 (08:13→18:24)
[2017-09-21] MEDS: UMECLIDINIUM BROMIDE (INCRUSE ELLIPTA) 7'S IH SCH (08:13)
[2017-09-21 08:22] LABS: HEMOGLOBIN 8.5 G/DL (13.3-17.7)
--- NOTE | 2017-09-21 08:23 | Progress Note (SOAP) ---
Subjective Time Seen by Provider: 08:20 Subjective/Events-last exam Patient breathing better today. Patient gets some shortness of breath. Hemoglobin went down to 7.4 to recheck. GFR 43. Sputum culture so far staph aureus Focused Exam Lactate Level 09/21/17 06:00: Lactic Acid Level 0.92 Lactic Acid Level Laboratory Tests Test 09/21/17 06:00 Lactic Acid Level 0.92 MMOL/L (0.50-2.00) Objective Exam Vital Signs Date Time Temp Pulse Resp B/P (MAP) Pulse Ox O2 Delivery O2 Flow Rate FiO2 09/21/17 06:00 98.8 81 19 136/67 (90) 91 Nasal Cannula 4.50 09/20/17 21:00 Nasal Cannula 3.00 09/20/17 20:27 93 Nasal Cannula 4.00 09/20/17 20:15 93 Nasal Cannula 4.00 09/20/17 17:07 98.6 81 14 127/58 (81) 91 4.50 09/20/17 09:00 Nasal Cannula 3.00 I & O 09/21/17 07:00 Intake Total 1315 ml Output Total 950 ml Balance 365 ml Capillary Refill : Less Than 3 Seconds General Appearance: No Apparent Distress, WD/WN HEENT: Normal ENT Inspection Respiratory: No Accessory Muscle Use, No Respiratory Distress Gastrointestinal: non tender, soft Results Lab Laboratory Tests 09/20/17 08:36 09/21/17 06:00 Laboratory Tests 09/20/17 08:36: White Blood Count 17.9H, Red Blood Count 2.85L, Hemoglobin 9.1L, Hematocrit 28L , Mean Corpuscular Volume 99, Mean Corpuscular Hemoglobin 32, Mean Corpuscular Hemoglobin Concent 32, Red Cell Distribution Width 14.8H, Platelet Count 371, Mean Platelet Volume 8.5, Sodium Level 135, Potassium Level 4.9, Chloride Level 102, Carbon Dioxide Level 24, Anion Gap 9, Blood Urea Nitrogen 26H, Creatinine 1.54H, Estimat Glomerular Filtration Rate 43, BUN/Creatinine Ratio 17, Glucose Level 162H, Calcium Level 8.4L, Total Bilirubin 0.9, Aspartate Amino Transf (AST /SGOT) 25, Alanine Aminotransferase (ALT/SGPT) 38, Alkaline Phosphatase 65, B- Type Natriuretic Peptide 62.0, Total Protein 6.0L, Albumin 3.4 09/21/17 06:00: White Blood Count 15.8H, Red Blood Count 2.26L, Hemoglobin 7.4L, Hematocrit 22L , Mean Corpuscular Volume 99, Mean Corpuscular Hemoglobin 33, Mean Corpuscular Hemoglobin Concent 33, Red Cell Distribution Width 14.5, Platelet Count 368, Mean Platelet Volume 8.9, Sodium Level 135, Potassium Level 4.3, Chloride Level 103, Carbon Dioxide Level 22, Anion Gap 10, Blood Urea Nitrogen 26H, Creatinine 1.56H, Estimat Glomerular Filtration Rate 43, BUN/Creatinine Ratio 17, Glucose Level 130H, Calcium Level 8.2L, Neutrophils (%) (Auto) 88H, Lymphocytes (%) ( Auto) 4L, Monocytes (%) (Auto) 8, Eosinophils (%) (Auto) 1, Basophils (%) (Auto ) 0, Neutrophils # (Auto) 13.9H, Lymphocytes # (Auto) 0.6L, Monocytes # (Auto) 1.2H, Eosinophils # (Auto) 0.1, Basophils # (Auto) 0.0, Neutrophils % (Manual) 86, Lymphocytes % (Manual) 3, Monocytes % (Manual) 5, Eosinophils % (Manual) 1, Basophils % (Manual) 0, Band Neutrophils 5, Hypochromasia SLIGHT, Anisocytosis SLIGHT, Lactic Acid Level 0.92, Phosphorus Level 3.3, Magnesium Level 2.1 09/21/17 08:10: Microbiology 09/20/17 Gram Stain - Final, Resulted 09/20/17 Sputum Culture - Preliminary, Resulted Staphylococcus aureus Assessment/Plan Assessment/Plan Assess & Plan/Chief Complaint . Hip fracture. COPD. A. fib history. Constipation. . 09/13/17. Hip fracture. COPD. A. fib history. Patient had good bowel movement today area . 09/14/17. Hip fracture. COPD. Patient had good bowel movement today. Patient stomach upset today. . 09/15/17. Hip fracture. COPD. Patient has pains. Patient has improvement. . 09/19/17. Hip fracture. COPD.. Pain. History of present illness. Atrial fibrillation history. Hypertension. Patient has TO WORK. . 09/20/17. Hip fracture. COPD. Pneumonia. History of atrial fibrillation. Hypertension. Patient put on antibiotics. Consult with pulmonology. Patient not to have PT or OT today. . 09/21/17. Hip fracture. COPD. Pneumonia. History of atrial fib. Hypertension. Sputum cultures staph aureus. Hemoglobin and hematocrit decreased. Patient on Coumadin. May have to decrease the amount of PT and OT today with his pneumonia Clinical Quality Measures Admission Status Admission Dx Hip fracture. Hypertension. Atrial fibrillation. COPD. Constipation DVT/VTE Risk/Contraindication: Risk Factor Score Per Nursin RFS Level Per Nursing on Admit: 4+=Very High YOUSIF ARAGON DO September 21, 2017 08:23
[2017-09-21] MEDS: DOCUSATE SODIUM 100 MG (COLACE) CAP PO SCH ×3 (08:42→20:47)
[2017-09-21] MEDS: DILTIAZEM 240 MG (CARDIZEM CD) CAP PO SCH (08:42)
[2017-09-21] MEDS: LACTULOSE SYRUP 10GM/15ML (ENULOSE) 30ML UDC PO SCH ×2 (08:42→20:46)
[2017-09-21] MEDS: FINASTERIDE (PROSCAR) 5 MG TAB PO SCH (08:42)
[2017-09-21] MEDS: POLYETHYLENE GLYCOL 17 GM (MIRALAX) PACK PO SCH ×3 (08:42→20:47)
[2017-09-21] MEDS: TAMSULOSIN 0.4 MG (FLOMAX) CAP PO SCH ×2 (08:42→20:46)
[2017-09-21] MEDS: FLECAINIDE 100 MG (TAMBOCOR) TAB PO SCH ×2 (08:43→20:46)
[2017-09-21] MEDS: SENNA W/DOCUSATE (SENOKOT S) TABLET PO SCH (08:43)
[2017-09-21] MEDS ORDERED: RT-ALBUTEROL/IPRATROPIUM 3 ML (DUONEB) VIAL INH SCH (09:00)
[2017-09-21 09:05] LABS: BILIRUBIN,URINE NEGATIVE (NEGATIVE); CLARITY,URINE CLEAR; COLOR,URINE YELLOW; GLUCOSE, URINE (UA) NEGATIVE (NEGATIVE); KETONES,URINE NEGATIVE (NEGATIVE); LEUKOCYTE ESTERASE ,URINE NEGATIVE (NEGATIVE); NITRITE,URINE NEGATIVE (NEGATIVE); PH,URINE 5 (5-9); PROTEIN,URINE 2+ (NEGATIVE); UROBILINOGEN,URINE NORMAL (NORMAL)
[2017-09-21 09:06] LABS: INR 2.9 (0.8-1.4); PROTHROMBIN TIME PATIENT 30.5 SEC (12.2-14.7)
[2017-09-21 09:19] LABS: BACTERIA,URINE NEGATIVE /HPF; URIC ACID CRYSTALS,URINE LARGE /LPF
--- NOTE | 2017-09-21 12:10 | Physical Therapy Daily Note ---
PT Daily Note-Current Subjective Pt is laying Supine in bed upon arrival. Pt reluctantly agrees to PT for limited tx. Pain Numeric Pain Scale: 10-Worst Possible Pain Location: Left Location Body Site: Hip Pain Description: Ache, Stabbing, Throbbing Mental Status Patient Orientation: Person, Place, Situation Attachments: Oxygen, IV Transfers Functional [place] Measure 0=Not Assessed/NA 4=Minimal Assistance 1=Total Assistance 5=Supervision or Setup 2=Maximal Assistance 6=Modified [place] 3=Moderate Assistance 7=Complete IndependenceIRFPAI Quality Coding Scale 6 Independent with activity with or without an assistive device 5 Patient requires set up or clean up by helper. Patient completes activity by themselves 4 Supervision or touching assist (CGA). [place] provide cues , steadying assist 3 The helper provides less than half the effort to complete the activity 2 The helper provides more than half the effort to complete the activity 1 Dependent. The helper does all the effort to complete an activity 7 Patient refused to complete or attempt activity 9 The patient did not perform the activity before the current illness or injury 88 Not attempted due to Medical conditions or safety concerns Scootin Rollin Roll Left to Right (QC): 3 Supine to/from Sit: 3 Sit to/from Stand: 2 Sit to Stand (QC): 3 Weight Bearing Right Lower Extremity: Right Full Weight Bearing Left Lower Extremity: Left Touch Toe Bearing Treatments Pt transfers from Supine to EOB using bed rails & NYLON MENDER at Mod A. DIRECTOR VETERINARY assists pt at Mod A for Seated Balance while at EOB for dressing, pt leans heavily backward. Pt completes ADLs then reports needing to lay back down due to feeling dizzy & nauseated. Pt removes nasal canula to blow nose and remove drainage. Pt begins to demonstrate SOA, pulse ox applied & pt's O2 is 79%. O2 reapplied and pt takes break until O2 returns to 90% & above. When O2 is at acceptable level again, pt transfers back to EOB. O2 is monitored throughout transfer. Pt transfers from EOB to standing at Mod-Max A and SPT to recliner. Pt rests at end of tx in recliner with all needs met, including call light in hand. Assessment Current Status: Fair Progress Pt self limits due to fatigue & pain. Pt takes extended time to complete tasks and requires extended rest breaks. PT Short Term Goals Short Term Goals Time Frame: September 18, 2017 Transfers (B,C,W/C) (FIM): 3 Gait (FIM): 1 Gait Distance Comment: 5' Gait Level of Assist: 3 Gait Assistive Device: FWW Wheelchair Distance: 30' PT Superintendent Job Goals Mcfp Goals PT Mcfp Goals Time Frame: Oct 02, 2017 Transfers (B,C,W/C) (FIM): 4 Sit to Lying (QC): 3 Lying-Sitting on Side/Bed(QC): 3 Sit to Stand (QC): 3 Rollin Roll Left to Right (QC): 3 Chair/Msi-dj-[place] Xfer(QC): 3 Car Transfer (QC): 3 Gait (FIM): 1 Distance: 20' Walk 10 feet (QC): 3 Walk 10ft-Uneven Surface(QC): 3 Gait Level of Assist: 4 Gait Assistive Device: FWW Wheelchair (FIM): 6 Distance: 150' Wheelchair Level of Assist: 6 Wheel 50 feet with 2 turns (QC: 6 Stairs (FIM): 2 # of Steps: 4 1 Step (curb) (QC): 3 Stairs Level Of Assist: 4 PT Plan Problem List Problem List: Activity Tolerance, Functional Strength, Safety, Balance, Gait, Transfer, Bed Mobility, ROM Treatment/Plan Treatment Plan: Continue Plan of Care Treatment Plan: Bed Mobility, Concurrent Therapy, Education, Functional Activity Syl, Functional Strength, Group Therapy, Gait, Safety, Therapeutic Exercise, Transfers Treatment Duration: Oct 02, 2017 Frequency: At least 5 of 7 days/Wk (IRF) Estimated Hrs Per Day: 1.5 hours per day Patient and/or Family Agrees t: Yes Safety Risks/Education Patient Education: Gait Training, Transfer Techniques, Correct Positioning, Disease Process, Safety Issues Teaching Recipient: Patient Teaching Methods: Discussion Response to Teaching: Reinforcement Needed Time/GCodes Time In: 1000 Time Out: 1100 Total Billed Treatment Time: 60 Total Billed Treatment 1, FA x4 (60m) Co-treat w/OT for 60m (3325-6225) OT focused on ADLs & Hand Placement while PT focused on Transfers, Sequencing, Foot Placement & Seated Balance G Codes Necessary: ALVERTO Gray DIRECTOR VETERINARY September 21, 2017 12:09
--- NOTE | 2017-09-21 15:34 | Occupational Ther Daily Note ---
OT Current Status-Daily Note Subjective Pt seen in room, up in bed, reluctantly agreeable to therapy. pain in L hip not rated Appearance Alert, cooperative Mental Status/Objective Functional [place] Measure 0=Not Assessed/NA 4=Minimal Assistance 1=Total Assistance 5=Supervision or Setup 2=Maximal Assistance 6=Modified [place] 3=Moderate Assistance 7=Complete [place] ADL-Treatment Pt co-tx with PT due to significantly decreased activity tolerance, difficulty maintaining O2 sats, need for skilled care from two different professionals. OT worked on sitting during ADLs, UE functional and placement, ADL. Pt worked on Transfers, LE function, bed mobility. Pt needed two person help to move from supine to sit, although he did a little better moving his L leg toward the bed. Difficulty finding comfortable ways to use UEs to help push up to sitting. Difficulty maintaining sitting balance, From mod assist to SBA, depending on if he was distracted with ADLs. He self limits but not intentionally. He was able to wash and dry face, arms, chest, abdomen, angelita and thighs in several stages, while sitting EOB. Dressed upper body with min assist, able to lift feet to put them into pants but needed help to pull them up, rolling side to side in bed. Pt sat up again and needed max assist of two people to transfer from bed to recliner, with difficulty finding hand placement and weight shifting. Pt's O2 sats dropped to about 75% with sup to sit or putting shirt on or transfer and required several minutes to come up to 90% or greater. he needed max cues to breathe in through his nose and also frequently took O2 off nose and put it on his chin or forehead. pt left up in recliner, legs elevated, all needs met. Functional [place] Measure 0=Not Assessed/NA 4=Minimal Assistance 1=Total Assistance 5=Supervision or Setup 2=Maximal Assistance 6=Modified [place] 3=Moderate Assistance 7=Complete IndependenceIRFPAI Quality Coding Scale 6 Independent with activity with or without an assistive device 5 Patient requires set up or clean up by helper. Patient completes activity by themselves 4 Supervision or touching assist (CGA). [place] provide cues , steadying assist 3 The helper provides less than half the effort to complete the activity 2 The helper provides more than half the effort to complete the activity 1 Dependent. The helper does all the effort to complete an activity 7 Patient refused to complete or attempt activity 9 The patient did not perform the activity before the current illness or injury 88 Not attempted due to Medical conditions or safety concerns Bathing (FIM): 3 Upper Body (FIM): 4 Lower Body Dressing (FIM): 2 Transfers (B, C, W/C) (FIM): 1 (Two people for sup to sit and transer to recliner) Education OT Patient Education: Modified ADL techniques, Progress toward Goal/Update tx plan, Purpose of tx/functional activities, Transfer techniques Teaching Recipient: Patient Teaching Methods: Demonstration, Discussion Response to Teaching: Verbalize Understanding, Return Demonstration, Reinforcement Needed OT Short Term Goals Short Term Goals Time Frame: September 18, 2017 Bathing(FIM): 4 Upper Body Dressing(FIM): 5 Lower Body Dressing(FIM): 3 Transfers (B,C,W/C) (FIM): 3 Toilet/Commode Transfer(FIM): 3 Additional Short Term Goals: 1-Demonstrate ADL Tasks, 2-Verbalize Understanding , 3-ImproveStrength/Syl 1=Demonstrate adherence to instructed precautions during ADL tasks. 2=Patient will verbalize/demonstrate understanding of assistive devices/ modifications for ADL. 3=Patient will improve strength/tolerance for activity to enable patient to perform ADL's. OT Retirement Goals Retirement Goals Time Frame: Sep 29, 2017 Eating (FIM): 6 Eating (QC): 6 Groomin Oral Hygiene (QC): 6 Bathing(FIM): 6 Shower/Bathe Self (QC): 6 Upper Body Dressing(FIM): 6 Upper Body Dressing (QC): 6 Lower Body Dressing(FIM): 6 Lower Body Dressing (QC): 6 On/Off Footwear (QC): 6 Toileting(FIM): 6 Toileting Hygiene (QC): 6 Toilet/Commode Transfer(FIM): 6 Toilet/Commode Transfer (QC): 6 Shower Transfer(FIM): 6 Additional Goals: 1-Demonstrate ADL Tasks, 2-Verbalize Understanding, 3- ImproveStrength/Syl 1=Demonstrate adherence to instructed precautions during ADL tasks. 2=Patient will verbalize/demonstrate understanding of assistive devices/ modifications for ADL. 3=Patient will improve strength/tolerance for activity to enable patient to perform ADL's. OT Education/Plan Problem List/Assessment Pt would benefit from skilled OT to increase his independence in basic self care to allow him to safely return home after a fall and surgery to repair hip fx. Discharge Recommendations Plan/Recommendations: Continue POC Treatment Plan/Plan of Care Patient would benefit from OT for education, treatment and training to promote independence in ADL's, mobility, safety and/or upper extremity function for ADL' s. Plan of Care: ADL Retraining, Functional Mobility, Group Exercise/Act as Ind ( education, exercise, act tolerance, funct activities, socialization), UE Funct Exercise/Act, UE Neuromus Re-Ed/Coord Treatment Duration: Sep 29, 2017 Frequency: At least 5 of 7 days/Wk (IRF) Estimated Hrs Per Day: 1.5 hours per day Agreement: Yes Rehab Potential: Fair Time/GCodes Start Time: 10:00 Stop Time: 11:00 Total Time Billed (hr/min): 60 Billed Treatment Time visit, ADL 45 minutes, functional activity 15 minutes, all co-tx with PT NATALI CHEN OT September 21, 2017 15:34
--- NOTE | 2017-09-21 15:55 | Occupational Ther Daily Note ---
OT Current Status-Daily Note Subjective Pt seen in room, up in recliner, agreeable to OT. Feeling better this afternoon. Appearance Alert, cooperative Mental Status/Objective Functional [place] Measure 0=Not Assessed/NA 4=Minimal Assistance 1=Total Assistance 5=Supervision or Setup 2=Maximal Assistance 6=Modified [place] 3=Moderate Assistance 7=Complete [place] ADL-Treatment Pt was able to shave with setup, supervision, taking O2 off briefly to shave as needed. Did not become significantly short of breath while shaving and maintained steady activity pace. Functional [place] Measure 0=Not Assessed/NA 4=Minimal Assistance 1=Total Assistance 5=Supervision or Setup 2=Maximal Assistance 6=Modified [place] 3=Moderate Assistance 7=Complete IndependenceIRFPAI Quality Coding Scale 6 Independent with activity with or without an assistive device 5 Patient requires set up or clean up by helper. Patient completes activity by themselves 4 Supervision or touching assist (CGA). [place] provide cues , steadying assist 3 The helper provides less than half the effort to complete the activity 2 The helper provides more than half the effort to complete the activity 1 Dependent. The helper does all the effort to complete an activity 7 Patient refused to complete or attempt activity 9 The patient did not perform the activity before the current illness or injury 88 Not attempted due to Medical conditions or safety concerns Other Treatment Pt did 15 reps bilat UE exercise with red theraband, able to track reps himself and needing only occasional cues to do them correctly. He did not become SOB during exercises and worked at a steady pace, resting between different exercises. To strengthen arms for ADLs but also to help increase activity tolerance and O2 management. pt left up in recliner, all needs met. Education OT Patient Education: Exercise program, Purpose of tx/functional activities Teaching Recipient: Patient Teaching Methods: Demonstration, Discussion Response to Teaching: Verbalize Understanding, Return Demonstration, Reinforcement Needed OT Short Term Goals Short Term Goals Time Frame: September 18, 2017 Bathing(FIM): 4 Upper Body Dressing(FIM): 5 Lower Body Dressing(FIM): 3 Transfers (B,C,W/C) (FIM): 3 Toilet/Commode Transfer(FIM): 3 Additional Short Term Goals: 1-Demonstrate ADL Tasks, 2-Verbalize Understanding , 3-ImproveStrength/Syl 1=Demonstrate adherence to instructed precautions during ADL tasks. 2=Patient will verbalize/demonstrate understanding of assistive devices/ modifications for ADL. 3=Patient will improve strength/tolerance for activity to enable patient to perform ADL's. OT [facility] Goals [employer] Tower Climber Goals Time Frame: Sep 29, 2017 Eating (FIM): 6 Eating (QC): 6 Groomin Oral Hygiene (QC): 6 Bathing(FIM): 6 Shower/Bathe Self (QC): 6 Upper Body Dressing(FIM): 6 Upper Body Dressing (QC): 6 Lower Body Dressing(FIM): 6 Lower Body Dressing (QC): 6 On/Off Footwear (QC): 6 Toileting(FIM): 6 Toileting Hygiene (QC): 6 Toilet/Commode Transfer(FIM): 6 Toilet/Commode Transfer (QC): 6 Shower Transfer(FIM): 6 Additional Goals: 1-Demonstrate ADL Tasks, 2-Verbalize Understanding, 3- ImproveStrength/Syl 1=Demonstrate adherence to instructed precautions during ADL tasks. 2=Patient will verbalize/demonstrate understanding of assistive devices/ modifications for ADL. 3=Patient will improve strength/tolerance for activity to enable patient to perform ADL's. OT Education/Plan Problem List/Assessment Pt would benefit from skilled OT to increase his independence in basic self care to allow him to safely return home after a fall and surgery to repair hip fx. Discharge Recommendations Plan/Recommendations: Continue POC Treatment Plan/Plan of Care Patient would benefit from OT for education, treatment and training to promote independence in ADL's, mobility, safety and/or upper extremity function for ADL' s. Plan of Care: ADL Retraining, Functional Mobility, Group Exercise/Act as Ind ( education, exercise, act tolerance, funct activities, socialization), UE Funct Exercise/Act, UE Neuromus Re-Ed/Coord Treatment Duration: Sep 29, 2017 Frequency: At least 5 of 7 days/Wk (IRF) Estimated Hrs Per Day: 1.5 hours per day Agreement: Yes Rehab Potential: Fair Time/GCodes Start Time: 12:55 Stop Time: 13:25 Total Time Billed (hr/min): 30 Billed Treatment Time visit, 15 minutes exercise, 15 minutes ADL NATALI CHEN OT September 21, 2017 15:55
[2017-09-21 16:01] VITALS: BP 118/68
--- NOTE | 2017-09-21 16:30 | Physical Therapy Daily Note ---
PT Daily Note-Current Subjective Pt laying Supine in bed & reports just getting back into bed after using BSC. Pt agrees to Supine Ex in bed for PT tx. Pain Numeric Pain Scale: 5-Moderate Pain Location: Left Location Body Site: Hip Pain Description: Ache, Throbbing Mental Status Patient Orientation: Person, Place, Situation Attachments: Oxygen Transfers Functional [place] Measure 0=Not Assessed/NA 4=Minimal Assistance 1=Total Assistance 5=Supervision or Setup 2=Maximal Assistance 6=Modified [place] 3=Moderate Assistance 7=Complete IndependenceIRFPAI Quality Coding Scale 6 Independent with activity with or without an assistive device 5 Patient requires set up or clean up by helper. Patient completes activity by themselves 4 Supervision or touching assist (CGA). [place] provide cues , steadying assist 3 The helper provides less than half the effort to complete the activity 2 The helper provides more than half the effort to complete the activity 1 Dependent. The helper does all the effort to complete an activity 7 Patient refused to complete or attempt activity 9 The patient did not perform the activity before the current illness or injury 88 Not attempted due to Medical conditions or safety concerns Weight Bearing Right Lower Extremity: Right Full Weight Bearing Left Lower Extremity: Left Touch Toe Bearing Exercises Supine Ex: Ankle pumps, Quad Set, Glut sets, Straight leg raise, Hip abd/add Supine Reps: 10 Treatments Pt completes Supine Ex (SLR & AB/ADD with VAULT PERSON assist and limited movement w/in comfort). Pt takes a couple short rest breaks during Ex. Pt laying Supine in bed at end of tx with all needs met, including call light in hand. Assessment Current Status: Good Progress Pt reports less pain than previous tx. PT Short Term Goals Short Term Goals Time Frame: September 18, 2017 Transfers (B,C,W/C) (FIM): 3 Gait (FIM): 1 Gait Distance Comment: 5' Gait Level of Assist: 3 Gait Assistive Device: FWW Wheelchair Distance: 30' PT Nursing Home Goals Nursing Home Goals PT Nursing Home Goals Time Frame: Oct 02, 2017 Transfers (B,C,W/C) (FIM): 4 Sit to Lying (QC): 3 Lying-Sitting on Side/Bed(QC): 3 Sit to Stand (QC): 3 Rollin Roll Left to Right (QC): 3 Chair/Bza-kc-Dsaof Xfer(QC): 3 Car Transfer (QC): 3 Gait (FIM): 1 Distance: 20' Walk 10 feet (QC): 3 Walk 10ft-Uneven Surface(QC): 3 Gait Level of Assist: 4 Gait Assistive Device: FWW Wheelchair (FIM): 6 Distance: 150' Wheelchair Level of Assist: 6 Wheel 50 feet with 2 turns (QC: 6 Stairs (FIM): 2 # of Steps: 4 1 Step (curb) (QC): 3 Stairs Level Of Assist: 4 PT Plan Problem List Problem List: Activity Tolerance, Functional Strength, Safety, Bed Mobility, ROM Treatment/Plan Treatment Plan: Continue Plan of Care Treatment Plan: Bed Mobility, Concurrent Therapy, Education, Functional Activity Syl, Functional Strength, Group Therapy, Gait, Safety, Therapeutic Exercise, Transfers Treatment Duration: Oct 02, 2017 Frequency: At least 5 of 7 days/Wk (IRF) Estimated Hrs Per Day: 1.5 hours per day Patient and/or Family Agrees t: Yes Safety Risks/Education Patient Education: Transfer Techniques, Correct Positioning, Safety Issues Teaching Recipient: Patient Teaching Methods: Discussion Response to Teaching: Verbalize Understanding Time/GCodes Time In: 1435 Time Out: 1505 Total Billed Treatment Time: 30 Total Billed Treatment 1, EX x2 (30m) G Codes Necessary: ALVERTO Gray VAULT PERSON September 21, 2017 16:30
[2017-09-21] MEDS: warFARin 2 MG (COUMADIN) TAB PO SCH (17:23)
[2017-09-21] MEDS: ATORVASTATIN 10 MG (LIPITOR) TABLET PO SCH (20:46)
--- NOTE | 2017-09-22 05:25 | Pulmonary Progress Note ---
Subjective Time Seen by Provider: 05:29 Subjective/Events-last exam c/o SOB Focused Exam Lactate Level 09/21/17 06:00: Lactic Acid Level 0.92 Exam Exam Vital Signs Date Time Temp Pulse Resp B/P (MAP) Pulse Ox O2 Delivery O2 Flow Rate FiO2 09/21/17 21:00 Nasal Cannula 3.00 09/21/17 18:25 90 Nasal Cannula 4.00 09/21/17 16:01 97.3 86 16 118/68 (85) 95 Nasal Cannula 4.00 09/21/17 14:32 92 Nasal Cannula 4.00 09/21/17 11:45 90 Nasal Cannula 4.00 09/21/17 09:00 Nasal Cannula 3.00 09/21/17 08:13 91 Nasal Cannula 4.00 09/21/17 06:00 98.8 81 19 136/67 (90) 91 Nasal Cannula 4.50 I & O 09/22/17 07:00 Intake Total 1800 ml Output Total 1300 ml Balance 500 ml General Appearance: No Apparent Distress, WD/WN HEENT: Normal ENT Inspection Neck: Full Range of Motion, Normal Inspection Respiratory: No Accessory Muscle Use, No Respiratory Distress Cardiovascular: Regular Rate, Rhythm (Coronary Small amount to staff) Gastrointestinal: non tender, soft Neurologic/Psychiatric: Alert, Oriented x3, No Motor/Sensory Deficits, Depressed Affect Results Lab Laboratory Tests 09/20/17 08:36 09/21/17 06:00 09/21/17 08:10 Assessment/Plan Assessment/Plan MSSA pneumonia per sputum culture -Check LA - Zosyn D/C Zyvox -repeat labs -- If WBC is trending down Abx can be switched to PO -Oxygen as needed Acute renal failure -Will give 2 liter boluses each over 4hrs and then continue IVF at 50cc/hr HX of COPD -SVNS DuoNeb change to QID from PRN Atelectasis -IS S/p Fracture hip and surgical repair Debility -PT/OT 233 LILO ROMO DO Sep 22, 2017 05:25
[2017-09-22 05:55] LABS: BASOPHILS % (AUTO) 0 % (0-10); EOSINOPHILS # (AUTO) 0.2 10^3/uL (0.0-0.3); EOSINOPHILS % (AUTO) 2 % (0-10); HEMATOCRIT 25 % (40-54); LYMPHOCYTES # (AUTO) 0.5 X 10^3 (1.0-4.0); LYMPHOCYTES % (AUTO) 6 % (12-44); MEAN CORPUSCULAR HEMOGLOBIN 31 PG (25-34); MEAN CORPUSCULAR HGB CONC 32 G/DL (32-36); MEAN CORPUSCULAR VOLUME 98 FL (80-99); MEAN PLATELET VOLUME 8.7 FL (7.4-10.4); MONOCYTES # (AUTO) 0.7 X 10^3 (0.0-1.0); MONOCYTES % (AUTO) 8 % (0-12); NEUTROPHILS # (AUTO) 7.3 X 10^3 (1.8-7.8); NEUTROPHILS % (AUTO) 85 % (42-75); PLATELET COUNT 372 10^3/uL (130-400); RED BLOOD COUNT 2.55 10^6/uL (4.35-5.85); RED CELL DISTRIBUTION WIDTH 14.6 % (10.0-14.5); WHITE BLOOD COUNT 8.6 10^3/uL (4.3-11.0)
[2017-09-22] MEDS: NS IV 1000 ML 1,000 ML IV SCH ×3 (05:57→13:59)
[2017-09-22] MEDS: MULTIVIT W/MINERALS TAB (THERAGRAN M) PO SCH (06:02)
[2017-09-22] MEDS: LACTOBACILLUS Acidoph/Bulgar (LACTINEX/FLORANEX) TAB PO SCH ×3 (06:03→16:56)
[2017-09-22 06:05] LABS: INR 2.7 (0.8-1.4); PROTHROMBIN TIME PATIENT 29.1 SEC (12.2-14.7)
[2017-09-22 06:10] LABS: CALCIUM 8.4 MG/DL (8.5-10.1); CREATININE SERUM 1.45 MG/DL (0.60-1.30); MAGNESIUM 2.2 MG/DL (1.8-2.4); PHOSPHORUS 3.4 MG/DL (2.3-4.7); POTASSIUM 4.2 MMOL/L (3.6-5.0)
[2017-09-22 06:18] VITALS: BP 128/64
[2017-09-22] MEDS: ANTACID SUSP 30 ML UDC (MYLANTA) PO PRN ×2 (06:56→17:55)
[2017-09-22] MEDS ORDERED: VANCOMYCIN 1250 MG/NS 250 ML IVPB IV SCH ×2 (07:00)
[2017-09-22] MEDS: RT-LEVALBUTEROL (XOPENEX) 1.25 MG/3 ML NEB NON-FORMULARY INH SCH ×4 (07:14→18:43)
[2017-09-22] MEDS: RT-ADVAIR HFA 115/21 MCG PER PUFF IH SCH ×2 (07:16→18:44)
[2017-09-22] MEDS: UMECLIDINIUM BROMIDE (INCRUSE ELLIPTA) 7'S IH SCH (07:16)
--- NOTE | 2017-09-22 08:11 | Diagnostic Imaging Report ---
EXAM: CHEST 1 VIEW, AP/PA ONLY INDICATION: Pneumonia. COMPARISON: Chest radiograph 09/21/2017. FINDINGS: Low lung volumes accentuate the heart size. Persistent consolidation in the right perihilar medial lung base. Probable small left pleural effusion. No pneumothorax. Calcified aorta. No acute osseous findings. IMPRESSION: 1. Persistent consolidation in the perihilar right medial lung base. Recommend continued followup to resolution. Mass cannot be excluded. 2. Stable small left pleural effusion and atelectasis or infiltrate in the left lung base. Dictated by: Dictated on workstation # [id number]
--- NOTE | 2017-09-22 08:22 | Progress Note (SOAP) ---
Subjective Time Seen by Provider: 08:20 Subjective/Events-last exam Patient's blood tests look better area INR good. White blood cell count came down to normal. Hemoglobin and hematocrit stable. Waiting for chest x-ray report. Next patient having stomach problems this morning Focused Exam Lactate Level 09/21/17 06:00: Lactic Acid Level 0.92 Objective Exam Vital Signs Date Time Temp Pulse Resp B/P (MAP) Pulse Ox O2 Delivery O2 Flow Rate FiO2 09/22/17 07:14 90 Nasal Cannula 4.00 09/22/17 06:18 98.0 84 17 128/64 (85) 92 NIV CPAP 4.50 09/21/17 21:00 Nasal Cannula 3.00 09/21/17 18:25 90 Nasal Cannula 4.00 09/21/17 16:01 97.3 86 16 118/68 (85) 95 Nasal Cannula 4.00 09/21/17 14:32 92 Nasal Cannula 4.00 09/21/17 11:45 90 Nasal Cannula 4.00 09/21/17 09:00 Nasal Cannula 3.00 I & O 09/22/17 07:00 Intake Total 1800 ml Output Total 1300 ml Balance 500 ml Capillary Refill : Less Than 3 Seconds General Appearance: No Apparent Distress, WD/WN HEENT: Normal ENT Inspection Neck: Normal Inspection Respiratory: No Accessory Muscle Use, No Respiratory Distress Gastrointestinal: non tender, soft Results Lab Laboratory Tests 09/21/17 08:26: Urine Color YELLOW, Urine Clarity CLEAR, Urine pH 5, Urine Specific [place] 1.020, Urine Protein 2+H, Urine Glucose (UA) NEGATIVE, Urine Ketones NEGATIVE, Urine Nitrite NEGATIVE, Urine Bilirubin NEGATIVE, Urine Urobilinogen NORMAL, Urine Leukocyte Esterase NEGATIVE, Urine RBC (Auto) NEGATIVE, Urine RBC NONE, Urine WBC NONE, Urine Squamous Epithelial Cells NONE, Urine Crystals PRESENTH, Urine Uric Acid Crystals LARGEH, Urine Bacteria NEGATIVE, Urine Casts NONE, Urine Mucus NEGATIVE, Urine Culture Indicated NO 09/21/17 08:37: Prothrombin Time 30.5H, INR Comment 2.9H 09/22/17 05:25: Prothrombin Time 29.1H, INR Comment 2.7H, White Blood Count 8.6, Red Blood Count 2.55L, Hemoglobin 8.0L, Hematocrit 25L, Mean Corpuscular Volume 98, Mean Corpuscular Hemoglobin 31, Mean Corpuscular Hemoglobin Concent 32, Red Cell Distribution Width 14.6H, Platelet Count 372, Mean Platelet Volume 8.7, Neutrophils (%) (Auto) 85H, Lymphocytes (%) (Auto) 6L, Monocytes (%) (Auto) 8, Eosinophils (%) (Auto) 2, Basophils (%) (Auto) 0, Neutrophils # (Auto) 7.3, Lymphocytes # (Auto) 0.5L, Monocytes # (Auto) 0.7, Eosinophils # (Auto) 0.2, Basophils # (Auto) 0.0, Sodium Level 137, Potassium Level 4.2, Chloride Level 104, Carbon Dioxide Level 21, Anion Gap 12, Blood Urea Nitrogen 21H, Creatinine 1.45H, Estimat Glomerular Filtration Rate 47, BUN/Creatinine Ratio 14, Glucose Level 115H, Calcium Level 8.4L, Phosphorus Level 3.4, Magnesium Level 2.2 Microbiology 09/20/17 Gram Stain - Final, Resulted 09/20/17 Sputum Culture - Preliminary, Resulted Staphylococcus aureus Assessment/Plan Assessment/Plan Assess & Plan/Chief Complaint . Hip fracture. COPD. A. fib history. Constipation. . 09/13/17. Hip fracture. COPD. A. fib history. Patient had good bowel movement today area . 09/14/17. Hip fracture. COPD. Patient had good bowel movement today. Patient stomach upset today. . 09/15/17. Hip fracture. COPD. Patient has pains. Patient has improvement. . 09/19/17. Hip fracture. COPD.. Pain. History of present illness. Atrial fibrillation history. Hypertension. Patient has TO WORK. . 09/20/17. Hip fracture. COPD. Pneumonia. History of atrial fibrillation. Hypertension. Patient put on antibiotics. Consult with pulmonology. Patient not to have PT or OT today. . 09/21/17. Hip fracture. COPD. Pneumonia. History of atrial fib. Hypertension. Sputum cultures staph aureus. Hemoglobin and hematocrit decreased. Patient on Coumadin. May have to decrease the amount of PT and OT today with his pneumonia. . 09/22/17. Hip fracture. COPD. Pneumonia. History of atrial fibrillation. Hypertension. White blood cell count better today. Hemoglobin and hematocrit stable. INR therapeutic. Except for stomach problems patient doing better Clinical Quality Measures Admission Status Admission Dx Hip fracture. Hypertension. Atrial fibrillation. COPD. Constipation DVT/VTE Risk/Contraindication: Risk Factor Score Per Nursin RFS Level Per Nursing on Admit: 4+=Very High YOUSIF ARAGON DO Sep 22, 2017 08:22
[2017-09-22] MEDS: TAMSULOSIN 0.4 MG (FLOMAX) CAP PO SCH ×2 (08:55→20:13)
[2017-09-22] MEDS: DOCUSATE SODIUM 100 MG (COLACE) CAP PO SCH ×3 (08:55→20:11)
[2017-09-22] MEDS: DILTIAZEM 240 MG (CARDIZEM CD) CAP PO SCH (08:55)
[2017-09-22] MEDS: FLECAINIDE 100 MG (TAMBOCOR) TAB PO SCH ×2 (08:55→20:12)
[2017-09-22] MEDS: FINASTERIDE (PROSCAR) 5 MG TAB PO SCH (08:55)
[2017-09-22] MEDS: oxyCODONE/APAP 5/325MG (PERCOCET 5) TABLET PO PRN ×2 (08:56→16:57)
[2017-09-22] MEDS: PIPERACILLIN SODIUM/TAZOBACTAM 4.5 GM in D5W 100 ML IVPB 100 ML IV SCH (08:56)
[2017-09-22] MEDS: LACTULOSE SYRUP 10GM/15ML (ENULOSE) 30ML UDC PO SCH ×2 (08:58→20:12)
[2017-09-22] MEDS: SENNA W/DOCUSATE (SENOKOT S) TABLET PO SCH (08:58)
[2017-09-22] MEDS: POLYETHYLENE GLYCOL 17 GM (MIRALAX) PACK PO SCH ×3 (08:58→20:14)
[2017-09-22] MEDS ORDERED: LINEZOLID (ZYVOX) 600 MG TAB PO SCH (09:00)
--- NOTE | 2017-09-22 09:59 | PM & R (SOAP) Progress Note ---
Subjective This was a face to face visit with the patient. Date Seen by Provider: Sep 22, 2017 Time Seen by Provider: 09:50 Subjective/Events-last exam Patient was seen in his room this AM Patient mod to max assist for transfers TTWB LLE.02 by SAMINA remains in place Review of Systems Musculoskeletal: leg pain Objective Physician Exam Last Set of Vital Signs Vital Signs Date Time Temp Pulse Resp B/P (MAP) Pulse Ox O2 Delivery O2 Flow Rate FiO2 09/22/17 07:14 90 Nasal Cannula 4.00 09/22/17 06:18 98.0 84 17 128/64 (85) Capillary Refill : Less Than 3 Seconds I&O Intake and Output 09/22/17 00:00 Intake Total 1315 ml Output Total 950 ml Balance 365 ml Intake Oral 1200 ml IV Total 115 ml Output Urine Total 950 ml # Urine Diapers 2 # Bowel Movements 2 General: Alert, Cooperative, No Acute Distress HEENT: Atraumatic, PERRLA, EOMI Neck: Supple, No JVD Lungs: Clear to Auscultation Heart: Regular Rate Abdomen: Normal Bowel Sounds, Soft, No Tenderness Extremities: No Edema Neuro: Other (weakness in legs) Results Lab Data Laboratory Tests 09/20/17 08:36: White Blood Count 17.9H, Red Blood Count 2.85L, Hemoglobin 9.1L, Hematocrit 28L , Mean Corpuscular Volume 99, Mean Corpuscular Hemoglobin 32, Mean Corpuscular Hemoglobin Concent 32, Red Cell Distribution Width 14.8H, Platelet Count 371, Mean Platelet Volume 8.5, Sodium Level 135, Potassium Level 4.9, Chloride Level 102, Carbon Dioxide Level 24, Anion Gap 9, Blood Urea Nitrogen 26H, Creatinine 1.54H, Estimat Glomerular Filtration Rate 43, BUN/Creatinine Ratio 17, Glucose Level 162H, Calcium Level 8.4L, Total Bilirubin 0.9, Aspartate Amino Transf (AST /SGOT) 25, Alanine Aminotransferase (ALT/SGPT) 38, Alkaline Phosphatase 65, B- Type Natriuretic Peptide 62.0, Total Protein 6.0L, Albumin 3.4 09/21/17 06:00: White Blood Count 15.8H, Red Blood Count 2.26L, Hemoglobin 7.4L, Hematocrit 22L , Mean Corpuscular Volume 99, Mean Corpuscular Hemoglobin 33, Mean Corpuscular Hemoglobin Concent 33, Red Cell Distribution Width 14.5, Platelet Count 368, Mean Platelet Volume 8.9, Sodium Level 135, Potassium Level 4.3, Chloride Level 103, Carbon Dioxide Level 22, Anion Gap 10, Blood Urea Nitrogen 26H, Creatinine 1.56H, Estimat Glomerular Filtration Rate 43, BUN/Creatinine Ratio 17, Glucose Level 130H, Calcium Level 8.2L, Neutrophils (%) (Auto) 88H, Lymphocytes (%) ( Auto) 4L, Monocytes (%) (Auto) 8, Eosinophils (%) (Auto) 1, Basophils (%) (Auto ) 0, Neutrophils # (Auto) 13.9H, Lymphocytes # (Auto) 0.6L, Monocytes # (Auto) 1.2H, Eosinophils # (Auto) 0.1, Basophils # (Auto) 0.0, Neutrophils % (Manual) 86, Lymphocytes % (Manual) 3, Monocytes % (Manual) 5, Eosinophils % (Manual) 1, Basophils % (Manual) 0, Band Neutrophils 5, Hypochromasia SLIGHT, Anisocytosis SLIGHT, Lactic Acid Level 0.92, Phosphorus Level 3.3, Magnesium Level 2.1 09/21/17 08:10: Hemoglobin 8.5L, Hematocrit 26L 09/21/17 08:26: Urine Color YELLOW, Urine Clarity CLEAR, Urine pH 5, Urine Specific [place] 1.020, Urine Protein 2+H, Urine Glucose (UA) NEGATIVE, Urine Ketones NEGATIVE, Urine Nitrite NEGATIVE, Urine Bilirubin NEGATIVE, Urine Urobilinogen NORMAL, Urine Leukocyte Esterase NEGATIVE, Urine RBC (Auto) NEGATIVE, Urine RBC NONE, Urine WBC NONE, Urine Squamous Epithelial Cells NONE, Urine Crystals PRESENTH, Urine Uric Acid Crystals LARGEH, Urine Bacteria NEGATIVE, Urine Casts NONE, Urine Mucus NEGATIVE, Urine Culture Indicated NO 09/21/17 08:37: Prothrombin Time 30.5H, INR Comment 2.9H 09/22/17 05:25: Prothrombin Time 29.1H, INR Comment 2.7H, White Blood Count 8.6, Red Blood Count 2.55L, Hemoglobin 8.0L, Hematocrit 25L, Mean Corpuscular Volume 98, Mean Corpuscular Hemoglobin 31, Mean Corpuscular Hemoglobin Concent 32, Red Cell Distribution Width 14.6H, Platelet Count 372, Mean Platelet Volume 8.7, Neutrophils (%) (Auto) 85H, Lymphocytes (%) (Auto) 6L, Monocytes (%) (Auto) 8, Eosinophils (%) (Auto) 2, Basophils (%) (Auto) 0, Neutrophils # (Auto) 7.3, Lymphocytes # (Auto) 0.5L, Monocytes # (Auto) 0.7, Eosinophils # (Auto) 0.2, Basophils # (Auto) 0.0, Sodium Level 137, Potassium Level 4.2, Chloride Level 104, Carbon Dioxide Level 21, Anion Gap 12, Blood Urea Nitrogen 21H, Creatinine 1.45H, Estimat Glomerular Filtration Rate 47, BUN/Creatinine Ratio 14, Glucose Level 115H, Calcium Level 8.4L, Phosphorus Level 3.4, Magnesium Level 2.2 Microbiology 09/20/17 Gram Stain - Final, Complete 09/20/17 Sputum Culture - Final, Complete Staphylococcus aureus Assessment/Plan Assessment and Plan Left prox comminuted mildly impacted femoral intertrochanteric fracture s/p IM nailing 09/08/17 TTWB LLE Postop resp insufficiency on supplemental 02 FRED on CPAP COPD HTN A FIB anticoagulation Plan Continue Pt/OT Reconference next week F/U with CRISTHIAN Gellender and Ortho We[facility] from 02 as able Monitor INR and adjust coumadin dose as needed (1) Hip fracture Status: Chronic Co-Morbidities that are continuing to impact the rehab process: (include details ) SUSAN FRAGOSO MD Sep 22, 2017 09:59
--- NOTE | 2017-09-22 11:04 | Physical Therapy Daily Note ---
PT Daily Note-Current Subjective Pt laying Supine in bed upon arrival. Pt reports attempting some Supine Ex in bed on own. Pt agrees to PT/OT co-treat. Pain Numeric Pain Scale: 10-Worst Possible Pain Location: Left Location Body Site: Hip Pain Description: Ache, Tightness Mental Status Patient Orientation: Person, Place, Situation Attachments: Oxygen (4L) Transfers Functional [place] Measure 0=Not Assessed/NA 4=Minimal Assistance 1=Total Assistance 5=Supervision or Setup 2=Maximal Assistance 6=Modified [place] 3=Moderate Assistance 7=Complete IndependenceIRFPAI Quality Coding Scale 6 Independent with activity with or without an assistive device 5 Patient requires set up or clean up by helper. Patient completes activity by themselves 4 Supervision or touching assist (CGA). [place] provide cues , steadying assist 3 The helper provides less than half the effort to complete the activity 2 The helper provides more than half the effort to complete the activity 1 Dependent. The helper does all the effort to complete an activity 7 Patient refused to complete or attempt activity 9 The patient did not perform the activity before the current illness or injury 88 Not attempted due to Medical conditions or safety concerns Scootin Rollin Roll Left to Right (QC): 3 Supine to/from Sit: 3 Sit to/from Stand: 2 Sit to Lying (QC): 3 Sit to Stand (QC): 2 Chair/Sur-fg-Lbrdw Xfer(QC): 2 Bed to/from Chair: 2 Weight Bearing Right Lower Extremity: Right Full Weight Bearing Left Lower Extremity: Left Touch Toe Bearing Exercises Supine Ex: Ankle pumps, Quad Set, Glut sets, Straight leg raise, Hip abd/add Supine Reps: 5 (This was used to instruct daughter how Supine Ex is completed) Treatments Pt transfers from Supien to EOB using bed rails & DOCUMENTATION SPECIALIST at Mod A. Pt rests at EOB and O2 monitored. Pt donns shorts at EOB before feeling nauseated and needing to lay back in bed at Mod A. Pt rolls side to side to complete pericare , pull shorts up and replace bed pad. Pt's daughter asked what Ex pt could be helped with to increase srength throughout the day, I O PSYCHOLOGIST instructs/demonstrates Supine Ex. After short rest, pt transfers again to EOB at Mod A. Pt then doff/ donns new shirt at EOB. Pt reports needing to have BM although refuses to transfer to [place]. Pt states will just transfer to recliner. Pt transfers from EOB to standing at Max A x2 using FWW and with much encouragement to WB on good RLE. Pt SPT to recliner to rest at end of tx with all needs met, including call light in hand. OT focuses on ADLs and hand placement during activities while PT focuses Transfers, Foot Placement for transfers, Sequencing and Seated Balance during ADLs. Assessment Current Status: Good Progress Pt reports trying to complete Supine Ex during the day w/o staff, showing more motivation. Pt continues to self limit though when experiencing pain. PT Short Term Goals Short Term Goals Time Frame: September 18, 2017 Transfers (B,C,W/C) (FIM): 3 Gait (FIM): 1 Gait Distance Comment: 5' Gait Level of Assist: 3 Gait Assistive Device: FWW Wheelchair Distance: 30' PT Alf Goals Grave Cleaner Goals PT Alf Goals Time Frame: Oct 02, 2017 Transfers (B,C,W/C) (FIM): 4 Sit to Lying (QC): 3 Lying-Sitting on Side/Bed(QC): 3 Sit to Stand (QC): 3 Rollin Roll Left to Right (QC): 3 Chair/Dad-op-Hwfxj Xfer(QC): 3 Car Transfer (QC): 3 Gait (FIM): 1 Distance: 20' Walk 10 feet (QC): 3 Walk 10ft-Uneven Surface(QC): 3 Gait Level of Assist: 4 Gait Assistive Device: FWW Wheelchair (FIM): 6 Distance: 150' Wheelchair Level of Assist: 6 Wheel 50 feet with 2 turns (QC: 6 Stairs (FIM): 2 # of Steps: 4 1 Step (curb) (QC): 3 Stairs Level Of Assist: 4 PT Plan Problem List Problem List: Activity Tolerance, Functional Strength, Safety, Balance, Gait, Transfer, Bed Mobility Treatment/Plan Treatment Plan: Continue Plan of Care Treatment Plan: Bed Mobility, Concurrent Therapy, Education, Functional Activity Syl, Functional Strength, Group Therapy, Gait, Safety, Therapeutic Exercise, Transfers Treatment Duration: Oct 02, 2017 Frequency: At least 5 of 7 days/Wk (IRF) Estimated Hrs Per Day: 1.5 hours per day Patient and/or Family Agrees t: Yes Safety Risks/Education Patient Education: Gait Training, Transfer Techniques, Correct Positioning, Safety Issues Teaching Recipient: Patient, Family Teaching Methods: Discussion Response to Teaching: Verbalize Understanding Time/GCodes Time In: 1000 Time Out: 1100 Total Billed Treatment Time: 60 Total Billed Treatment 1, EX (15m) & FA x3 (45m) Co-treat for 60m with OT. G Codes Necessary: ALVERTO Gray I O PSYCHOLOGIST Sep 22, 2017 11:04
--- NOTE | 2017-09-22 12:07 | Progress Note-Standard ---
Standard Progress Note Progress Notes/Assess & Plan Date Seen by Provider: Sep 22, 2017 Time Seen by Provider: 12:02 Progress/Assessment & Plan No complaints LLE--dressing intact. No calf tenderness. Neg Alex's s/p L hip Im osmany continue PT/OT Final Diagnosis No new complaints L hip incision clean and dry. No calf tenderness. s/p IM osmany L hip explained to patient the importance of working in PT and OT to attain independent status Focused Exam Lactate Level 09/21/17 06:00: Lactic Acid Level 0.92 DOMINIK ALBA MD Sep 22, 2017 12:07
[2017-09-22] MEDS: CEPHALEXIN 250 MG (KEFLEX) CAP PO SCH ×3 (13:59→20:13)
--- NOTE | 2017-09-22 14:50 | Therapy Group Daily Note ---
Therapy Daily Group Note Exercises Fine Motor, UE Exercise Other/Notes Pt. participated in group PT OT session this date. Pt. came and went via w/c . Pts. all introduced selves to one another at the table of 4 where they were seated for either [place], dominoes or a card game. Pts. all introduced selves and shared at their individual tables then played group Bingo followed by individual table games. All games and activities at each table facilitated sequencing, problem solving, social interaction , reaching, UE strength and pincer grasp. Pt. required max assist to get w/c back and forth to room as well as IV and O2.. Pt. TRFd to bed mod assist . Call song at hand. Start Time: 13:00 Stop Time: 14:15 Total Billed Treatment Time: 75 Total Billed Treatment 1,GRP LORETO ONOFRE MARINE ENGINEERING PROFESSOR Sep 22, 2017 14:49
--- NOTE | 2017-09-22 15:38 | Occupational Ther Daily Note ---
OT Current Status-Daily Note Subjective Pt seen in room, up in bed, reluctantly agreeable to therapy. Winces in pain when moving L leg. Appearance Alert, more cooperative Mental Status/Objective Functional [place] Measure 0=Not Assessed/NA 4=Minimal Assistance 1=Total Assistance 5=Supervision or Setup 2=Maximal Assistance 6=Modified [place] 3=Moderate Assistance 7=Complete [place] ADL-Treatment Pt was co-treated with PT due to decreased activity tolerance, need for skilled care form two different professionals. PT worked on transfers, bed mobility, LE and OT worked on UEs, ADLs, balance during ADLs. Pt needed mod assist to come to sit EOB and min assist to maintain sitting balance (although this improved to SBA by end of tx). Able to lift feet to put them into shorts, then got back into bed and rolled side to side for help pulling them up (max assist). Unable to manage socks himself. When back up at EOB, needed min assist to put clean shirt on. Transferred from bed to recliner with max assist of two people (two trials), with cues for weight bearing with arms. Pt left up in recliner, legs elevated, all needs met. During tx, O2 sats dropped to 85% and needed several minutes to come back up to 90% or greater. Heart rate ranged from 50 to 150, based on pulse ox - nursing notified. Functional [place] Measure 0=Not Assessed/NA 4=Minimal Assistance 1=Total Assistance 5=Supervision or Setup 2=Maximal Assistance 6=Modified [place] 3=Moderate Assistance 7=Complete IndependenceIRFPAI Quality Coding Scale 6 Independent with activity with or without an assistive device 5 Patient requires set up or clean up by helper. Patient completes activity by themselves 4 Supervision or touching assist (CGA). [place] provide cues , steadying assist 3 The helper provides less than half the effort to complete the activity 2 The helper provides more than half the effort to complete the activity 1 Dependent. The helper does all the effort to complete an activity 7 Patient refused to complete or attempt activity 9 The patient did not perform the activity before the current illness or injury 88 Not attempted due to Medical conditions or safety concerns Upper Body (FIM): 4 Lower Body Dressing (FIM): 2 Transfers (B, C, W/C) (FIM): 1 Education OT Patient Education: Progress toward Goal/Update tx plan, Purpose of tx/ functional activities, Transfer techniques Teaching Recipient: Patient Teaching Methods: Demonstration, Discussion Response to Teaching: Verbalize Understanding, Return Demonstration, Reinforcement Needed OT Short Term Goals Short Term Goals Time Frame: September 18, 2017 Bathing(FIM): 4 Upper Body Dressing(FIM): 5 Lower Body Dressing(FIM): 3 Transfers (B,C,W/C) (FIM): 3 Toilet/Commode Transfer(FIM): 3 Additional Short Term Goals: 1-Demonstrate ADL Tasks, 2-Verbalize Understanding , 3-ImproveStrength/Syl 1=Demonstrate adherence to instructed precautions during ADL tasks. 2=Patient will verbalize/demonstrate understanding of assistive devices/ modifications for ADL. 3=Patient will improve strength/tolerance for activity to enable patient to perform ADL's. OT Chief Pilot Goals Chief Pilot Goals Time Frame: Sep 29, 2017 Eating (FIM): 6 Eating (QC): 6 Groomin Oral Hygiene (QC): 6 Bathing(FIM): 6 Shower/Bathe Self (QC): 6 Upper Body Dressing(FIM): 6 Upper Body Dressing (QC): 6 Lower Body Dressing(FIM): 6 Lower Body Dressing (QC): 6 On/Off Footwear (QC): 6 Toileting(FIM): 6 Toileting Hygiene (QC): 6 Toilet/Commode Transfer(FIM): 6 Toilet/Commode Transfer (QC): 6 Shower Transfer(FIM): 6 Additional Goals: 1-Demonstrate ADL Tasks, 2-Verbalize Understanding, 3- ImproveStrength/Syl 1=Demonstrate adherence to instructed precautions during ADL tasks. 2=Patient will verbalize/demonstrate understanding of assistive devices/ modifications for ADL. 3=Patient will improve strength/tolerance for activity to enable patient to perform ADL's. OT Education/Plan Problem List/Assessment Pt would benefit from skilled OT to increase his independence in basic self care to allow him to safely return home after a fall and surgery to repair hip fx. Discharge Recommendations Plan/Recommendations: Continue POC Treatment Plan/Plan of Care Patient would benefit from OT for education, treatment and training to promote independence in ADL's, mobility, safety and/or upper extremity function for ADL' s. Plan of Care: ADL Retraining, Functional Mobility, Group Exercise/Act as Ind ( education, exercise, act tolerance, funct activities, socialization), UE Funct Exercise/Act, UE Neuromus Re-Ed/Coord Treatment Duration: Sep 29, 2017 Frequency: At least 5 of 7 days/Wk (IRF) Estimated Hrs Per Day: 1.5 hours per day Agreement: Yes Rehab Potential: Fair Time/GCodes Start Time: 10:00 Stop Time: 11:00 Total Time Billed (hr/min): 60 Billed Treatment Time visit, 45 minutes ADL, 15 minutes functional activity NATALI CHEN OT Sep 22, 2017 15:38
[2017-09-22] MEDS: ONDANSETRON 4 MG (ZOFRAN) ORAL DISSOLVE TAB PO PRN ×2 (16:57→22:31)
[2017-09-22] MEDS: warFARin 3 MG (COUMADIN) TAB PO SCH (17:55)
[2017-09-22 18:25] VITALS: BP 135/65
[2017-09-22] MEDS: ATORVASTATIN 10 MG (LIPITOR) TABLET PO SCH (20:13)
[2017-09-23] MEDS: NS IV 1000 ML 1,000 ML IV SCH ×2 (02:33→21:14)
[2017-09-23 04:56] LABS: BASOPHILS % (AUTO) 0 % (0-10); EOSINOPHILS # (AUTO) 0.1 10^3/uL (0.0-0.3); EOSINOPHILS % (AUTO) 2 % (0-10); HEMATOCRIT 25 % (40-54); HEMOGLOBIN 7.9 G/DL (13.3-17.7); LYMPHOCYTES # (AUTO) 0.4 X 10^3 (1.0-4.0); LYMPHOCYTES % (AUTO) 6 % (12-44); MEAN CORPUSCULAR HEMOGLOBIN 32 PG (25-34); MEAN CORPUSCULAR HGB CONC 32 G/DL (32-36); MEAN CORPUSCULAR VOLUME 98 FL (80-99); MEAN PLATELET VOLUME 8.8 FL (7.4-10.4); MONOCYTES # (AUTO) 0.6 X 10^3 (0.0-1.0); MONOCYTES % (AUTO) 9 % (0-12); NEUTROPHILS % (AUTO) 84 % (42-75); PLATELET COUNT 384 10^3/uL (130-400); RED BLOOD COUNT 2.51 10^6/uL (4.35-5.85); RED CELL DISTRIBUTION WIDTH 14.5 % (10.0-14.5); WHITE BLOOD COUNT 7.2 10^3/uL (4.3-11.0)
[2017-09-23 05:07] LABS: INR 3.2 (0.8-1.4); PROTHROMBIN TIME PATIENT 32.8 SEC (12.2-14.7)
[2017-09-23 05:16] LABS: BUN/CREATININE RATIO 12; CALCIUM 8.1 MG/DL (8.5-10.1); CARBON DIOXIDE 21 MMOL/L (21-32); CHLORIDE 110 MMOL/L (98-107); CREATININE SERUM 1.06 MG/DL (0.60-1.30); GFR ESTIMATED > 60; GLUCOSE 130 MG/DL (70-105); MAGNESIUM 2.3 MG/DL (1.8-2.4); PHOSPHORUS 2.4 MG/DL (2.3-4.7); POTASSIUM 4.3 MMOL/L (3.6-5.0); SODIUM 138 MMOL/L (135-145)
[2017-09-23 05:34] VITALS: BP 142/63
[2017-09-23] MEDS: PANTOPRAZOLE 40 MG (PROTONIX) TAB PO SCH (05:40)
[2017-09-23] MEDS: LACTOBACILLUS Acidoph/Bulgar (LACTINEX/FLORANEX) TAB PO SCH ×3 (05:40→16:24)
[2017-09-23] MEDS: MULTIVIT W/MINERALS TAB (THERAGRAN M) PO SCH (05:40)
[2017-09-23] MEDS ORDERED: TROUGH ORDER-PHARMACY XX NR (06:00)
[2017-09-23] MEDS: UMECLIDINIUM BROMIDE (INCRUSE ELLIPTA) 7'S IH SCH (06:47)
[2017-09-23] MEDS: RT-ADVAIR HFA 115/21 MCG PER PUFF IH SCH ×2 (06:47→19:12)
[2017-09-23] MEDS: RT-LEVALBUTEROL (XOPENEX) 1.25 MG/3 ML NEB NON-FORMULARY INH SCH ×4 (06:47→19:12)
[2017-09-23] MEDS: oxyCODONE/APAP 5/325MG (PERCOCET 5) TABLET PO PRN ×2 (07:33→17:39)
[2017-09-23] MEDS: FLECAINIDE 100 MG (TAMBOCOR) TAB PO SCH ×2 (07:33→21:12)
[2017-09-23] MEDS: FINASTERIDE (PROSCAR) 5 MG TAB PO SCH (07:33)
[2017-09-23] MEDS: CEPHALEXIN 250 MG (KEFLEX) CAP PO SCH ×4 (07:33→21:12)
[2017-09-23] MEDS: TAMSULOSIN 0.4 MG (FLOMAX) CAP PO SCH ×2 (07:33→21:13)
[2017-09-23] MEDS: DILTIAZEM 240 MG (CARDIZEM CD) CAP PO SCH (07:33)
[2017-09-23] MEDS: DOCUSATE SODIUM 100 MG (COLACE) CAP PO SCH ×3 (07:59→19:34)
[2017-09-23] MEDS: LACTULOSE SYRUP 10GM/15ML (ENULOSE) 30ML UDC PO SCH ×2 (08:00→19:34)
[2017-09-23] MEDS: POLYETHYLENE GLYCOL 17 GM (MIRALAX) PACK PO SCH ×3 (08:00→19:34)
[2017-09-23] MEDS: SENNA W/DOCUSATE (SENOKOT S) TABLET PO SCH (08:00)
--- NOTE | 2017-09-23 11:11 | Physical Therapy Daily Note ---
PT Daily Note-Current Subjective Patient reluctantly agrees to PT. c/o 12/01 left hip pain with meds issued. Pain Numeric Pain Scale: 8 Location: Left Location Body Site: Hip Pain Description: Acute Mental Status Patient Orientation: Normal For Age Attachments: Oxygen (6L O2 with increase to 7L with activity), IV Transfers Functional [place] Measure 0=Not Assessed/NA 4=Minimal Assistance 1=Total Assistance 5=Supervision or Setup 2=Maximal Assistance 6=Modified [place] 3=Moderate Assistance 7=Complete IndependenceIRFPAI Quality Coding Scale 6 Independent with activity with or without an assistive device 5 Patient requires set up or clean up by helper. Patient completes activity by themselves 4 Supervision or touching assist (CGA). [place] provide cues , steadying assist 3 The helper provides less than half the effort to complete the activity 2 The helper provides more than half the effort to complete the activity 1 Dependent. The helper does all the effort to complete an activity 7 Patient refused to complete or attempt activity 9 The patient did not perform the activity before the current illness or injury 88 Not attempted due to Medical conditions or safety concerns Transfers (B, C, W/C) (FIM): 4 Scootin Supine to/from Sit: 4 Sit to/from Stand: 4 Sit to Lying (QC): 4 Sit to Stand (QC): 4 Chair/Jam-xt-Ntkju Xfer(QC): 4 Bed to/from Chair: 4 Patient demands more assistance than he needs. minimal assistance for left LE with bed mobility Weight Bearing Right Lower Extremity: Right Full Weight Bearing Left Lower Extremity: Left Touch Toe Bearing Gait Training Does the Patient Walk?: Yes Gait (FIM): 1 Distance (FIM): 1=up to 49 ft Distance: 12' x 5 Walk 10 feet (QC): 4 Gait Level of Assist: 4 Gait Persons Needed: 1 Gait Assistive Device: FWW Patient requires skilled verbal instruction for body placement in FWW. Patient has a tendency to extended UE's and flex at trunk which is unsafe. Much education with patient on safety concerns. Assessment Patient requires recovery periods due to SOA with activity on 7L O2 NC. RT present for breathing treatment after PT. Patient appears to self limit. PT Short Term Goals Short Term Goals Time Frame: September 18, 2017 Transfers (B,C,W/C) (FIM): 3 Gait (FIM): 1 Gait Distance Comment: 5' Gait Level of Assist: 3 Gait Assistive Device: FWW Wheelchair Distance: 30' PT Fci Goals Fci Goals PT Fci Goals Time Frame: Oct 02, 2017 Transfers (B,C,W/C) (FIM): 4 Sit to Lying (QC): 3 Lying-Sitting on Side/Bed(QC): 3 Sit to Stand (QC): 3 Rollin Roll Left to Right (QC): 3 Chair/Mpm-ga-Dcjsf Xfer(QC): 3 Car Transfer (QC): 3 Gait (FIM): 1 Distance: 20' Walk 10 feet (QC): 3 Walk 10ft-Uneven Surface(QC): 3 Gait Level of Assist: 4 Gait Assistive Device: FWW Wheelchair (FIM): 6 Distance: 150' Wheelchair Level of Assist: 6 Wheel 50 feet with 2 turns (QC: 6 Stairs (FIM): 2 # of Steps: 4 1 Step (curb) (QC): 3 Stairs Level Of Assist: 4 PT Plan Treatment/Plan Treatment Plan: Continue Plan of Care Treatment Plan: Bed Mobility, Concurrent Therapy, Education, Functional Activity Syl, Functional Strength, Group Therapy, Gait, Safety, Therapeutic Exercise, Transfers Treatment Duration: Oct 02, 2017 Frequency: At least 5 of 7 days/Wk (IRF) Estimated Hrs Per Day: 1.5 hours per day Patient and/or Family Agrees t: Yes Time/GCodes Time In: 1020 Time Out: 1100 Total Billed Treatment Time: 40 Total Billed Treatment 1 visit GT x 3 40 min ELVIRA MADRID PT Sep 23, 2017 11:11
[2017-09-23 17:25] VITALS: BP 127/64
[2017-09-23] MEDS ORDERED: warFARin 2 MG (COUMADIN) TAB PO SCH (18:00)
[2017-09-23 19:13] VITALS: BP 127/64
[2017-09-23] MEDS ORDERED: RT-ALBUTEROL SULF 2.5 MG/3 ML PRE-MIX VIAL INH PRN (20:00)
[2017-09-23] MEDS: RT-ALBUTEROL SULF 2.5 MG/3 ML PRE-MIX VIAL INH SCH (21:11)
[2017-09-23] MEDS: ATORVASTATIN 10 MG (LIPITOR) TABLET PO SCH (21:12)
[2017-09-24] MEDS: RT-ALBUTEROL SULF 2.5 MG/3 ML PRE-MIX VIAL INH SCH ×6 (01:10→22:38)
[2017-09-24 04:38] LABS: BASOPHILS % (AUTO) 0 % (0-10); EOSINOPHILS # (AUTO) 0.1 10^3/uL (0.0-0.3); EOSINOPHILS % (AUTO) 1 % (0-10); HEMATOCRIT 25 % (40-54); HEMOGLOBIN 7.6 G/DL (13.3-17.7); LYMPHOCYTES # (AUTO) 0.5 X 10^3 (1.0-4.0); LYMPHOCYTES % (AUTO) 6 % (12-44); MEAN CORPUSCULAR HEMOGLOBIN 30 PG (25-34); MEAN CORPUSCULAR HGB CONC 30 G/DL (32-36); MEAN CORPUSCULAR VOLUME 99 FL (80-99); MEAN PLATELET VOLUME 8.7 FL (7.4-10.4); MONOCYTES # (AUTO) 0.9 X 10^3 (0.0-1.0); MONOCYTES % (AUTO) 10 % (0-12); NEUTROPHILS # (AUTO) 6.9 X 10^3 (1.8-7.8); NEUTROPHILS % (AUTO) 83 % (42-75); PLATELET COUNT 432 10^3/uL (130-400); RED BLOOD COUNT 2.52 10^6/uL (4.35-5.85); RED CELL DISTRIBUTION WIDTH 14.9 % (10.0-14.5); WHITE BLOOD COUNT 8.3 10^3/uL (4.3-11.0)
[2017-09-24] MEDS ORDERED: FUROSEMIDE 40 MG/4 ML INJ (LASIX) IVP ONE (04:45)
[2017-09-24 04:50] LABS: INR 3.3 (0.8-1.4); PROTHROMBIN TIME PATIENT 33.7 SEC (12.2-14.7)
[2017-09-24 04:57] LABS: BUN/CREATININE RATIO 13; CALCIUM 8.1 MG/DL (8.5-10.1); CARBON DIOXIDE 21 MMOL/L (21-32); CHLORIDE 109 MMOL/L (98-107); GFR ESTIMATED > 60; GLUCOSE 121 MG/DL (70-105); MAGNESIUM 1.9 MG/DL (1.8-2.4); PHOSPHORUS 2.6 MG/DL (2.3-4.7); POTASSIUM 4.4 MMOL/L (3.6-5.0); SODIUM 139 MMOL/L (135-145)
[2017-09-24 05:36] VITALS: BP 144/63
[2017-09-24] MEDS: MULTIVIT W/MINERALS TAB (THERAGRAN M) PO SCH (06:09)
[2017-09-24] MEDS: LACTOBACILLUS Acidoph/Bulgar (LACTINEX/FLORANEX) TAB PO SCH ×3 (06:09→15:03)
[2017-09-24] MEDS: PANTOPRAZOLE 40 MG (PROTONIX) TAB PO SCH (06:09)
--- NOTE | 2017-09-24 07:42 | Progress Note-Standard ---
Standard Progress Note Progress Notes/Assess & Plan Date Seen by Provider: Sep 24, 2017 Time Seen by Provider: 07:40 Progress/Assessment & Plan No complaints LLE--dressing intact. No calf tenderness. Neg Alex's s/p L hip Im osmany continue PT/OT Final Diagnosis reports improved hip pain Vital Signs Date Time Temp Pulse Resp B/P (MAP) Pulse Ox O2 Delivery O2 Flow Rate FiO2 09/24/17 05:36 97.9 85 22 144/63 (90) 93 Vapotherm 18.00 09/24/17 04:15 80 NIV CPAP 09/24/17 01:10 91 NIV CPAP 11.00 09/24/17 00:06 93 NIV CPAP 11.00 09/23/17 21:12 93 Nasal Cannula 7.00 09/23/17 20:55 Nasal Cannula 7.00 09/23/17 19:32 92 Nasal Cannula 7.00 09/23/17 19:13 79 89 09/23/17 19:13 89 Nasal Cannula 6.00 09/23/17 17:25 98.3 83 18 127/64 (85) 94 6.00 09/23/17 13:52 91 Nasal Cannula 6.00 09/23/17 11:08 91 NIV CPAP 6.00 09/23/17 09:00 Nasal Cannula 6.00 I & O 09/24/17 07:00 Intake Total 2150 ml Output Total 1275 ml Balance 875 ml Laboratory Tests Test 09/24/17 04:15 Range/Units White Blood Count 8.3 4.3-11.0 10^3/uL Red Blood Count 2.52 L 4.35-5.85 10^6/uL Hemoglobin 7.6 L 13.3-17.7 G/DL Hematocrit 25 L 40-54 % Mean Corpuscular Volume 99 80-99 FL Mean Corpuscular Hemoglobin 30 25-34 PG Mean Corpuscular Hemoglobin Concent 30 L 32-36 G/DL Red Cell Distribution Width 14.9 H 10.0-14.5 % Platelet Count 432 H 130-400 10^3/uL Mean Platelet Volume 8.7 7.4-10.4 FL Neutrophils (%) (Auto) 83 H 42-75 % Lymphocytes (%) (Auto) 6 L 12-44 % Monocytes (%) (Auto) 10 0-12 % Eosinophils (%) (Auto) 1 0-10 % Basophils (%) (Auto) 0 0-10 % Neutrophils # (Auto) 6.9 1.8-7.8 X 10^3 Lymphocytes # (Auto) 0.5 L 1.0-4.0 X 10^3 Monocytes # (Auto) 0.9 0.0-1.0 X 10^3 Eosinophils # (Auto) 0.1 0.0-0.3 10^3/uL Basophils # (Auto) 0.0 0.0-0.1 10^3/uL Prothrombin Time 33.7 H 12.2-14.7 SEC INR Comment 3.3 H 0.8-1.4 Sodium Level 139 135-145 MMOL/L Potassium Level 4.4 3.6-5.0 MMOL/L Chloride Level 109 H 98-107 MMOL/L Carbon Dioxide Level 21 21-32 MMOL/L Anion Gap 9 5-14 MMOL/L Blood Urea Nitrogen 14 7-18 MG/DL Creatinine 1.10 0.60-1.30 MG/DL Estimat Glomerular Filtration Rate > 60 BUN/Creatinine Ratio 13 Glucose Level 121 H 70-105 MG/DL Calcium Level 8.1 L 8.5-10.1 MG/DL Phosphorus Level 2.6 2.3-4.7 MG/DL Magnesium Level 1.9 1.8-2.4 MG/DL L hip kurtis intact. Incision clean and dry able to flex hip I s/p IM osmany L hip DC kurtis check stools for occult blood DOMINIK ALBA MD Sep 24, 2017 07:41
[2017-09-24] MEDS: LACTULOSE SYRUP 10GM/15ML (ENULOSE) 30ML UDC PO SCH ×2 (07:50→21:38)
[2017-09-24] MEDS: SENNA W/DOCUSATE (SENOKOT S) TABLET PO SCH (07:50)
[2017-09-24] MEDS: DOCUSATE SODIUM 100 MG (COLACE) CAP PO SCH ×3 (07:50→21:34)
[2017-09-24] MEDS: POLYETHYLENE GLYCOL 17 GM (MIRALAX) PACK PO SCH ×3 (07:50→21:38)
[2017-09-24] MEDS: oxyCODONE/APAP 5/325MG (PERCOCET 5) TABLET PO PRN ×3 (08:44→22:27)
[2017-09-24] MEDS: FLECAINIDE 100 MG (TAMBOCOR) TAB PO SCH ×2 (08:44→21:35)
[2017-09-24] MEDS: DILTIAZEM 240 MG (CARDIZEM CD) CAP PO SCH (08:44)
[2017-09-24] MEDS: TAMSULOSIN 0.4 MG (FLOMAX) CAP PO SCH ×2 (08:44→21:35)
[2017-09-24] MEDS: CEPHALEXIN 250 MG (KEFLEX) CAP PO SCH ×4 (08:44→21:34)
[2017-09-24] MEDS: FINASTERIDE (PROSCAR) 5 MG TAB PO SCH (08:44)
[2017-09-24] MEDS ORDERED: FUROSEMIDE 40 MG/4 ML INJ (LASIX) IVP NR (09:30)
--- NOTE | 2017-09-24 10:31 | Diagnostic Imaging Report ---
INDICATION: Pneumonia. Comparison made with prior examination 09/22/2017. FINDINGS: Cardiomegaly. There is some venous congestion. There are bibasilar infiltrates. Small bilateral pleural effusions. There is no pneumothorax. Mediastinum is unremarkable. IMPRESSION: Bibasilar infiltrates and bilateral pleural effusions. Cardiomegaly and some central pulmonary venous congestion. Dictated by: Dictated on workstation # [id number]
--- NOTE | 2017-09-24 13:44 | Progress Note-Hospitalist ---
Subjective HPI/CC On Admission Date Seen by Provider: Sep 24, 2017 Time Seen by Provider: 13:37 Subjective/Events-last exam develop shortness of breath last night. I was contacted in the middle of the night roughly around 430 a.m. They placed him on high flow oxygen to maintain saturations in the low 90s. He had history by basilar infiltrate with pleural effusion but has not been having any chills or fever with normalization of an initially high white count. He had grown methicillin sensitive staph aureus from his sputum and either after initial vancomycin or Zyvox he was switched to cephalexin. He was given 40 mg of Lasix IV and had a prompt 2 L of urinary output with improvement in shortness of breath and overall sensation of chest tightness. EKG was obtained this morning as well as troponin levels and both were normal. He had no evidence for recurrence of atrial fibrillation as he has a past history of paroxysmal atrial fibrillation. Multiple family members were present this morning around 830 on my arrival. At that time about one hour of care time was spent in evaluation of his past medical record evaluating the patient and answering family questions. His past medical history is significant for COPD and obstructive sleep apnea with requirement of oxygen at night with secondary paroxysmal atrial fibrillation and chronic Coumadin therapy. 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 I returned a repeat patient evaluation at 130 and called the daughter to give an update. He was sleeping reporting no chest pain or shortness of breath at rest with O2 saturations 98- 99 percent still on high flow oxygen. Objective Exam Vital Signs Vital Signs Date Time Temp Pulse Resp B/P (MAP) Pulse Ox O2 Delivery O2 Flow Rate FiO2 09/24/17 12:02 Vapotherm 18.00 65 09/24/17 05:36 97.9 85 22 144/63 (90) 93 Capillary Refill : Less Than 3 Seconds General Appearance: No Apparent Distress, Chronically ill Respiratory: Other (Anteriorly chest this morning revealed a few rales they have now cleared. Posteriorly there are diminished breath sounds in both bases with bilateral rales no wheezing is appreciated rest for a rate was down to 16 and nonlabored) Cardiovascular: Regular Rate, Rhythm, No Edema, No Gallop, No JVD, No Murmur, Normal Peripheral Pulses Gastrointestinal: Normal Bowel Sounds, No Organomegaly, No Pulsatile Mass, Non Tender, Soft Extremity: No Pedal Edema, Other (Mild swelling left upper thigh surgical site no evidence for ecchymosis incision sites clean without erythema or evidence for infection) Neurologic/Psychiatric: Alert, Other (Oriented 2) Results/Procedures Lab Laboratory Tests 09/24/17 04:15 Patient resulted labs reviewed. Assessment/Plan Assessment and Plan Assess & Plan/Chief Complaint A/P 1. History of physical and chest x-ray are all compatible with acute on chronic heart failure likely diastolic in etiology. Patient is responding well to Lasix with no evidence for acute coronary syndrome with normal EKG and troponin levels the latter being done at least 4 hours after the onset of shortness of breath. We'll switch to by mouth Lasix and obtain echocardiogram in the morning. Had a long discussion with family with 2 evaluations today. Currently due to rapid significant improvement we'll hold off on transfer to acute care and will initiate attempts to decrease oxygen flow. 2. History of at least nighttime O2 dependence secondary to COPD and obstructive sleep apnea continue CPAP. 3. By basilar infiltrates questionable methicillin sensitive staph pneumonia no evidence to suggest but worsening infection is contributing to shortness of breath considering response to Lasix normalization of white count and lack of purulent sputum production. 4. I did discuss overall poor prognosis despite best medical care in an 81-year -old with significant above-mentioned medical comorbidities following hip fracture. 5. INR up slightly to 3.3 no evidence for ongoing bleeding Coumadin has been further reduced to 1 mg with repeat a.m. INR. 6. Anemia multifactorial suspect baseline chronic disease with acute hip fracture related loss. The patient is hemodynamically stable considering recent heart failure we'll hold off blood transfusion with strong possibility that blood counts will be higher tomorrow considering some hemoconcentration from today's diuretic therapy. Thus far an hour and a half's worth of care time of been spent today. Clinical Quality Measures DVT/VTE Risk/Contraindication: Risk Factor Score Per Nursin RFS Level Per Nursing on Admit: 4+=Very High ANTOINE CARDOZA MD Sep 24, 2017 13:44
[2017-09-24] MEDS: UMECLIDINIUM BROMIDE (INCRUSE ELLIPTA) 7'S IH SCH (15:55)
[2017-09-24] MEDS: RT-ADVAIR HFA 115/21 MCG PER PUFF IH SCH ×2 (15:59→19:04)
[2017-09-24 17:06] VITALS: BP 133/62
[2017-09-24] MEDS ORDERED: warFARin 1 MG (COUMADIN) TAB PO NR (18:00)
[2017-09-24] MEDS: ATORVASTATIN 10 MG (LIPITOR) TABLET PO SCH (21:35)
[2017-09-25] MEDS: RT-ALBUTEROL SULF 2.5 MG/3 ML PRE-MIX VIAL INH SCH ×3 (01:58→11:19)
[2017-09-25] MEDS: oxyCODONE/APAP 5/325MG (PERCOCET 5) TABLET PO PRN ×2 (05:14→11:08)
[2017-09-25 05:36] VITALS: BP 127/60
[2017-09-25] MEDS: RT-ADVAIR HFA 115/21 MCG PER PUFF IH SCH (06:49)
[2017-09-25] MEDS: UMECLIDINIUM BROMIDE (INCRUSE ELLIPTA) 7'S IH SCH (06:49)
[2017-09-25] MEDS ORDERED: KCL 8 MEQ (MICRO K) TABLET PO SCH (07:00)
[2017-09-25] MEDS: PANTOPRAZOLE 40 MG (PROTONIX) TAB PO SCH (07:04)
[2017-09-25] MEDS: LACTOBACILLUS Acidoph/Bulgar (LACTINEX/FLORANEX) TAB PO SCH ×2 (07:04→11:08)
[2017-09-25] MEDS: MULTIVIT W/MINERALS TAB (THERAGRAN M) PO SCH (07:04)
[2017-09-25 07:21] LABS: BASOPHILS % (AUTO) 0 % (0-10); EOSINOPHILS # (AUTO) 0.1 10^3/uL (0.0-0.3); EOSINOPHILS % (AUTO) 1 % (0-10); HEMATOCRIT 24 % (40-54); HEMOGLOBIN 7.5 G/DL (13.3-17.7); LYMPHOCYTES # (AUTO) 0.5 X 10^3 (1.0-4.0); LYMPHOCYTES % (AUTO) 5 % (12-44); MEAN CORPUSCULAR HEMOGLOBIN 31 PG (25-34); MEAN CORPUSCULAR HGB CONC 32 G/DL (32-36); MEAN CORPUSCULAR VOLUME 98 FL (80-99); MEAN PLATELET VOLUME 8.9 FL (7.4-10.4); MONOCYTES # (AUTO) 0.8 X 10^3 (0.0-1.0); MONOCYTES % (AUTO) 9 % (0-12); NEUTROPHILS # (AUTO) 7.8 X 10^3 (1.8-7.8); NEUTROPHILS % (AUTO) 85 % (42-75); PLATELET COUNT 431 10^3/uL (130-400); RED BLOOD COUNT 2.39 10^6/uL (4.35-5.85); RED CELL DISTRIBUTION WIDTH 14.7 % (10.0-14.5); WHITE BLOOD COUNT 9.2 10^3/uL (4.3-11.0)
[2017-09-25 07:31] LABS: INR 2.8 (0.8-1.4); PROTHROMBIN TIME PATIENT 29.8 SEC (12.2-14.7)
[2017-09-25 07:38] LABS: BUN/CREATININE RATIO 13; CALCIUM 8.4 MG/DL (8.5-10.1); CARBON DIOXIDE 23 MMOL/L (21-32); CHLORIDE 105 MMOL/L (98-107); CREATININE SERUM 1.11 MG/DL (0.60-1.30); GFR ESTIMATED > 60; GLUCOSE 170 MG/DL (70-105); POTASSIUM 4.3 MMOL/L (3.6-5.0); SODIUM 138 MMOL/L (135-145)
--- NOTE | 2017-09-25 07:54 | Progress Note-Standard ---
Standard Progress Note Progress Notes/Assess & Plan Date Seen by Provider: Sep 25, 2017 Time Seen by Provider: 07:53 Progress/Assessment & Plan No complaints LLE--dressing intact. No calf tenderness. Neg Alex's s/p L hip Im osmany continue PT/OT Final Diagnosis slept well L hip kurtis out No calf tnderness reinforced the need to work with PT/OT DOMINIK ALBA MD Sep 25, 2017 07:54
--- NOTE | 2017-09-25 08:10 | Progress Note (SOAP) ---
Subjective Time Seen by Provider: 08:10 Subjective/Events-last exam Patient had a difficult weekend. Patient on Vapotherm now. Patient has pneumonia. Have consult with cardiology. Patient seen pulmonology. Patient this morning feeling better. Patient may not be able to do 3 hours of physical therapy and occupational therapy today Objective Exam Vital Signs Date Time Temp Pulse Resp B/P (MAP) Pulse Ox O2 Delivery O2 Flow Rate FiO2 09/25/17 06:47 93 Vapotherm 18.00 65 09/25/17 05:36 97.8 68 20 127/60 (82) 95 Vapotherm 65.00 18.00 09/25/17 01:58 92 Vapotherm 18.00 65 09/24/17 22:38 94 Vapotherm 18.00 65 09/24/17 21:00 Vapotherm 18.00 65 09/24/17 19:05 93 Vapotherm 18.00 75 09/24/17 17:06 98.0 78 18 133/62 (85) 96 Vapotherm 65.00 18.00 09/24/17 14:56 Vapotherm 18.00 65 09/24/17 12:02 Vapotherm 18.00 65 09/24/17 09:00 Vapotherm 18.00 65 I & O 09/25/17 07:00 Intake Total 1450 ml Output Total 3000 ml Balance -1550 ml Capillary Refill : Less Than 3 Seconds General Appearance: No Apparent Distress, WD/WN HEENT: Normal ENT Inspection Neck: Normal Inspection Respiratory: No Accessory Muscle Use, No Respiratory Distress Cardiovascular: Regular Rate, Rhythm Gastrointestinal: non tender Results Lab Laboratory Tests 09/25/17 07:04 Laboratory Tests 09/24/17 14:30: Stool Occult Blood Immunoassay NEGATIVE 09/25/17 07:04: White Blood Count 9.2, Red Blood Count 2.39L, Hemoglobin 7.5L, Hematocrit 24L, Mean Corpuscular Volume 98, Mean Corpuscular Hemoglobin 31, Mean Corpuscular Hemoglobin Concent 32, Red Cell Distribution Width 14.7H, Platelet Count 431H, Mean Platelet Volume 8.9, Neutrophils (%) (Auto) 85H, Lymphocytes (%) (Auto) 5L , Monocytes (%) (Auto) 9, Eosinophils (%) (Auto) 1, Basophils (%) (Auto) 0, Neutrophils # (Auto) 7.8, Lymphocytes # (Auto) 0.5L, Monocytes # (Auto) 0.8, Eosinophils # (Auto) 0.1, Basophils # (Auto) 0.0, Prothrombin Time 29.8H, INR Comment 2.8H, Sodium Level 138, Potassium Level 4.3, Chloride Level 105, Carbon Dioxide Level 23, Anion Gap 10, Blood Urea Nitrogen 14, Creatinine 1.11, Estimat Glomerular Filtration Rate > 60, BUN/Creatinine Ratio 13, Glucose Level 170H, Calcium Level 8.4L Microbiology 09/21/17 Blood Culture - Preliminary, Resulted No growth 09/20/17 Gram Stain - Final, Complete 09/20/17 Sputum Culture - Final, Complete Staphylococcus aureus Assessment/Plan Assessment/Plan Assess & Plan/Chief Complaint . Hip fracture. COPD. A. fib history. Constipation. . 09/13/17. Hip fracture. COPD. A. fib history. Patient had good bowel movement today area . 09/14/17. Hip fracture. COPD. Patient had good bowel movement today. Patient stomach upset today. . 09/15/17. Hip fracture. COPD. Patient has pains. Patient has improvement. . 09/19/17. Hip fracture. COPD.. Pain. History of present illness. Atrial fibrillation history. Hypertension. Patient has TO WORK. . 09/20/17. Hip fracture. COPD. Pneumonia. History of atrial fibrillation. Hypertension. Patient put on antibiotics. Consult with pulmonology. Patient not to have PT or OT today. . 09/21/17. Hip fracture. COPD. Pneumonia. History of atrial fib. Hypertension. Sputum cultures staph aureus. Hemoglobin and hematocrit decreased. Patient on Coumadin. May have to decrease the amount of PT and OT today with his pneumonia. . 09/22/17. Hip fracture. COPD. Pneumonia. History of atrial fibrillation. Hypertension. White blood cell count better today. Hemoglobin and hematocrit stable. INR therapeutic. Except for stomach problems patient doing better. . 09/24/17. Hip fracture. COPD. Pneumonia. History of atrial fibrillation. Hypertension. Patient anemic. Hemoglobin and hematocrit stable. INR therapeutic. Patient on vapo mist Consult with cardiology Clinical Quality Measures Admission Status Admission Dx Hip fracture. Hypertension. Atrial fibrillation. COPD. Constipation DVT/VTE Risk/Contraindication: Risk Factor Score Per Nursin RFS Level Per Nursing on Admit: 4+=Very High YOUSIF ARAGON DO Sep 25, 2017 08:10
--- NOTE | 2017-09-25 08:14 | Diagnostic Imaging Report ---
INDICATION: Pneumonia. Comparison made with prior examination 09/24/2017. FINDINGS: There is cardiomegaly. There is some venous congestion. There are persistent patchy bibasilar infiltrates which may be slightly improved. There are small bilateral pleural effusions. There is no pneumothorax. IMPRESSION: Slight improvement in the patchy bibasilar pulmonary infiltrates with persistent small bilateral pleural effusions. Cardiomegaly and mild venous congestion. Dictated by: Dictated on workstation # [id number]
[2017-09-25] MEDS: POLYETHYLENE GLYCOL 17 GM (MIRALAX) PACK PO SCH (08:19)
[2017-09-25] MEDS: SENNA W/DOCUSATE (SENOKOT S) TABLET PO SCH (08:19)
[2017-09-25] MEDS: DOCUSATE SODIUM 100 MG (COLACE) CAP PO SCH (08:19)
[2017-09-25] MEDS: LACTULOSE SYRUP 10GM/15ML (ENULOSE) 30ML UDC PO SCH (08:19)
[2017-09-25] MEDS: FINASTERIDE (PROSCAR) 5 MG TAB PO SCH (08:27)
[2017-09-25] MEDS: FLECAINIDE 100 MG (TAMBOCOR) TAB PO SCH (08:28)
[2017-09-25] MEDS: TAMSULOSIN 0.4 MG (FLOMAX) CAP PO SCH (08:28)
[2017-09-25] MEDS: DILTIAZEM 240 MG (CARDIZEM CD) CAP PO SCH (08:28)
[2017-09-25] MEDS: CEPHALEXIN 250 MG (KEFLEX) CAP PO SCH (08:28)
[2017-09-25] MEDS ORDERED: FUROSEMIDE 40 MG (LASIX) TAB PO SCH (09:00)
[2017-09-25] MEDS ORDERED: cefTRIAXone 1 GM/NS 50 ML IVPB IV SCH ×2 (09:00)
--- NOTE | 2017-09-25 09:24 | Pulmonary Progress Note ---
Subjective Time Seen by Provider: 09:23 Subjective/Events-last exam Called to bedside secondary to worsening hypoxia. Exam Exam Vital Signs Date Time Temp Pulse Resp B/P (MAP) Pulse Ox O2 Delivery O2 Flow Rate FiO2 09/25/17 06:47 93 Vapotherm 18.00 65 09/25/17 05:36 97.8 68 20 127/60 (82) 95 Vapotherm 65.00 18.00 09/25/17 01:58 92 Vapotherm 18.00 65 09/24/17 22:38 94 Vapotherm 18.00 65 09/24/17 21:00 Vapotherm 18.00 65 09/24/17 19:05 93 Vapotherm 18.00 75 09/24/17 17:06 98.0 78 18 133/62 (85) 96 Vapotherm 65.00 18.00 09/24/17 14:56 Vapotherm 18.00 65 09/24/17 12:02 Vapotherm 18.00 65 I & O 09/25/17 07:00 Intake Total 1450 ml Output Total 3000 ml Balance -1550 ml General Appearance: No Apparent Distress, WD/WN HEENT: Normal ENT Inspection Neck: Normal Inspection Respiratory: No Accessory Muscle Use, No Respiratory Distress Cardiovascular: Regular Rate, Rhythm Gastrointestinal: non tender Extremity: No Pedal Edema, Other (Mild swelling left upper thigh surgical site no evidence for ecchymosis incision sites clean without erythema or evidence for infection) Neurologic/Psychiatric: Alert, Other (Oriented 2) Results Lab Laboratory Tests 09/24/17 04:15 09/25/17 07:04 Assessment/Plan Assessment/Plan MSSA pneumonia - Rocephin -repeat labs -Oxygen as needed Hypoxia - worsening -check Bilateral dopplers and stat CT of chest r/o PE -Echocardiogram pending Pulmonary edema -Continue Lasix -CXR reviewed and actually appears improved despite hypoxia worsening -CHECK CTA HX of COPD -SVNS DuoNeb change to QID from PRN Atelectasis -IS S/p Fracture hip and surgical repair Debility -PT/OT 233 LILO ROMO DO Sep 25, 2017 09:24
[2017-09-25] MEDS ORDERED: IOHEXOL 350 MG/ML 150 ML (OMNIPAQUE 350) VIAL IV ONE (09:30)
[2017-09-25] MEDS ORDERED: NS 250 ML (IVPB) BAG IV ONE (09:30)
[2017-09-25 09:35] LABS: ABG BASE EXCESS 1.8 MMOL/L (-2.5-2.5); ABG OXYGEN SATURATION 98 % (94-100); ABG PCO2 37 MMHG (35-45); ABG PH 7.45 (7.37-7.43); ABG PO2 85 MMHG (79-93); ALLENS TEST YES-POS; INSPIRED O2 18L/65%; VENTILATOR NO
--- NOTE | 2017-09-25 10:48 | Diagnostic Imaging Report ---
PROCEDURE: CT angiography of the chest with contrast. TECHNIQUE: Multiple contiguous axial images were obtained through the chest after uneventful bolus administration of intravenous contrast. Reconstructed CTA MIP acquisitions were also performed. INDICATION: Hypoxia. Exam compared with study 05/06/2010. There are no intraluminal pulmonary arterial filling defects. There is no evidence for pulmonary arterial embolus. The atherosclerotic aorta is nonaneurysmal and nonacute. There is coronary arterial atherosclerosis. There are bilateral pleural effusions greater right nonloculated showing mild increase in volume from the previous study. There is increased bilateral hilar and mediastinal lymphadenopathy when compared to the prior. The largest subcarinal node has an AP short axis dimension of 1.9 cm. Largest right hilar node is 2.8 x 2.1 cm, the largest left hilar node 2.0 x 1.4 cm. A right-sided posterior inferior pulmonary hilar nodule today measures 2.9 x 2.3 cm and had previously measured 2.0 x 1.2 cm. Heterogeneous air trapping and features of COPD with mild cylindrical bronchiectasis as a chronic finding redemonstrated showing mild generalized progression from the previous. There is basilar atelectasis having progressed. There is no pneumothorax. Upper abdomen reveals an increase in bilateral exophytic renal nodularity with left upper pole renal nodule measuring 11 mm and a right upper pole renal nodule medially oriented measuring 1.4 cm showing densities greater than would be expected for simple cysts. These are not present on the CT of 2010. It is unclear if they are solid or cystic. A nonemergent correlative ultrasound is suggested. Additional larger right renal cortical cyst at the upper pole laterally oriented stable and benign. IMPRESSION: Negative for PE or acute aortic pathology. Increased pleural effusions, progressive chronic lung disease and progressive basilar atelectasis. Progressive hilar and mediastinal lymphadenopathy. No pneumothorax. Dictated by: Dictated on workstation # [id number]
--- NOTE | 2017-09-25 11:21 | Cardiology Progress Note ---
Subjective Date Seen by Provider: Sep 25, 2017 Time Seen by Provider: 11:15 Subjective/Events-last exam patient is laying down in bed, complaining of fatigue and loss of energy. I was consulted back to reevaluate him after transfer to rehabilitation. Apparently he developed pneumonia and has been receiving antibiotics for the past 5 days, noted to be anemic. Reported occasional episode of chest pain described it as dull achiness all over his chest. No syncope, has been hypoxemic and requiring high oxygen flow. Review of Systems General: No Chills, No Night Sweats; Fatigue, Malaise; No Appetite, No Other HEENT: No Head Aches, No Visual Changes, No Eye Pain, No Ear Pain, No Dysphasia , No Sinus Congestion, No Post Nasal Drip, No Sore Throat, No Other Pulmonary: Dyspnea, Cough; No Pleuritic Chest Pain, No Other Cardiovascular: Chest Pain; No: Palpitations, Orthopnea, Paroxysmal Noc. Dyspnea, Edema, Lt Headedness, Other Objective-Cardiology Exam Last Set of Vital Signs Vital Signs 09/25/17 09/25/17 05:36 06:47 Temp 97.8 Pulse 68 Resp 20 B/P (MAP) 127/60 (82) Pulse Ox 93 O2 Delivery Vapotherm O2 Flow Rate 18.00 FiO2 65 Capillary Refill : Less Than 3 Seconds I&O Intake and Output 09/25/17 00:00 Intake Total 1200 ml Output Total 2625 ml Balance -1425 ml Intake Oral 1200 ml Output Urine Total 2625 ml # Bowel Movements 1 General: Alert, Oriented X3, Cooperative, No Acute Distress HEENT: Atraumatic, PERRLA, EOMI Neck: Supple, No JVD Lungs: Clear to Auscultation Heart: Regular Rate, Normal S1, Normal S2 Abdomen: Normal Bowel Sounds, Soft, No Tenderness Extremities: No Clubbing, No Cyanosis, No Edema Skin: No Rashes Neuro: Normal Speech, Other (weakness in legs) Results Lab Laboratory Tests 09/25/17 07:04 A/P-Cardiology Admission Diagnosis Hip fracture Shortness of breath Coronary artery disease Atrial fibrillation Hypertension Assessment/Plan Hip fracture status post surgical repair, done on September 09, 2017. Has been in rehabilitation, receiving physical therapy, poor functional status due to multiple comorbid condition. Pneumonia, receiving antibiotic, Dr. Harvey was consulted. Has been managed. Sputum culture grew staph, one set of blood culture were positive, 2 other sets were negative for staph. Currently receiving antibiotics. Managed by medical team. Chest pain nonspecific etiology, cardiac enzymes were negative. Patient has been hypoxemic requiring high flow oxygen in addition to severe anemia. He received blood transfusion and we'll monitor closely. Anemia, slightly worse post operatively. Scheduled to receive blood transfusion today. Continue to monitor as an outpatient. Paroxysmal atrial fibrillations, currently in sinus rhythm, had workup done in , continue to monitor at this time. 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 Hypertension, good control. Continue to monitor blood pressure at this time. Status post acute renal failure, renal function are better at this time, continue to monitor. COPD/obstructive sleep apnea, using C Pap at night. Managed by medical team BPH, managed by primary care physician Clinical Quality Measures DVT/VTE Risk/Contraindication: Risk Factor Score Per Nursin RFS Level Per Nursing on Admit: 4+=Very High HUONG SIFUENTES MD Sep 25, 2017 11:21
[2017-09-25] MEDS ORDERED: PANT40TA3 PO (11:34)
[2017-09-25] MEDS ORDERED: SENN-20 PO (11:34)
[2017-09-25] MEDS ORDERED: Finasteride PO (11:34)
[2017-09-25] MEDS ORDERED: ONDA4TAB11 PO (11:34)
[2017-09-25] MEDS ORDERED: ACID1TAB PO (11:34)
[2017-09-25] MEDS ORDERED: UMEC62.5 IH (11:34)
[2017-09-25] MEDS ORDERED: MELA3TAB PO (11:34)
[2017-09-25] MEDS ORDERED: FURO40TA4 PO (11:34)
[2017-09-25] MEDS ORDERED: OXYC-471 PO (11:34)
[2017-09-25] MEDS ORDERED: POTA8CAP9 PO (11:34)
[2017-09-25] MEDS ORDERED: ATOR10TA66 PO (11:34)
[2017-09-25] MEDS ORDERED: MAGN400O7 PO (11:34)
[2017-09-25] MEDS ORDERED: LACT20SO2 PO (11:34)
[2017-09-25] MEDS ORDERED: ACET325T49 PO (11:34)
[2017-09-25] MEDS ORDERED: MAG30ORA2 PO (11:34)
[2017-09-25] MEDS ORDERED: WARF1TAB PO (11:34)
[2017-09-25] MEDS ORDERED: POLY17PO23 PO (11:34)
--- NOTE | 2017-09-25 11:43 | Occ Therapy Progress Note ---
Therapy Progress Note Pt not seen this morning due to increased oxygen needs, STAT CT scan and other tests/procedures. Now planning transfer to acute care. NATALI CHEN OT Sep 25, 2017 11:43
--- NOTE | 2017-09-25 11:48 | Therapy Team Discharge Summary ---
Therapy Discharge Summary Discharge Recommendations Date of Discharge Therapy D/C Recommendations: Home w/ Family Support, Custodial (TCU/NH) Physical Therapy Patient came to rehab following a left hip fracture. Upon evaluation patient performed bed mobility and transfers with max assist, dependent for car transfer , no ambulation, and he propelled a manual wheelchair 10' with max assist. Patient has been performing bed mobility and transfer training, balance and endurance training, functional strengthening, gait training, and education. Patient has made some progress with bed mobility and transfers but has to be transferred to the medical floor due to medical complications. He will be discharged from PT at this time. Occupational Therapy Decreased Activ Tolerance, Decreased UE Strength, Dependent Transfers, Impaired Bed Mobility, Impaired Self-Care Skills PT Longterm Goals Work Checker Goals PT Longterm Goals Time Frame: Oct 02, 2017 Transfers (B,C,W/C) (FIM): 4 Roll Left to Right (QC): 3 Sit to Lying (QC): 3 Lying-Sitting on Side/Bed(QC): 3 Sit to Stand (QC): 3 Chair/Tad-jn-Fpmdw Xfer(QC): 3 Car Transfer (QC): 3 Gait (FIM): 1 Distance: 20' Walk 10 feet (QC): 3 Walk 10ft-Uneven Surface(QC): 3 Gait Level of Assist: 4 Gait Assistive Device: FWW Wheelchair (FIM): 6 Distance: 150' Wheelchair Level of Assist: 6 Wheel 50 feet with 2 turns (QC: 6 Stairs (FIM): 2 # of Steps: 4 1 Step (curb) (QC): 3 Stairs Level Of Assist: 4 OT Longterm Goals Work Checker Goals Time Frame: Sep 29, 2017 Eating (FIM): 6 Eating (QC): 6 Oral Hygiene (QC): 6 Grooming(FIM): 6 Bathing(FIM): 6 Shower/Bathe Self (QC): 6 Upper Body Dressing(FIM): 6 Upper Body Dressing (QC): 6 Lower Body Dressing(FIM): 6 Lower Body Dressing (QC): 6 On/Off Footwear (QC): 6 Toileting(FIM): 6 Toileting Hygiene (QC): 6 Toilet/Commode Transfer(FIM): 6 Toilet/Commode Transfer (QC): 6 Shower Transfer(FIM): 6 Additional Goals: 1-Demonstrate ADL Tasks, 2-Verbalize Understanding, 3- ImproveStrength/Syl 1=Demonstrate adherence to instructed precautions during ADL tasks. 2=Patient will verbalize/demonstrate understanding of assistive devices/ modifications for ADL. 3=Patient will improve strength/tolerance for activity to enable patient to perform ADL's. BRAULIO HERNÁNDEZ PT Sep 25, 2017 11:48
[2017-09-25] MEDS ORDERED: PITA2TAB2 PO (15:22)
[2017-09-25] MEDS ORDERED: DUTA0.5C14 PO (15:22)
[2017-09-25] MEDS ORDERED: WARF-47 PO ×2 (15:22)
--- NOTE | 2017-09-25 15:56 | Diagnostic Imaging Report ---
INDICATION: Lower extremity pain and swelling. TECHNIQUE: Multiple real-time grayscale images were obtained over the lower extremities in various projections. Duplex Doppler and color Doppler images were also obtained. FINDINGS: The common femoral, femoral, popliteal veins and tibial veins demonstrate normal response to compression, augmentation and Valsalva. There are no abnormal lower extremity fluid collections or masses. IMPRESSION: No evidence of deep venous thrombosis in either lower extremity. Dictated by: Dictated on workstation # [id number]
[2017-09-25] MEDS ORDERED: warFARin 1 MG (COUMADIN) TAB PO SCH (18:00)
--- NOTE | 2017-09-26 15:21 | Therapy Team Discharge Summary ---
Therapy Discharge Summary Discharge Recommendations Date of Discharge Sep 25, 2017 at 12:00 Therapy D/C Recommendations: Home w/ Family Support, Senior Living (TCU/NH) Occupational Therapy Pt was seen for skilled OT to increase his independence in basic self care to allow him to safely return home after a fall with L hip fx and repair. On admission he was modified independent with eating, setup fro grooming, min assist upper body dressing, mod assistance bathing and dependant for lower body dressing, toileting, and toilet transfers. by discharge he still needed mod assist with bathing, was still min assist with upper body dressing, max assist lower body dressing. he could groom with setup and feed himself. He was transferred to acute care due to increased need for oxygen. See tx plan for goals met. DC OT. Continued OT is recommended. Decreased Activ Tolerance, Decreased UE Strength, Dependent Transfers, Impaired Bed Mobility, Impaired Self-Care Skills PT Boatswain Mate Goals Halfway Goals PT Boatswain Mate Goals Time Frame: Oct 02, 2017 Transfers (B,C,W/C) (FIM): 4 Roll Left to Right (QC): 3 Sit to Lying (QC): 3 Lying-Sitting on Side/Bed(QC): 3 Sit to Stand (QC): 3 Chair/Tjf-rw-Pciwz Xfer(QC): 3 Car Transfer (QC): 3 Gait (FIM): 1 Distance: 20' Walk 10 feet (QC): 3 Walk 10ft-Uneven Surface(QC): 3 Gait Level of Assist: 4 Gait Assistive Device: FWW Wheelchair (FIM): 6 Distance: 150' Wheelchair Level of Assist: 6 Wheel 50 feet with 2 turns (QC: 6 Stairs (FIM): 2 # of Steps: 4 1 Step (curb) (QC): 3 Stairs Level Of Assist: 4 OT Boatswain Mate Goals Boatswain Mate Goals Time Frame: Sep 29, 2017 Eating (FIM): 6 (met) Eating (QC): 6 (met) Oral Hygiene (QC): 6 (not met) Grooming(FIM): 6 (not met) Bathing(FIM): 6 (not met) Shower/Bathe Self (QC): 6 (not met) Upper Body Dressing(FIM): 6 (not met) Upper Body Dressing (QC): 6 (not met) Lower Body Dressing(FIM): 6 (not met) Lower Body Dressing (QC): 6 (not met) On/Off Footwear (QC): 6 (not met) Toileting(FIM): 6 (not met) Toileting Hygiene (QC): 6 (not met) Toilet/Commode Transfer(FIM): 6 (not met) Toilet/Commode Transfer (QC): 6 (not met) Shower Transfer(FIM): 6 (not met) Additional Goals: 1-Demonstrate ADL Tasks, 2-Verbalize Understanding, 3- ImproveStrength/Syl 1=Demonstrate adherence to instructed precautions during ADL tasks. 2=Patient will verbalize/demonstrate understanding of assistive devices/ modifications for ADL. 3=Patient will improve strength/tolerance for activity to enable patient to perform ADL's. NATALI CHEN OT Sep 26, 2017 15:21
--- NOTE | 2017-09-29 01:45 | DISCHARGE SUMMARY ---
DATE OF SERVICE: 09/25/2017 HISTORY OF PRESENT ILLNESS: The patient is an 81-year-old male who fell at home and sustained a left intertrochanteric hip fracture. The patient was seen by Dr. Culver after being admitted and underwent IM nailing. He was made toe-touch weightbearing left lower extremity. Therapies were begun. He was felt to be appropriate for inpatient rehabilitation and he was transferred to inpatient rehabilitation unit. He lives in a single level home with his spouse with a ramp in front. He had been modified independent with a single-point cane prior to all this. He was referred to inpatient rehabilitation unit due to decline in his functional independence. PAST MEDICAL HISTORY: Atrial fibrillation, COPD, hypertension, FRED, history of tobaccoism, hypertension, paroxysmal atrial fibrillation. He was found to have MSSA pneumonia, this was treated. He was followed by cardiology, pulmonology and hospitalist service. MEDICAL COURSE: The patient had difficulty maintaining his toe-touch weightbearing left lower extremity. He continued was making some progress, but the weekend of 09/23/2017, he developed respiratory failure, requiring increasing amounts of oxygen and Vapotherm. He was seen by Dr. Woodruff on the and then Dr. Summers on the 4th, and the patient was not able to participate at that time in 3 hours of therapy. He was transferred to the fourth floor for further medical management. Chest x-ray revealed ongoing pleural effusions, atelectasis. He was afebrile during his stay. His pulse is 68 on 09/25, respirations 20, blood pressure 127/60, but he required Vapotherm to maintain sats more than 90%. He had dyspnea on exertion. He was not able to maintain his functional gains with therapy due to his worsening pneumonia, atelectasis and probable acute exacerbation of diastolic congestive heart failure. He was placed on Rocephin for MSSA pneumonia. A venous Doppler was done, did not reveal evidence of DVT. A CTA was done of the chest revealing no evidence of pulmonary embolism, but again atelectasis and pleural effusions. An echocardiogram was done, which showed aortic valve sclerosis and mild to moderate tricuspid regurgitation. PHYSICAL THERAPY NOTES: Upon admission, the patient performed bed mobility and transfers with max assist. He was dependent for car transfers. He was nonambulatory and he propelled to manual wheelchair 10 feet with max assist. The patient has made some progress with bed mobility and transfers, but had a decline due to medical complications as outlined above. He was assessed by speech therapy upon admission to rehab unit. They felt he was functional, cognitively reilly they signed off. OT notes upon admission, he was modified independent with eating, set for grooming, min assist upper body dressing, mod assist for bathing, dependent for lower body dressing, toileting and toilet transfers. By discharge, he still needed mod assist with bathing, was still min assist with upper body dressing and max assist for lower body dressing. He could groom himself with setup and feed himself. He was transferred to medical floor due to increased O2 needs and increased shortness of breath. His CBC on 09/25/2017 showed WBC 9.28, H and H 7.5/24, platelet count 431K. His INR on 09/25/2017 was 2.8 down from 3.3 on 09/24/2017. Chemistry on 09/25/2017 revealed blood glucose 170, calcium 8.4, magnesium 1.8. Albumin was 3.4 on 09/20/2017. Troponin 1 was less than 0.30 on 09/24/2017. BNP was 123.1 on 09/25/2017. Blood gas on 09/25/2017 showed pH 7.45, O2 sat 98% on Vapotherm. UA was negative on 09/24/2017. Blood culture on 09/21/2017 was no growth x2. On 09/26/2017, only one bottle showed staph-coagulase negative. Sputum culture on 09/22/2017 showed staph aureus, has multiple sensitivities. DISCHARGE INSTRUCTIONS: The patient was transferred to the fourth floor under the care of Dr. Summers. Dr. Harvey and cardiology, Dr. Culver did see patient while on rehab unit as well, orthopedics. Continue current diet. Antibiotics as per Dr. Harvey. Continue toe-touch weightbearing left lower extremity. He will have followup with Dr. Culver as well, orthopedics. Continue with Vapotherm as per Dr. Harvey's orders with oxygen. Follow up PT INR as per cardiology and Dr. Summers. DISCHARGE MEDICATIONS: Ventolin 2 puffs 4 hours p.r.n. wheeze, diltiazem 240 mg p.o. each day at bedtime, Colace 100 mg p.o. each day at bedtime, flecainide 50 mg p.o. b.i.d., Breo Ellipta 1 puff inhalation daily, Centrum multivitamin 1 tablet p.o. daily, Flomax 0.4 mg p.o. b.i.d., Spiriva 1 capsule inhalation daily, Coumadin orders as per Dr. Summers and cardiology. DISCHARGE DIAGNOSES: 1. Rehabilitation ambulatory dysfunction secondary to left intertrochanteric hip fracture, status post fall, status post IM nailing, toe-touch weightbearing left lower extremity, Dr. Culver, orthopedics. 2. Paroxysmal atrial fibrillation. 3. Acute exacerbation of chronic obstructive pulmonary disease. 4. Hypertension, controlled. 5. Constipation, treated. 6. History of smoking. 7. Status post fall. 8. Pneumonia MSSA, under treatment with antibiotics and respiratory treatments and oxygen as per Dr. Harvey's orders. 9. Acute on chronic diastolic congestive heart failure. 10. Acute renal failure. 11. Atelectasis. 12. Hypertension with diastolic congestive heart failure. 13. Obstructive sleep apnea. 14. Anemia in chronic disease. 15. Postop anemia due to hip fracture/surgery. CONDITION AT DISCHARGE: Unimproved, but stable for transfer to the medical floor. PROGNOSIS: Rehab prognosis appears fair for some continued improvement once this somewhat elderly male with multiple comorbidities is medically stabilized. Perhaps, he will move onto a SNU for ongoing care and treatment as it may be difficult for him to tolerate intensive rehabilitation. Job ID: [id number] DocumentID: [id number] Dictated Date: 09/28/2017 21:33:40 Retail And Restaurant Associate Date: 09/29/2017 01:44:48 Dictated By: SUSAN FRAGOSO MD [facility]
== END 2017-09-25 12:00 | disposition short-term general hospital (02) | DRG 559 ==
PROVIDERS: ADMIT Physical Medicine & Rehabilitation; ATTEND Physical Medicine & Rehabilitation
DX: S72.142D Displaced intertrochanteric fracture of left femur, subsequent encounter for closed fracture with routine healing (principal); J15.211 Pneumonia due to Methicillin susceptible Staphylococcus aureus; I50.33 Acute on chronic diastolic (congestive) heart failure; J44.0 Chronic obstructive pulmonary disease with (acute) lower respiratory infection; N17.9 Acute kidney failure, unspecified; J98.11 Atelectasis; I48.0 Paroxysmal atrial fibrillation; I11.0 Hypertensive heart disease with heart failure; K59.00 Constipation, unspecified; G47.33 Obstructive sleep apnea (adult) (pediatric); D63.8 Anemia in other chronic diseases classified elsewhere; D50.0 Iron deficiency anemia secondary to blood loss (chronic); Z87.891 Personal history of nicotine dependence; W19.XXXD Unspecified fall, subsequent encounter
CPT/HCPCS: 36415; 36600; 71045; 71275; 73502; 74018; 80048; 80053; 81000; 82274; 82805; 83605; 83735; 83880; 84100; 84484; 85007; 85014; 85018; 85025; 85027; 85610; 87040; 87070; 87077; 87186; 87205; 93005; 93320; 93970; 94640; 94664; 94760

== ENCOUNTER 2017-09-25 11:58 | Inpatient (IN) | payer MEDICARE ==
[2017-09-25] VITALS (9 sets, daily range): BP systolic 114–143; BP diastolic 52–80
[~2017-09-25] VITALS: Ht 175.3 cm; Wt 81.0 kg
[~2017-09-25 11:58] MED LIST changes: +ACET325T49 PO; +ACID1TAB PO; +ATOR10TA66 PO; +FURO40TA4 PO; +Finasteride PO; +LACT20SO2 PO; +MAG30ORA2 PO; +MAGN400O7 PO; +MELA3TAB PO; +ONDA4TAB11 PO; +OXYC-471 PO; +PANT40TA3 PO; +POLY17PO23 PO; +POTA8CAP9 PO; +SENN-20 PO; +UMEC62.5 IH; +WARF1TAB PO
[2017-09-25] MEDS ORDERED: ANTACID SUSP 30 ML UDC (MYLANTA) PO PRN (12:15)
[2017-09-25] MEDS ORDERED: RT-ALBUTEROL SULF 2.5 MG/3 ML PRE-MIX VIAL INH PRN (12:15)
[2017-09-25] MEDS ORDERED: BISACODYL 10 MG SUPP (DULCOLAX) PR PRN (12:15)
[2017-09-25] MEDS ORDERED: MELATONIN 3 MG TABLET PO PRN (12:15)
[2017-09-25] MEDS ORDERED: NS IV 1000 ML 1,000 ML IV SCH (12:15)
[2017-09-25] MEDS ORDERED: MILK OF MAGNESIA 400 MG/5 ML 30 ML UDC PO PRN (12:15)
[2017-09-25] MEDS ORDERED: ONDANSETRON 4 MG (ZOFRAN) ORAL DISSOLVE TAB PO PRN (12:15)
[2017-09-25] MEDS ORDERED: CATHETER FLUSH 10 ML SYR IV PRN (12:15)
--- NOTE | 2017-09-25 13:58 | Speech Therapy Progress Note ---
Therapy Progress Note Speech pathology consult received and the patient's chart was extensively reviewed. The patient was recently evaluated by speech pathology on the rehabilitation floor and was found to have cognitive linguistic skills within normal limits (grossly). As the patient recently transferred to acute care, rehabilitation orders were replaced. The clinician believes her orders were carried over erroneously, however, visited with the patient and his family regarding any possible concerns. Per patient (and daughter), the patient and family have no cognitive, speech, or language concerns at this time. The patient was encouraged to follow up with his physician and/youth nutritional monitor if cognitive deficits arise throughout his stay. At this time, speech pathology will sign off. Please reconsult speech pathology if services are warranted. NICOLE REID Sep 25, 2017 13:58
[2017-09-25] MEDS ORDERED: PITA2TAB2 PO (15:22)
[2017-09-25] MEDS ORDERED: DUTA0.5C14 PO (15:22)
[2017-09-25] MEDS ORDERED: WARF-47 PO ×2 (15:22)
--- NOTE | 2017-09-25 15:24 | Occupational Therapy Eval ---
OT Evaluation-General/PLF Medical Diagnosis Admission Date Sep 25, 2017 at 12:05 Medical Diagnosis: L hip fracture Onset Date: September 08, 2017 Therapy Diagnosis Therapy Diagnosis: decr self care, decr funct mob, decr act susan, weakness, decr bed mob Height/Weight Height (Feet): 5 Height (Inches): 9.00 Weight (Pounds): 178 Weight (Ounces): 8.0 Precautions Precautions/Isolations: Standard Precautions Weight Bear Status Weight Bearing Restriction: Touch Toe Bearing Location Restriction: L LE Referral Physician: Kristopher Referral Reason: Evaluation/Treatment Medical History Pertinent Medical History: Atrial Fib, Arthritis, COPD, HTN, PVD, Smoking Additional Medical History Hx DVT. Bronchitis. Stent L femoral distribution, claudication Current History Fell at home, breaking L hip. IM nail 09-09-17. Has been on ARU but developed increased need for O2, increased fatigue and pain so transferred to acute care this morning. Receiving blood at this time. Reviewed History: Yes Social History Home: Single Level Current Living Status: Spouse Entry Into Home: Ramp ADL-Prior Level of Function ADL PLOF Comments Pt reported that he has been able to manage his basic self care needs prior to fall. 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 He is a retired [employer]. Occupation: retired [employer] Self: Yes OT Current Status Subjective Pt seen in room, up in bed, agreeable to OT. Pain at this time is 0/10. Appearance Alert, cooperative Mental Status/Objective Attachments: IV, Oxygen (vapotherm 65%) Current Glasses/Contacts: Yes Hearing Aids: No Dentures/Partials: Yes Hand Dominance: Right Upper Extremity ROM Grossly WFL bilat Upper Extremity Sensation Pt reported hands go to sleep occasionally Upper Extremity Strength Grossly 4+/5 bilat ADL-Treatment ADL-Current When on the rehab unit, he was able to feed himself and groom with setup. He needed min assist for upper body dressing and was max to dependant lower body dressing. It generally took two people to do stand pivot transfer to BSC, w/c or recliner, with FWW. Pt had difficulty maintaining WB status and had problems maintaining sitting balance when at EOB. He needed mod assist for bathing. On the floor today, he has been able to feed himself. Functional Martin Measure 0=Not Assessed/NA 4=Minimal Assistance 1=Total Assistance 5=Supervision or Setup 2=Maximal Assistance 6=Modified Martin 3=Moderate Assistance 7=Complete IndependenceIRFPAI Quality Coding Scale 6 Independent with activity with or without an assistive device 5 Patient requires set up or clean up by helper. Patient completes activity by themselves 4 Supervision or touching assist (CGA). [place] provide cues , steadying assist 3 The helper provides less than half the effort to complete the activity 2 The helper provides more than half the effort to complete the activity 1 Dependent. The helper does all the effort to complete an activity 7 Patient refused to complete or attempt activity 9 The patient did not perform the activity before the current illness or injury 88 Not attempted due to Medical conditions or safety concerns Education OT Patient Education: Purpose of tx/functional activities, Rehab process Teaching Recipient: Patient Teaching Methods: Discussion Response to Teaching: Verbalize Understanding OT Group Home Goals Group Home Goals Time Frame: Oct 06, 2017 Eating (FIM): 6 Grooming(FIM): 5 Bathing(FIM): 4 Upper Body Dressing(FIM): 5 Lower Body Dressing(FIM): 3 Toileting(FIM): 3 Toilet/Commode Transfer(FIM): 3 Shower Transfer(FIM): 3 Additional Goals: 1-Demonstrate ADL Tasks, 2-Verbalize Understanding, 3- ImproveStrength/Syl 1=Demonstrate adherence to instructed precautions during ADL tasks. 2=Patient will verbalize/demonstrate understanding of assistive devices/ modifications for ADL. 3=Patient will improve strength/tolerance for activity to enable patient to perform ADL's. OT Education/Plan Problem List/Assessment Assessment: Decreased Activ Tolerance, Decreased UE Strength, Dependent Transfers, Impaired Bed Mobility, Impaired Self-Care Skills Pt would benefit from continued OT to increase his independence with basic self care Discharge Recommendations Plan/Recommendations: Continue POC Therapy D/C Recommendations: Retirement (TCU/NH) Barriers to Progress difficulty maintaining WB status, difficulty with transfers Treatment Plan/Plan of Care Treatment,Training & Education: Yes Patient would benefit from OT for education, treatment and training to promote independence in ADL's, mobility, safety and/or upper extremity function for ADL' s. Plan of Care: ADL Retraining, Functional Mobility, UE Funct Exercise/Act, UE Neuromus Re-Ed/Coord Treatment Duration: Oct 06, 2017 Frequency: 5 times per week Estimated Hrs Per Day: .5 hour per day Agreement: Yes Rehab Potential: Fair Time/GCodes Start Time: 15:00 Stop Time: 15:12 Total Time Billed (hr/min): 12 Billed Treatment Time visit, 12 minutes evaluation moderate intensity NATALI CHEN OT Sep 25, 2017 15:24
[2017-09-25] MEDS: LACTOBACILLUS Acidoph/Bulgar (LACTINEX/FLORANEX) TAB PO SCH (16:56)
[2017-09-25] MEDS: warFARin 1 MG (COUMADIN) TAB PO SCH (16:56)
[2017-09-25] MEDS: RT-ALBUTEROL SULF 2.5 MG/3 ML PRE-MIX VIAL INH SCH ×2 (18:28→22:55)
[2017-09-25] MEDS: RT-ADVAIR HFA 115/21 MCG PER PUFF IH SCH (18:30)
[2017-09-25] MEDS: ACETAMINOPHEN 325 MG TABLET/CAPLET (TYLENOL) PO PRN (20:54)
[2017-09-25] MEDS: FLECAINIDE 100 MG (TAMBOCOR) TAB PO SCH (21:51)
[2017-09-25] MEDS: LACTULOSE SYRUP 10GM/15ML (ENULOSE) 30ML UDC PO SCH (21:51)
[2017-09-25] MEDS: DOCUSATE SODIUM 100 MG (COLACE) CAP PO SCH (21:51)
[2017-09-25] MEDS: TAMSULOSIN 0.4 MG (FLOMAX) CAP PO SCH (21:51)
[2017-09-25] MEDS: ATORVASTATIN 10 MG (LIPITOR) TABLET PO SCH (21:51)
[2017-09-25] MEDS: POLYETHYLENE GLYCOL 17 GM (MIRALAX) PACK PO SCH (21:51)
[2017-09-26] VITALS: BP 140/89
[2017-09-26] MEDS: oxyCODONE/APAP 5/325MG (PERCOCET 5) TABLET PO PRN ×3 (02:37→17:18)
[2017-09-26] MEDS: RT-ALBUTEROL SULF 2.5 MG/3 ML PRE-MIX VIAL INH SCH ×6 (02:50→22:12)
[2017-09-26 04:00] VITALS: BP 136/65
[2017-09-26] MEDS: PANTOPRAZOLE 40 MG (PROTONIX) TAB PO SCH (05:32)
[2017-09-26] MEDS: KCL 8 MEQ (MICRO K) TABLET PO SCH (05:32)
[2017-09-26] MEDS: MULTIVIT W/MINERALS TAB (THERAGRAN M) PO SCH (05:32)
[2017-09-26] MEDS: LACTOBACILLUS Acidoph/Bulgar (LACTINEX/FLORANEX) TAB PO SCH ×3 (05:32→17:15)
[2017-09-26 06:00] LABS: HEMOGLOBIN 10.3 G/DL (13.3-17.7); MEAN PLATELET VOLUME 8.6 FL (7.4-10.4); RED BLOOD COUNT 3.43 10^6/uL (4.35-5.85); RED CELL DISTRIBUTION WIDTH 18.1 % (10.0-14.5); WHITE BLOOD COUNT 8.1 10^3/uL (4.3-11.0)
[2017-09-26 06:09] LABS: INR 2.5 (0.8-1.4); PROTHROMBIN TIME PATIENT 27.2 SEC (12.2-14.7)
[2017-09-26 06:20] LABS: ALANINE AMINOTRANSFERASE 42 U/L (0-55); ALBUMIN 3.1 GM/DL (3.2-4.5); ALKALINE PHOSPHATASE 147 U/L (40-136); BILIRUBIN,TOTAL 0.8 MG/DL (0.1-1.0); BUN/CREATININE RATIO 13; CALCIUM 8.6 MG/DL (8.5-10.1); CARBON DIOXIDE 23 MMOL/L (21-32); CHLORIDE 104 MMOL/L (98-107); CREATININE SERUM 1.14 MG/DL (0.60-1.30); GFR ESTIMATED > 60; GLUCOSE 124 MG/DL (70-105); POTASSIUM 4.4 MMOL/L (3.6-5.0); SODIUM 138 MMOL/L (135-145); TOTAL PROTEIN 6.3 GM/DL (6.4-8.2)
--- NOTE | 2017-09-26 06:43 | Pulmonary Progress Note ---
Subjective Time Seen by Provider: 06:40 Subjective/Events-last exam pt transferred to 4th floor from Rehab secondary to persistent hypoxia and SOB. Exam Exam Vital Signs Date Time Temp Pulse Resp B/P (MAP) Pulse Ox O2 Delivery O2 Flow Rate FiO2 09/26/17 02:50 94 Vapotherm 12.00 55 09/26/17 00:00 98.4 84 19 140/89 (106) 90 Vapotherm 65.00 18.00 09/25/17 22:55 94 Vapotherm 15.00 60 09/25/17 21:00 Vapotherm 14.00 09/25/17 20:48 98.0 87 20 139/80 92 Vapotherm 14.00 60 09/25/17 19:15 97.4 83 18 133/62 (85) 95 Vapotherm 65.00 18.00 09/25/17 18:30 96 Vapotherm 15.00 60 09/25/17 18:28 98 Vapotherm 18.00 65 09/25/17 18:20 98.1 77 20 143/63 97 Vapotherm 18.00 65 09/25/17 18:05 98.2 80 20 143/65 Vapotherm 18.00 65 09/25/17 17:50 98.6 87 20 139/75 94 Vapotherm 18.00 65 09/25/17 15:40 97.5 76 20 118/54 (75) 97 Vapotherm 65.00 18.00 09/25/17 15:21 98.0 78 20 121/57 96 Vapotherm 18.00 65 09/25/17 15:05 80 20 115/52 93 Vapotherm 18.00 65 09/25/17 14:58 92 Vapotherm 18.00 65 09/25/17 12:00 97.5 69 20 114/58 (76) 93 Vapotherm 65.00 18.00 09/25/17 12:00 97 Vapotherm 18.00 65 I & O 09/26/17 07:00 Intake Total 1000 ml Output Total 850 ml Balance 150 ml General Appearance: Anxious, Mild Distress HEENT: Normal ENT Inspection, Pharynx Normal Neck: Full Range of Motion, Non Tender, Supple Respiratory: Chest Non Tender, Accessory Muscle Use, Decreased Breath Sounds Capillary Refill: Less Than 3 Seconds Gastrointestinal: normal bowel sounds, non tender, soft Extremity: Normal Capillary Refill, Normal Inspection, Normal Range of Motion Neurologic/Psychiatric: Alert, Oriented x3 Skin: Normal Color, Warm/Dry Lymphatic: No Adenopathy Results Lab Laboratory Tests 09/26/17 05:39 Assessment/Plan Assessment/Plan MSSA pneumonia - Rocephin -Oxygen as needed Pulmonary edema with bilateral pleural effusions -Repeat BNP -Will give Bumex 2mg IV x 1 -Hold today's Lasix -CT chest is negative for PE however shows bilateral pleural effusions and infiltration. Mediastinal adenopathy --Pt will need repeat CT scan in 6-8wks to ensure compleat resolution r/o mass. -Order placed for RN to schedule pt f/u appt with me. pt is not yet ready for discharge. HX of COPD -SVNS DuoNeb Atelectasis -IS S/p Fracture hip and surgical repair Debility -PT/OT 233 LILO ROMO DO Sep 26, 2017 06:43
[2017-09-26] MEDS ORDERED: BUMETANIDE 1 MG/4 ML (BUMEX) VIAL IV NR (06:45)
[2017-09-26] MEDS: RT-ADVAIR HFA 115/21 MCG PER PUFF IH SCH ×2 (07:13→19:37)
[2017-09-26] MEDS: UMECLIDINIUM BROMIDE (INCRUSE ELLIPTA) 7'S IH SCH (07:15)
--- NOTE | 2017-09-26 08:01 | History & Physicial ---
History of Present Illness History of Present Illness Reason for visit/HPI Patient was in acute rehabilitation. Patient has pneumonia and got more short of breath. Patient had ago on Vapotherm. Patient unable to do 3 hours of physical therapy and occupational therapy Patient anemic. Patient transferred to medical floor acute. Patient being seen by cardiology and pulmonology. Patient recently had right hip surgery Date of Admission Sep 25, 2017 at 12:05 Time Seen by Provider: 07:55 I consulted on this patient on 09/26/17 07:57 Attending Physician Cuco Aragon DO Admitting Physician Tiffanie Hardwick MD Consult Allergies and Home Medications Allergies Uncoded Allergies: Tape (Allergy, Mild, 09/08/17) Can have paper tape Home Medications Albuterol Sulfate 18 Gm Hfa.aer.ad, 2 PUFF INH Q4H PRN for WHEEZING, (Reported) Diltiazem HCl 240 Mg Cap.er.24h, 240 MG PO HS, (Reported) Docusate Sodium 100 Mg Capsule, 100 MG PO HS, (Reported) Dutasteride 0.5 Mg Capsule, 0.5 MG PO DAILY, (Reported) Flecainide Acetate 50 Mg Tablet, 50 MG PO BID, (Reported) Fluticasone/Vilanterol 1 Each Blst.w.dev, 1 PUFF INH DAILY, (Reported) Multivitamin/Iron/Folic Acid 1 Each Tablet, 1 TAB PO DAILY, (Reported) Pitavastatin Calcium 2 Mg Tablet, 2 MG PO DAILY, (Reported) Tamsulosin HCl 0.4 Mg Cap.er.24h, 0.4 MG PO BID, (Reported) Tiotropium [place] 1 Inh Aerp, 1 CAP INH DAILY, (Reported) Warfarin Sodium 2 Mg Tablet, 3 MG PO TuFr, (Reported) Warfarin Sodium 2 Mg Tablet, 4 MG PO SuMoWeThSa, (Reported) Patient Home Medication List Home Medication List Reviewed: Yes Past Dqvykfg-Xwzzfj-Idghsl Hx Patient Social History Alcohol Use: Denies Use Recreational Drug Use: No Smoking Status: Former Smoker Former Smoker, Quit: September 08, 2012 Type Used: Cigarettes Physical Abuse Screen: No Sexual Abuse: No Recent Foreign Travel: No Contact w/other who traveled: No Recent Hopitalizations: Yes Recent Infectious Disease Expo: No Immunizations Up To Date Pediatric: Yes Date of Pneumonia Vaccine: Jan 22, 2017 Seasonal Allergies Seasonal Allergies: No Surgeries Yes (Facial SX. ) Respiratory Yes COPD Currently Using CPAP: Yes Cardiovascular Yes Atrial Fibrillation, Deep Vein Thrombosis, Hypertension Neurological No Reproductive System Hx Reproductive Disorders: No Genitourinary No Gastrointestinal No Musculoskeletal Yes Arthritis Endocrine History of Endocrine Disorders: No HEENT History of HEENT Disorders: Yes HEENT Disorders: Cataract Loss of Vision: Bilateral Hearing Impairment: Hard of Hearing Cancer No Psychosocial History of Psychiatric Problem: No Integumentary History of Skin or Integumenta: No Blood Transfusions History of Blood Disorders: No Family Medical History Significant Family History: No Pertinent Family Hx Constitutional: malaise, weakness EENTM: no symptoms reported Respiratory: dyspnea on exertion, short of breath Cardiovascular: other (Atrial fibrillation) Gastrointestinal: no symptoms reported Genitourinary: no symptoms reported Physical Exam Vital Signs Vital Signs - First Documented 09/25/17 12:00 Temp 97.5 Pulse 69 Resp 20 B/P (MAP) 114/58 (76) Pulse Ox 97 O2 Delivery Vapotherm O2 Flow Rate 18.00 FiO2 65 Capillary Refill : General Appearance: No Apparent Distress, WD/WN Eyes: Bilateral Eye Normal Inspection HEENT: Normal ENT Inspection Neck: Normal Inspection Respiratory: No Accessory Muscle Use, No Respiratory Distress, Decreased Breath Sounds Gastrointestinal: Non Tender, Soft Assessment/Plan Assessment and Plan Pneumonia. Anemia. Right hip fracture. Short of breath. Atrial fibrillation. Weakness Admission Diagnosis Admission Status: Inpatient Order (span 2 midnights) Reason for Inpatient Admission: Hip fracture. Pneumonia. Pleural effusion. Atrial fibrillation. Short of breath Clinical Quality Measures DVT/VTE Risk/Contraindication: Risk Factor Score Per Nursin RFS Level Per Nursing on Admit: 4+=Very High CUCO ARAGON DO Sep 26, 2017 08:01
[2017-09-26] MEDS: TAMSULOSIN 0.4 MG (FLOMAX) CAP PO SCH ×2 (08:08→21:19)
[2017-09-26] MEDS: DOCUSATE SODIUM 100 MG (COLACE) CAP PO SCH ×2 (08:08→21:19)
[2017-09-26] MEDS: cefTRIAXone INJECTION 1,000 MG in NS (IVPB) 50 ML IV SCH (08:08)
[2017-09-26] MEDS: DILTIAZEM 240 MG (CARDIZEM CD) CAP PO SCH (08:08)
[2017-09-26] MEDS: POLYETHYLENE GLYCOL 17 GM (MIRALAX) PACK PO SCH ×3 (08:08→19:45)
[2017-09-26] MEDS: FLECAINIDE 100 MG (TAMBOCOR) TAB PO SCH ×2 (08:08→21:19)
[2017-09-26] MEDS: FINASTERIDE (PROSCAR) 5 MG TAB PO SCH (08:08)
[2017-09-26] MEDS: LACTULOSE SYRUP 10GM/15ML (ENULOSE) 30ML UDC PO SCH (08:09)
[2017-09-26 08:32] VITALS: BP 133/85
[2017-09-26] MEDS ORDERED: SENNA W/DOCUSATE (SENOKOT S) TABLET PO PRN (09:00)
[2017-09-26] MEDS ORDERED: FUROSEMIDE 40 MG (LASIX) TAB PO SCH (09:00)
[2017-09-26] MEDS ORDERED: SENNA W/DOCUSATE (SENOKOT S) TABLET PO SCH (09:00)
--- NOTE | 2017-09-26 09:57 | Physical Therapy Evaluation ---
PT Evaluation-General Medical Diagnosis Admission Date Sep 25, 2017 at 12:05 Medical Diagnosis: L hip fracture Onset Date: September 08, 2017 Therapy Diagnosis Therapy Diagnosis: generalized weakness/debility Height/Weight Height (Feet): 5 Height (Inches): 9.00 Weight (Pounds): 178 Weight (Ounces): 8.0 Precautions Precautions/Isolations: Fall Prevention, Standard Precautions Weight Bear Status Right Lower Extremity: Right Full Weight Bearing Left Lower Extremity: Left Touch Toe Bearing Referral Physician: Kristopher Reason for Referral: Evaluation/Treatment Medical History Pertinent Medical History: Atrial Fib, Arthritis, COPD, HTN, PVD, Smoking Additional Medical History persistent hypoxia/SOB/currently on vapotherm Current History Transfer from ARU secondary to persistent hypoxia Reviewed History: Yes Social History Home: Single Level Current Living Status: Spouse Entry Into Home: Ramp Prior/Core FIM Prior Level of Function Functional [place] Measure 0=Not Assessed/NA 4=Minimal Assistance 1=Total Assistance 5=Supervision or Setup 2=Maximal Assistance 6=Modified [place] 3=Moderate Assistance 7=Complete [place] Bed Mobility: 6 Transfers (B,C,W/C) (FIM): 6 Gait: 6 PT Evaluation-Current Subjective Patient requires much encouragement to participate with PT. Patient initially declined PT intervention, however, agrees after education. Pain Numeric Pain Scale: 7 Location: Left Location Body Site: Hip Pain Description: Acute Objective Patient Orientation: Person, Time, Situation Problem Solving: Fair Attachments: Oxygen (vapotherm) ROM/Strength ROM Lower Extremities bilateral LE WNL (left hip limited due to pain) Strength Lower Extremities right LE 3/5 grossly/left 3-/5 grossly Integumentary/Posture Integumentary refer to nursing notes Bowel Incontinence: No Bladder Incontinence: No Posture WFL Neuromuscular (Tone, Coordination, Reflexes) diminished coordination due to inactivity and self limiting behavior Sensory Vision: Wears Glasses Hearing: Impaired Hand Dominance: Right Sensation Right Lower Extremit: Intact Sensation Left Lower Extremity: Intact Transfers Functional [place] Measure 0=Not Assessed/NA 4=Minimal Assistance 1=Total Assistance 5=Supervision or Setup 2=Maximal Assistance 6=Modified [place] 3=Moderate Assistance 7=Complete [place] Transfers (B, C, W/C) (FIM): 4 Scootin Supine to/from Sit: 4 Sit to/from Stand: 4 bed t/f WC(FIM only if WC use): 4 Gait Mode of Locomotion: Both Anticipated Mode of Locomotion: Both Gait (FIM): 1 Distance (FIM): 1=up to 49 ft Distance: 5' Gait Level of Assist: 4 Gait Assistive Device: FWW Comments/Gait Description difficulty with maintaining TTWB left LE Balance Sitting Static: Normal Sitting Dynamic: Normal Standing Static: Fair Standing Dynamic: Fair Assessment/Needs 81 y.o. male, will benefit from skilled PT to address functional strength and mobility to improve current LOF. Patient has been receiving PT for 2-3 weeks with patient actively participating ~50% of time. PT will increase activity as patient improves medically. Rehab Potential: Guarded PT Baggage Handling Supervisor Goals Nursing Home Goals PT Baggage Handling Supervisor Goals Time Frame: Oct 13, 2017 Transfers (B,C,W/C) (FIM): 5 Gait (FIM): 1 Gait distance (FIM): 1=up to 49 ft Distance: 20' Gait Level of Assist: 4 Gait Assistive Device: FWW PT Plan Problem List Problem List: Activity Tolerance, Functional Strength, Safety, Balance, Gait, Transfer, Bed Mobility Treatment/Plan Treatment Plan: Continue Plan of Care Treatment Plan: Bed Mobility, Education, Functional Activity Syl, Functional Strength, Gait, Safety, Therapeutic Exercise, Transfers Treatment Duration: Oct 13, 2017 Frequency: 6 times per week Estimated Hrs Per Day: .5 hour per day Patient and/or Family Agrees t: Yes Safety Risks/Education Patient Education: Disease Process Teaching Recipient: Patient Teaching Methods: Discussion Response to Teaching: Reinforcement Needed Discharge Recommendations Therapy D/C Recommendations: Custodial Placement, Senior Care (TCU/NH) Time/GCodes Time In: 920 Time Out: 937 Total Billed Treatment Time: 17 Total Billed Treatment [address] [facility] 17 min ELVIRA MADRID PT Sep 26, 2017 09:56
--- NOTE | 2017-09-26 11:54 | Occupational Ther Daily Note ---
OT Current Status-Daily Note Subjective Pt seen in room, up in recliner, reluctantly agreeable to OT. Pain rated 8/10 and nursing provided pain meds. Appearance Alert, cooperative Mental Status/Objective Functional [place] Measure 0=Not Assessed/NA 4=Minimal Assistance 1=Total Assistance 5=Supervision or Setup 2=Maximal Assistance 6=Modified [place] 3=Moderate Assistance 7=Complete [place] Other Treatment Pt declined ADLs but was able to use a urinal, with help emptying it. He did 10 reps two different bilat UE exercises with red theraband (medium resistance), with skilled cues to do them correctly. He was able to track reps himself. Pt left up in recliner at end of tx, all needs met. Education OT Patient Education: Exercise program, Purpose of tx/functional activities Teaching Recipient: Patient Teaching Methods: Demonstration, Discussion Response to Teaching: Verbalize Understanding, Return Demonstration, Reinforcement Needed OT Short Term Goals Short Term Goals 1=Demonstrate adherence to instructed precautions during ADL tasks. 2=Patient will verbalize/demonstrate understanding of assistive devices/ modifications for ADL. 3=Patient will improve strength/tolerance for activity to enable patient to perform ADL's. OT Relocation Commissioner Goals Relocation Commissioner Goals Time Frame: Oct 06, 2017 Eating (FIM): 6 Grooming(FIM): 5 Bathing(FIM): 4 Upper Body Dressing(FIM): 5 Lower Body Dressing(FIM): 3 Toileting(FIM): 3 Toilet/Commode Transfer(FIM): 3 Shower Transfer(FIM): 3 Additional Goals: 1-Demonstrate ADL Tasks, 2-Verbalize Understanding, 3- ImproveStrength/Syl 1=Demonstrate adherence to instructed precautions during ADL tasks. 2=Patient will verbalize/demonstrate understanding of assistive devices/ modifications for ADL. 3=Patient will improve strength/tolerance for activity to enable patient to perform ADL's. OT Education/Plan Problem List/Assessment Pt would benefit from continued OT to increase his independence with basic self care Discharge Recommendations Plan/Recommendations: Continue POC Treatment Plan/Plan of Care Patient would benefit from OT for education, treatment and training to promote independence in ADL's, mobility, safety and/or upper extremity function for ADL' s. Plan of Care: ADL Retraining, Functional Mobility, UE Funct Exercise/Act, UE Neuromus Re-Ed/Coord Treatment Duration: Oct 06, 2017 Frequency: 5 times per week Estimated Hrs Per Day: .5 hour per day Agreement: Yes Rehab Potential: Guarded Time/GCodes Start Time: 11:30 Stop Time: 11:45 Total Time Billed (hr/min): 15 Billed Treatment Time visit, 15 minutes exercise NATALI CHEN OT Sep 26, 2017 11:54
[2017-09-26 12:00] VITALS: BP 155/72
[2017-09-26] MEDS: ACETAMINOPHEN 325 MG TABLET/CAPLET (TYLENOL) PO PRN (14:16)
[2017-09-26 15:35] VITALS: BP 158/69
--- NOTE | 2017-09-26 16:26 | Cardiology Progress Note ---
Subjective Date Seen by Provider: Sep 26, 2017 Time Seen by Provider: 16:24 Subjective/Events-last exam Patient is laying down in bed, feeling well. Complaint of pain in his knee. Denied any chest pain. Objective-Cardiology Exam Last Set of Vital Signs Vital Signs 09/26/17 09/26/17 12:00 14:55 Temp 97.5 Pulse 82 Resp 20 B/P (MAP) 155/72 (99) Pulse Ox 96 O2 Delivery Vapotherm O2 Flow Rate 12.00 FiO2 55 Capillary Refill : Less Than 3 Seconds I&O Intake and Output 09/26/17 00:00 Intake Total 700 ml Output Total 450 ml Balance 250 ml Intake Oral 700 ml Output Urine Total 450 ml General: Alert, Oriented X3, Cooperative HEENT: Atraumatic, PERRLA Neck: Supple, No JVD, No Thyromegaly Lungs: Clear to Auscultation, Normal Air Movement Heart: Regular Rate, Normal S1, Normal S2, No Murmurs Abdomen: Normal Bowel Sounds, Soft, No Tenderness, No Hepatosplenomegaly, No Masses Extremities: No Clubbing, No Cyanosis, No Edema, Normal Pulses, No Tenderness/ Swelling Skin: No Rashes, No Breakdown, No Significant Lesion Neuro: Normal Gait, Normal Speech, Normal Tone, Sensation Intact, Other (Knee pain) Psych/Mental Status: Mental Status NL, Mood NL Results Lab Laboratory Tests 09/26/17 05:39 A/P-Cardiology Admission Diagnosis Hip fracture Chest pain nonspecific etiology Coronary artery disease Hypertension Assessment/Plan Hip fracture status post surgical repair, done on September 09, 2017. Has been in rehabilitation, receiving physical therapy, poor functional status due to multiple comorbid condition. Pneumonia, receiving antibiotic, Dr. Harvey was consulted. Has been managed. Sputum culture grew staph, one set of blood culture were positive, 2 other sets were negative for staph. Currently receiving antibiotics. Managed by medical team. Chest pain nonspecific etiology, cardiac enzymes were negative. Patient has been hypoxemic requiring high flow oxygen in addition to severe anemia. Received blood transfusion and hemoglobin is better. Continue to monitor at this time, no further episodes of chest pain were reported. Echocardiogram showed normal LV size and function Anemia, slightly worse post operatively. Better after receiving blood transfusion, continue to monitor as an outpatient. Paroxysmal atrial fibrillations, currently in sinus rhythm, had workup done in , continue to monitor at this time. 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 Hypertension, good control. Continue to monitor blood pressure at this time. Status post acute renal failure, renal function are better at this time, continue to monitor. COPD/obstructive sleep apnea, using C Pap at night. Managed by medical team BPH, managed by primary care physician Clinical Quality Measures DVT/VTE Risk/Contraindication: Risk Factor Score Per Nursin RFS Level Per Nursing on Admit: 4+=Very High Contraindications-Pharm: Other *list below* HUONG SIFUENTES MD Sep 26, 2017 16:25
[2017-09-26] MEDS: warFARin 1 MG (COUMADIN) TAB PO SCH (17:16)
[2017-09-26 19:30] VITALS: BP 150/67
[2017-09-26] MEDS: ATORVASTATIN 10 MG (LIPITOR) TABLET PO SCH (21:19)
[2017-09-27 00:04] VITALS: BP 160/73
[2017-09-27] MEDS: RT-ALBUTEROL SULF 2.5 MG/3 ML PRE-MIX VIAL INH SCH ×6 (02:56→22:28)
[2017-09-27] MEDS: oxyCODONE/APAP 5/325MG (PERCOCET 5) TABLET PO PRN ×3 (04:17→19:36)
[2017-09-27 04:39] VITALS: BP 153/73
[2017-09-27 05:43] LABS: HEMOGLOBIN 10.3 G/DL (13.3-17.7); MEAN PLATELET VOLUME 8.3 FL (7.4-10.4); RED BLOOD COUNT 3.33 10^6/uL (4.35-5.85); RED CELL DISTRIBUTION WIDTH 17.1 % (10.0-14.5); WHITE BLOOD COUNT 7.4 10^3/uL (4.3-11.0)
[2017-09-27 05:53] LABS: INR 2.1 (0.8-1.4); PROTHROMBIN TIME PATIENT 23.8 SEC (12.2-14.7)
[2017-09-27 06:00] LABS: BUN/CREATININE RATIO 14; CALCIUM 8.6 MG/DL (8.5-10.1); CARBON DIOXIDE 24 MMOL/L (21-32); CHLORIDE 105 MMOL/L (98-107); CREATININE SERUM 1.04 MG/DL (0.60-1.30); GFR ESTIMATED > 60; GLUCOSE 114 MG/DL (70-105); MAGNESIUM 1.7 MG/DL (1.8-2.4); POTASSIUM 4.4 MMOL/L (3.6-5.0); SODIUM 138 MMOL/L (135-145)
[2017-09-27] MEDS ORDERED: BUMETANIDE 1 MG/4 ML (BUMEX) VIAL IV ONE (06:15)
--- NOTE | 2017-09-27 06:17 | Pulmonary Progress Note ---
Subjective Time Seen by Provider: 06:17 Subjective/Events-last exam complains of SOB. No productive cough Exam Exam Vital Signs Date Time Temp Pulse Resp B/P (MAP) Pulse Ox O2 Delivery O2 Flow Rate FiO2 09/27/17 04:39 97.5 81 18 153/73 (99) 93 Vapotherm 50.00 12.00 09/27/17 02:57 95 Vapotherm 12.00 50 09/27/17 00:04 97.4 72 18 160/73 (102) 94 Vapotherm 50.00 12.00 09/26/17 22:12 90 Vapotherm 12.00 50 09/26/17 21:00 Vapotherm 12.00 09/26/17 19:39 Vapotherm 12.00 55 09/26/17 19:36 90 Vapotherm 12.00 55 09/26/17 19:30 97.3 70 18 150/67 (94) 91 Vapotherm 55.00 12.00 09/26/17 15:35 97.6 72 18 158/69 (98) 95 Vapotherm 55.00 12.00 09/26/17 14:55 96 Vapotherm 12.00 55 09/26/17 12:00 97.5 82 20 155/72 (99) 92 Vapotherm 55.00 12.00 09/26/17 11:15 96 Vapotherm 12.00 55 09/26/17 08:32 97.5 82 20 133/85 (101) 93 Vapotherm 55.00 12.00 09/26/17 08:14 Vapotherm 12.00 55 09/26/17 07:15 94 Vapotherm 12.00 55 09/26/17 07:13 94 Vapotherm 12.00 55 09/26/17 07:03 93 Vapotherm 12.00 55 I & O 09/27/17 07:00 Intake Total 2600 ml Output Total 2540 ml Balance 60 ml General Appearance: Anxious, Mild Distress HEENT: Normal ENT Inspection, Pharynx Normal Neck: Full Range of Motion, Non Tender, Supple Respiratory: Chest Non Tender, Accessory Muscle Use, Decreased Breath Sounds Capillary Refill: Less Than 3 Seconds Gastrointestinal: normal bowel sounds, non tender, soft Extremity: Normal Capillary Refill, Normal Inspection, Normal Range of Motion Neurologic/Psychiatric: Alert, Oriented x3 Skin: Normal Color, Warm/Dry Lymphatic: No Adenopathy Results Lab Laboratory Tests 09/26/17 05:39 09/27/17 05:34 Assessment/Plan Assessment/Plan MSSA pneumonia - Rocephin -Oxygen as needed Pulmonary edema with bilateral pleural effusions -Will repeat Bumex 2mg IV x 1 -Hold today's Lasix -Repeat portable CXR today -CT chest is negative for PE however shows bilateral pleural effusions and infiltration. Mediastinal adenopathy --Pt will need repeat CT scan in 6-8wks to ensure compleat resolution r/o mass. -Order placed for RN to schedule pt f/u appt with me. pt is not yet ready for discharge. Hypomag -will start oral magoxide HX of COPD -SVNS DuoNeb Atelectasis -IS S/p Fracture hip and surgical repair Debility -PT/OT 233 LILO ROMO DO Sep 27, 2017 06:17
[2017-09-27] MEDS: UMECLIDINIUM BROMIDE (INCRUSE ELLIPTA) 7'S IH SCH (06:28)
[2017-09-27] MEDS ORDERED: BUMETANIDE 1 MG/4 ML (BUMEX) VIAL ONE (06:40)
[2017-09-27] MEDS: LACTOBACILLUS Acidoph/Bulgar (LACTINEX/FLORANEX) TAB PO SCH ×3 (06:48→17:09)
[2017-09-27] MEDS: MULTIVIT W/MINERALS TAB (THERAGRAN M) PO SCH (06:48)
[2017-09-27] MEDS: PANTOPRAZOLE 40 MG (PROTONIX) TAB PO SCH (06:48)
[2017-09-27] MEDS: KCL 8 MEQ (MICRO K) TABLET PO SCH (06:48)
[2017-09-27] MEDS ORDERED: MAGNESIUM 1 GM/100 ML IVPB 100 ML IV NR (07:39)
--- NOTE | 2017-09-27 07:43 | Progress Note (SOAP) ---
Subjective Time Seen by Provider: 07:40 Subjective/Events-last exam Patient felt a little nauseous today. Patient requiring much oxygen. Patient stable. Objective Exam Vital Signs Date Time Temp Pulse Resp B/P (MAP) Pulse Ox O2 Delivery O2 Flow Rate FiO2 09/27/17 06:28 95 Vapotherm 12.00 50 09/27/17 04:39 97.5 81 18 153/73 (99) 93 Vapotherm 50.00 12.00 09/27/17 02:57 95 Vapotherm 12.00 50 09/27/17 00:04 97.4 72 18 160/73 (102) 94 Vapotherm 50.00 12.00 09/26/17 22:12 90 Vapotherm 12.00 50 09/26/17 21:00 Vapotherm 12.00 09/26/17 19:39 Vapotherm 12.00 55 09/26/17 19:36 90 Vapotherm 12.00 55 09/26/17 19:30 97.3 70 18 150/67 (94) 91 Vapotherm 55.00 12.00 09/26/17 15:35 97.6 72 18 158/69 (98) 95 Vapotherm 55.00 12.00 09/26/17 14:55 96 Vapotherm 12.00 55 09/26/17 12:00 97.5 82 20 155/72 (99) 92 Vapotherm 55.00 12.00 09/26/17 11:15 96 Vapotherm 12.00 55 09/26/17 08:32 97.5 82 20 133/85 (101) 93 Vapotherm 55.00 12.00 09/26/17 08:14 Vapotherm 12.00 55 I & O 09/27/17 07:00 Intake Total 2600 ml Output Total 2540 ml Balance 60 ml Capillary Refill : Less Than 3 Seconds General Appearance: No Apparent Distress, WD/WN HEENT: Normal ENT Inspection Neck: Full Range of Motion Respiratory: No Accessory Muscle Use, No Respiratory Distress, Decreased Breath Sounds Cardiovascular: Regular Rate, Rhythm, No Murmur Gastrointestinal: non tender, soft Results Lab Laboratory Tests 09/27/17 05:34 Laboratory Tests 09/26/17 16:38: Lab Scanned Report Transfusion Reaction Form 09/27/17 05:34: White Blood Count 7.4, Red Blood Count 3.33L, Hemoglobin 10.3L, Hematocrit 31L, Mean Corpuscular Volume 93, Mean Corpuscular Hemoglobin 31, Mean Corpuscular Hemoglobin Concent 33, Red Cell Distribution Width 17.1H, Platelet Count 482H, Mean Platelet Volume 8.3, Prothrombin Time 23.8H, INR Comment 2.1H, Sodium Level 138, Potassium Level 4.4, Chloride Level 105, Carbon Dioxide Level 24, Anion Gap 9, Blood Urea Nitrogen 15, Creatinine 1.04, Estimat Glomerular Filtration Rate > 60, BUN/Creatinine Ratio 14, Glucose Level 114H, Calcium Level 8.6, Magnesium Level 1.7L Microbiology 09/25/17 Gram Stain - Final, Resulted 09/25/17 Sputum Culture - Preliminary, Resulted Yeast species Assessment/Plan Assessment/Plan Assess & Plan/Chief Complaint Pneumonia. Anemia. COPD. Clinical Quality Measures Admission Status Admission Dx Pneumonia. Anemia. Right hip fracture. Short of breath. Atrial fibrillation. Weakness DVT/VTE Risk/Contraindication: Risk Factor Score Per Nursin RFS Level Per Nursing on Admit: 4+=Very High Contraindications-Pharm: Other *list below* YOUSIF ARAGON DO Sep 27, 2017 07:43
[2017-09-27 08:28] LABS: AMYLASE 53 U/L (25-125); LIPASE 50 U/L (8-78)
[2017-09-27 08:41] VITALS: BP 122/63
--- NOTE | 2017-09-27 08:49 | Diagnostic Imaging Report ---
INDICATION: Shortness of breath Portable chest at 8:07 AM Heart size and pulmonary vascularity are normal. There is some left basilar atelectasis with a tiny effusion. There is minimal right perihilar atelectasis. IMPRESSION: There's been interval improvement of the pulmonary vascular congestion since 09/25/2017. There is minimal residual right perihilar and left basilar atelectasis and probably a tiny left pleural effusion. Dictated by: Dictated on workstation # [id number]
[2017-09-27] MEDS: DOCUSATE SODIUM 100 MG (COLACE) CAP PO SCH ×2 (09:02→21:44)
[2017-09-27] MEDS: DILTIAZEM 240 MG (CARDIZEM CD) CAP PO SCH (09:02)
[2017-09-27] MEDS: FLECAINIDE 100 MG (TAMBOCOR) TAB PO SCH ×2 (09:02→21:45)
[2017-09-27] MEDS: MAGNESIUM OXIDE (MAG-OX)400 MG TAB PO SCH ×2 (09:03→17:37)
[2017-09-27] MEDS: TAMSULOSIN 0.4 MG (FLOMAX) CAP PO SCH ×2 (09:03→21:44)
[2017-09-27] MEDS: FINASTERIDE (PROSCAR) 5 MG TAB PO SCH (09:03)
[2017-09-27] MEDS: cefTRIAXone INJECTION 1,000 MG in NS (IVPB) 50 ML IV SCH (09:04)
[2017-09-27] MEDS: POLYETHYLENE GLYCOL 17 GM (MIRALAX) PACK PO SCH ×2 (09:04→21:45)
--- NOTE | 2017-09-27 09:15 | Progress Note-Standard ---
Standard Progress Note Progress Notes/Assess & Plan Date Seen by Provider: Sep 27, 2017 Time Seen by Provider: 09:12 Progress/Assessment & Plan report hip is feeling better L hip incision well healed No calf tenderness. Neg Alex's s/p L hip IM osmany ok to advance to 50% WB LLE DOMINIK ALBA MD Sep 27, 2017 09:14
--- NOTE | 2017-09-27 09:18 | Cardiology Progress Note ---
Subjective Date Seen by Provider: Sep 27, 2017 Time Seen by Provider: 09:17 Subjective/Events-last exam Patient is sitting in a chair, feeling better today, breathing better, still requiring oxygen. No chest pain. Having hip and knee pain Review of Systems General: No Chills, No Night Sweats, No Fatigue, No Malaise, No Appetite, No Other HEENT: No Head Aches, No Visual Changes, No Eye Pain, No Ear Pain, No Dysphasia , No Sinus Congestion, No Post Nasal Drip, No Sore Throat, No Other Pulmonary: Dyspnea; No Cough, No Pleuritic Chest Pain, No Other Cardiovascular: No: Chest Pain, Palpitations, Orthopnea, Paroxysmal Noc. Dyspnea, Edema, Lt Headedness, Other Objective-Cardiology Exam Last Set of Vital Signs Vital Signs 09/27/17 09/27/17 06:28 08:41 Temp 97.6 Pulse 80 Resp 20 B/P (MAP) 122/63 (82) Pulse Ox 90 O2 Delivery Vapotherm O2 Flow Rate 50.00 12.00 FiO2 50 Capillary Refill : Less Than 3 Seconds I&O Intake and Output 09/27/17 00:00 Intake Total 2600 ml Output Total 2240 ml Balance 360 ml Intake Oral 1550 ml IV Total 1050 ml Output Urine Total 2240 ml # Bowel Movements 3 General: Alert, Oriented X3, Cooperative HEENT: Atraumatic, PERRLA Neck: Supple, No JVD, No Thyromegaly Lungs: Clear to Auscultation, Normal Air Movement Heart: Regular Rate, Normal S1, Normal S2, No Murmurs Abdomen: Normal Bowel Sounds, Soft, No Tenderness, No Hepatosplenomegaly, No Masses Extremities: No Clubbing, No Cyanosis, No Edema, Normal Pulses, No Tenderness/ Swelling Skin: No Rashes, No Breakdown, No Significant Lesion Neuro: Normal Gait, Normal Speech, Normal Tone, Sensation Intact, Other (Knee pain) Psych/Mental Status: Mental Status NL, Mood NL Results Lab Laboratory Tests 09/27/17 05:34 A/P-Cardiology Admission Diagnosis Hip fracture Chest pain nonspecific etiology Coronary artery disease Hypertension Assessment/Plan Hip fracture status post surgical repair, done on September 09, 2017. Has been in rehabilitation, receiving physical therapy, poor functional status due to multiple comorbid condition. Pneumonia, receiving antibiotic, Dr. Harvey was consulted. Has been managed. Sputum culture grew staph, one set of blood culture were positive, 2 other sets were negative for staph. Currently receiving antibiotics. Managed by medical team. Chest pain nonspecific etiology, cardiac enzymes were negative. Patient has been hypoxemic requiring high flow oxygen in addition to severe anemia. Received blood transfusion and hemoglobin is better. Continue to monitor at this time, no further episodes of chest pain were reported. Echocardiogram showed normal LV size and function, pulmonary hypertension with estimated pulmonary artery pressure 55 mmHg Anemia, stable at this time, received blood transfusion, continue to monitor Paroxysmal atrial fibrillations, currently in sinus rhythm, had workup done in , continue to monitor at this time. 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 Hypertension, good control. Continue to monitor blood pressure at this time. Status post acute renal failure, renal function are better at this time, continue to monitor. COPD/obstructive sleep apnea, using C Pap at night. Managed by medical team BPH, managed by primary care physician Clinical Quality Measures DVT/VTE Risk/Contraindication: Risk Factor Score Per Nursin RFS Level Per Nursing on Admit: 4+=Very High Contraindications-Pharm: Other *list below* HUONG SIFUENTES MD Sep 27, 2017 09:18
[2017-09-27] MEDS: RT-ADVAIR HFA 115/21 MCG PER PUFF IH SCH ×2 (10:07→19:09)
--- NOTE | 2017-09-27 11:01 | Physical Therapy Progress Note ---
Therapy Progress Note Attempted PT visit at 1030 this date. Pt had just returned to bed from being up in the chair. Will return later. PHILIP GALAN PT Sep 27, 2017 11:01
[2017-09-27 12:00] VITALS: BP 139/64
--- NOTE | 2017-09-27 12:05 | Physical Therapy Daily Note ---
PT Daily Note-Current Subjective Agreeable to get up to the chair. Acknowledges that he is doing better. Mental Status Patient Orientation: Person, Place, Time, Situation Attachments: Oxygen (in situ during and post treatment. ) Transfers Functional [place] Measure 0=Not Assessed/NA 4=Minimal Assistance 1=Total Assistance 5=Supervision or Setup 2=Maximal Assistance 6=Modified [place] 3=Moderate Assistance 7=Complete IndependenceIRFPAI Quality Coding Scale 6 Independent with activity with or without an assistive device 5 Patient requires set up or clean up by helper. Patient completes activity by themselves 4 Supervision or touching assist (CGA). [place] provide cues , steadying assist 3 The helper provides less than half the effort to complete the activity 2 The helper provides more than half the effort to complete the activity 1 Dependent. The helper does all the effort to complete an activity 7 Patient refused to complete or attempt activity 9 The patient did not perform the activity before the current illness or injury 88 Not attempted due to Medical conditions or safety concerns Transfers (B, C, W/C) (FIM): 4 Supine to/from Sit: 4 (min assist wiht his legs and skilled cues for sequencing. ) Sit to/from Stand: 4 (CGA to stand with bed elevated. Cues for hand placement. ) Weight Bearing Right Lower Extremity: Right Full Weight Bearing Left Lower Extremity: Left Partial Weight Bearing (50% per Dr. Culver progress note. ) Gait Training Gait Assistive Device: FWW Educated pt on 50% WB status. Pt took 3-4 steps to transfer bed to chair with FWW with CGA. Up in chair post treatment with needs met. Exercises Seated Therapy Exercises: Ankle pumps, Long arc quads, Hip flexion, Hip abd/add Seated Reps: 10 (to promote LE strength and activity tolerance for giat and transfer progression. ) Assessment Current Status: Good Progress Transfers and activity participation are improving. He is making functional gains. PT Technology Intern Goals Custodial Goals PT Technology Intern Goals Time Frame: Oct 13, 2017 Transfers (B,C,W/C) (FIM): 5 Gait (FIM): 1 Gait distance (FIM): 1=up to 49 ft Distance: 20' Gait Level of Assist: 4 Gait Assistive Device: FWW PT Plan Problem List Problem List: Activity Tolerance, Functional Strength, Safety, Gait, Transfer, Bed Mobility Treatment/Plan Treatment Plan: Continue Plan of Care Treatment Plan: Bed Mobility, Education, Functional Activity Syl, Functional Strength, Gait, Safety, Therapeutic Exercise, Transfers Treatment Duration: Oct 13, 2017 Frequency: 6 times per week Estimated Hrs Per Day: .5 hour per day Patient and/or Family Agrees t: Yes Safety Risks/Education Patient Education: Transfer Techniques, Reviewed Precautions (50% WB) Teaching Recipient: Patient Teaching Methods: Discussion Response to Teaching: Reinforcement Needed Time/GCodes Time In: 1135 Time Out: 1159 Total Billed Treatment Time: 24 Total Billed Treatment visit FA 15 EX 9 PHILIP GALAN PT Sep 27, 2017 12:05
--- NOTE | 2017-09-27 12:31 | Occ Therapy Progress Note ---
Therapy Progress Note Pt seen in room at 1130. Refused to get up or do anything because his lunch was on the way. Will retry. NATALI CHEN OT Sep 27, 2017 12:31
--- NOTE | 2017-09-27 15:19 | Occupational Ther Daily Note ---
OT Current Status-Daily Note Subjective Pt had visitors in room. Pt grudgingly agrees to therapy. Visitors and SHARMA encouraged pt to participate in therapy. Mental Status/Objective Patient Orientation: Person, Place, Time, Situation Functional [place] Measure 0=Not Assessed/NA 4=Minimal Assistance 1=Total Assistance 5=Supervision or Setup 2=Maximal Assistance 6=Modified [place] 3=Moderate Assistance 7=Complete [place] Attachments: IV, Oxygen Other Treatment Pt completed 4 UE exercises against gravity, 10 reps. Pt stated that his shldrs were hurting and ended therapy session. After therapy, pt lying in bed with call light/phone in reach. All needs met in room. Visitors in room. OT Short Term Goals Short Term Goals 1=Demonstrate adherence to instructed precautions during ADL tasks. 2=Patient will verbalize/demonstrate understanding of assistive devices/ modifications for ADL. 3=Patient will improve strength/tolerance for activity to enable patient to perform ADL's. OT Certified Physician Assistant Goals [facility] Goals Time Frame: Oct 06, 2017 Eating (FIM): 6 Grooming(FIM): 5 Bathing(FIM): 4 Upper Body Dressing(FIM): 5 Lower Body Dressing(FIM): 3 Toileting(FIM): 3 Toilet/Commode Transfer(FIM): 3 Shower Transfer(FIM): 3 Additional Goals: 1-Demonstrate ADL Tasks, 2-Verbalize Understanding, 3- ImproveStrength/Syl 1=Demonstrate adherence to instructed precautions during ADL tasks. 2=Patient will verbalize/demonstrate understanding of assistive devices/ modifications for ADL. 3=Patient will improve strength/tolerance for activity to enable patient to perform ADL's. OT Education/Plan Problem List/Assessment Pt would benefit from continued OT to increase his independence with basic self care Discharge Recommendations Plan/Recommendations: Continue POC Treatment Plan/Plan of Care Patient would benefit from OT for education, treatment and training to promote independence in ADL's, mobility, safety and/or upper extremity function for ADL' s. Plan of Care: ADL Retraining, Functional Mobility, UE Funct Exercise/Act, UE Neuromus Re-Ed/Coord Treatment Duration: Oct 06, 2017 Frequency: 5 times per week Estimated Hrs Per Day: .5 hour per day Agreement: Yes Rehab Potential: Guarded Time/GCodes Start Time: 08:02 Stop Time: 08:12 Total Time Billed (hr/min): 10 Billed Treatment Time 1 visit-EX 1 (10 min) PHILIP VILLAGOMEZ Sep 27, 2017 15:19
[2017-09-27 15:50] VITALS: BP 117/58
[2017-09-27] MEDS: warFARin 1 MG (COUMADIN) TAB PO SCH (17:37)
[2017-09-27 19:10] VITALS: BP 137/62
[2017-09-27] MEDS: ATORVASTATIN 10 MG (LIPITOR) TABLET PO SCH (21:44)
[2017-09-28] VITALS (7 sets, daily range): BP systolic 141–162; BP diastolic 63–77
[2017-09-28] MEDS: RT-ALBUTEROL SULF 2.5 MG/3 ML PRE-MIX VIAL INH SCH ×6 (01:54→21:46)
[2017-09-28 05:53] LABS: HEMOGLOBIN 10.4 G/DL (13.3-17.7); MEAN PLATELET VOLUME 8.6 FL (7.4-10.4); RED BLOOD COUNT 3.44 10^6/uL (4.35-5.85); RED CELL DISTRIBUTION WIDTH 16.6 % (10.0-14.5)
[2017-09-28 06:30] LABS: INR 1.8 (0.8-1.4); PROTHROMBIN TIME PATIENT 20.9 SEC (12.2-14.7)
--- NOTE | 2017-09-28 06:31 | Pulmonary Progress Note ---
Subjective Time Seen by Provider: 07:00 Subjective/Events-last exam Pt is doing better. He is off Vapotherm and on 3.5liters of oxygen via NC. Exam Exam Vital Signs Date Time Temp Pulse Resp B/P (MAP) Pulse Ox O2 Delivery O2 Flow Rate FiO2 09/28/17 04:00 98.0 67 18 141/68 (92) 95 High Flow N/C 3.50 09/28/17 01:55 Room Air 09/28/17 00:00 97.4 71 18 159/69 (99) 91 NIV CPAP 5.00 09/27/17 22:28 94 Nasal Cannula 4.00 09/27/17 20:10 94 Room Air 09/27/17 19:16 94 Nasal Cannula 4.00 09/27/17 19:10 97.9 76 20 137/62 (87) 94 High Flow N/C 5.00 09/27/17 19:09 95 Nasal Cannula 5.00 09/27/17 17:10 Nasal Cannula 5.00 09/27/17 15:50 98.1 74 20 117/58 (77) 94 High Flow N/C 5.00 09/27/17 15:29 95 40 09/27/17 13:57 95 Nasal Cannula 5.00 09/27/17 12:00 97.2 95 24 139/64 (89) 91 High Flow N/C 5.00 09/27/17 10:08 95 Vapotherm 6.00 09/27/17 10:07 95 Nasal Cannula 6.00 09/27/17 09:00 Nasal Cannula 5.00 09/27/17 08:41 97.6 80 20 122/63 (82) 90 Vapotherm 50.00 12.00 09/27/17 06:28 95 Vapotherm 12.00 50 I & O 09/28/17 07:00 Intake Total 2020 ml Output Total 1700 ml Balance 320 ml General Appearance: No Apparent Distress, WD/WN HEENT: Normal ENT Inspection Neck: Full Range of Motion Respiratory: No Accessory Muscle Use, No Respiratory Distress, Decreased Breath Sounds Cardiovascular: Regular Rate, Rhythm, No Murmur Capillary Refill: Less Than 3 Seconds Gastrointestinal: non tender, soft Extremity: Normal Capillary Refill, Normal Inspection, Normal Range of Motion Neurologic/Psychiatric: Alert, Oriented x3 Skin: Normal Color, Warm/Dry Lymphatic: No Adenopathy Results Lab Laboratory Tests 09/27/17 05:34 09/28/17 05:10 Assessment/Plan Assessment/Plan MSSA pneumonia - improving - Rocephin -Oxygen as needed Pulmonary edema with bilateral pleural effusions- improving -Lasix 40mg IV today then switch to PO -Repeat PA/LAT CXR today -CT chest is negative for PE however shows bilateral pleural effusions and infiltration. Mediastinal adenopathy --Pt will need repeat CT scan in 6-8wks to ensure compleat resolution r/o mass. -Order placed for RN to schedule pt f/u appt with me. pt is not yet ready for discharge. HX of COPD -SVNS DuoNeb Atelectasis -IS S/p Fracture hip and surgical repair Debility -PT/OT 232 LILO ROMO DO Sep 28, 2017 06:31
[2017-09-28 06:42] LABS: CALCIUM 8.5 MG/DL (8.5-10.1); CREATININE SERUM 1.16 MG/DL (0.60-1.30); POTASSIUM 4.3 MMOL/L (3.6-5.0)
[2017-09-28] MEDS: PANTOPRAZOLE 40 MG (PROTONIX) TAB PO SCH (06:49)
[2017-09-28] MEDS: MULTIVIT W/MINERALS TAB (THERAGRAN M) PO SCH (06:49)
[2017-09-28] MEDS: LACTOBACILLUS Acidoph/Bulgar (LACTINEX/FLORANEX) TAB PO SCH ×3 (06:49→18:21)
[2017-09-28] MEDS: KCL 8 MEQ (MICRO K) TABLET PO SCH (06:49)
[2017-09-28] MEDS: UMECLIDINIUM BROMIDE (INCRUSE ELLIPTA) 7'S IH SCH (06:50)
[2017-09-28] MEDS: RT-ADVAIR HFA 115/21 MCG PER PUFF IH SCH ×2 (06:50→18:31)
[2017-09-28] MEDS ORDERED: FUROSEMIDE 40 MG/4 ML INJ (LASIX) IVP NR (07:00)
--- NOTE | 2017-09-28 07:28 | Progress Note (SOAP) ---
Subjective Time Seen by Provider: 07:25 Subjective/Events-last exam Patient feeling much better today. Patient lost 22 pounds. Patient on nasal cannula 3.5 L. Patient not on Vapotherm. Plan to send patient back to rehabilitation tomorrow. Patient to get Lasix IV today Objective Exam Vital Signs Date Time Temp Pulse Resp B/P (MAP) Pulse Ox O2 Delivery O2 Flow Rate FiO2 09/28/17 06:55 95 Nasal Cannula 4.00 09/28/17 06:54 95 Nasal Cannula 4.00 09/28/17 06:50 95 Nasal Cannula 4.00 09/28/17 04:00 98.0 67 18 141/68 (92) 95 High Flow N/C 3.50 09/28/17 01:55 Room Air 09/28/17 00:00 97.4 71 18 159/69 (99) 91 NIV CPAP 5.00 09/27/17 22:28 94 Nasal Cannula 4.00 09/27/17 20:10 94 Room Air 09/27/17 19:16 94 Nasal Cannula 4.00 09/27/17 19:10 97.9 76 20 137/62 (87) 94 High Flow N/C 5.00 09/27/17 19:09 95 Nasal Cannula 5.00 09/27/17 17:10 Nasal Cannula 5.00 09/27/17 15:50 98.1 74 20 117/58 (77) 94 High Flow N/C 5.00 09/27/17 15:29 95 40 09/27/17 13:57 95 Nasal Cannula 5.00 09/27/17 12:00 97.2 95 24 139/64 (89) 91 High Flow N/C 5.00 09/27/17 10:08 95 Vapotherm 6.00 09/27/17 10:07 95 Nasal Cannula 6.00 09/27/17 09:00 Nasal Cannula 5.00 09/27/17 08:41 97.6 80 20 122/63 (82) 90 Vapotherm 50.00 12.00 I & O 09/28/17 07:00 Intake Total 2020 ml Output Total 1700 ml Balance 320 ml Capillary Refill : Less Than 3 SecondsLess Than 3 Seconds General Appearance: No Apparent Distress, WD/WN HEENT: Normal ENT Inspection Neck: Full Range of Motion, Normal Inspection Respiratory: No Accessory Muscle Use, No Respiratory Distress Results Lab Laboratory Tests 09/28/17 05:10: White Blood Count 6.0, Red Blood Count 3.44L, Hemoglobin 10.4L, Hematocrit 32L, Mean Corpuscular Volume 94, Mean Corpuscular Hemoglobin 30, Mean Corpuscular Hemoglobin Concent 32, Red Cell Distribution Width 16.6H, Platelet Count 513H, Mean Platelet Volume 8.6, Prothrombin Time 20.9H, INR Comment 1.8H, Sodium Level 139, Potassium Level 4.3, Chloride Level 105, Carbon Dioxide Level 21, Anion Gap 13, Blood Urea Nitrogen 15, Creatinine 1.16, Estimat Glomerular Filtration Rate 60, BUN/Creatinine Ratio 13, Glucose Level 109H, Calcium Level 8.5, Magnesium Level 2.0 Microbiology 09/25/17 Gram Stain - Final, Complete 09/25/17 Sputum Culture - Final, Complete Presumptive Cherelle Albicans Normal marta See Comments Assessment/Plan Assessment/Plan Assess & Plan/Chief Complaint Pneumonia. Anemia. COPD.. . 09/28/17. Pneumonia. Fluid overload. Anemia. COPD. Hip fracture. Patient breathing much better today. Patient lost 22 pounds. Patient breathing better. Plan to send patient back to rehabilitation tomorrow Clinical Quality Measures Admission Status Admission Dx Pneumonia. Anemia. Right hip fracture. Short of breath. Atrial fibrillation. Weakness DVT/VTE Risk/Contraindication: Risk Factor Score Per Nursin RFS Level Per Nursing on Admit: 4+=Very High Contraindications-Pharm: Other *list below* YOUSIF ARAGON DO Sep 28, 2017 07:28
[2017-09-28] MEDS: POLYETHYLENE GLYCOL 17 GM (MIRALAX) PACK PO SCH ×2 (07:43→19:55)
[2017-09-28] MEDS: MAGNESIUM OXIDE (MAG-OX)400 MG TAB PO SCH ×2 (07:43→18:24)
[2017-09-28] MEDS: DILTIAZEM 240 MG (CARDIZEM CD) CAP PO SCH (07:44)
[2017-09-28] MEDS: oxyCODONE/APAP 5/325MG (PERCOCET 5) TABLET PO PRN ×2 (07:44→12:29)
[2017-09-28] MEDS: TAMSULOSIN 0.4 MG (FLOMAX) CAP PO SCH ×2 (07:44→19:57)
[2017-09-28] MEDS: DOCUSATE SODIUM 100 MG (COLACE) CAP PO SCH ×2 (07:44→19:55)
[2017-09-28] MEDS: FLECAINIDE 100 MG (TAMBOCOR) TAB PO SCH ×2 (07:44→19:57)
[2017-09-28] MEDS: cefTRIAXone INJECTION 1,000 MG in NS (IVPB) 50 ML IV SCH (07:49)
[2017-09-28] MEDS: FINASTERIDE (PROSCAR) 5 MG TAB PO SCH (07:55)
--- NOTE | 2017-09-28 09:30 | Physical Therapy Daily Note ---
PT Daily Note-Current Subjective Patient sitting in recliner and states to PT upon request to participate with PT , "It's not worth it. I just want to , this pain is so bad. I'm not going to walk." PT highly encouraged patient to participate and patient yelled during entire treatment. Pain Numeric Pain Scale: 8 Location: Left Location Body Site: Hip Pain Description: Acute Mental Status Patient Orientation: Normal For Age Attachments: Oxygen (4L HF) Transfers Functional [place] Measure 0=Not Assessed/NA 4=Minimal Assistance 1=Total Assistance 5=Supervision or Setup 2=Maximal Assistance 6=Modified [place] 3=Moderate Assistance 7=Complete IndependenceIRFPAI Quality Coding Scale 6 Independent with activity with or without an assistive device 5 Patient requires set up or clean up by helper. Patient completes activity by themselves 4 Supervision or touching assist (CGA). Lovely provide cues , steadying assist 3 The helper provides less than half the effort to complete the activity 2 The helper provides more than half the effort to complete the activity 1 Dependent. The helper does all the effort to complete an activity 7 Patient refused to complete or attempt activity 9 The patient did not perform the activity before the current illness or injury 88 Not attempted due to Medical conditions or safety concerns Transfers (B, C, W/C) (FIM): 3 Scootin Sit to/from Stand: 3 Bed to/from Chair: 3 Patient is retropulsive with sit to stand and does not follow direction for body placement to allow proper technique. Weight Bearing Right Lower Extremity: Right Full Weight Bearing Left Lower Extremity: Left Partial Weight Bearing (50% per Dr. Culver progress note. ) Gait Training Gait (FIM): 1 Distance (FIM): 1=up to 49 ft Distance: 40' Gait Level of Assist: 4 Gait Persons Needed: 1 Gait Assistive Device: FWW very slow, step to, antalgic gait sequence Exercises Seated Therapy Exercises: Ankle pumps, Long arc quads Seated Reps: 15 (Patient refuses to extened left LE with LAQ due to pain, however, is able to perform.) Assessment PT educated patient on returning to ARU and 3 hrs of therapy. Patient continues to yell at PT that he will do only what he wants to do and no more. Patient is very resistive with all mobility and exercise and ceases treatment after 15 minutes. From a PT standpoint, patient will require extended care facility due to self limiting behaviors and to allow proper healing at his own pace. PT Mold Stacker Goals Mold Stacker Goals PT Mold Stacker Goals Time Frame: Oct 13, 2017 Transfers (B,C,W/C) (FIM): 5 Gait (FIM): 1 Gait distance (FIM): 1=up to 49 ft Distance: 20' Gait Level of Assist: 4 Gait Assistive Device: FWW PT Plan Treatment/Plan Treatment Plan: Continue Plan of Care Treatment Plan: Bed Mobility, Education, Functional Activity Syl, Functional Strength, Gait, Safety, Therapeutic Exercise, Transfers Treatment Duration: Oct 13, 2017 Frequency: 6 times per week Estimated Hrs Per Day: .5 hour per day Patient and/or Family Agrees t: Yes Time/GCodes Time In: 905 Time Out: 920 Total Billed Treatment Time: 15 Total Billed Treatment 1 visit GT 15 min ELVIRA MADRID PT Sep 28, 2017 09:30
--- NOTE | 2017-09-28 10:21 | Diagnostic Imaging Report ---
PA and lateral chest at 9:19. Indication: Shortness of breath. The heart size is within normal limits and stable when compared to 09/27/2017. The lateral view does show that there is bibasilar atelectasis/infiltrate and small bilateral pleural effusions. These findings are similar to the prior exam. The right perihilar atelectasis/infiltrate seen previously has diminished however. The upper lungs remain clear. The mediastinum is not widened. The osseous structures are intact. Impression: There is persistent involvement of both lung bases by pneumonia/atelectasis and fluid. A followup exam would be recommended for continued evaluation. Dictated by: Dictated on workstation # [id number]
--- NOTE | 2017-09-28 11:39 | Progress Note-Cardiology ---
Cardiology SOAP Progress Note Subjective: In bed. Awakened for exam an interview. Drifts back to sleep quickly. No c/o CP. Feels SOB is unchanged from yesterday. No c/o palpitations. Family member at the bedside. Objective: I&O/Vital Signs 09/28/17 09/28/17 09/28/17 09/28/17 04:00 06:50 06:54 06:55 Temp 98.0 Pulse 67 Resp 18 B/P (MAP) 141/68 (92) Pulse Ox 95 95 95 95 O2 Delivery High Flow N/C Nasal Cannula Nasal Cannula Nasal Cannula O2 Flow Rate 3.50 4.00 4.00 4.00 09/28/17 09/28/17 09/28/17 08:05 10:39 11:56 Temp 97.5 97.5 Pulse 77 69 Resp 16 18 B/P (MAP) 151/65 (93) 162/70 (100) Pulse Ox 93 94 95 O2 Delivery High Flow N/C Nasal Cannula High Flow N/C O2 Flow Rate 4.00 4.00 4.00 09/28/17 00:00 Intake Total 2020 ml Output Total 1700 ml Balance 320 ml Weight (Pounds): 178 Weight (Ounces): 8.0 Weight (Calculated Kilograms): 80.286697 Constitutional: AAO x 3, well-developed, well-nourished Respiratory: No accessory muscle use, No respiratory distress; chest expansion is symmetric, chest is bilaterally symmetric, other (fine crackles bases bilat) Cardiovascular: regular rate-rhythm; No JVD; S1 and S2 Gastrointestional: soft, round, audible bowel sounds Extremities: no lower extremity edema bilateral Neurologic/Psychiatric: grossly intact Skin: No rash, No ulcerations Results/Procedures: Labs Laboratory Tests 09/28/17 05:10: White Blood Count 6.0, Red Blood Count 3.44L, Hemoglobin 10.4L, Hematocrit 32L, Mean Corpuscular Volume 94, Mean Corpuscular Hemoglobin 30, Mean Corpuscular Hemoglobin Concent 32, Red Cell Distribution Width 16.6H, Platelet Count 513H, Mean Platelet Volume 8.6, Prothrombin Time 20.9H, INR Comment 1.8H, Sodium Level 139, Potassium Level 4.3, Chloride Level 105, Carbon Dioxide Level 21, Anion Gap 13, Blood Urea Nitrogen 15, Creatinine 1.16, Estimat Glomerular Filtration Rate 60, BUN/Creatinine Ratio 13, Glucose Level 109H, Calcium Level 8.5, Magnesium Level 2.0 Microbiology 09/25/17 Gram Stain - Final, Complete 09/25/17 Sputum Culture - Final, Complete Presumptive Cherelle Albicans Normal marta See Comments Procedures NAME: NICK PROCTOR [facility] REC#: [id number] PT STATUS: ADM IN : 1935 PHYSICIAN: LILO HARVEY DO ADMIT DATE: 09/25/17 Draft Date of Exam:09/28/17 CHEST PA/LAT (2 VIEW) PA and lateral chest at 9:19. Indication: Shortness of breath. The heart size is within normal limits and stable when compared to 09/27/2017. The lateral view does show that there is bibasilar atelectasis/infiltrate and small bilateral pleural effusions. These findings are similar to the prior exam. The right perihilar atelectasis/infiltrate seen previously has diminished however. The upper lungs remain clear. The mediastinum is not widened. The osseous structures are intact. Impression: There is persistent involvement of both lung bases by pneumonia/atelectasis and fluid. A followup exam would be recommended for continued evaluation. Dictated on workstation # [id number] Dict: 09/28/17 1003 Trans: 09/28/17 1021 CVB [id number] Interpreted by: ROSENDO CASTAÑEDA MD Electronically signed by: A/P: Assessment: Hip fracture status post surgical repair, done on September 09, 2017. Pneumonia - Dr. Harvey managing Echocardiogram LVEF 55-65%, AoV sclerosis w/o stenosis, mild to mod TR, pulmonary artery pressure [address] 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 Shortness of breath better. Gen weakness persistent Lungs: good bilat air entry Cor: reg Ext: no c/c/e A&R * As documented in our note above that I updated (italics) * I reviewed his chart and hosp records * Monitor labs * Adjust warfarin to INR LOTTIE SMITH Sep 28, 2017 11:39 GUICHO BLOUNT MD FACP FAC CCDS Sep 28, 2017 14:26
--- NOTE | 2017-09-28 15:21 | Occupational Ther Daily Note ---
OT Current Status-Daily Note Subjective Pt seen in room, up in bed, agreeable to OT. Reluctantly admits that he knows he 's doing better. Appearance Alert, cooperative Mental Status/Objective Functional [place] Measure 0=Not Assessed/NA 4=Minimal Assistance 1=Total Assistance 5=Supervision or Setup 2=Maximal Assistance 6=Modified [place] 3=Moderate Assistance 7=Complete [place] Other Treatment O2 had decreased to 3.5L /min nc. Pt needed just a little help moving L LE to go from supine to sit EOB, also using bed rail. He was able to maintain sitting unsupported by himself for at least 5 minutes and do 15-20 reps bilat UE exercise with red theraband. With bed raised up, he stood up with min assist and transferred to recliner beside bed with min assist, FWW. He seemed pleased that he had walked out to the hallway earlier today. Pt left up in recliner, legs elevated, all needs met. Education OT Patient Education: Exercise program, Progress toward Goal/Update tx plan, Purpose of tx/functional activities Teaching Recipient: Patient Teaching Methods: Discussion Response to Teaching: Verbalize Understanding OT Short Term Goals Short Term Goals 1=Demonstrate adherence to instructed precautions during ADL tasks. 2=Patient will verbalize/demonstrate understanding of assistive devices/ modifications for ADL. 3=Patient will improve strength/tolerance for activity to enable patient to perform ADL's. OT Datastage Developer Goals Halfway Goals Time Frame: Oct 06, 2017 Eating (FIM): 6 Grooming(FIM): 5 Bathing(FIM): 4 Upper Body Dressing(FIM): 5 Lower Body Dressing(FIM): 3 Toileting(FIM): 3 Toilet/Commode Transfer(FIM): 3 Shower Transfer(FIM): 3 Additional Goals: 1-Demonstrate ADL Tasks, 2-Verbalize Understanding, 3- ImproveStrength/Syl 1=Demonstrate adherence to instructed precautions during ADL tasks. 2=Patient will verbalize/demonstrate understanding of assistive devices/ modifications for ADL. 3=Patient will improve strength/tolerance for activity to enable patient to perform ADL's. OT Education/Plan Problem List/Assessment Pt would benefit from continued OT to increase his independence with basic self care Discharge Recommendations Plan/Recommendations: Continue POC Treatment Plan/Plan of Care Patient would benefit from OT for education, treatment and training to promote independence in ADL's, mobility, safety and/or upper extremity function for ADL' s. Plan of Care: ADL Retraining, Functional Mobility, UE Funct Exercise/Act, UE Neuromus Re-Ed/Coord Treatment Duration: Oct 06, 2017 Frequency: 5 times per week Estimated Hrs Per Day: .5 hour per day Agreement: Yes Rehab Potential: Guarded Time/GCodes Start Time: 14:50 Stop Time: 15:10 Total Time Billed (hr/min): 20 Billed Treatment Time visit, 20 minutes functional activities NATALI CHEN OT Sep 28, 2017 15:21
[2017-09-28] MEDS: warFARin 2 MG (COUMADIN) TAB PO SCH (18:21)
[2017-09-28] MEDS: ATORVASTATIN 10 MG (LIPITOR) TABLET PO SCH (19:57)
[2017-09-29] MEDS: RT-ALBUTEROL SULF 2.5 MG/3 ML PRE-MIX VIAL INH SCH ×5 (01:27→19:26)
[2017-09-29 03:36] VITALS: BP 125/58
[2017-09-29] MEDS: MULTIVIT W/MINERALS TAB (THERAGRAN M) PO SCH (05:44)
[2017-09-29] MEDS: oxyCODONE/APAP 5/325MG (PERCOCET 5) TABLET PO PRN (05:44)
[2017-09-29] MEDS: KCL 8 MEQ (MICRO K) TABLET PO SCH (05:44)
[2017-09-29] MEDS: LACTOBACILLUS Acidoph/Bulgar (LACTINEX/FLORANEX) TAB PO SCH ×3 (05:44→15:45)
[2017-09-29] MEDS: PANTOPRAZOLE 40 MG (PROTONIX) TAB PO SCH (05:45)
--- NOTE | 2017-09-29 05:48 | Pulmonary Progress Note ---
Subjective Time Seen by Provider: 05:51 Subjective/Events-last exam PT appears to be improving. Exam Exam Vital Signs Date Time Temp Pulse Resp B/P (MAP) Pulse Ox O2 Delivery O2 Flow Rate FiO2 09/29/17 03:36 97.5 75 19 125/58 (80) 94 High Flow N/C 4.00 09/29/17 01:27 94 Nasal Cannula 4.00 09/28/17 23:54 97.5 76 17 147/77 (100) 97 High Flow N/C 4.00 09/28/17 21:46 91 Nasal Cannula 4.00 09/28/17 21:00 Nasal Cannula 3.50 09/28/17 20:33 97.6 109 16 142/65 (90) 95 09/28/17 18:31 Nasal Cannula 4.00 09/28/17 18:25 92 Nasal Cannula 4.00 09/28/17 16:44 96.1 73 16 145/63 (90) 95 High Flow N/C 4.00 09/28/17 14:20 95 Nasal Cannula 4.00 09/28/17 11:56 97.5 69 18 162/70 (100) 95 High Flow N/C 4.00 09/28/17 10:39 94 Nasal Cannula 4.00 09/28/17 09:00 95 Nasal Cannula 4.00 09/28/17 08:05 97.5 77 16 151/65 (93) 93 High Flow N/C 4.00 09/28/17 06:55 95 Nasal Cannula 4.00 09/28/17 06:54 95 Nasal Cannula 4.00 09/28/17 06:50 95 Nasal Cannula 4.00 I & O 09/29/17 06:59 Intake Total 1230 ml Output Total 1800 ml Balance -570 ml General Appearance: No Apparent Distress, WD/WN HEENT: Normal ENT Inspection Neck: Full Range of Motion, Normal Inspection Respiratory: No Accessory Muscle Use, No Respiratory Distress Cardiovascular: Regular Rate, Rhythm, No Murmur Capillary Refill: Less Than 3 Seconds Gastrointestinal: non tender, soft Extremity: Normal Capillary Refill, Normal Inspection, Normal Range of Motion Neurologic/Psychiatric: Alert, Oriented x3 Skin: Normal Color, Warm/Dry Lymphatic: No Adenopathy Results Lab Laboratory Tests 09/28/17 05:10 Assessment/Plan Assessment/Plan MSSA pneumonia - improving - Rocephin -Oxygen as needed Pulmonary edema with bilateral pleural effusions- improving -Lasix switch to PO 60mg daily -CT chest is negative for PE however shows bilateral pleural effusions and infiltration. Mediastinal adenopathy --Pt will need repeat CT scan in 6-8wks to ensure compleat resolution r/o mass. -Order placed for RN to schedule pt f/u appt with me. pt is not yet ready for discharge. HX of COPD -SVNS DuoNeb Atelectasis -IS S/p Fracture hip and surgical repair Debility -PT/OT 232 LILO ROMO DO Sep 29, 2017 05:48
[2017-09-29 05:56] LABS: MEAN PLATELET VOLUME 8.6 FL (7.4-10.4); RED BLOOD COUNT 3.56 10^6/uL (4.35-5.85); RED CELL DISTRIBUTION WIDTH 16.1 % (10.0-14.5); WHITE BLOOD COUNT 7.2 10^3/uL (4.3-11.0)
[2017-09-29 06:09] LABS: INR 1.5 (0.8-1.4); PROTHROMBIN TIME PATIENT 17.8 SEC (12.2-14.7)
[2017-09-29 06:19] LABS: BUN/CREATININE RATIO 14; CALCIUM 8.8 MG/DL (8.5-10.1); CARBON DIOXIDE 23 MMOL/L (21-32); CHLORIDE 107 MMOL/L (98-107); GFR ESTIMATED > 60; GLUCOSE 115 MG/DL (70-105); POTASSIUM 4.5 MMOL/L (3.6-5.0); SODIUM 140 MMOL/L (135-145)
[2017-09-29] MEDS: UMECLIDINIUM BROMIDE (INCRUSE ELLIPTA) 7'S IH SCH (06:22)
[2017-09-29] MEDS: RT-ADVAIR HFA 115/21 MCG PER PUFF IH SCH ×2 (06:22→19:27)
--- NOTE | 2017-09-29 06:56 | Progress Note-Standard ---
Standard Progress Note Progress Notes/Assess & Plan Date Seen by Provider: Sep 29, 2017 Time Seen by Provider: 06:56 Progress/Assessment & Plan report hip is feeling better L hip incision well healed No calf tenderness. Neg Alex's s/p L hip IM osmany ok to advance to 50% WB LLE Final Diagnosis improving L hip incisions well healed able to flex L hip with minimal assistance neg Alex's s/p L hip IM osmany PT/OT DOMINIK ALBA MD Sep 29, 2017 06:56
[2017-09-29] MEDS ORDERED: KCL 10 MEQ TAB (MICRO K) PO SCH (07:00)
[2017-09-29 08:00] VITALS: BP 163/72
--- NOTE | 2017-09-29 08:02 | Progress Note (SOAP) ---
Subjective Time Seen by Provider: 08:00 Subjective/Events-last exam Patient feeling better and doing better today. Plan to discharge patient to rehabilitation today. MSSA pneumonia. Pulmonary edema better. COPD. Fractured hip Objective Exam Vital Signs Date Time Temp Pulse Resp B/P (MAP) Pulse Ox O2 Delivery O2 Flow Rate FiO2 09/29/17 03:36 97.5 75 19 125/58 (80) 94 High Flow N/C 4.00 09/29/17 01:27 94 Nasal Cannula 4.00 09/28/17 23:54 97.5 76 17 147/77 (100) 97 High Flow N/C 4.00 09/28/17 21:46 91 Nasal Cannula 4.00 09/28/17 21:00 Nasal Cannula 3.50 09/28/17 20:33 97.6 109 16 142/65 (90) 95 09/28/17 18:31 Nasal Cannula 4.00 09/28/17 18:25 92 Nasal Cannula 4.00 09/28/17 16:44 96.1 73 16 145/63 (90) 95 High Flow N/C 4.00 09/28/17 14:20 95 Nasal Cannula 4.00 09/28/17 11:56 97.5 69 18 162/70 (100) 95 High Flow N/C 4.00 09/28/17 10:39 94 Nasal Cannula 4.00 09/28/17 09:00 95 Nasal Cannula 4.00 09/28/17 08:05 97.5 77 16 151/65 (93) 93 High Flow N/C 4.00 I & O 09/29/17 07:00 Intake Total 1430 ml Output Total 2025 ml Balance -595 ml Capillary Refill : Less Than 3 SecondsLess Than 3 Seconds General Appearance: No Apparent Distress, WD/WN HEENT: Normal ENT Inspection Neck: Full Range of Motion, Normal Inspection Respiratory: No Accessory Muscle Use, No Respiratory Distress, Decreased Breath Sounds Cardiovascular: No Murmur Gastrointestinal: non tender, soft Results Lab Laboratory Tests 09/29/17 05:20: White Blood Count 7.2, Red Blood Count 3.56L, Hemoglobin 11.0L, Hematocrit 34L, Mean Corpuscular Volume 94, Mean Corpuscular Hemoglobin 31, Mean Corpuscular Hemoglobin Concent 33, Red Cell Distribution Width 16.1H, Platelet Count 495H, Mean Platelet Volume 8.6, Prothrombin Time 17.8H, INR Comment 1.5H, Sodium Level 140, Potassium Level 4.5, Chloride Level 107, Carbon Dioxide Level 23, Anion Gap 10, Blood Urea Nitrogen 15, Creatinine 1.10, Estimat Glomerular Filtration Rate > 60, BUN/Creatinine Ratio 14, Glucose Level 115H, Calcium Level 8.8 Microbiology 09/25/17 Gram Stain - Final, Complete 09/25/17 Sputum Culture - Final, Complete Presumptive Cherelle Albicans Normal marta See Comments Assessment/Plan Assessment/Plan Assess & Plan/Chief Complaint Pneumonia. Anemia. COPD.. . 09/28/17. Pneumonia. Fluid overload. Anemia. COPD. Hip fracture. Patient breathing much better today. Patient lost 22 pounds. Patient breathing better. Plan to send patient back to rehabilitation tomorrow. . 09/29/17. Pneumonia. MSSA. Pulmonary edema. Anemia. COPD. Hip fracture. Patient to be transferred to rehabilitation today Clinical Quality Measures Admission Status Admission Dx Pneumonia. Anemia. Right hip fracture. Short of breath. Atrial fibrillation. Weakness DVT/VTE Risk/Contraindication: Risk Factor Score Per Nursin RFS Level Per Nursing on Admit: 4+=Very High Contraindications-Pharm: Other *list below* YOUSIF ARAGON DO Sep 29, 2017 08:01
[2017-09-29] MEDS: FINASTERIDE (PROSCAR) 5 MG TAB PO SCH (09:35)
[2017-09-29] MEDS: DILTIAZEM 240 MG (CARDIZEM CD) CAP PO SCH (09:36)
[2017-09-29] MEDS: TAMSULOSIN 0.4 MG (FLOMAX) CAP PO SCH ×2 (09:36→21:06)
[2017-09-29] MEDS: FLECAINIDE 100 MG (TAMBOCOR) TAB PO SCH ×2 (09:36→21:06)
[2017-09-29] MEDS: DOCUSATE SODIUM 100 MG (COLACE) CAP PO SCH ×2 (09:36→21:06)
[2017-09-29] MEDS: KCL 10 MEQ TAB (MICRO K) PO SCH (09:36)
[2017-09-29] MEDS: FUROSEMIDE 20 MG (LASIX) TAB PO SCH (09:36)
[2017-09-29] MEDS: POLYETHYLENE GLYCOL 17 GM (MIRALAX) PACK PO SCH ×2 (09:37→21:06)
[2017-09-29] MEDS: cefTRIAXone INJECTION 1,000 MG in NS (IVPB) 50 ML IV SCH (09:38)
--- NOTE | 2017-09-29 09:43 | Physical Therapy Daily Note ---
PT Daily Note-Current Subjective Patient and family agree to PT. Pain Numeric Pain Scale: 8 Location: Left Location Body Site: Hip Pain Description: Ache, Acute Mental Status Patient Orientation: Normal For Age Attachments: Oxygen (3L O2 HF at rest and 4L with activity) Transfers Functional [place] Measure 0=Not Assessed/NA 4=Minimal Assistance 1=Total Assistance 5=Supervision or Setup 2=Maximal Assistance 6=Modified [place] 3=Moderate Assistance 7=Complete IndependenceIRFPAI Quality Coding Scale 6 Independent with activity with or without an assistive device 5 Patient requires set up or clean up by helper. Patient completes activity by themselves 4 Supervision or touching assist (CGA). [place] provide cues , steadying assist 3 The helper provides less than half the effort to complete the activity 2 The helper provides more than half the effort to complete the activity 1 Dependent. The helper does all the effort to complete an activity 7 Patient refused to complete or attempt activity 9 The patient did not perform the activity before the current illness or injury 88 Not attempted due to Medical conditions or safety concerns Transfers (B, C, W/C) (FIM): 3 Scootin Supine to/from Sit: 4 Sit to/from Stand: 3 Bed to/from Chair: 3 Patient requires mod assist and skilled verbal instruction for body placement in FWW and with sit to stand due to retropulsion Weight Bearing Right Lower Extremity: Right Full Weight Bearing Left Lower Extremity: Left Partial Weight Bearing (50% per Dr. Culver progress note. ) Gait Training Gait (FIM): 1 Distance (FIM): 1=up to 49 ft Distance: 20' x 5 Gait Level of Assist: 4 Gait Persons Needed: 1 Gait Assistive Device: FWW skilled verbal instruction for body placement and FWW use with step to gait pattern. Exercises Supine Ex: Ankle pumps, Quad Set Supine Reps: 15 Seated Therapy Exercises: Long arc quads Seated Reps: 20 Assessment Patient requires much encouragement to perform gait training due to left LE pain. Pain medication had be issued. Family questioned concern on POC. PT did educate family on PT professional standpoint with patient's inability to actively tolerated intensive therapies due to decreased SAO2 on 4L HF with activity to 79% with recovery in 1 min and overall motivation to do what is asked/required. Patient becomes dizzy and requires multiple sitting recovery periods due to SOB and left LE pain. Family reports they do not agree with this PT's professional opinion on patient physical ability. PT to increase activity as tolerated by patient. Patient, when family is not present, does have a tendency to cease/refuse treatment due to above issues. From a PT standpoint, patient would benefit from LTCF to ensure safe return to home due to patient inability to physically tolerated intense therapies. PT Detention Goals Detention Goals PT Detention Goals Time Frame: Oct 13, 2017 Transfers (B,C,W/C) (FIM): 5 Gait (FIM): 1 Gait distance (FIM): 1=up to 49 ft Distance: 20' Gait Level of Assist: 4 Gait Assistive Device: FWW PT Plan Treatment/Plan Treatment Plan: Continue Plan of Care Treatment Plan: Bed Mobility, Education, Functional Activity Syl, Functional Strength, Gait, Safety, Therapeutic Exercise, Transfers Treatment Duration: Oct 13, 2017 Frequency: 6 times per week Estimated Hrs Per Day: .5 hour per day Patient and/or Family Agrees t: Yes Time/GCodes Time In: 850 Time Out: 915 Total Billed Treatment Time: 25 Total Billed Treatment 1 visit EX 8 min GT 17 min ELVIRA MADRID PT Sep 29, 2017 09:43
--- NOTE | 2017-09-29 10:29 | Progress Note-Cardiology ---
Cardiology SOAP Progress Note Subjective: Up in chair at the bedside. Multiple family at the bedside. Nursing reports he became SOB and lightheaded when ambulating with PT earlier this morning. Objective: I&O/Vital Signs Weight (Pounds): 178 Weight (Ounces): 8.0 Weight (Calculated Kilograms): 80.324202 Constitutional: AAO x 3, well-developed, well-nourished Respiratory: No accessory muscle use, No respiratory distress; chest expansion is symmetric, chest is bilaterally symmetric, other (fine crackles bases bilat) Cardiovascular: regular rate-rhythm; No JVD; S1 and S2 Gastrointestional: soft, round, audible bowel sounds Extremities: no lower extremity edema bilateral Neurologic/Psychiatric: grossly intact Skin: No rash, No ulcerations Results/Procedures: Labs Microbiology 09/25/17 Gram Stain - Final, Complete 09/25/17 Sputum Culture - Final, Complete Presumptive Cherelle Albicans Normal marta See Comments A/P: Assessment: Hip fracture status post surgical repair, done on September 09, 2017. Pneumonia - Dr. Harvey managing Echocardiogram LVEF 55-65%, AoV sclerosis w/o stenosis, mild to mod TR, pulmonary artery pressure [address] 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
[2017-09-29] MEDS ORDERED: warFARin 2 MG (COUMADIN) TAB PO NR (10:30)
[2017-09-29 12:00] VITALS: BP 179/72
--- NOTE | 2017-09-29 14:12 | Occupational Ther Daily Note ---
OT Current Status-Daily Note Subjective Pt seen in room, up in bed, agreeable to OT. Waiting to go for kidney procedure. No pain mentioned. Appearance Alert, cooperative Mental Status/Objective Functional [place] Measure 0=Not Assessed/NA 4=Minimal Assistance 1=Total Assistance 5=Supervision or Setup 2=Maximal Assistance 6=Modified [place] 3=Moderate Assistance 7=Complete [place] Other Treatment Pt did 20 reps bilat UE exercise with red theraband. He recalled first two exercises and received education on additional exercises. He was able to track repetitions himself and needed just occasional cues on technique. Pt given "homework" to do two exercises that he knows at least once a day over the weekend. These are to strengthen arms to help with transfers and to increase activity tolerance. Pt left up in bed, all needs met, daughter in room. Education OT Patient Education: Exercise program Teaching Recipient: Patient Teaching Methods: Demonstration, Discussion Response to Teaching: Verbalize Understanding, Return Demonstration OT Short Term Goals Short Term Goals 1=Demonstrate adherence to instructed precautions during ADL tasks. 2=Patient will verbalize/demonstrate understanding of assistive devices/ modifications for ADL. 3=Patient will improve strength/tolerance for activity to enable patient to perform ADL's. OT Oil Field Equipment Mechanic Supervisor Goals Oil [employer] Equipment Mechanic Supervisor Goals Time Frame: Oct 06, 2017 Eating (FIM): 6 Grooming(FIM): 5 Bathing(FIM): 4 Upper Body Dressing(FIM): 5 Lower Body Dressing(FIM): 3 Toileting(FIM): 3 Toilet/Commode Transfer(FIM): 3 Shower Transfer(FIM): 3 Additional Goals: 1-Demonstrate ADL Tasks, 2-Verbalize Understanding, 3- ImproveStrength/Syl 1=Demonstrate adherence to instructed precautions during ADL tasks. 2=Patient will verbalize/demonstrate understanding of assistive devices/ modifications for ADL. 3=Patient will improve strength/tolerance for activity to enable patient to perform ADL's. OT Education/Plan Problem List/Assessment Pt would benefit from continued OT to increase his independence with basic self care Discharge Recommendations Plan/Recommendations: Continue POC Treatment Plan/Plan of Care Patient would benefit from OT for education, treatment and training to promote independence in ADL's, mobility, safety and/or upper extremity function for ADL' s. Plan of Care: ADL Retraining, Functional Mobility, UE Funct Exercise/Act, UE Neuromus Re-Ed/Coord Treatment Duration: Oct 06, 2017 Frequency: 5 times per week Estimated Hrs Per Day: .5 hour per day Agreement: Yes Rehab Potential: Guarded Time/GCodes Start Time: 13:50 Stop Time: 14:05 Total Time Billed (hr/min): 15 Billed Treatment Time visit, 15 minutes exercises NATALI CHEN OT Sep 29, 2017 14:12
[2017-09-29 16:47] VITALS: BP 150/67
--- NOTE | 2017-09-29 18:06 | Progress Note-Cardiology ---
Cardiology SOAP Progress Note Subjective: No cp or palp or syncope. Feels somewhat stronger Objective: I&O/Vital Signs 09/29/17 09/29/17 09/29/17 09/29/17 06:40 08:00 09:42 09:44 Temp 97.9 Pulse 64 Resp 20 B/P (MAP) 163/72 (102) Pulse Ox 90 97 O2 Delivery Nasal Cannula High Flow N/C Nasal Cannula Nasal Cannula O2 Flow Rate 4.00 4.00 4.00 4.00 09/29/17 09/29/17 09/29/17 09/29/17 10:11 12:00 14:17 16:47 Temp 97.5 97.8 Pulse 68 71 Resp 18 18 B/P (MAP) 179/72 (107) 150/67 (94) Pulse Ox 94 95 92 90 O2 Delivery Nasal Cannula High Flow N/C Nasal Cannula High Flow N/C O2 Flow Rate 4.00 4.00 4.00 4.00 09/29/17 00:00 Intake Total 1230 ml Output Total 1800 ml Balance -570 ml Weight (Pounds): 178 Weight (Ounces): 8.0 Weight (Calculated Kilograms): 80.965205 Constitutional: AAO x 3, well-developed, well-nourished Respiratory: chest expansion is symmetric, chest is bilaterally symmetric, other Cardiovascular: regular rate-rhythm, S1 and S2 Gastrointestional: soft, round, audible bowel sounds Extremities: no lower extremity edema bilateral Neurologic/Psychiatric: grossly intact Skin: No rash, No ulcerations Results/Procedures: Labs Laboratory Tests 09/29/17 05:20: White Blood Count 7.2, Red Blood Count 3.56L, Hemoglobin 11.0L, Hematocrit 34L, Mean Corpuscular Volume 94, Mean Corpuscular Hemoglobin 31, Mean Corpuscular Hemoglobin Concent 33, Red Cell Distribution Width 16.1H, Platelet Count 495H, Mean Platelet Volume 8.6, Prothrombin Time 17.8H, INR Comment 1.5H, Sodium Level 140, Potassium Level 4.5, Chloride Level 107, Carbon Dioxide Level 23, Anion Gap 10, Blood Urea Nitrogen 15, Creatinine 1.10, Estimat Glomerular Filtration Rate > 60, BUN/Creatinine Ratio 14, Glucose Level 115H, Calcium Level 8.8 Microbiology 09/25/17 Gram Stain - Final, Complete 09/25/17 Sputum Culture - Final, Complete Presumptive Cherelle Albicans Normal marta See Comments Laboratory Tests 09/28/17 05:10 09/29/17 05:20 A/P: Assessment: Hip fracture status post surgical repair, done on September 09, 2017. Pneumonia - Dr. Harvey managing Echocardiogram LVEF 55-65%, AoV sclerosis w/o stenosis, mild to mod TR, pulmonary artery pressure [address] 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
--- NOTE | 2017-09-29 19:49 | Diagnostic Imaging Report ---
INDICATION: Renal lesions. Bilateral renal sonography performed in the routine fashion. The right kidney measures 11.9 x 4.8 x 5.1 cm. The left kidney measures 11.2 x 5.4 x 4.8 cm. Right kidney shows a cyst superiorly measuring 3.0 x 3.3 x 3.3 cm. The left kidney shows a cyst inferiorly measuring 3.0 x 3.2 x 3.1 cm. The smaller densities visualized on the CT study of 09/25/2017 are not apparent on this study. IMPRESSION: Normal-sized kidneys bilaterally with no hydronephrosis. There are approximately 3 cm cysts in both kidneys. The smaller lesions visualized on the CT study of 09/25/2017 are not apparent on this study. Therefore, I suggest CT follow-up in about 4-6 months. Dictated by: Dictated on workstation # [id number]
[2017-09-29 20:00] VITALS: BP 167/75
[2017-09-29] MEDS: ATORVASTATIN 10 MG (LIPITOR) TABLET PO SCH (21:06)
[2017-09-30] VITALS (7 sets, daily range): BP systolic 119–158; BP diastolic 58–70
[2017-09-30] MEDS: RT-ALBUTEROL SULF 2.5 MG/3 ML PRE-MIX VIAL INH SCH ×7 (02:20→22:21)
[2017-09-30] MEDS: PANTOPRAZOLE 40 MG (PROTONIX) TAB PO SCH (05:41)
[2017-09-30] MEDS: MULTIVIT W/MINERALS TAB (THERAGRAN M) PO SCH (05:41)
[2017-09-30] MEDS: LACTOBACILLUS Acidoph/Bulgar (LACTINEX/FLORANEX) TAB PO SCH ×3 (05:41→15:15)
[2017-09-30] MEDS: oxyCODONE/APAP 5/325MG (PERCOCET 5) TABLET PO PRN ×3 (05:42→19:44)
[2017-09-30 06:45] LABS: BASOPHILS % (AUTO) 0 % (0-10); EOSINOPHILS # (AUTO) 0.2 10^3/uL (0.0-0.3); EOSINOPHILS % (AUTO) 2 % (0-10); HEMATOCRIT 35 % (40-54); HEMOGLOBIN 11.1 G/DL (13.3-17.7); LYMPHOCYTES # (AUTO) 0.7 X 10^3 (1.0-4.0); LYMPHOCYTES % (AUTO) 8 % (12-44); MEAN CORPUSCULAR HEMOGLOBIN 30 PG (25-34); MEAN CORPUSCULAR HGB CONC 32 G/DL (32-36); MEAN CORPUSCULAR VOLUME 94 FL (80-99); MEAN PLATELET VOLUME 8.7 FL (7.4-10.4); MONOCYTES # (AUTO) 0.6 X 10^3 (0.0-1.0); MONOCYTES % (AUTO) 8 % (0-12); NEUTROPHILS # (AUTO) 6.4 X 10^3 (1.8-7.8); NEUTROPHILS % (AUTO) 82 % (42-75); PLATELET COUNT 527 10^3/uL (130-400); RED BLOOD COUNT 3.73 10^6/uL (4.35-5.85); WHITE BLOOD COUNT 7.8 10^3/uL (4.3-11.0)
[2017-09-30 07:03] LABS: INR 1.5 (0.8-1.4); PROTHROMBIN TIME PATIENT 18.2 SEC (12.2-14.7)
[2017-09-30] MEDS: RT-ADVAIR HFA 115/21 MCG PER PUFF IH SCH ×2 (07:09→18:59)
[2017-09-30] MEDS: UMECLIDINIUM BROMIDE (INCRUSE ELLIPTA) 7'S IH SCH (07:10)
[2017-09-30 07:16] LABS: CALCIUM 9.1 MG/DL (8.5-10.1); CREATININE SERUM 1.16 MG/DL (0.60-1.30); POTASSIUM 4.7 MMOL/L (3.6-5.0)
[2017-09-30 07:28] LABS: EOSINOPHILS % (MANUAL) 5 %; LYMPHOCYTES % (MANUAL) 9 %; MONOCYTES % (MANUAL) 7 %; NEUTROPHILS % (MANUAL) 79 %
[2017-09-30 07:29] LABS: ANISOCYTOSIS SLIGHT
[2017-09-30] MEDS: DILTIAZEM 240 MG (CARDIZEM CD) CAP PO SCH (09:35)
[2017-09-30] MEDS: FUROSEMIDE 20 MG (LASIX) TAB PO SCH (09:36)
[2017-09-30] MEDS: FINASTERIDE (PROSCAR) 5 MG TAB PO SCH (09:36)
[2017-09-30] MEDS: TAMSULOSIN 0.4 MG (FLOMAX) CAP PO SCH ×2 (09:36→20:47)
[2017-09-30] MEDS: DOCUSATE SODIUM 100 MG (COLACE) CAP PO SCH ×2 (09:36→20:48)
[2017-09-30] MEDS: KCL 10 MEQ TAB (MICRO K) PO SCH (09:36)
[2017-09-30] MEDS: FLECAINIDE 100 MG (TAMBOCOR) TAB PO SCH ×2 (09:36→20:47)
[2017-09-30] MEDS: cefTRIAXone INJECTION 1,000 MG in NS (IVPB) 50 ML IV SCH (09:37)
[2017-09-30] MEDS: POLYETHYLENE GLYCOL 17 GM (MIRALAX) PACK PO SCH ×2 (09:37→20:47)
--- NOTE | 2017-09-30 09:52 | Physical Therapy Daily Note ---
PT Daily Note-Current Subjective Pt very reluctant to participate, agreeable with encouragement. Pt rates pain 6 /10 in chair and 8/10 upon rising in (R) hip. Pt states many times "I almost can't do this! You don't know how hard this is!" Mental Status Patient Orientation: Person, Place, Situation Transfers Functional Fowler Measure 0=Not Assessed/NA 4=Minimal Assistance 1=Total Assistance 5=Supervision or Setup 2=Maximal Assistance 6=Modified Fowler 3=Moderate Assistance 7=Complete IndependenceIRFPAI Quality Coding Scale 6 Independent with activity with or without an assistive device 5 Patient requires set up or clean up by helper. Patient completes activity by themselves 4 Supervision or touching assist (CGA). [place] provide cues , steadying assist 3 The helper provides less than half the effort to complete the activity 2 The helper provides more than half the effort to complete the activity 1 Dependent. The helper does all the effort to complete an activity 7 Patient refused to complete or attempt activity 9 The patient did not perform the activity before the current illness or injury 88 Not attempted due to Medical conditions or safety concerns Weight Bearing Right Lower Extremity: Right Full Weight Bearing Left Lower Extremity: Left Partial Weight Bearing (50% per Dr. Culver progress note. ) Gait Training PT amb PWB (R) LE with FWW and CGA, max vc's for sequence. Pt able to amb correct technique using step to pattern. Follow of 1 present with O2 at 4L/min Exercises Supine Ex: Ankle pumps, Quad Set Supine Reps: 20 Seated Therapy Exercises: Long arc quads Seated Reps: 20 Treatments Pt amb with FWW 1 x 20ft, 1 x 10ft. Pt fatigued quickly and also appeared to panic somewhat. Chair brought in behind pt and pt allowed to rest. Pt agreeable to amb half way on 2nd bout. Assessment Current Status: Fair Progress Pt somewhat fearful of falling and required continual encouragement. Pt did fine job ambulating but did fatigue at 20ft requiring rest break. Pt is dependent at this time with all mobility. Pt in recliner with feet up, O2 in place per nc and call light in reach. PT Half-Way Goals Wheat Combine Driver Goals PT Wheat Combine Driver Goals Time Frame: Oct 13, 2017 Transfers (B,C,W/C) (FIM): 5 Gait (FIM): 1 Gait distance (FIM): 1=up to 49 ft Distance: 20' Gait Level of Assist: 4 Gait Assistive Device: FWW PT Plan Treatment/Plan Treatment Plan: Continue Plan of Care Treatment Plan: Bed Mobility, Education, Functional Activity Syl, Functional Strength, Gait, Safety, Therapeutic Exercise, Transfers Treatment Duration: Oct 13, 2017 Frequency: 6 times per week Estimated Hrs Per Day: .5 hour per day Patient and/or Family Agrees t: Yes Time/GCodes Time In: 845 Time Out: 915 Total Billed Treatment Time: 30 Total Billed Treatment 1, gait 25min, Ther ex 5 min CATRINA SINGH CPTA Sep 30, 2017 09:52
[2017-09-30] MEDS: ACETAMINOPHEN 325 MG TABLET/CAPLET (TYLENOL) PO PRN (10:46)
[2017-09-30] MEDS ORDERED: warFARin 3 MG (COUMADIN) TAB PO NR (11:00)
--- NOTE | 2017-09-30 11:00 | Progress Note-Cardiology ---
Cardiology SOAP Progress Note Subjective: No cp or palp or syncope or shortness of breath Objective: I&O/Vital Signs 09/30/17 09/30/17 09/30/17 09/30/17 00:00 02:28 04:00 07:10 Temp 98.2 98.0 Pulse 81 77 79 Resp 16 18 B/P (MAP) 158/70 (99) 119/58 (78) Pulse Ox 90 92 92 92 O2 Delivery High Flow N/C Nasal Cannula High Flow N/C O2 Flow Rate 4.00 3.00 4.00 FiO2 32 09/30/17 09/30/17 09/30/17 09/30/17 07:10 08:00 09:52 10:51 Temp 98.6 Pulse 81 Resp 20 B/P (MAP) 135/62 (86) Pulse Ox 88 94 91 O2 Delivery Nasal Cannula Nasal Cannula Nasal Cannula Nasal Cannula O2 Flow Rate 2.00 2.00 3.00 3.00 3.00 09/30/17 00:00 Intake Total 1330 ml Output Total 1330 ml Balance 0 ml Weight (Pounds): 178 Weight (Ounces): 8.0 Weight (Calculated Kilograms): 80.025050 Constitutional: AAO x 3, well-developed, well-nourished Respiratory: chest expansion is symmetric, chest is bilaterally symmetric, other Cardiovascular: regular rate-rhythm, S1 and S2 Gastrointestional: soft, round, audible bowel sounds Extremities: no lower extremity edema bilateral Neurologic/Psychiatric: grossly intact Skin: No rash, No ulcerations Results/Procedures: Labs Laboratory Tests 09/30/17 05:35: White Blood Count 7.8, Red Blood Count 3.73L, Hemoglobin 11.1L, Hematocrit 35L, Mean Corpuscular Volume 94, Mean Corpuscular Hemoglobin 30, Mean Corpuscular Hemoglobin Concent 32, Red Cell Distribution Width 16.0H, Platelet Count 527H, Mean Platelet Volume 8.7, Neutrophils (%) (Auto) 82H, Lymphocytes (%) (Auto) 8L , Monocytes (%) (Auto) 8, Eosinophils (%) (Auto) 2, Basophils (%) (Auto) 0, Neutrophils # (Auto) 6.4, Lymphocytes # (Auto) 0.7L, Monocytes # (Auto) 0.6, Eosinophils # (Auto) 0.2, Basophils # (Auto) 0.0, Neutrophils % (Manual) 79, Lymphocytes % (Manual) 9, Monocytes % (Manual) 7, Eosinophils % (Manual) 5, Anisocytosis SLIGHT, Prothrombin Time 18.2H, INR Comment 1.5H, Sodium Level 139 , Potassium Level 4.7, Chloride Level 105, Carbon Dioxide Level 21, Anion Gap 13 , Blood Urea Nitrogen 17, Creatinine 1.16, Estimat Glomerular Filtration Rate 60 , BUN/Creatinine Ratio 15, Glucose Level 117H, Calcium Level 9.1 Microbiology 09/25/17 Gram Stain - Final, Complete 09/25/17 Sputum Culture - Final, Complete Presumptive Cherelle Albicans Normal marta See Comments Laboratory Tests 09/29/17 05:20 09/30/17 05:35 A/P: Assessment: Hip fracture status post surgical repair, done on September 09, 2017. Pneumonia - Dr. Harvey managing Echocardiogram LVEF 55-65%, AoV sclerosis w/o stenosis, mild to mod TR, pulmonary artery pressure [address] Rico Anemia - H/H stable after transfusion Paroxysmal atrial fibrillation - currently maintaining sinus rhythm, had workup done in in the past History of DVT in the past, family reported history of multiple DVT, maintained on Coumadin for the past 30 years Chronic Coumadin therapy, was super therapeutic level, probably secondary to antibiotic - now is subtherapeutic Hypertension Acute renal failure COPD/obstructive sleep apnea, using C Pap at night BPH Plan: Continue current medication regimen Monitor lab closely Monitor INR - adjust warfarin as indicated Additional warfarin today because INR subtherapeutic GUICHO BLOUNT MD FACP FAC CCDS Sep 30, 2017 11:00
--- NOTE | 2017-09-30 12:01 | Progress Note-Hospitalist ---
Subjective HPI/CC On Admission Date Seen by Provider: Sep 30, 2017 Time Seen by Provider: 11:15 Subjective/Events-last exam Patient doing about the same Complains of left knee pain Patient has multiple somatic complaints every day each day it's new Bowels are moving Needs to increase Percocet frequency because he is having more pain. Pneumonia treatment tolerated well Oxygen and nebulized treatments maintained Review of Systems General: Fatigue, Malaise Pulmonary: Cough Musculoskeletal: leg pain Objective Exam Vital Signs Vital Signs Date Time Temp Pulse Resp B/P (MAP) Pulse Ox O2 Delivery O2 Flow Rate FiO2 09/30/17 12:00 98.2 78 18 151/69 (96) 94 Nasal Cannula 3.00 3.00 09/30/17 07:10 32 Capillary Refill : Less Than 3 SecondsLess Than 3 Seconds General Appearance: No Apparent Distress, WD/WN, Chronically ill Respiratory: No Accessory Muscle Use, No Respiratory Distress, Crackles, Decreased Breath Sounds Cardiovascular: No Edema, Irregularly Irregular Neurologic/Psychiatric: Alert, Oriented x3, No Motor/Sensory Deficits, Depressed Affect Results/Procedures Lab Laboratory Tests 09/30/17 05:35 Patient resulted labs reviewed. Assessment/Plan Assessment and Plan Assess & Plan/Chief Complaint Assessment: Bilateral pneumonia Plan: Pneumonia protocol Increase Percocet frequency Very difficult to motivate considering pain precludes a lot of activity Maintain bowel regimen Diagnosis/Problems Diagnosis/Problems (1) Pneumonia Status: Acute (2) Knee pain Status: Acute Qualifiers: Chronicity: acute Laterality: left Qualified Codes: M25.562 - Pain in left knee (3) Subtherapeutic anticoagulation Status: Acute (4) History of DVT of lower extremity Status: Chronic (5) Debility Status: Chronic (6) Hypoxia Status: Acute (7) Anemia Status: Chronic Qualifiers: Anemia type: iron deficiency Iron deficiency anemia type: unspecified iron deficiency Qualified Codes: D50.9 - Iron deficiency anemia, unspecified (8) Hip fracture Status: Chronic Qualifiers: Encounter type: subsequent encounter Fracture type: closed Laterality: unspecified laterality Fracture healing: with routine healing Qualified Codes : S72.009D - Fracture of unspecified part of neck of unspecified femur, subsequent encounter for closed fracture with routine healing (9) Atrial fibrillation Status: Chronic Qualifiers: Atrial fibrillation type: chronic Qualified Codes: I48.2 - Chronic atrial fibrillation (10) COPD (chronic obstructive pulmonary disease) Status: Chronic Qualifiers: COPD type: unspecified COPD Qualified Codes: J44.9 - Chronic obstructive pulmonary disease, unspecified (11) Essential (primary) hypertension Status: Chronic Clinical Quality Measures DVT/VTE Risk/Contraindication: Risk Factor Score Per Nursin RFS Level Per Nursing on Admit: 4+=Very High Contraindications-Pharm: Other *list below* ALLEN MARTINEZ DO Sep 30, 2017 12:01
[2017-09-30] MEDS: warFARin 2 MG (COUMADIN) TAB PO SCH (17:06)
[2017-09-30] MEDS: ATORVASTATIN 10 MG (LIPITOR) TABLET PO SCH (20:49)
[2017-10-01] VITALS: BP 143/65
[2017-10-01] MEDS: RT-ALBUTEROL SULF 2.5 MG/3 ML PRE-MIX VIAL INH SCH ×6 (02:05→22:32)
[2017-10-01 04:00] VITALS: BP 124/62
[2017-10-01] MEDS: PANTOPRAZOLE 40 MG (PROTONIX) TAB PO SCH (05:40)
[2017-10-01] MEDS: LACTOBACILLUS Acidoph/Bulgar (LACTINEX/FLORANEX) TAB PO SCH ×3 (05:40→14:53)
[2017-10-01] MEDS: MULTIVIT W/MINERALS TAB (THERAGRAN M) PO SCH (05:40)
[2017-10-01 06:40] LABS: INR 1.6 (0.8-1.4); PROTHROMBIN TIME PATIENT 18.8 SEC (12.2-14.7)
[2017-10-01] MEDS: RT-ADVAIR HFA 115/21 MCG PER PUFF IH SCH ×2 (06:51→18:55)
[2017-10-01] MEDS: UMECLIDINIUM BROMIDE (INCRUSE ELLIPTA) 7'S IH SCH (06:52)
[2017-10-01] MEDS: DOCUSATE SODIUM 100 MG (COLACE) CAP PO SCH ×2 (08:03→20:17)
[2017-10-01] MEDS: POLYETHYLENE GLYCOL 17 GM (MIRALAX) PACK PO SCH ×2 (08:03→20:18)
[2017-10-01 08:41] VITALS: BP 141/64
[2017-10-01] MEDS: FINASTERIDE (PROSCAR) 5 MG TAB PO SCH (08:52)
[2017-10-01] MEDS: TAMSULOSIN 0.4 MG (FLOMAX) CAP PO SCH ×2 (08:52→20:17)
[2017-10-01] MEDS: cefTRIAXone INJECTION 1,000 MG in NS (IVPB) 50 ML IV SCH (08:52)
[2017-10-01] MEDS: FUROSEMIDE 20 MG (LASIX) TAB PO SCH (08:53)
[2017-10-01] MEDS: FLECAINIDE 100 MG (TAMBOCOR) TAB PO SCH ×2 (08:53→20:18)
[2017-10-01] MEDS: DILTIAZEM 240 MG (CARDIZEM CD) CAP PO SCH (08:53)
[2017-10-01] MEDS: KCL 10 MEQ TAB (MICRO K) PO SCH (08:53)
[2017-10-01] MEDS: ACETAMINOPHEN 325 MG TABLET/CAPLET (TYLENOL) PO PRN (09:03)
--- NOTE | 2017-10-01 10:58 | Progress Note-Hospitalist ---
Subjective HPI/CC On Admission Date Seen by Provider: Oct 01, 2017 Time Seen by Provider: 10:30 Subjective/Events-last exam Patient doing about the same very difficult to motivate Pretty nauseated today and he has the emesis basin close to him Subtle abdominal distention but he reports to having bowel movement Very difficult situation considering every day at the different complaints precluding him from regaining any type of mobility and recovery INR 1.6 Appreciate cardiology consultation Review of Systems General: Malaise Gastrointestinal: Nausea Musculoskeletal: leg pain Objective Exam Vital Signs Vital Signs Date Time Temp Pulse Resp B/P (MAP) Pulse Ox O2 Delivery O2 Flow Rate FiO2 10/01/17 16:00 98.2 90 20 126/62 (83) 95 High Flow N/C 3.00 09/30/17 07:10 32 Capillary Refill : Less Than 3 SecondsLess Than 3 Seconds General Appearance: No Apparent Distress, WD/WN, Chronically ill Respiratory: Lungs Clear, Normal Breath Sounds Cardiovascular: Regular Rate, Rhythm, No Edema Gastrointestinal: Distended (subtle) Results/Procedures Lab Patient resulted labs reviewed. Assessment/Plan Assessment and Plan Assess & Plan/Chief Complaint Assessment: Bilateral pneumonia Plan: Pneumonia protocol Increased Percocet frequency Very difficult to motivate considering pain precludes a lot of activity Maintain bowel regimen Nausea med prn Monitor subtle abdominal distention Diagnosis/Problems Diagnosis/Problems (1) Pneumonia Status: Acute (2) Knee pain Status: Acute Qualifiers: Chronicity: acute Laterality: left Qualified Codes: M25.562 - Pain in left knee (3) Subtherapeutic anticoagulation Status: Acute (4) History of DVT of lower extremity Status: Chronic (5) Debility Status: Chronic (6) Hypoxia Status: Acute (7) Anemia Status: Chronic Qualifiers: Anemia type: iron deficiency Iron deficiency anemia type: unspecified iron deficiency Qualified Codes: D50.9 - Iron deficiency anemia, unspecified (8) Hip fracture Status: Chronic Qualifiers: Encounter type: subsequent encounter Fracture type: closed Laterality: unspecified laterality Fracture healing: with routine healing Qualified Codes : S72.009D - Fracture of unspecified part of neck of unspecified femur, subsequent encounter for closed fracture with routine healing (9) Atrial fibrillation Status: Chronic Qualifiers: Atrial fibrillation type: chronic Qualified Codes: I48.2 - Chronic atrial fibrillation (10) COPD (chronic obstructive pulmonary disease) Status: Chronic Qualifiers: COPD type: unspecified COPD Qualified Codes: J44.9 - Chronic obstructive pulmonary disease, unspecified (11) Essential (primary) hypertension Status: Chronic (12) Nausea Status: Acute Assessment & Plan: prn meds (13) Abdominal distension Status: Acute Assessment & Plan: Monitor closely but subtle distention noted Clinical Quality Measures DVT/VTE Risk/Contraindication: Risk Factor Score Per Nursin RFS Level Per Nursing on Admit: 4+=Very High Contraindications-Pharm: Other *list below* ALLEN MARTINEZ DO Oct 01, 2017 10:58
[2017-10-01] MEDS: oxyCODONE/APAP 5/325MG (PERCOCET 5) TABLET PO PRN (11:45)
[2017-10-01 12:00] VITALS: BP 119/57
[2017-10-01] MEDS ORDERED: warFARin 7.5 MG (COUMADIN) TAB PO NR (13:30)
--- NOTE | 2017-10-01 13:31 | Progress Note-Cardiology ---
Cardiology SOAP Progress Note Subjective: Nausea this am, now resolved No cp or palp or syncope Objective: I&O/Vital Signs 10/01/17 10/01/17 10/01/17 10/01/17 02:06 04:00 06:52 08:41 Temp 97.4 98.4 Pulse 68 70 Resp 18 20 B/P (MAP) 124/62 (82) 141/64 (89) Pulse Ox 96 95 97 95 O2 Delivery Nasal Cannula Nasal Cannula Nasal Cannula Nasal Cannula O2 Flow Rate 3.00 2.00 3.00 3.00 3.00 10/01/17 10/01/17 09:00 10:46 Pulse Ox 94 O2 Delivery Nasal Cannula Nasal Cannula O2 Flow Rate 3.00 3.00 10/01/17 00:00 Intake Total 1380 ml Output Total 800 ml Balance 580 ml Weight (Pounds): 178 Weight (Ounces): 8.0 Weight (Calculated Kilograms): 80.335911 Constitutional: AAO x 3, well-developed, well-nourished Respiratory: chest expansion is symmetric, chest is bilaterally symmetric, other Cardiovascular: regular rate-rhythm, S1 and S2 Gastrointestional: soft, round, audible bowel sounds Extremities: no lower extremity edema bilateral Neurologic/Psychiatric: grossly intact Skin: No rash, No ulcerations Results/Procedures: Labs Laboratory Tests 10/01/17 05:05: Prothrombin Time 18.8H, INR Comment 1.6H Microbiology 09/25/17 Gram Stain - Final, Complete 09/25/17 Sputum Culture - Final, Complete Presumptive Cherelle Albicans Normal marta See Comments Laboratory Tests 09/30/17 05:35 A/P: Assessment: Hip fracture status post surgical repair, done on September 09, 2017. Pneumonia - Dr. Harvey managing Echocardiogram LVEF 55-65%, AoV sclerosis w/o stenosis, mild to mod TR, pulmonary artery pressure [address] Rico Anemia - H/H stable after transfusion Paroxysmal atrial fibrillation - currently maintaining sinus rhythm, had workup done in in the past History of DVT in the past, family reported history of multiple DVT, maintained on Coumadin for the past 30 years Chronic Coumadin therapy, was super therapeutic level, probably secondary to antibiotic - now is subtherapeutic Hypertension Acute renal failure COPD/obstructive sleep apnea, using C Pap at night BPH Plan: Continue current medication regimen Monitor lab closely Monitor INR - adjust warfarin as indicated Additional warfarin today because INR subtherapeutic GUICHO BLOUNT MD FACP FAC CCDS Oct 01, 2017 13:31
[2017-10-01 16:00] VITALS: BP 126/62
[2017-10-01 19:14] VITALS: BP 132/78
[2017-10-01] MEDS: ATORVASTATIN 10 MG (LIPITOR) TABLET PO SCH (20:17)
[2017-10-02] VITALS: BP 155/70
[2017-10-02] MEDS: RT-ALBUTEROL SULF 2.5 MG/3 ML PRE-MIX VIAL INH SCH ×4 (02:36→14:48)
[2017-10-02] MEDS: MULTIVIT W/MINERALS TAB (THERAGRAN M) PO SCH (05:57)
[2017-10-02] MEDS: LACTOBACILLUS Acidoph/Bulgar (LACTINEX/FLORANEX) TAB PO SCH ×2 (05:57→11:18)
[2017-10-02] MEDS: PANTOPRAZOLE 40 MG (PROTONIX) TAB PO SCH (05:57)
[2017-10-02] MEDS: RT-ADVAIR HFA 115/21 MCG PER PUFF IH SCH (06:11)
[2017-10-02] MEDS: UMECLIDINIUM BROMIDE (INCRUSE ELLIPTA) 7'S IH SCH (06:11)
[2017-10-02 06:38] LABS: BASOPHILS % (AUTO) 0 % (0-10); EOSINOPHILS # (AUTO) 0.1 10^3/uL (0.0-0.3); EOSINOPHILS % (AUTO) 2 % (0-10); HEMATOCRIT 36 % (40-54); HEMOGLOBIN 11.3 G/DL (13.3-17.7); LYMPHOCYTES # (AUTO) 0.6 X 10^3 (1.0-4.0); LYMPHOCYTES % (AUTO) 8 % (12-44); MEAN CORPUSCULAR HEMOGLOBIN 30 PG (25-34); MEAN CORPUSCULAR HGB CONC 31 G/DL (32-36); MEAN CORPUSCULAR VOLUME 95 FL (80-99); MEAN PLATELET VOLUME 8.7 FL (7.4-10.4); MONOCYTES # (AUTO) 0.6 X 10^3 (0.0-1.0); MONOCYTES % (AUTO) 9 % (0-12); NEUTROPHILS # (AUTO) 6.1 X 10^3 (1.8-7.8); NEUTROPHILS % (AUTO) 81 % (42-75); PLATELET COUNT 517 10^3/uL (130-400); RED BLOOD COUNT 3.83 10^6/uL (4.35-5.85); RED CELL DISTRIBUTION WIDTH 15.7 % (10.0-14.5); WHITE BLOOD COUNT 7.5 10^3/uL (4.3-11.0)
--- NOTE | 2017-10-02 06:38 | Pulmonary Progress Note ---
Subjective Time Seen by Provider: 06:38 Subjective/Events-last exam PT [place] [facility] [place] Exam Vital Signs Date Time Temp Pulse Resp B/P (MAP) Pulse Ox O2 Delivery O2 Flow Rate FiO2 10/02/17 06:09 93 Nasal Cannula 3.00 10/02/17 02:36 93 NIV CPAP 3.00 10/02/17 00:00 98.1 83 16 155/70 (98) 91 High Flow N/C 3.00 10/01/17 22:32 94 NIV CPAP 3.00 10/01/17 20:17 Nasal Cannula 3.00 10/01/17 19:14 97.8 86 18 132/78 (96) 95 High Flow N/C 3.00 10/01/17 18:55 94 Nasal Cannula 3.00 10/01/17 16:00 98.2 90 20 126/62 (83) 95 High Flow N/C 3.00 10/01/17 14:31 93 Nasal Cannula 3.00 10/01/17 12:00 98.4 76 18 119/57 (77) 92 High Flow N/C 3.00 10/01/17 10:46 94 Nasal Cannula 3.00 10/01/17 09:00 Nasal Cannula 3.00 10/01/17 08:41 98.4 70 20 141/64 (89) 95 Nasal Cannula 3.00 10/01/17 06:52 97 Nasal Cannula 3.00 I & O 10/02/17 07:00 Intake Total 1750 ml Output Total 1325 ml Balance 425 ml General Appearance: No Apparent Distress, WD/WN, Chronically ill HEENT: Normal ENT Inspection Neck: Full Range of Motion, Normal Inspection Respiratory: Lungs Clear, Normal Breath Sounds Cardiovascular: Regular Rate, Rhythm, No Edema Capillary Refill: Less Than 3 Seconds Gastrointestinal: non tender, soft Extremity: Normal Capillary Refill, Normal Inspection, Normal Range of Motion Neurologic/Psychiatric: Alert, Oriented x3, No Motor/Sensory Deficits, Depressed Affect Skin: Normal Color, Warm/Dry Lymphatic: No Adenopathy Results Lab Assessment/Plan Assessment/Plan MSSA pneumonia - resolving -Oxygen as needed Pulmonary edema with bilateral pleural effusions- improving -Lasix PO 60mg daily currently -CT chest is negative for PE however shows bilateral pleural effusions and infiltration. Mediastinal adenopathy --Pt will need repeat CT scan in 6-8wks to ensure compleat resolution r/o mass. -Order placed for RN to schedule pt f/u appt with me. pt is not yet ready for discharge. HX of COPD -SVNS DuoNeb Atelectasis -IS S/p Fracture hip and surgical repair Debility -PT/OT PT is ok from pulmonary standpoint for discharge. I will have him f/u with me in 6-8wks for repeat CT scan . 232 LILO ROMO DO Oct 02, 2017 06:38
[2017-10-02 06:51] LABS: ALBUMIN 3.5 GM/DL (3.2-4.5); BILIRUBIN,TOTAL 0.4 MG/DL (0.1-1.0); CREATININE SERUM 1.28 MG/DL (0.60-1.30); POTASSIUM 4.7 MMOL/L (3.6-5.0); TOTAL PROTEIN 6.8 GM/DL (6.4-8.2)
[2017-10-02 07:00] LABS: INR 1.8 (0.8-1.4); PROTHROMBIN TIME PATIENT 20.7 SEC (12.2-14.7)
--- NOTE | 2017-10-02 07:33 | Diagnostic Imaging Report ---
EXAM: CHEST 1 VIEW, AP/PA ONLY INDICATION: Pneumonia. COMPARISON: Chest radiograph 09/28/2017. FINDINGS: Normal heart size and central pulmonary vascularity. Calcified aorta. Elevation of left hemidiaphragm. Mild atelectasis or infiltrate in the lung bases is stable. No definite pleural effusion. No pneumothorax. No acute osseous findings. IMPRESSION: Stable, mild atelectasis or infiltrate in the lung bases and elevation of left hemidiaphragm. Dictated by: Dictated on workstation # [id number]
--- NOTE | 2017-10-02 07:57 | Progress Note-Standard ---
Standard Progress Note Progress Notes/Assess & Plan Date Seen by Provider: Oct 02, 2017 Time Seen by Provider: 07:56 Progress/Assessment & Plan report hip is feeling better L hip incision well healed No calf tenderness. Neg Alex's s/p L hip IM osmany ok to advance to 50% WB LLE Final Diagnosis feeling better today L LE incisions well healed s/p L hip IM osmany continue PT/OT 50% WB LLE DOMINIK ALBA MD Oct 02, 2017 07:56
[2017-10-02 08:00] VITALS: BP 120/57
[2017-10-02] MEDS: POLYETHYLENE GLYCOL 17 GM (MIRALAX) PACK PO SCH (08:17)
[2017-10-02] MEDS: FLECAINIDE 100 MG (TAMBOCOR) TAB PO SCH (08:18)
[2017-10-02] MEDS: KCL 10 MEQ TAB (MICRO K) PO SCH (08:19)
[2017-10-02] MEDS: DILTIAZEM 240 MG (CARDIZEM CD) CAP PO SCH (08:19)
[2017-10-02] MEDS: FINASTERIDE (PROSCAR) 5 MG TAB PO SCH (08:19)
[2017-10-02] MEDS: FUROSEMIDE 20 MG (LASIX) TAB PO SCH (08:19)
[2017-10-02] MEDS: DOCUSATE SODIUM 100 MG (COLACE) CAP PO SCH (08:19)
[2017-10-02] MEDS: TAMSULOSIN 0.4 MG (FLOMAX) CAP PO SCH (08:19)
[2017-10-02] MEDS: oxyCODONE/APAP 5/325MG (PERCOCET 5) TABLET PO PRN (08:19)
--- NOTE | 2017-10-02 08:40 | Progress Note (SOAP) ---
Subjective Time Seen by Provider: 08:34 Subjective/Events-last exam Patient feeling much better today. Hip fracture. Patient planning on discharge today. guest services director to work this out with patient and family Objective Exam Vital Signs Date Time Temp Pulse Resp B/P (MAP) Pulse Ox O2 Delivery O2 Flow Rate FiO2 10/02/17 06:09 93 Nasal Cannula 3.00 10/02/17 02:36 93 NIV CPAP 3.00 10/02/17 00:00 98.1 83 16 155/70 (98) 91 High Flow N/C 3.00 10/01/17 22:32 94 NIV CPAP 3.00 10/01/17 20:17 Nasal Cannula 3.00 10/01/17 19:14 97.8 86 18 132/78 (96) 95 High Flow N/C 3.00 10/01/17 18:55 94 Nasal Cannula 3.00 10/01/17 16:00 98.2 90 20 126/62 (83) 95 High Flow N/C 3.00 10/01/17 14:31 93 Nasal Cannula 3.00 10/01/17 12:00 98.4 76 18 119/57 (77) 92 High Flow N/C 3.00 10/01/17 10:46 94 Nasal Cannula 3.00 10/01/17 09:00 Nasal Cannula 3.00 10/01/17 08:41 98.4 70 20 141/64 (89) 95 Nasal Cannula 3.00 I & O 10/02/17 07:00 Intake Total 1750 ml Output Total 1325 ml Balance 425 ml Capillary Refill : Less Than 3 SecondsLess Than 3 Seconds General Appearance: No Apparent Distress, WD/WN HEENT: Normal ENT Inspection Neck: Full Range of Motion Respiratory: Decreased Breath Sounds Cardiovascular: Regular Rate, Rhythm, No Murmur Gastrointestinal: non tender, soft Results Lab Laboratory Tests 10/02/17 05:39 Laboratory Tests 10/02/17 05:39: White Blood Count 7.5, Red Blood Count 3.83L, Hemoglobin 11.3L, Hematocrit 36L, Mean Corpuscular Volume 95, Mean Corpuscular Hemoglobin 30, Mean Corpuscular Hemoglobin Concent 31L, Red Cell Distribution Width 15.7H, Platelet Count 517H, Mean Platelet Volume 8.7, Neutrophils (%) (Auto) 81H, Lymphocytes (%) (Auto) 8L , Monocytes (%) (Auto) 9, Eosinophils (%) (Auto) 2, Basophils (%) (Auto) 0, Neutrophils # (Auto) 6.1, Lymphocytes # (Auto) 0.6L, Monocytes # (Auto) 0.6, Eosinophils # (Auto) 0.1, Basophils # (Auto) 0.0, Prothrombin Time 20.7H, INR Comment 1.8H, Sodium Level 140, Potassium Level 4.7, Chloride Level 105, Carbon Dioxide Level 22, Anion Gap 13, Blood Urea Nitrogen 24H, Creatinine 1.28, Estimat Glomerular Filtration Rate 54, BUN/Creatinine Ratio 19, Glucose Level 122H, Calcium Level 9.0, Total Bilirubin 0.4, Aspartate Amino Transf (AST/SGOT) 26, Alanine Aminotransferase (ALT/SGPT) 37, Alkaline Phosphatase 136, Total Protein 6.8, Albumin 3.5 Microbiology 09/25/17 Gram Stain - Final, Complete 09/25/17 Sputum Culture - Final, Complete Presumptive Cherelle Albicans Normal marta See Comments Assessment/Plan Assessment/Plan Assess & Plan/Chief Complaint Pneumonia. Anemia. COPD.. . 09/28/17. Pneumonia. Fluid overload. Anemia. COPD. Hip fracture. Patient breathing much better today. Patient lost 22 pounds. Patient breathing better. Plan to send patient back to rehabilitation tomorrow. . 09/29/17. Pneumonia. MSSA. Pulmonary edema. Anemia. COPD. Hip fracture. Patient to be transferred to rehabilitation today. . 10/02/17. Pneumonia with MSSA. X-ray shows better. Patient in sinus rhythm now. History of atrial fib. COPD. Hip fracture. Patient to be discharged today. Patient working with director social Clinical Quality Measures Admission Status Admission Dx Pneumonia. Anemia. Right hip fracture. Short of breath. Atrial fibrillation. Weakness DVT/VTE Risk/Contraindication: Risk Factor Score Per Nursin RFS Level Per Nursing on Admit: 4+=Very High Contraindications-Pharm: Other *list below* YOUSIF ARAGON DO Oct 02, 2017 08:40
[2017-10-02] MEDS ORDERED: cefTRIAXone INJECTION 1,000 MG in NS (IVPB) 50 ML IV SCH (10:00)
--- NOTE | 2017-10-02 12:11 | Progress Note-Cardiology ---
Cardiology SOAP Progress Note Subjective: No cp or palp or syncope or shortness of breath or nausea Objective: I&O/Vital Signs 10/02/17 10/02/17 10/02/17 10/02/17 02:36 06:09 08:00 08:00 Temp 98.6 Pulse 101 Resp 22 B/P (MAP) 120/57 (78) Pulse Ox 93 93 91 O2 Delivery NIV CPAP Nasal Cannula Nasal Cannula High Flow N/C O2 Flow Rate 3.00 3.00 3.00 3.00 10/02/17 10:38 Pulse Ox 96 O2 Delivery Nasal Cannula O2 Flow Rate 3.00 10/02/17 00:00 Intake Total 1650 ml Output Total 950 ml Balance 700 ml Weight (Pounds): 178 Weight (Ounces): 8.0 Weight (Calculated Kilograms): [id number] Constitutional: AAO x 3, well-developed, well-nourished Respiratory: chest expansion is symmetric, chest is bilaterally symmetric, other Cardiovascular: regular rate-rhythm, S1 and S2 Gastrointestional: soft, round, audible bowel sounds Extremities: no lower extremity edema bilateral Neurologic/Psychiatric: grossly intact Skin: No rash, No ulcerations Results/Procedures: Labs Laboratory Tests 10/02/17 05:39: White Blood Count 7.5, Red Blood Count 3.83L, Hemoglobin 11.3L, Hematocrit 36L, Mean Corpuscular Volume 95, Mean Corpuscular Hemoglobin 30, Mean Corpuscular Hemoglobin Concent 31L, Red Cell Distribution Width 15.7H, Platelet Count 517H, Mean Platelet Volume 8.7, Neutrophils (%) (Auto) 81H, Lymphocytes (%) (Auto) 8L , Monocytes (%) (Auto) 9, Eosinophils (%) (Auto) 2, Basophils (%) (Auto) 0, Neutrophils # (Auto) 6.1, Lymphocytes # (Auto) 0.6L, Monocytes # (Auto) 0.6, Eosinophils # (Auto) 0.1, Basophils # (Auto) 0.0, Prothrombin Time 20.7H, INR Comment 1.8H, Sodium Level 140, Potassium Level 4.7, Chloride Level 105, Carbon Dioxide Level 22, Anion Gap 13, Blood Urea Nitrogen 24H, Creatinine 1.28, Estimat Glomerular Filtration Rate 54, BUN/Creatinine Ratio 19, Glucose Level 122H, Calcium Level 9.0, Total Bilirubin 0.4, Aspartate Amino Transf (AST/SGOT) 26, Alanine Aminotransferase (ALT/SGPT) 37, Alkaline Phosphatase 136, Total Protein 6.8, Albumin 3.5 Microbiology 09/25/17 Gram Stain - Final, Complete 09/25/17 Sputum Culture - Final, Complete Presumptive Cherelle Albicans Normal marta See Comments Laboratory Tests 10/02/17 05:39 A/P: Assessment: Hip fracture status post surgical repair, done on September 09, 2017. Pneumonia - Dr. Harvey managing Echocardiogram LVEF 55-65%, AoV sclerosis w/o stenosis, mild to mod TR, pulmonary artery pressure [address] 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 Monitor INR - adjust warfarin as indicated I spoke with him and his family today and answered questions GUICHO BLOUNT MD FACP FACC CCDS Oct 02, 2017 12:11
[2017-10-02] MEDS ORDERED: FURO-124 PO (12:40)
[2017-10-02] MEDS ORDERED: CEFD300C3 PO (12:40)
--- NOTE | 2017-10-04 07:24 | Discharge Summary ---
Diagnosis/Chief Complaint Date of Admission Sep 25, 2017 at 12:05 Date of Discharge Oct 02, 2017 at 15:35 Discharge Date: Oct 02, 2017 Discharge Time: 07:10 Discharge Diagnosis MSSA pneumonia. Pulmonary edema. COPD. Cherelle albicans in sputum. Hypomagnesemia. Hip fracture. Proximal atrial fib. Hypertension. History of DVT. Coronary artery disease. BPH. Obstructive sleep apnea Reason Hospital Visit Patient was in acute rehabilitation. Patient has pneumonia and got more short of breath. Patient had ago on Vapotherm. Patient unable to do 3 hours of physical therapy and occupational therapy Patient anemic. Patient transferred to medical floor acute. Patient being seen by cardiology and pulmonology. Patient recently had right hip surgery Discharge Summary Consultations Pulmonology. Cardiology Discharge Physical Examination Allergies: Uncoded Allergies: Tape (Allergy, Mild, 09/08/17) Can have paper tape Vitals & I&Os Vital Signs Date Time Temp Pulse Resp B/P (MAP) Pulse Ox O2 Delivery O2 Flow Rate FiO2 10/02/17 14:48 93 Nasal Cannula 3.00 10/02/17 08:00 98.6 101 22 120/57 (78) 09/30/17 07:10 32 Hospital Course Patient felt much better. Patient transferred to [facility]. Labs (last 24 hrs) Laboratory Tests 09/26/17 05:37: Prothrombin Time 27.2H, INR Comment 2.5H 09/26/17 05:39: White Blood Count 8.1, Red Blood Count 3.43L, Hemoglobin 10.3#L, Hematocrit 32L , Mean Corpuscular Volume 92, Mean Corpuscular Hemoglobin 30, Mean Corpuscular Hemoglobin Concent 33, Red Cell Distribution Width 18.1H, Platelet Count 486H, Mean Platelet Volume 8.6, Sodium Level 138, Potassium Level 4.4, Chloride Level 104, Carbon Dioxide Level 23, Anion Gap 11, Blood Urea Nitrogen 15, Creatinine 1.14, Estimat Glomerular Filtration Rate > 60, BUN/Creatinine Ratio 13, Glucose Level 124H, Calcium Level 8.6, Total Bilirubin 0.8, Aspartate Amino Transf (AST/ SGOT) 38H, Alanine Aminotransferase (ALT/SGPT) 42, Alkaline Phosphatase 147H, Troponin I < 0.30, B-Type Natriuretic Peptide 186.6H, Total Protein 6.3L, Albumin 3.1L 09/26/17 16:38: Lab Scanned Report Transfusion Reaction Form 09/27/17 05:34: Prothrombin Time 23.8H, INR Comment 2.1H, White Blood Count 7.4, Red Blood Count 3.33L, Hemoglobin 10.3L, Hematocrit 31L, Mean Corpuscular Volume 93, Mean Corpuscular Hemoglobin 31, Mean Corpuscular Hemoglobin Concent 33, Red Cell Distribution Width 17.1H, Platelet Count 482H, Mean Platelet Volume 8.3, Sodium Level 138, Potassium Level 4.4, Chloride Level 105, Carbon Dioxide Level 24, Anion Gap 9, Blood Urea Nitrogen 15, Creatinine 1.04, Estimat Glomerular Filtration Rate > 60, BUN/Creatinine Ratio 14, Glucose Level 114H, Calcium Level 8.6, Magnesium Level 1.7L, Amylase Level 53, Lipase 50 09/28/17 05:10: White Blood Count 6.0, Red Blood Count 3.44L, Hemoglobin 10.4L, Hematocrit 32L, Mean Corpuscular Volume 94, Mean Corpuscular Hemoglobin 30, Mean Corpuscular Hemoglobin Concent 32, Red Cell Distribution Width 16.6H, Platelet Count 513H, Mean Platelet Volume 8.6, Prothrombin Time 20.9H, INR Comment 1.8H, Sodium Level 139, Potassium Level 4.3, Chloride Level 105, Carbon Dioxide Level 21, Anion Gap 13, Blood Urea Nitrogen 15, Creatinine 1.16, Estimat Glomerular Filtration Rate 60, BUN/Creatinine Ratio 13, Glucose Level 109H, Calcium Level 8.5, Magnesium Level 2.0 09/29/17 05:20: White Blood Count 7.2, Red Blood Count 3.56L, Hemoglobin 11.0L, Hematocrit 34L, Mean Corpuscular Volume 94, Mean Corpuscular Hemoglobin 31, Mean Corpuscular Hemoglobin Concent 33, Red Cell Distribution Width 16.1H, Platelet Count 495H, Mean Platelet Volume 8.6, Prothrombin Time 17.8H, INR Comment 1.5H, Sodium Level 140, Potassium Level 4.5, Chloride Level 107, Carbon Dioxide Level 23, Anion Gap 10, Blood Urea Nitrogen 15, Creatinine 1.10, Estimat Glomerular Filtration Rate > 60, BUN/Creatinine Ratio 14, Glucose Level 115H, Calcium Level 8.8 09/30/17 05:35: White Blood Count 7.8, Red Blood Count 3.73L, Hemoglobin 11.1L, Hematocrit 35L, Mean Corpuscular Volume 94, Mean Corpuscular Hemoglobin 30, Mean Corpuscular Hemoglobin Concent 32, Red Cell Distribution Width 16.0H, Platelet Count 527H, Mean Platelet Volume 8.7, Prothrombin Time 18.2H, INR Comment 1.5H, Sodium Level 139, Potassium Level 4.7, Chloride Level 105, Carbon Dioxide Level 21, Anion Gap 13, Blood Urea Nitrogen 17, Creatinine 1.16, Estimat Glomerular Filtration Rate 60, BUN/Creatinine Ratio 15, Glucose Level 117H, Calcium Level 9.1, Neutrophils (%) (Auto) 82H, Lymphocytes (%) (Auto) 8L, Monocytes (%) (Auto ) 8, Eosinophils (%) (Auto) 2, Basophils (%) (Auto) 0, Neutrophils # (Auto) 6.4 , Lymphocytes # (Auto) 0.7L, Monocytes # (Auto) 0.6, Eosinophils # (Auto) 0.2, Basophils # (Auto) 0.0, Neutrophils % (Manual) 79, Lymphocytes % (Manual) 9, Monocytes % (Manual) 7, Eosinophils % (Manual) 5, Anisocytosis SLIGHT 10/01/17 05:05: Prothrombin Time 18.8H, INR Comment 1.6H 10/02/17 05:39: White Blood Count 7.5, Red Blood Count 3.83L, Hemoglobin 11.3L, Hematocrit 36L, Mean Corpuscular Volume 95, Mean Corpuscular Hemoglobin 30, Mean Corpuscular Hemoglobin Concent 31L, Red Cell Distribution Width 15.7H, Platelet Count 517H, Mean Platelet Volume 8.7, Neutrophils (%) (Auto) 81H, Lymphocytes (%) (Auto) 8L , Monocytes (%) (Auto) 9, Eosinophils (%) (Auto) 2, Basophils (%) (Auto) 0, Neutrophils # (Auto) 6.1, Lymphocytes # (Auto) 0.6L, Monocytes # (Auto) 0.6, Eosinophils # (Auto) 0.1, Basophils # (Auto) 0.0, Prothrombin Time 20.7H, INR Comment 1.8H, Sodium Level 140, Potassium Level 4.7, Chloride Level 105, Carbon Dioxide Level 22, Anion Gap 13, Blood Urea Nitrogen 24H, Creatinine 1.28, Estimat Glomerular Filtration Rate 54, BUN/Creatinine Ratio 19, Glucose Level 122H, Calcium Level 9.0, Total Bilirubin 0.4, Aspartate Amino Transf (AST/SGOT) 26, Alanine Aminotransferase (ALT/SGPT) 37, Alkaline Phosphatase 136, Total Protein 6.8, Albumin 3.5 Microbiology 09/25/17 Gram Stain - Final, Complete 09/25/17 Sputum Culture - Final, Complete Presumptive Cherelle Albicans Normal marta See Comments Laboratory Tests 09/26/17 05:39 09/27/17 05:34 09/28/17 05:10 09/29/17 05:20 09/30/17 05:35 10/02/17 05:39 Pending Labs Microbiology Date/Time Source Procedure Growth Status 09/25/17 18:10 Sputum Expectorated Gram Stain - Final Complete 09/25/17 18:10 Sputum Culture - Final Presumptive Cherelle Albicans Normal marta See Comments Complete Laboratory Tests 09/26/17 05:37: Prothrombin Time 27.2, INR Comment 2.5 09/26/17 05:39: White Blood Count 8.1, Red Blood Count 3.43, Hemoglobin 10.3, Hematocrit 32, Mean Corpuscular Volume 92, Mean Corpuscular Hemoglobin 30, Mean Corpuscular Hemoglobin Concent 33, Red Cell Distribution Width 18.1, Platelet Count 486, Mean Platelet Volume 8.6, Sodium Level 138, Potassium Level 4.4, Chloride Level 104, Carbon Dioxide Level 23, Anion Gap 11, Blood Urea Nitrogen 15, Creatinine 1.14, Estimat Glomerular Filtration Rate > 60, BUN/Creatinine Ratio 13, Glucose Level 124, Calcium Level 8.6, Total Bilirubin 0.8, Aspartate Amino Transf (AST/ SGOT) 38, Alanine Aminotransferase (ALT/SGPT) 42, Alkaline Phosphatase 147, Troponin I < 0.30, B-Type Natriuretic Peptide 186.6, Total Protein 6.3, Albumin 3.1 09/26/17 16:38: Lab Scanned Report Transfusion Reaction Form 09/27/17 05:34: Prothrombin Time 23.8, INR Comment 2.1, White Blood Count 7.4, Red Blood Count 3.33, Hemoglobin 10.3, Hematocrit 31, Mean Corpuscular Volume 93, Mean Corpuscular Hemoglobin 31, Mean Corpuscular Hemoglobin Concent 33, Red Cell Distribution Width 17.1, Platelet Count 482, Mean Platelet Volume 8.3, Sodium Level 138, Potassium Level 4.4, Chloride Level 105, Carbon Dioxide Level 24, Anion Gap 9, Blood Urea Nitrogen 15, Creatinine 1.04, Estimat Glomerular Filtration Rate > 60, BUN/Creatinine Ratio 14, Glucose Level 114, Calcium Level 8.6, Magnesium Level 1.7, Amylase Level 53, Lipase 50 09/28/17 05:10: White Blood Count 6.0, Red Blood Count 3.44, Hemoglobin 10.4, Hematocrit 32, Mean Corpuscular Volume 94, Mean Corpuscular Hemoglobin 30, Mean Corpuscular Hemoglobin Concent 32, Red Cell Distribution Width 16.6, Platelet Count 513, Mean Platelet Volume 8.6, Prothrombin Time 20.9, INR Comment 1.8, Sodium Level 139, Potassium Level 4.3, Chloride Level 105, Carbon Dioxide Level 21, Anion Gap 13, Blood Urea Nitrogen 15, Creatinine 1.16, Estimat Glomerular Filtration Rate 60, BUN/Creatinine Ratio 13, Glucose Level 109, Calcium Level 8.5, Magnesium Level 2.0 09/29/17 05:20: White Blood Count 7.2, Red Blood Count 3.56, Hemoglobin 11.0, Hematocrit 34, Mean Corpuscular Volume 94, Mean Corpuscular Hemoglobin 31, Mean Corpuscular Hemoglobin Concent 33, Red Cell Distribution Width 16.1, Platelet Count 495, Mean Platelet Volume 8.6, Prothrombin Time 17.8, INR Comment 1.5, Sodium Level 140, Potassium Level 4.5, Chloride Level 107, Carbon Dioxide Level 23, Anion Gap 10, Blood Urea Nitrogen 15, Creatinine 1.10, Estimat Glomerular Filtration Rate > 60, BUN/Creatinine Ratio 14, Glucose Level 115, Calcium Level 8.8 09/30/17 05:35: White Blood Count 7.8, Red Blood Count 3.73, Hemoglobin 11.1, Hematocrit 35, Mean Corpuscular Volume 94, Mean Corpuscular Hemoglobin 30, Mean Corpuscular Hemoglobin Concent 32, Red Cell Distribution Width 16.0, Platelet Count 527, Mean Platelet Volume 8.7, Prothrombin Time 18.2, INR Comment 1.5, Sodium Level 139, Potassium Level 4.7, Chloride Level 105, Carbon Dioxide Level 21, Anion Gap 13, Blood Urea Nitrogen 17, Creatinine 1.16, Estimat Glomerular Filtration Rate 60, BUN/Creatinine Ratio 15, Glucose Level 117, Calcium Level 9.1, Neutrophils (%) (Auto) 82, Lymphocytes (%) (Auto) 8, Monocytes (%) (Auto) 8, Eosinophils (%) (Auto) 2, Basophils (%) (Auto) 0, Neutrophils # (Auto) 6.4, Lymphocytes # (Auto) 0.7, Monocytes # (Auto) 0.6, Eosinophils # (Auto) 0.2, Basophils # (Auto) 0.0, Neutrophils % (Manual) 79, Lymphocytes % (Manual) 9, Monocytes % (Manual) 7, Eosinophils % (Manual) 5, Anisocytosis SLIGHT 10/01/17 05:05: Prothrombin Time 18.8, INR Comment 1.6 10/02/17 05:39: White Blood Count 7.5, Red Blood Count 3.83, Hemoglobin 11.3, Hematocrit 36, Mean Corpuscular Volume 95, Mean Corpuscular Hemoglobin 30, Mean Corpuscular Hemoglobin Concent 31, Red Cell Distribution Width 15.7, Platelet Count 517, Mean Platelet Volume 8.7, Neutrophils (%) (Auto) 81, Lymphocytes (%) (Auto) 8, Monocytes (%) (Auto) 9, Eosinophils (%) (Auto) 2, Basophils (%) (Auto) 0, Neutrophils # (Auto) 6.1, Lymphocytes # (Auto) 0.6, Monocytes # (Auto) 0.6, Eosinophils # (Auto) 0.1, Basophils # (Auto) 0.0, Prothrombin Time 20.7, INR Comment 1.8, Sodium Level 140, Potassium Level 4.7, Chloride Level 105, Carbon Dioxide Level 22, Anion Gap 13, Blood Urea Nitrogen 24, Creatinine 1.28, Estimat Glomerular Filtration Rate 54, BUN/Creatinine Ratio 19, Glucose Level 122, Calcium Level 9.0, Total Bilirubin 0.4, Aspartate Amino Transf (AST/SGOT) 26, Alanine Aminotransferase (ALT/SGPT) 37, Alkaline Phosphatase 136, Total Protein 6.8, Albumin 3.5 Discussion & Recommendations Patient to get PT and OT at [facility]. Ration not a candidate for rehabilitation for 3 hours of physical therapy here Discharge Home Medications: Active Scripts Active Cefdinir 300 Mg Capsule 300 Mg PO BID 10 Days Lasix (Furosemide) 40 Mg Tablet 40 Mg PO DAILY Reported Warfarin Sodium 2 Mg Tablet 4 Mg PO SUMOWETHSA Warfarin Sodium 2 Mg Tablet 3 Mg PO TUFR Livalo (Pitavastatin Calcium) 2 Mg Tablet 2 Mg PO DAILY Dutasteride 0.5 Mg Capsule 0.5 Mg PO DAILY Breo Ellipta 100-25 Mcg INH (Fluticasone/Vilanterol) 1 Each Blst.w.dev 1 Puff INH DAILY Colace (Docusate Sodium) 100 Mg Capsule 100 Mg PO HS Centrum Complete Multivit Tab (Multivitamin/Iron/Folic Acid) 1 Each Tablet 1 Tab PO DAILY Flecainide Acetate 50 Mg Tablet 50 Mg PO BID Tamsulosin HCl 0.4 Mg Cap.er.24h 0.4 Mg PO BID Spiriva (Tiotropium [place]) 1 Inh Aerp 1 Cap INH DAILY Cartia Xt (Diltiazem HCl) 240 Mg Cap.er.24h 240 Mg PO HS Ventolin Hfa (Albuterol Sulfate) 18 Gm Hfa.aer.ad 2 Puff INH Q4H PRN Instructions to patient/family Please see electronic discharge instructions given to patient. Clinical Quality Measures DVT/VTE Risk/Contraindication: Risk Factor Score Per Nursin RFS Level Per Nursing on Admit: 4+=Very High Contraindications-Pharm: Other *list below* YOUSIF ARAGON DO Oct 04, 2017 07:24
== END 2017-10-02 15:35 | disposition swing bed (61) | DRG 178 ==
LOC: 4TH 12:05
PROVIDERS: ADMIT Family Medicine; ATTEND Family Medicine
DX: J15.211 Pneumonia due to Methicillin susceptible Staphylococcus aureus (principal); J44.0 Chronic obstructive pulmonary disease with (acute) lower respiratory infection; J81.1 Chronic pulmonary edema; J90 Pleural effusion, not elsewhere classified; J98.11 Atelectasis; R09.02 Hypoxemia; R59.0 Localized enlarged lymph nodes; E83.42 Hypomagnesemia; R07.9 Chest pain, unspecified; S72.142D Displaced intertrochanteric fracture of left femur, subsequent encounter for closed fracture with routine healing; D50.9 Iron deficiency anemia, unspecified; I48.0 Paroxysmal atrial fibrillation; I25.10 Atherosclerotic heart disease of native coronary artery without angina pectoris; I10 Essential (primary) hypertension; G47.33 Obstructive sleep apnea (adult) (pediatric); M19.91 Primary osteoarthritis, unspecified site; N40.0 Benign prostatic hyperplasia without lower urinary tract symptoms; R53.81 Other malaise; R79.1 Abnormal coagulation profile; I08.2 Rheumatic disorders of both aortic and tricuspid valves; M25.562 Pain in left knee; R11.0 Nausea; E87.70 Fluid overload, unspecified; R14.0 Abdominal distension (gaseous); Z86.718 Personal history of other venous thrombosis and embolism; Z79.01 Long term (current) use of anticoagulants; Z87.891 Personal history of nicotine dependence
CPT/HCPCS: 36415; 71045; 71046; 76770; 80048; 80053; 82150; 83690; 83735; 83880; 84484; 85007; 85025; 85027; 85610; 86850; 86900; 86901; 86920; 87070; 87205; 94640; 94760

== ENCOUNTER → 2021-10-21 | Outpatient (CLI) | payer MEDICARE ==
[~2021-10-21] MED LIST changes: +CEFD300C3 PO; -DUTA0.5C14 PO; +DUTA0.5C36 PO; +FURO-124 PO; -MELA3TAB PO; +MELA3TAB39 PO; -OXYC-471 PO; +OXYC1TAB11 PO; -PANT40TA3 PO; +PANT40TA52 PO; -POLY17PO23 PO; +POLY17PO54 PO; +POTA8CAP20 PO; -POTA8CAP9 PO; -WARF1TAB PO; +WRF1T PO
--- NOTE | 2021-10-21 14:33 | Diagnostic Imaging Report ---
PROCEDURE: US Bilateral lower extremity arterial. TECHNIQUE: Multiple real-time grayscale images are obtained through both lower extremity arterial systems with color Doppler imaging and color Doppler spectral analysis. INDICATION: Bilateral lower extremity weakness. Peripheral arterial disease. COMPARISON: None. FINDINGS: Biphasic waveforms are visualized in the right common femoral and profunda femoris arteries. These arteries demonstrate normal peak systolic velocities. There is occlusion of the right superficial femoral artery. Monophasic collateral flow is seen within the right thigh supplying the right popliteal artery. Monophasic waveforms are seen in the right popliteal, anterior tibial, posterior tibial, and dorsalis pedis arteries. Diminished waveforms are visualized within these arteries. Diffuse atherosclerotic plaque is seen throughout the right lower extremity arterial system. Biphasic waveform is visualized within the left common femoral artery. Monophasic waveforms are seen in the left profunda femoris artery with elevated peak systolic velocity of 174 cm/s. There is complete occlusion of the left superficial femoral artery with monophasic collateral flow supplying the left popliteal artery. Biphasic waveforms are visualized in the left popliteal, anterior tibial, and posterior tibial arteries with monophasic waveforms in the left dorsalis pedis artery. These arteries demonstrate diminished peak systolic velocities. Calcified atherosclerotic plaque is seen throughout the left lower extremity arterial system. IMPRESSION: 1. Bilateral occluded superficial femoral arteries with collateral flow intact supplying the popliteal arteries and arteries of the bilateral calves. This results in diminished peak systolic velocities within the bilateral calf vessels with scattered biphasic and monophasic waveforms. 2. Monophasic waveform in the left profunda femoris artery with elevated peak systolic velocity. 3. Large burden of calcified atherosclerotic plaque in the bilateral lower extremity arterial systems. Dictated by: Dictated on workstation # [id number]
== END ==
LOC: RAD 10:48
PROVIDERS: ATTEND Family Medicine
DX: I70.203 Unspecified atherosclerosis of native arteries of extremities, bilateral legs (principal); R29.898 Other symptoms and signs involving the musculoskeletal system
CPT/HCPCS: 93925